=== PATIENT | female | born 1950 | race Caucasian/White ===

== ENCOUNTER 2019-12-04 12:35 | Outpatient (CLI) | payer MEDICARE, OTHER | END 2019-12-04 12:36 | disposition short-term general hospital (02) | LOC: EMS 12:35 | PROVIDERS: ATTEND Surgery | DX: M54.9 Dorsalgia, unspecified (principal) | CPT/HCPCS: A0425; A0429 ==

== ENCOUNTER 2020-01-09 11:41 | Outpatient (CLI) | payer MEDICARE, OTHER | END 2020-01-09 11:42 | disposition critical access hospital (66) | LOC: EMS 11:41 | PROVIDERS: ATTEND Surgery | DX: R11.0 Nausea (principal); R06.02 Shortness of breath; R20.2 Paresthesia of skin; R73.09 Other abnormal glucose | CPT/HCPCS: A0425; A0429 ==

== ENCOUNTER 2020-01-09 12:01 | Emergency (ER) | payer MEDICARE, OTHER ==
--- NOTE | 2020-01-09 12:34 | ED Physician Documentation ---
History of Present Illness - Stated complaint Stated Complaint: LOW BLOOD SUGAR - Chief complaint Chief Complaint: General - History obtained from History obtained from: Patient - Additonal information Additional information: 69-year-old woman with history of hypoglycemia of unclear etiology. She is not diabetic nor does she take anti-hyperglycemics or insulin. She was in physical therapy today for her back and started to feel weak and dizzy like her blood sugar was low. They gave her oral glucose and EMS was summoned. They found her blood sugar to be 78 and she was transported. She feels better now except for chronic back pain. 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 /[employer]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 Cardiovascular: Pacemaker - Present Medications Home Medications: Ambulatory Orders Medication Instructions Recorded Confirmed Bupropion HCl [Bupropion Xl] 150 mg PO 10/25/13 10/25/13 Lansoprazole [Prevacid] 30 mg PO 10/25/13 10/25/13 Levothyroxine Sodium [Synthroid] 88 mcg PO 10/25/13 10/25/13 Metoprolol Succinate 20 mg PO BID 10/25/13 10/25/13 Promethazine [Phenergan] 25 mg ORAL 10/25/13 10/25/13 Valsartan/Hydrochlorothiazide 1 each PO 10/25/13 10/25/13 [Diovan Hct 80-12.5 mg Tablet] Zolpidem [Ambien] 5 mg PO HS 10/25/13 10/25/13 clonazePAM [Clonazepam] 0.5 mg PO 10/25/13 10/25/13 traMADol [Ultram] 50 mg PO Q4-6H 10/25/13 10/25/13 - Allergies Allergies/Adverse Reactions: Allergies Allergy/AdvReac Type Severity Reaction Status Date / Time aspirin Allergy Unknown Unknown Verified 01/09/20 12:11 celecoxib [From Celebrex] Allergy Unknown Unknown Verified 01/09/20 12:11 morphine Allergy Unknown Unknown Verified 01/09/20 12:11 oxycodone [Oxycodone] Allergy Unknown Unknown Verified 01/09/20 12:11 IVP Allergy Unknown Unknown Uncoded 01/09/20 12:11 - Social History Does the pt smoke?: No Smoking Status: Never smoker Does the pt drink ETOH?: No Does the pt have substance abuse?: No - Immunizations Immunizations are current?: Yes - POLST Patient has POLST: No PD ED PE NORMAL - Vitals Vital signs reviewed: Yes - General General: Alert and oriented X 3, No acute distress - Neck Neck: Supple, no meningeal sign, No bony TTP - Cardiac Cardiac: RRR, No murmur - Respiratory Respiratory: No respiratory distress, Clear bilaterally - Abdomen Abdomen: Non tender - Derm Derm: Normal color, Warm and dry - Extremities Extremities: No edema, No calf tenderness / cord - Neuro Neuro: Alert and oriented X 3, Normal speech Results - Vitals Vitals: Vital Signs - 24 hr 01/09/20 12:11 Temperature 36.5 C Heart Rate 66 Respiratory 24 Rate Blood Pressure 127/75 O2 Saturation 100 Oxygen O2 Source Room air PD MEDICAL DECISION MAKING - ED course ED course: 69-year-old woman presents with symptomatic hypoglycemia although not corroborated by much objective information other than a blood sugar of 78 in the field. We will watch her for a couple of hours and repeat her blood sugar. Replete blood sugar after a couple of hours was normal. Departure - Departure Disposition: 01 Home, Self Care Clinical Impression: Hypoglycemia Condition: Good Record reviewed to determine appropriate education?: Yes Instructions: ED Blood Sugar Low Non Diabetic Comments: Call your doctor to arrange a follow-up appointment, make the next available appointment. In the interim, return anytime if worse or if new symptoms develop.
[2020-01-09 14:09] VITALS: BP 149/54
== END 2020-01-09 14:10 | disposition home or self-care (01) ==
LOC: EDUNIT# → ED 12:01
DX: E16.2 Hypoglycemia, unspecified (principal); I10 Essential (primary) hypertension; M54.9 Dorsalgia, unspecified; G89.29 Other chronic pain
CPT/HCPCS: 99283

== ENCOUNTER 2020-01-11 15:13 | Outpatient (CLI) | payer MEDICARE, OTHER | END 2020-01-11 23:59 | disposition critical access hospital (66) | LOC: EMS 15:13 | PROVIDERS: ATTEND Surgery | DX: H53.8 Other visual disturbances (principal); R42 Dizziness and giddiness; R09.89 Other specified symptoms and signs involving the circulatory and respiratory systems | CPT/HCPCS: A0425; A0429 ==

== ENCOUNTER 2020-01-11 15:31 | Emergency (ER) | payer MEDICARE, OTHER ==
[2020-01-11] MEDS ORDERED: ALPRAZolam 0.25 MG TABLET PO STA (15:53)
--- NOTE | 2020-01-11 15:56 | ED Physician Documentation ---
History of Present Illness - Stated complaint Stated Complaint: LIGHT HEADED - Chief complaint Chief Complaint: General - History obtained from History obtained from: Patient, EMS - Additonal information Additional information: 69-year-old woman with history of anxiety, hypoglycemia, hypertension presents by ambulance for an episode. Initial response to the query of why she was here was "I give up." She was at work and started to feel odd and lightheaded, short of breath and anxious and shaky and tingly all over. She said this is similar to the "low blood sugar episode she had when she was here 2 days ago, but neither today nor on the previous visit was objective hypoglycemia confirmed. Review of Systems Ten Systems: 10 systems reviewed and negative Constitutional: reports: Fatigue. denies: Fever, Chills Nose: denies: Rhinorrhea / runny nose, Congestion Throat: denies: Sore throat Cardiac: denies: Chest pain / pressure, Palpitations, Pedal edema, Calf pain Respiratory: reports: Dyspnea. 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 Cardiovascular: Pacemaker - Present Medications Home Medications: Ambulatory Orders Medication Instructions Recorded Confirmed Bupropion HCl [Bupropion Xl] 150 mg PO 10/25/13 10/25/13 Lansoprazole [Prevacid] 30 mg PO 10/25/13 10/25/13 Levothyroxine Sodium [Synthroid] 88 mcg PO 10/25/13 10/25/13 Metoprolol Succinate 20 mg PO BID 10/25/13 10/25/13 Promethazine [Phenergan] 25 mg ORAL 10/25/13 10/25/13 Valsartan/Hydrochlorothiazide 1 each PO 10/25/13 10/25/13 [Diovan Hct 80-12.5 mg Tablet] Zolpidem [Ambien] 5 mg PO HS 10/25/13 10/25/13 clonazePAM [Clonazepam] 0.5 mg PO 10/25/13 10/25/13 traMADol [Ultram] 50 mg PO Q4-6H 10/25/13 10/25/13 Alprazolam [Xanax] 0.25 mg PO Q6H PRN #10 tablet 01/11/20 - Allergies Allergies/Adverse Reactions: Allergies Allergy/AdvReac Type Severity Reaction Status Date / Time aspirin Allergy Unknown Unknown Verified 01/11/20 15:45 celecoxib [From Celebrex] Allergy Unknown Unknown Verified 01/11/20 15:45 morphine Allergy Unknown Unknown Verified 01/11/20 15:45 oxycodone [Oxycodone] Allergy Unknown Unknown Verified 01/11/20 15:45 IVP Allergy Unknown Unknown Uncoded 01/11/20 15:45 - Social History Does the pt smoke?: No Smoking Status: Never smoker Does the pt drink ETOH?: No Does the pt have substance abuse?: No - Immunizations Immunizations are current?: Yes - POLST Patient has POLST: No PD ED PE NORMAL - Vitals Vital signs reviewed: Yes - General General: Alert and oriented X 3, Other (Appears anxious) - HEENT HEENT: PERRL, EOMI - Neck Neck: Supple, no meningeal sign, No bony TTP - Cardiac Cardiac: RRR, No murmur - Respiratory Respiratory: No respiratory distress, Clear bilaterally - Abdomen Abdomen: Non tender - Extremities Extremities: No edema, No calf tenderness / cord - Neuro Neuro: Alert and oriented X 3, Normal speech Results - Vitals Vitals: Vital Signs - 24 hr 01/11/20 15:32 Temperature 36.5 C Heart Rate 65 Respiratory 24 Rate Blood Pressure 156/88 H O2 Saturation 100 Oxygen O2 Source Room air - EKG (time done) 1537 Rate: Rate (enter#) (62) Rhythm: Paced (atrial) [place]: Normal Intervals: Normal CO QRS: LVH Ischemia: Normal ST segments Computer interpretation: Disagree with computer - Labs Labs: Laboratory Tests 01/11/20 01/11/20 01/11/20 16:10 16:10 16:10 WBC 5.0 RBC 4.70 Hgb 12.5 Hct 40.5 MCV 86.2 MCH 26.6 L MCHC 30.9 L RDW 14.6 Plt Count 223 MPV 10.0 Neut # (Auto) 2.6 Lymph # (Auto) 1.7 [place] # (Auto) 0.5 Eos # (Auto) 0.1 Baso # (Auto) 0.1 Absolute Nucleated RBC 0.00 Nucleated RBC % 0.0 VBG pH VBG pCO2 VBG pO2 VBG HCO3 VBG Total CO2 VBG O2 Saturation VBG Base Excess Sodium 141 Potassium 3.7 Chloride 108 Carbon Dioxide 23 Anion Gap 10.0 BUN 20 Creatinine 1.1 H Estimated GFR (MDRD) 49 L Glucose 104 H Calcium 9.2 Total Bilirubin 0.9 AST 18 ALT 14 Alkaline Phosphatase 114 B-Natriuretic Peptide 44 Total Protein 6.8 Albumin 4.0 Globulin 2.8 Albumin/Globulin Ratio 1.4 Lipase 33 01/11/20 16:10 WBC RBC Hgb Hct MCV MCH MCHC RDW Plt Count MPV Neut # (Auto) Lymph # (Auto) [place] # (Auto) Eos # (Auto) Baso # (Auto) Absolute Nucleated RBC Nucleated RBC % VBG pH 7.497 H VBG pCO2 27.6 L VBG pO2 31.2 VBG HCO3 20.9 L VBG Total CO2 21.7 L VBG O2 Saturation 70.8 VBG Base Excess -1.1 Sodium Potassium Chloride Carbon Dioxide Anion Gap BUN Creatinine Estimated GFR (MDRD) Glucose Calcium Total Bilirubin AST ALT Alkaline Phosphatase B-Natriuretic Peptide Total Protein Albumin Globulin Albumin/Globulin Ratio Lipase PD MEDICAL DECISION MAKING - ED course ED course: Pacemaker in place, per her it was last interrogated 2 months ago which point she had 2.5 years of battery life left. 69-year-old woman presents with a lightheaded episode most consistent with anxiety. She felt it was related to hypoglycemia but her blood sugar without specific treatment was normal. We will trial a Xanax while we observe her and check labs. After the administration of his Xanax she was feeling slightly sleepy but otherwise symptom-free. Her work-up was negative here except for mild respiratory alkalosis consistent with anxiety. Departure - Departure Disposition: 01 Home, Self Care Clinical Impression: Anxiety, Near syncope Condition: Good Record reviewed to determine appropriate education?: Yes Instructions: ED Near Syncope Unkn, ED Panic Attack Prescriptions: Alprazolam [Xanax] 0.25 mg PO Q6H PRN #10 tablet PRN Reason: Anxiety Comments: Call your doctor to arrange a follow-up appointment, make the next available appointment. In the interim, return anytime if worse or if new symptoms develop.
[2020-01-11 16:13] LABS: BASOPHILS # (AUTO) 0.1 10^3/uL (0.0-0.1); EOSINOPHILS # (AUTO) 0.1 10^3/uL (0.0-0.7); EOSINOPHILS % (AUTO) 2.8 %; HGB - HEMOGLOBIN 12.5 g/dL (12.0-16.0); LYMPHOCYTES # (AUTO) 1.7 10^3/uL (1.5-3.5); LYMPHOCYTES % (AUTO) 34.4 %; MEAN CORPUSCULAR HEMOGLOBIN 26.6 pg (27.0-31.0); MEAN CORPUSCULAR HGB CONC 30.9 g/dL (32.0-36.0); MEAN CORPUSCULAR VOLUME 86.2 fL (81.0-99.0); MONOCYTES # (AUTO) 0.5 10^3/uL (0.0-1.0); MONOCYTES % (AUTO) 9.1 %; NEUTROPHILS # (AUTO) 2.6 10^3/uL (1.5-6.6); NEUTROPHILS % (AUTO) 52.5 %; PLT - PLATELET COUNT 223 10^3/uL (130-450); RED CELL DISTRIBUTION WIDTH 14.6 % (12.0-15.0)
[2020-01-11 16:14] LABS: VBG PH 7.497 (7.31-7.41)
[2020-01-11 16:15] LABS: VBG BASE EXCESS -1.1 mmol/L (-2 - +2); VBG PCO2 27.6 mmHg (41-51); VBG PO2 31.2 mmHg (25-47); VBG TOTAL CO2 21.7 mmol/L (24-29)
[2020-01-11 16:24] LABS: ALBUMIN/GLOBULIN RATIO 1.4 (1.0-2.2); BILIRUBIN,TOTAL 0.9 mg/dL (0.2-1.0); CALCIUM 9.2 mg/dL (8.5-10.3); CREATININE 1.1 mg/dL (0.4-1.0); TOTAL PROTEIN 6.8 g/dL (6.7-8.2)
[2020-01-11 17:46] VITALS: BP 123/60
== END 2020-01-11 18:05 | disposition home or self-care (01) ==
LOC: EDUNIT# → ED 15:31
DX: F41.9 Anxiety disorder, unspecified (principal); R55 Syncope and collapse; Z95.0 Presence of cardiac pacemaker
CPT/HCPCS: 36415; 80053; 82803; 83690; 83880; 85025; 93005; 99283; A9270

== ENCOUNTER 2022-02-01 18:46 | Emergency (ER) | payer MEDICARE, OTHER ==
--- OUTSIDE RECORDS SUMMARY | 2022-02-01 18:58 | EXTERNAL MEDICAL SUMMARY RPT | Continuity of Care Document ---
:1950 Author Organization [place] Address [address] [place] [address] Phone Allergies and Intolerances date description facility type (no date) [facility] (unknown) (no date) Iodine and Iodide Containing Produc [facility] (unknown) (no date) celecoxib [facility] (unknown) (no date) lactobacillus [facility] (unknown) (no date) morphine [facility] (unknown) (no date) oxycodone [facility] (unknown) Encounters No information. Functional Status No information. Immunizations No information. Medications date description facility [id number] Nitroglycerin 0.4 MG Sublingual Tablet [facility] [id number] Aspirin 81 MG Enteric Coated Tablet I [facility] Problems No information. Procedures date description facility [id number] Diagnosis [facility] [id number] Finding [facility] [id number] General Physician [facility] [id number] General Physician [facility] [id number] General Physician [facility] Results/Labs test date author facility value unit interpret ation Result panel 1 (unknown) (no (unknown) (unknown) (no value) (units (unk nown) date) unknown) (unknown) (no (unknown) (unknown) [address] [place] [address] (units (unknown) date) unknown) (unknown) (no (unknown) (unknown) [place] (units ( unknown) date) [id number] unknown) (unknown) (no (unknown) (unknown) [facility] (units (unknown) date) unknown) (unknown) (no (unknown) (unknown) Signed (units (unkno wn) date) unknown) (unknown) (no (unknown) (unknown) XRay Report (units (un known) date) unknown) (unknown) (no (unknown) (unknown) (no value) (units (unk nown) date) unknown) (unknown) (no (unknown) (unknown) 11/20/21 (units (unkno wn) date) unknown) (unknown) (no (unknown) (unknown) Approved by: (units (u nknown) date) Sola Melendez unknown) MD Laura, PhD on 11/20/2021 at 13:44 (unknown) (no (unknown) (unknown) Bones and chest (units (unknown) date) wall: No unknown) suspicious bony abnormalities. Soft tissues appear (unknown) (no (unknown) (unknown) COMPARISON: (units (un known) date) [facility], unknown) CR, XR CHEST 1V, 12/17/2020, 14:42. (unknown) (no (unknown) (unknown) Dictated by: (units (u nknown) date) Sola Melendez unknown) MD Laura, PhD on 11/20/2021 at 13:43 (unknown) (no (unknown) (unknown) FINDINGS: (units (unkn own) date) unknown) (unknown) (no (unknown) (unknown) IMPRESSION: No (units (unknown) date) acute unknown) cardiopulmonary disease process. (unknown) (no (unknown) (unknown) INDICATIONS: (units (u nknown) date) shortness of unknown) breath (unknown) (no (unknown) (unknown) Lungs and pleura: (units (unknown) date) Lungs are clear. unknown) No pleural effusions or pneumothorax. (unknown) (no (unknown) (unknown) Mediastinum: (units (u nknown) date) Mediastinal unknown) contours are normal. Heart size is normal. (unknown) (no (unknown) (unknown) Surgical changes (units (unknown) date) and devices: Left unknown) chest wall cardiac pacer is stable. (unknown) (no (unknown) (unknown) TECHNIQUE: 2 (units ( unknown) date) views of the chest unknown) were acquired. (unknown) (no (unknown) (unknown) in the right (units (u nknown) date) breast and axilla unknown) are stable. (unknown) (no (unknown) (unknown) unremarkable. (units ( unknown) date) unknown) (unknown) (no (unknown) (unknown) : [id number] (units (u nknown) date) unknown) (unknown) (no (unknown) (unknown) Accession Number: (units (unknown) date) [id number] unknown) (unknown) (no (unknown) (unknown) Age/Sex: 71 / F (units (unknown) date) Date of Service: unknown) (unknown) (no (unknown) (unknown) : 1950 (units (unknown) date) Acct:[id number] unknown) (unknown) (no (unknown) (unknown) Loc: ED (units (unkno wn) date) unknown) (unknown) (no (unknown) (unknown) Ordering (units (unkno wn) date) Provider: unknown) Alem Marlow D.O. (unknown) (no (unknown) (unknown) PROCEDURE: XR (units (unknown) date) CHEST 2V unknown) (unknown) (no (unknown) (unknown) Patient: (units (unkno wn) date) Laurel,Sherine unknown) S MR# (unknown) (no (unknown) (unknown) Procedure: XR (units ( unknown) date) chest 2V unknown) (unknown) (no (unknown) (unknown) Surgical clips (units (unknown) date) unknown) Result panel 2 (unknown) (no date) (unknown) (unknown) 0 /uL (unkn own) (unknown) (no date) (unknown) (unknown) 0.3 % (unkn own) (unknown) (no date) (unknown) (unknown) 12.1 g/dL (unkn own) (unknown) (no date) (unknown) (unknown) 16.1 % (unkn own) (unknown) (no date) (unknown) (unknown) 1600 /uL (unkn own) (unknown) (no date) (unknown) (unknown) 2.5 % (unkn own) (unknown) (no date) (unknown) (unknown) 200 /uL (unkn own) (unknown) (no date) (unknown) (unknown) 23.3 % (unkn own) (unknown) (no date) (unknown) (unknown) 231 X10 3/uL (unkn own) (unknown) (no date) (unknown) (unknown) 26.3 PG (unkn own) (unknown) (no date) (unknown) (unknown) 32.4 % (unkn own) (unknown) (no date) (unknown) (unknown) 37.4 % (unkn own) (unknown) (no date) (unknown) (unknown) 4.62 X10 6/uL (unkn own) (unknown) (no date) (unknown) (unknown) 4400 /uL (unkn own) (unknown) (no date) (unknown) (unknown) 6.7 X10 3/uL (unkn own) (unknown) (no date) (unknown) (unknown) 600 /uL (unkn own) (unknown) (no date) (unknown) (unknown) 65.5 % (unkn own) (unknown) (no date) (unknown) (unknown) 8.4 % (unkn own) (unknown) (no date) (unknown) (unknown) 81.1 fL (unkn own) Result panel 3 (unknown) (no date) (unknown) (unknown) 1.0 mmol/L (unkn own) Result panel 4 (unknown) (no date) (unknown) (unknown) 1.01 mg/dL (unkn own) (unknown) (no date) (unknown) (unknown) 1.1 mg/dL (unkn own) (unknown) (no date) (unknown) (unknown) 1.3 (units unknown) (unknown) (unknown) (no date) (unknown) (unknown) 108 mmol/L (unkn own) (unknown) (no date) (unknown) (unknown) 119 U/L (unkn own) (unknown) (no date) (unknown) (unknown) 12 IU/L (unkn own) (unknown) (no date) (unknown) (unknown) 141 mmol/L (unkn own) (unknown) (no date) (unknown) (unknown) 20.8 (units unknown) (unknown) (unknown) (no date) (unknown) (unknown) 21 mg/dL (unkn own) (unknown) (no date) (unknown) (unknown) 24 IU/L (unkn own) (unknown) (no date) (unknown) (unknown) 27 mmol/L (unkn own) (unknown) (no date) (unknown) (unknown) 3.2 g/dL (unkn own) (unknown) (no date) (unknown) (unknown) 3.8 mmol/L (unkn own) (unknown) (no date) (unknown) (unknown) 4.2 g/dL (unkn own) (unknown) (no date) (unknown) (unknown) 59 mL/min (unkn own) (unknown) (no date) (unknown) (unknown) 7.4 g/dL (unkn own) (unknown) (no date) (unknown) (unknown) 9.1 mg/dL (unkn own) (unknown) (no date) (unknown) (unknown) 94 mg/dL (unkn own) Result panel 5 (unknown) (no date) (unknown) (unknown) 1-5 /HPF (units (unkn own) unknown) (unknown) (no date) (unknown) (unknown) 1-5/HPF (units (unkn own) unknown) (unknown) (no date) (unknown) (unknown) 10-30/HPF (units (unk nown) unknown) (unknown) (no date) (unknown) (unknown) Few (2-10) (units (un known) unknown) (unknown) (no date) (unknown) (unknown) Many (units (unkn own) unknown) (unknown) (no date) (unknown) (unknown) Negative (units (unkn own) unknown) (unknown) (no date) (unknown) (unknown) Specimen (units (unkn own) Cultured unknown) Result panel 6 (unknown) (no date) (unknown) (unknown) 1.01 mg/dL (unkn own) (unknown) (no date) (unknown) (unknown) 1.1 mg/dL (unkn own) (unknown) (no date) (unknown) (unknown) 1.3 (units unknown) (unknown) (unknown) (no date) (unknown) (unknown) 108 mmol/L (unkn own) (unknown) (no date) (unknown) (unknown) 119 U/L (unkn own) (unknown) (no date) (unknown) (unknown) 12 IU/L (unkn own) (unknown) (no date) (unknown) (unknown) 141 mmol/L (unkn own) (unknown) (no date) (unknown) (unknown) 20.8 (units unknown) (unknown) (unknown) (no date) (unknown) (unknown) 21 mg/dL (unkn own) (unknown) (no date) (unknown) (unknown) 24 IU/L (unkn own) (unknown) (no date) (unknown) (unknown) 27 mmol/L (unkn own) (unknown) (no date) (unknown) (unknown) 291 pg/mL (unkn own) (unknown) (no date) (unknown) (unknown) 3.2 g/dL (unkn own) (unknown) (no date) (unknown) (unknown) 3.8 mmol/L (unkn own) (unknown) (no date) (unknown) (unknown) 4.2 g/dL (unkn own) (unknown) (no date) (unknown) (unknown) 59 mL/min (unkn own) (unknown) (no date) (unknown) (unknown) 7.4 g/dL (unkn own) (unknown) (no date) (unknown) (unknown) 9.1 mg/dL (unkn own) (unknown) (no date) (unknown) (unknown) 94 mg/dL (unkn own) Result panel 7 (unknown) (no (unknown) (unknown) Qty: 0 0RF (units (unk nown) date) unknown) (unknown) (no (unknown) (unknown) (no value) (units (unk nown) date) unknown) (unknown) (no (unknown) (unknown) EYE-BOTH 0RF (units ( unknown) date) unknown) (unknown) (no (unknown) (unknown) Date of Service: (units (unknown) date) 11/20/21 unknown) (unknown) (no (unknown) (unknown) (no value) (units (unk nown) date) unknown) (unknown) (no (unknown) (unknown) 11/20/21 12:50 (units (unknown) date) unknown) (unknown) (no (unknown) (unknown) 1 patch TOP DAILY PRN (un its (unknown) date) (Reason: pain) Qty: 15 unknown ) 0RF (unknown) (no (unknown) (unknown) 2 g topical QID 0RF (unit s (unknown) date) unknown) (unknown) (no (unknown) (unknown) 2 puff inhalation BID (un its (unknown) date) 0RF unknown) (unknown) (no (unknown) (unknown) 40 mg PO BID 0RF (units (unknown) date) unknown) (unknown) (no (unknown) (unknown) 5 mg PO BID 0RF (units (unknown) date) unknown) (unknown) (no (unknown) (unknown) 50 mg PO Q6H PRN (units (unknown) date) (Reason: pain) Qty: 20 unknown ) 0RF (unknown) (no (unknown) (unknown) 80 mg PO BID 0RF (units (unknown) date) unknown) (unknown) (no (unknown) (unknown) 80 mg PO DAILY 0RF (units (unknown) date) unknown) (unknown) (no (unknown) (unknown) 80 mg PO DAILY Qty: 0 (un its (unknown) date) 0RF unknown) (unknown) (no (unknown) (unknown) Allergies (units (unkn own) date) unknown) (unknown) (no (unknown) (unknown) Dose Instruction: (units (unknown) date) unknown) (unknown) (no (unknown) (unknown) ED Orders (units (unkn own) date) unknown) (unknown) (no (unknown) (unknown) Emergency Report (units (unknown) date) unknown) (unknown) (no (unknown) (unknown) Home Medications (units (unknown) date) unknown) (unknown) (no (unknown) (unknown) Hypertension (units (u nknown) date) unknown) (unknown) (no (unknown) (unknown) [facility] [address] (uni ts (unknown) date) [address] [place] [address], unknown ) [place] [address] (unknown) (no (unknown) (unknown) Lab Results (units (un known) date) unknown) (unknown) (no (unknown) (unknown) Previous Rx's (units ( unknown) date) unknown) (unknown) (no (unknown) (unknown) Rx Instructions: (units (unknown) date) unknown) (unknown) (no (unknown) (unknown) See Rx Instructions (unit s (unknown) date) .ROUTE .COMPLEX Qty: 30 unknow n) 3RF (unknown) (no (unknown) (unknown) Stroke (units (unkno wn) date) unknown) (unknown) (no (unknown) (unknown) TAKE 1 TABLET BY MOUTH (u nits (unknown) date) DAILY unknown) (unknown) (no (unknown) (unknown) Urine Dip (units (unkn own) date) unknown) (unknown) (no (unknown) (unknown) Vital Signs - 8 hr (units (unknown) date) unknown) (unknown) (no (unknown) (unknown) apply to single elbow, (u nits (unknown) date) wrist or hand; for hand unknow n) includes palm/fingers/back of (unknown) (no (unknown) (unknown) leave on most painful (un its (unknown) date) area for up to 12 hrs unknown) (unknown) (no (unknown) (unknown) (no value) (units (unk nown) date) unknown) (unknown) (no (unknown) (unknown) 11/20/21 11/20/21 (units (unknown) date) 11/20/21 Range/Units unknown) (unknown) (no (unknown) (unknown) 11/20/21 Range/Units (uni ts (unknown) date) unknown) (unknown) (no (unknown) (unknown) 12:50 12:50 12:50 (units (unknown) date) unknown) (unknown) (no (unknown) (unknown) 13:00 (units (unkno wn) date) unknown) (unknown) (no (unknown) (unknown) Eliquis 5 mg tablet (unit s (unknown) date) unknown) (unknown) (no (unknown) (unknown) Refresh Plus 0.5 % (units (unknown) date) dropperette unknown) (unknown) (no (unknown) (unknown) atorvastatin 80 mg (units (unknown) date) tablet unknown) (unknown) (no (unknown) (unknown) budesonide-formoterol (un its (unknown) date) [Symbicort] 80-4.5 unknown) mcg/actuation HFA aerosol inhaler (unknown) (no (unknown) (unknown) citalopram 10 mg tablet ( units (unknown) date) unknown) (unknown) (no (unknown) (unknown) diclofenac sodium 1 % (un its (unknown) date) gel unknown) (unknown) (no (unknown) (unknown) levothyroxine 88 MCG (uni ts (unknown) date) tablet unknown) (unknown) (no (unknown) (unknown) lidocaine 5 % adhesive (u nits (unknown) date) patch,medicated unknown) (unknown) (no (unknown) (unknown) pantoprazole 40 mg (units (unknown) date) tablet,delayed release unknown ) (DR/EC) (unknown) (no (unknown) (unknown) sotalol 80 mg tablet (uni ts (unknown) date) unknown) (unknown) (no (unknown) (unknown) tramadol 50 mg tablet (un its (unknown) date) unknown) (unknown) (no (unknown) (unknown) valsartan 80 mg Tablet (u nits (unknown) date) unknown) (unknown) (no (unknown) (unknown) .COMPLEX #30 tab (units (unknown) date) unknown) (unknown) (no (unknown) (unknown) 11/20/21 (units (unkno wn) date) unknown) (unknown) (no (unknown) (unknown) [id number] (units (unk nown) date) unknown) (unknown) (no (unknown) (unknown) Medication (units (unk nown) date) Instructions Recorded unknown ) (unknown) (no (unknown) (unknown) Medication (units (unk nown) date) Instructions Recorded unknown ) Confirmed (unknown) (no (unknown) (unknown) and below (units (unkn own) date) unknown) (unknown) (no (unknown) (unknown) % eye drops in a (units (unknown) date) dropperette unknown) (unknown) (no (unknown) (unknown) (Refresh Plus) (units (unknown) date) unknown) (unknown) (no (unknown) (unknown) 11/20/21 11:59 (units (unknown) date) unknown) (unknown) (no (unknown) (unknown) 11/20/21 12:50 (units (unknown) date) unknown) (unknown) (no (unknown) (unknown) 11/20/21 13:00 (units (unknown) date) unknown) (unknown) (no (unknown) (unknown) 11/20/21 14:10 (units (unknown) date) unknown) (unknown) (no (unknown) (unknown) 11/20/21 14:11 (units (unknown) date) unknown) (unknown) (no (unknown) (unknown) 11:59 (units (unkno wn) date) unknown) (unknown) (no (unknown) (unknown) ALT (<35) IU/L (units (unknown) date) unknown) (unknown) (no (unknown) (unknown) ALT 12 (<35) IU/L (u nits (unknown) date) unknown) (unknown) (no (unknown) (unknown) AST (14-36) IU/L (unit s (unknown) date) unknown) (unknown) (no (unknown) (unknown) AST 24 (14-36) (units (unknown) date) IU/L unknown) (unknown) (no (unknown) (unknown) Age/Sex: 71 / F (units (unknown) date) unknown) (unknown) (no (unknown) (unknown) Albumin (3.5-5.0) (unit s (unknown) date) g/dL unknown) (unknown) (no (unknown) (unknown) Albumin 4.2 (units ( unknown) date) (3.5-5.0) g/dL unknown) (unknown) (no (unknown) (unknown) Albumin/Globulin Ratio (u nits (unknown) date) (1.0-2.8) unknown) (unknown) (no (unknown) (unknown) Albumin/Globulin Ratio (u nits (unknown) date) 1.3 (1.0-2.8) unknown) (unknown) (no (unknown) (unknown) Alkaline Phosphatase (uni ts (unknown) date) (38-126) U/L unknown) (unknown) (no (unknown) (unknown) Alkaline Phosphatase (uni ts (unknown) date) 119 (38-126) U/L unknown) (unknown) (no (unknown) (unknown) Allergy/AdvReac Type (uni ts (unknown) date) Severity Reaction Status unkno wn) Date / Time (unknown) (no (unknown) (unknown) Anesthesia (units (unk nown) date) unknown) (unknown) (no (unknown) (unknown) Anxiety and depression (u nits (unknown) date) () unknown) (unknown) (no (unknown) (unknown) BUN (7-17) mg/dL (unit s (unknown) date) unknown) (unknown) (no (unknown) (unknown) BUN 21 H (7-17) (unit s (unknown) date) mg/dL unknown) (unknown) (no (unknown) (unknown) BUN/Creatinine Ratio (uni ts (unknown) date) (6-22) unknown) (unknown) (no (unknown) (unknown) BUN/Creatinine Ratio (uni ts (unknown) date) 20.8 (6-22) unknown) (unknown) (no (unknown) (unknown) Baso # (Auto) (0-100) ( units (unknown) date) /uL unknown) (unknown) (no (unknown) (unknown) Baso # (Auto) 0 (units (unknown) date) (0-100) /uL unknown) (unknown) (no (unknown) (unknown) Baso % (Auto) (0-2) (un its (unknown) date) % unknown) (unknown) (no (unknown) (unknown) Baso % (Auto) 0.3 (units (unknown) date) (0-2) % unknown) (unknown) (no (unknown) (unknown) Bedside Urine Bilirubin ( units (unknown) date) + 1 unknown) (unknown) (no (unknown) (unknown) Bedside Urine Glucose (un its (unknown) date) Negative unknown) (unknown) (no (unknown) (unknown) Bedside Urine Ketone (uni ts (unknown) date) - Negative unknown) (unknown) (no (unknown) (unknown) Bedside Urine (units ( unknown) date) Leukocytes +/- 15 unknow n) (unknown) (no (unknown) (unknown) Bedside Urine Nitrite (un its (unknown) date) - Negative unknown) (unknown) (no (unknown) (unknown) Bedside Urine Occult (uni ts (unknown) date) Blood +++ unknown) (unknown) (no (unknown) (unknown) Bedside Urine Protein (un its (unknown) date) +/- 15 unknown) (unknown) (no (unknown) (unknown) Bedside Urine (units ( unknown) date) Urobilinogen - unknown) Negative (unknown) (no (unknown) (unknown) Bedside Urine pH 6.0 ( units (unknown) date) unknown) (unknown) (no (unknown) (unknown) Blood Pressure 163/79 (u nits (unknown) date) H 11/20/21 11:59 unknown) (unknown) (no (unknown) (unknown) Blood Pressure 163/79 H ( units (unknown) date) unknown) (unknown) (no (unknown) (unknown) Brother (units (unknown) date) Cancer unknown) (unknown) (no (unknown) (unknown) Brother (units (unknown) date) History of heart disease unkno wn) (unknown) (no (unknown) (unknown) COPD (chronic (units ( unknown) date) obstructive pulmonary unknown) disease) (-2018) (unknown) (no (unknown) (unknown) Calcium (8.4-10.2) (uni ts (unknown) date) mg/dL unknown) (unknown) (no (unknown) (unknown) Calcium 9.1 (units ( unknown) date) (8.4-10.2) mg/dL unknown) (unknown) (no (unknown) (unknown) Calcium Oxalate Crystal ( units (unknown) date) unknown) (unknown) (no (unknown) (unknown) Calcium Oxalate Crystal ( units (unknown) date) Many H unknown) (unknown) (no (unknown) (unknown) Carbon Dioxide (units (unknown) date) (22-32) mmol/L unknown) (unknown) (no (unknown) (unknown) Carbon Dioxide 27 (unit s (unknown) date) (22-32) mmol/L unknown) (unknown) (no (unknown) (unknown) Chief Complaint: (units (unknown) date) Shortness of unknown) Breath/Dyspnea (unknown) (no (unknown) (unknown) Chloride (98-107) (unit s (unknown) date) mmol/L unknown) (unknown) (no (unknown) (unknown) Chloride 108 H (units (unknown) date) (98-107) mmol/L unknown) (unknown) (no (unknown) (unknown) Chronic back pain (units (unknown) date) () unknown) (unknown) (no (unknown) (unknown) Luzma Sanchez MD (uni ts (unknown) date) [Primary Care Provider] unknow n) - (unknown) (no (unknown) (unknown) Complete Blood Count (uni ts (unknown) date) AUTO DIFF Stat unknown) (unknown) (no (unknown) (unknown) Comprehensive Metabolic ( units (unknown) date) Panel Stat unknown) (unknown) (no (unknown) (unknown) Course (units (unkno wn) date) unknown) (unknown) (no (unknown) (unknown) Creatinine (units (unk nown) date) (0.52-1.04) mg/dL unknown) (unknown) (no (unknown) (unknown) Creatinine 1.01 (units (unknown) date) (0.52-1.04) mg/dL unknown) (unknown) (no (unknown) (unknown) : 1950 (units (unknown) date) Acct:[id number] unknown) (unknown) (no (unknown) (unknown) Departure (units (unkn own) date) unknown) (unknown) (no (unknown) (unknown) Discharge Plan (units (unknown) date) unknown) (unknown) (no (unknown) (unknown) EKG-12 Lead Stat (units (unknown) date) unknown) (unknown) (no (unknown) (unknown) ER Physician: (units ( unknown) date) Alem Marlow D.O. unknown) (unknown) (no (unknown) (unknown) Endometrial hyperplasia ( units (unknown) date) unknown) (unknown) (no (unknown) (unknown) Eos # (Auto) (0-450) (u nits (unknown) date) /uL unknown) (unknown) (no (unknown) (unknown) Eos # (Auto) 200 (units (unknown) date) (0-450) /uL unknown) (unknown) (no (unknown) (unknown) Eos % (Auto) (2-4) % ( units (unknown) date) unknown) (unknown) (no (unknown) (unknown) Eos % (Auto) 2.5 (units (unknown) date) (2-4) % unknown) (unknown) (no (unknown) (unknown) Esterase (units (unkno wn) date) unknown) (unknown) (no (unknown) (unknown) Estimated GFR (>60) (un its (unknown) date) mL/min unknown) (unknown) (no (unknown) (unknown) Estimated GFR 59 L (uni ts (unknown) date) (>60) mL/min unknown) (unknown) (no (unknown) (unknown) Exam (units (unkno wn) date) unknown) (unknown) (no (unknown) (unknown) Family History (units (unknown) date) (Reviewed 11/20/21 @ unknown) 14:12 by Alem Marlow DO) (unknown) (no (unknown) (unknown) Father (units (unknown) date) Cancer unknown) (unknown) (no (unknown) (unknown) GERD (gastroesophageal (u nits (unknown) date) reflux disease) (-2009) unknow n) (unknown) (no (unknown) (unknown) General (units (unkno wn) date) unknown) (unknown) (no (unknown) (unknown) GenericComposite[Plt (uni ts (unknown) date) Count (150-400) unknown) X10^3/uL ] (unknown) (no (unknown) (unknown) GenericComposite[Plt (uni ts (unknown) date) Count 231 (150-400) unknow n) X10^3/uL ] (unknown) (no (unknown) (unknown) GenericComposite[RBC (uni ts (unknown) date) (4.0-5.2) X10^6/uL ] unknown ) (unknown) (no (unknown) (unknown) GenericComposite[RBC (uni ts (unknown) date) 4.62 (4.0-5.2) unknown) X10^6/uL ] (unknown) (no (unknown) (unknown) GenericComposite[WBC (uni ts (unknown) date) (4.5-11.0) X10^3/uL ] unknow n) (unknown) (no (unknown) (unknown) GenericComposite[WBC (uni ts (unknown) date) 6.7 (4.5-11.0) unknown) X10^3/uL ] (unknown) (no (unknown) (unknown) Globulin (1.7-4.1) (uni ts (unknown) date) g/dL unknown) (unknown) (no (unknown) (unknown) Globulin 3.2 (units (unknown) date) (1.7-4.1) g/dL unknown) (unknown) (no (unknown) (unknown) Glucose (80-110) (units (unknown) date) mg/dL unknown) (unknown) (no (unknown) (unknown) Glucose 94 (80-110) ( units (unknown) date) mg/dL unknown) (unknown) (no (unknown) (unknown) HPI - SOB/Dyspnea (units (unknown) date) unknown) (unknown) (no (unknown) (unknown) Hct (36-46) % (units (unknown) date) unknown) (unknown) (no (unknown) (unknown) Hct 37.4 (36-46) % ( units (unknown) date) unknown) (unknown) (no (unknown) (unknown) Headache () (units (unknown) date) unknown) (unknown) (no (unknown) (unknown) Hgb (12.0-16.0) g/dL ( units (unknown) date) unknown) (unknown) (no (unknown) (unknown) Hgb 12.1 (units (unkn own) date) (12.0-16.0) g/dL unknown) (unknown) (no (unknown) (unknown) History of (units (unk nown) date) abdominoplasty () unknown ) (unknown) (no (unknown) (unknown) History of breast lift (u nits (unknown) date) () unknown) (unknown) (no (unknown) (unknown) History of carpal (units (unknown) date) tunnel repair unknown) (unknown) (no (unknown) (unknown) History of cataract (unit s (unknown) date) removal with insertion unknown ) of prosthetic lens () (unknown) (no (unknown) (unknown) History of gastric (units (unknown) date) bypass () unknown) (unknown) (no (unknown) (unknown) History of knee (units (unknown) date) replacement unknown) (unknown) (no (unknown) (unknown) Hypertension () (uni ts (unknown) date) unknown) (unknown) (no (unknown) (unknown) Hypothyroidism (units (unknown) date) unknown) (unknown) (no (unknown) (unknown) IP DYE Allergy Mild (unit s (unknown) date) Uncoded 07/08/21 15:35 unknown ) (unknown) (no (unknown) (unknown) Ictotest Urine Stat (unit s (unknown) date) unknown) (unknown) (no (unknown) (unknown) Initial Vital Signs (unit s (unknown) date) unknown) (unknown) (no (unknown) (unknown) Initial Vital Signs: (uni ts (unknown) date) unknown) (unknown) (no (unknown) (unknown) Iodine and Iodide (units (unknown) date) Containing Allergy unknown) Verified 11/20/21 11:59 (unknown) (no (unknown) (unknown) Lab Data (units (unkno wn) date) unknown) (unknown) (no (unknown) (unknown) Labs: (units (unkno wn) date) unknown) (unknown) (no (unknown) (unknown) Lactate 1.0 (units (unknown) date) (0.7-2.1) mmol/L unknown) (unknown) (no (unknown) (unknown) Lactate (0.7-2.1) (unit s (unknown) date) mmol/L unknown) (unknown) (no (unknown) (unknown) Lactate (Lactic Acid) (un its (unknown) date) Stat unknown) (unknown) (no (unknown) (unknown) Limitations: no (units (unknown) date) limitations unknown) (unknown) (no (unknown) (unknown) Lymph # (Auto) (units (unknown) date) (3940-0047) /uL unknown) (unknown) (no (unknown) (unknown) Lymph # (Auto) 1600 (uni ts (unknown) date) (0832-1819) /uL unknown) (unknown) (no (unknown) (unknown) Lymph % (Auto) (units (unknown) date) (25-40) % unknown) (unknown) (no (unknown) (unknown) Lymph % (Auto) 23.3 L (u nits (unknown) date) (25-40) % unknown) (unknown) (no (unknown) (unknown) MCH (26-34) PG (units (unknown) date) unknown) (unknown) (no (unknown) (unknown) MCH 26.3 (26-34) (uni ts (unknown) date) PG unknown) (unknown) (no (unknown) (unknown) MCHC (30-36) % (units (unknown) date) unknown) (unknown) (no (unknown) (unknown) MCHC 32.4 (30-36) (un its (unknown) date) % unknown) (unknown) (no (unknown) (unknown) MCV (80-100) fL (units (unknown) date) unknown) (unknown) (no (unknown) (unknown) MCV 81.1 (80-100) (un its (unknown) date) fL unknown) (unknown) (no (unknown) (unknown) MDM - SOB/Dyspnea (units (unknown) date) unknown) (unknown) (no (unknown) (unknown) Measure peak expiratory ( units (unknown) date) flow ONCE unknown) (unknown) (no (unknown) (unknown) Medical History (units (unknown) date) (Reviewed 11/20/21 @ unknown) 14:12 by Alem Marlow DO) (unknown) (no (unknown) (unknown) Mode of arrival: (units (unknown) date) Ambulatory unknown) (unknown) (no (unknown) (unknown) [place] # (Auto) (0-900) ( units (unknown) date) /uL unknown) (unknown) (no (unknown) (unknown) [place]ing # (Auto) 600 (units (unknown) date) (0-900) /uL unknown) (unknown) (no (unknown) (unknown) Gooding % (Auto) (3-14) (u nits (unknown) date) % unknown) (unknown) (no (unknown) (unknown) Gooding % (Auto) 8.4 (units (unknown) date) (3-14) % unknown) (unknown) (no (unknown) (unknown) NT-Pro-B Natriuret Pep (u nits (unknown) date) (<125) pg/mL unknown) (unknown) (no (unknown) (unknown) NT-Pro-B Natriuret Pep (u nits (unknown) date) 291 H (<125) pg/mL unknown ) (unknown) (no (unknown) (unknown) NT-proBNP (BNP-Adult (uni ts (unknown) date) 18+) Stat unknown) (unknown) (no (unknown) (unknown) Neut # (Auto) (units ( unknown) date) (8360-7727) /uL unknown) (unknown) (no (unknown) (unknown) Neut # (Auto) 4400 (unit s (unknown) date) (3004-4167) /uL unknown) (unknown) (no (unknown) (unknown) Neut % (Auto) (50-75) ( units (unknown) date) % unknown) (unknown) (no (unknown) (unknown) Neut % (Auto) 65.5 (unit s (unknown) date) (50-75) % unknown) (unknown) (no (unknown) (unknown) No Action (units (unkn own) date) unknown) (unknown) (no (unknown) (unknown) Ordered: (units (unkno wn) date) unknown) (unknown) (no (unknown) (unknown) Orders (units (unkno wn) date) unknown) (unknown) (no (unknown) (unknown) PTT [Partial (units (u nknown) date) Thromboplastin Time] unknown) Stat (unknown) (no (unknown) (unknown) Patient History (units (unknown) date) unknown) (unknown) (no (unknown) (unknown) Patient: (units (unkno wn) date) Laurel,Sherine Eisenberg unknown) MR#: (unknown) (no (unknown) (unknown) Postmenopausal bleeding ( units (unknown) date) unknown) (unknown) (no (unknown) (unknown) Potassium (3.4-5.1) (un its (unknown) date) mmol/L unknown) (unknown) (no (unknown) (unknown) Potassium 3.8 (units (unknown) date) (3.4-5.1) mmol/L unknown) (unknown) (no (unknown) (unknown) Prescriptions: (units (unknown) date) unknown) (unknown) (no (unknown) (unknown) Presence of cardiac (unit s (unknown) date) pacemaker () unknown) (unknown) (no (unknown) (unknown) Produc (units (unkno wn) date) unknown) (unknown) (no (unknown) (unknown) Prothrombin Time INR (uni ts (unknown) date) Stat unknown) (unknown) (no (unknown) (unknown) Pulse Oximetry 100 (unit s (unknown) date) 11/20/21 11:59 unknown) (unknown) (no (unknown) (unknown) Pulse Oximetry 100 (units (unknown) date) unknown) (unknown) (no (unknown) (unknown) Pulse Rate 67 (units (unknown) date) 11/20/21 11:59 unknown) (unknown) (no (unknown) (unknown) Pulse Rate 67 (units ( unknown) date) unknown) (unknown) (no (unknown) (unknown) RDW (11.6-14.8) % (uni ts (unknown) date) unknown) (unknown) (no (unknown) (unknown) RDW 16.1 H (units (un known) date) (11.6-14.8) % unknown) (unknown) (no (unknown) (unknown) ROS Unobtainable: All (uni ts (unknown) date) systems reviewed + are unknown ) unremarkable except as noted in HPI (unknown) (no (unknown) (unknown) RT Consult Eval and (unit s (unknown) date) Treat Now unknown) (unknown) (no (unknown) (unknown) Referrals: (units (unk nown) date) unknown) (unknown) (no (unknown) (unknown) Related Data (units (u nknown) date) unknown) (unknown) (no (unknown) (unknown) Respiratory Rate 15 (uni ts (unknown) date) 11/20/21 11:59 unknown) (unknown) (no (unknown) (unknown) Respiratory Rate 15 (unit s (unknown) date) unknown) (unknown) (no (unknown) (unknown) Result diagrams: (units (unknown) date) unknown) (unknown) (no (unknown) (unknown) Review of Systems (units (unknown) date) unknown) (unknown) (no (unknown) (unknown) Sarcoidosis (-1978) (unit s (unknown) date) unknown) (unknown) (no (unknown) (unknown) Signed By: (units (unk nown) date) unknown) (unknown) (no (unknown) (unknown) Sister (units (unknown) date) Cancer unknown) (unknown) (no (unknown) (unknown) Smoking Status: Never (u nits (unknown) date) smoker unknown) (unknown) (no (unknown) (unknown) Smoking Status: Never (un its (unknown) date) smoker unknown) (unknown) (no (unknown) (unknown) Social History (units (unknown) date) (Reviewed 11/20/21 @ unknown) 14:12 by Alem Marlow DO) (unknown) (no (unknown) (unknown) Sodium (137-145) (units (unknown) date) mmol/L unknown) (unknown) (no (unknown) (unknown) Sodium 141 (units (u nknown) date) (137-145) mmol/L unknown) (unknown) (no (unknown) (unknown) Source: patient (units (unknown) date) unknown) (unknown) (no (unknown) (unknown) Stated Complaint: (units (unknown) date) Possible heart attack unknown) (unknown) (no (unknown) (unknown) Status post breast (units (unknown) date) lumpectomy unknown) (unknown) (no (unknown) (unknown) Status post (units (un known) date) cholecystectomy (-1979) unknow n) (unknown) (no (unknown) (unknown) Status post dilation (uni ts (unknown) date) and curettage unknown) (unknown) (no (unknown) (unknown) Status post surgery (unit s (unknown) date) (05/11/15) unknown) (unknown) (no (unknown) (unknown) Substance Use Type: (unit s (unknown) date) does not use unknown) (unknown) (no (unknown) (unknown) Surgical History (units (unknown) date) (Reviewed 11/20/21 @ unknown) 14:12 by Alem Marlow DO) (unknown) (no (unknown) (unknown) Temperature 97.7 F (unit s (unknown) date) 11/20/21 11:59 unknown) (unknown) (no (unknown) (unknown) Temperature 97.7 F (units (unknown) date) unknown) (unknown) (no (unknown) (unknown) Time Seen by Provider: (u nits (unknown) date) 11/20/21 14:10 unknown) (unknown) (no (unknown) (unknown) Total Bilirubin (units (unknown) date) (0.2-1.3) mg/dL unknown) (unknown) (no (unknown) (unknown) Total Bilirubin 1.1 (un its (unknown) date) (0.2-1.3) mg/dL unknown) (unknown) (no (unknown) (unknown) Total Protein (units ( unknown) date) (6.3-8.2) g/dL unknown) (unknown) (no (unknown) (unknown) Total Protein 7.4 (unit s (unknown) date) (6.3-8.2) g/dL unknown) (unknown) (no (unknown) (unknown) Troponin + CK Cardiac (un its (unknown) date) Panel Stat unknown) (unknown) (no (unknown) (unknown) Ur Bilirubin Confirm (uni ts (unknown) date) (Negative) unknown) (unknown) (no (unknown) (unknown) Ur Bilirubin Confirm (uni ts (unknown) date) Negative (Negative) unknown) (unknown) (no (unknown) (unknown) Ur Culture Indicated? (un its (unknown) date) unknown) (unknown) (no (unknown) (unknown) Ur Culture Indicated? (un its (unknown) date) Specimen cultured unknown) (unknown) (no (unknown) (unknown) Ur Squamous Epith Cells ( units (unknown) date) (0-5/HPF) unknown) (unknown) (no (unknown) (unknown) Ur Squamous Epith Cells ( units (unknown) date) 1-5 /hpf (0-5/HPF) unknown) (unknown) (no (unknown) (unknown) Urine Bacteria (units (unknown) date) (None) unknown) (unknown) (no (unknown) (unknown) Urine Bacteria Few (unit s (unknown) date) (2-10) H (None) unknown) (unknown) (no (unknown) (unknown) Urine Culture Stat (units (unknown) date) unknown) (unknown) (no (unknown) (unknown) Urine Microscopic Stat (u nits (unknown) date) unknown) (unknown) (no (unknown) (unknown) Urine RBC (0-5/HPF) ( units (unknown) date) unknown) (unknown) (no (unknown) (unknown) Urine RBC 10-30/hpf H (u nits (unknown) date) (0-5/HPF) unknown) (unknown) (no (unknown) (unknown) Urine Specific [place] (u nits (unknown) date) 1.030 unknown) (unknown) (no (unknown) (unknown) Urine WBC (0-5/HPF) ( units (unknown) date) unknown) (unknown) (no (unknown) (unknown) Urine WBC 1-5/hpf (units (unknown) date) (0-5/HPF) unknown) (unknown) (no (unknown) (unknown) Uterine mass (units (u nknown) date) unknown) (unknown) (no (unknown) (unknown) Vital Signs (units (un known) date) unknown) (unknown) (no (unknown) (unknown) Vital signs: (units (u nknown) date) unknown) (unknown) (no (unknown) (unknown) Wears glasses (units ( unknown) date) unknown) (unknown) (no (unknown) (unknown) XR chest 2V Stat (units (unknown) date) unknown) (unknown) (no (unknown) (unknown) [Embedded Image Not (unit s (unknown) date) Available] unknown) (unknown) (no (unknown) (unknown) alcohol intake (units (unknown) date) frequency: unknown) holidays/special occasions only (unknown) (no (unknown) (unknown) alcohol intake: never (u nits (unknown) date) unknown) (unknown) (no (unknown) (unknown) apixaban 5 mg tablet (uni ts (unknown) date) (Eliquis) 5 mg PO BID unknown) 05/07/21 07/08/21 (unknown) (no (unknown) (unknown) atorvastatin 80 mg (units (unknown) date) tablet 80 mg PO DAILY unknown) 05/07/21 07/08/21 (unknown) (no (unknown) (unknown) budesonide-formoterol (un its (unknown) date) HFA 80 2 puff INHALATION unkno wn) BID 05/07/21 07/08/21 (unknown) (no (unknown) (unknown) carboxymethylcellulose (u nits (unknown) date) sodium 0.5 drp EYE-BOTH unknow n) 05/07/21 07/08/21 (unknown) (no (unknown) (unknown) celecoxib [CELECOXIB] (un its (unknown) date) Allergy Unknown unknown) Verified 11/20/21 11:59 (unknown) (no (unknown) (unknown) citalopram 10 mg tablet ( units (unknown) date) See Rx Instructions unknown) .ROUTE 10/04/21 (unknown) (no (unknown) (unknown) diclofenac sodium 1 % (un its (unknown) date) topical gel 2 g TOPICAL unknow n) QID 05/07/21 07/08/21 (unknown) (no (unknown) (unknown) hand (units (unkno wn) date) unknown) (unknown) (no (unknown) (unknown) inhaler (Symbicort) (unit s (unknown) date) unknown) (unknown) (no (unknown) (unknown) lactobacillus (units ( unknown) date) [LACTOBACILLUS] Allergy unknow n) Unknown Verified 11/20/21 11:59 (unknown) (no (unknown) (unknown) levothyroxine 88 mcg (uni ts (unknown) date) tablet #0 03/09/12 unknown) 07/08/21 (unknown) (no (unknown) (unknown) lidocaine 5 % topical (un its (unknown) date) patch 1 patch TOP DAILY unknow n) PRN #15 each 12/04/19 (unknown) (no (unknown) (unknown) mcg-4.5 mcg/actuation (un its (unknown) date) aerosol unknown) (unknown) (no (unknown) (unknown) morphine [MORPHINE] (unit s (unknown) date) Allergy Unknown unknown) Verified 11/20/21 11:59 (unknown) (no (unknown) (unknown) oxycodone [OXYCODONE] (un its (unknown) date) Allergy Unknown unknown) Verified 11/20/21 11:59 (unknown) (no (unknown) (unknown) pantoprazole 40 mg (units (unknown) date) tablet,delayed 40 mg PO unknow n) BID tab 05/07/21 07/08/21 (unknown) (no (unknown) (unknown) release (units (unkno wn) date) unknown) (unknown) (no (unknown) (unknown) sotalol 80 mg tablet 80 ( units (unknown) date) mg PO BID 05/07/21 unknown) 07/08/21 (unknown) (no (unknown) (unknown) tramadol 50 mg tablet (un its (unknown) date) 50 mg PO Q6H PRN #20 tab unkno wn) 05/21/21 (unknown) (no (unknown) (unknown) valsartan 80 mg tablet (u nits (unknown) date) 80 mg PO DAILY #0 unknown) 03/09/12 07/08/21 Result panel 8 (unknown) (no (unknown) (unknown) Qty: 0 0RF (units (unk nown) date) unknown) (unknown) (no (unknown) (unknown) (no value) (units (unk nown) date) unknown) (unknown) (no (unknown) (unknown) EYE-BOTH 0RF (units ( unknown) date) unknown) (unknown) (no (unknown) (unknown) Date of Service: (units (unknown) date) 11/20/21 unknown) (unknown) (no (unknown) (unknown) (no value) (units (unk nown) date) unknown) (unknown) (no (unknown) (unknown) 11/20/21 12:50 (units (unknown) date) unknown) (unknown) (no (unknown) (unknown) 1 patch TOP DAILY PRN (un its (unknown) date) (Reason: pain) Qty: 15 unknown ) 0RF (unknown) (no (unknown) (unknown) 2 g topical QID 0RF (unit s (unknown) date) unknown) (unknown) (no (unknown) (unknown) 2 puff inhalation BID (un its (unknown) date) 0RF unknown) (unknown) (no (unknown) (unknown) 40 mg PO BID 0RF (units (unknown) date) unknown) (unknown) (no (unknown) (unknown) 5 mg PO BID 0RF (units (unknown) date) unknown) (unknown) (no (unknown) (unknown) 50 mg PO Q6H PRN (units (unknown) date) (Reason: pain) Qty: 20 unknown ) 0RF (unknown) (no (unknown) (unknown) 80 mg PO BID 0RF (units (unknown) date) unknown) (unknown) (no (unknown) (unknown) 80 mg PO DAILY 0RF (units (unknown) date) unknown) (unknown) (no (unknown) (unknown) 80 mg PO DAILY Qty: 0 (un its (unknown) date) 0RF unknown) (unknown) (no (unknown) (unknown) Allergies (units (unkn own) date) unknown) (unknown) (no (unknown) (unknown) Dose Instruction: (units (unknown) date) unknown) (unknown) (no (unknown) (unknown) ED Orders (units (unkn own) date) unknown) (unknown) (no (unknown) (unknown) Emergency Report (units (unknown) date) unknown) (unknown) (no (unknown) (unknown) Home Medications (units (unknown) date) unknown) (unknown) (no (unknown) (unknown) Hypertension (units (u nknown) date) unknown) (unknown) (no (unknown) (unknown) [facility] [address] (uni ts (unknown) date) [address] [place] [address] [place], unknown ) [place] [address] (unknown) (no (unknown) (unknown) Lab Results (units (un known) date) unknown) (unknown) (no (unknown) (unknown) Previous Rx's (units ( unknown) date) unknown) (unknown) (no (unknown) (unknown) Rx Instructions: (units (unknown) date) unknown) (unknown) (no (unknown) (unknown) See Rx Instructions (unit s (unknown) date) .ROUTE .COMPLEX Qty: 30 unknow n) 3RF (unknown) (no (unknown) (unknown) Stroke (units (unkno wn) date) unknown) (unknown) (no (unknown) (unknown) TAKE 1 TABLET BY MOUTH (u nits (unknown) date) DAILY unknown) (unknown) (no (unknown) (unknown) Urine Dip (units (unkn own) date) unknown) (unknown) (no (unknown) (unknown) Vital Signs - 8 hr (units (unknown) date) unknown) (unknown) (no (unknown) (unknown) apply to single elbow, (u nits (unknown) date) wrist or hand; for hand unknow n) includes palm/fingers/back of (unknown) (no (unknown) (unknown) leave on most painful (un its (unknown) date) area for up to 12 hrs unknown) (unknown) (no (unknown) (unknown) (no value) (units (unk nown) date) unknown) (unknown) (no (unknown) (unknown) 11/20/21 11/20/21 (units (unknown) date) 11/20/21 Range/Units unknown) (unknown) (no (unknown) (unknown) 11/20/21 Range/Units (uni ts (unknown) date) unknown) (unknown) (no (unknown) (unknown) 12:50 12:50 12:50 (units (unknown) date) unknown) (unknown) (no (unknown) (unknown) 13:00 (units (unkno wn) date) unknown) (unknown) (no (unknown) (unknown) Eliquis 5 mg tablet (unit s (unknown) date) unknown) (unknown) (no (unknown) (unknown) Refresh Plus 0.5 % (units (unknown) date) dropperette unknown) (unknown) (no (unknown) (unknown) atorvastatin 80 mg (units (unknown) date) tablet unknown) (unknown) (no (unknown) (unknown) budesonide-formoterol (un its (unknown) date) [Symbicort] 80-4.5 unknown) mcg/actuation HFA aerosol inhaler (unknown) (no (unknown) (unknown) citalopram 10 mg tablet ( units (unknown) date) unknown) (unknown) (no (unknown) (unknown) diclofenac sodium 1 % (un its (unknown) date) gel unknown) (unknown) (no (unknown) (unknown) levothyroxine 88 MCG (uni ts (unknown) date) tablet unknown) (unknown) (no (unknown) (unknown) lidocaine 5 % adhesive (u nits (unknown) date) patch,medicated unknown) (unknown) (no (unknown) (unknown) pantoprazole 40 mg (units (unknown) date) tablet,delayed release unknown ) (DR/EC) (unknown) (no (unknown) (unknown) sotalol 80 mg tablet (uni ts (unknown) date) unknown) (unknown) (no (unknown) (unknown) tramadol 50 mg tablet (un its (unknown) date) unknown) (unknown) (no (unknown) (unknown) valsartan 80 mg Tablet (u nits (unknown) date) unknown) (unknown) (no (unknown) (unknown) .COMPLEX #30 tab (units (unknown) date) unknown) (unknown) (no (unknown) (unknown) 11/20/21 (units (unkno wn) date) unknown) (unknown) (no (unknown) (unknown) [id number] (units (unk nown) date) unknown) (unknown) (no (unknown) (unknown) Medication (units (unk nown) date) Instructions Recorded unknown ) (unknown) (no (unknown) (unknown) Medication (units (unk nown) date) Instructions Recorded unknown ) Confirmed (unknown) (no (unknown) (unknown) and below (units (unkn own) date) unknown) (unknown) (no (unknown) (unknown) % eye drops in a (units (unknown) date) dropperette unknown) (unknown) (no (unknown) (unknown) (Refresh Plus) (units (unknown) date) unknown) (unknown) (no (unknown) (unknown) 11/20/21 11:59 (units (unknown) date) unknown) (unknown) (no (unknown) (unknown) 11/20/21 12:50 (units (unknown) date) unknown) (unknown) (no (unknown) (unknown) 11/20/21 13:00 (units (unknown) date) unknown) (unknown) (no (unknown) (unknown) 11/20/21 14:10 (units (unknown) date) unknown) (unknown) (no (unknown) (unknown) 11/20/21 14:11 (units (unknown) date) unknown) (unknown) (no (unknown) (unknown) 11:59 (units (unkno wn) date) unknown) (unknown) (no (unknown) (unknown) ALT (<35) IU/L (units (unknown) date) unknown) (unknown) (no (unknown) (unknown) ALT 12 (<35) IU/L (u nits (unknown) date) unknown) (unknown) (no (unknown) (unknown) AST (14-36) IU/L (unit s (unknown) date) unknown) (unknown) (no (unknown) (unknown) AST 24 (14-36) (units (unknown) date) IU/L unknown) (unknown) (no (unknown) (unknown) Age/Sex: 71 / F (units (unknown) date) unknown) (unknown) (no (unknown) (unknown) Albumin (3.5-5.0) (unit s (unknown) date) g/dL unknown) (unknown) (no (unknown) (unknown) Albumin 4.2 (units ( unknown) date) (3.5-5.0) g/dL unknown) (unknown) (no (unknown) (unknown) Albumin/Globulin Ratio (u nits (unknown) date) (1.0-2.8) unknown) (unknown) (no (unknown) (unknown) Albumin/Globulin Ratio (u nits (unknown) date) 1.3 (1.0-2.8) unknown) (unknown) (no (unknown) (unknown) Alkaline Phosphatase (uni ts (unknown) date) (38-126) U/L unknown) (unknown) (no (unknown) (unknown) Alkaline Phosphatase (uni ts (unknown) date) 119 (38-126) U/L unknown) (unknown) (no (unknown) (unknown) Allergy/AdvReac Type (uni ts (unknown) date) Severity Reaction Status unkno wn) Date / Time (unknown) (no (unknown) (unknown) Anesthesia (units (unk nown) date) unknown) (unknown) (no (unknown) (unknown) Anxiety and depression (u nits (unknown) date) (-1996) unknown) (unknown) (no (unknown) (unknown) BUN (7-17) mg/dL (unit s (unknown) date) unknown) (unknown) (no (unknown) (unknown) BUN 21 H (7-17) (unit s (unknown) date) mg/dL unknown) (unknown) (no (unknown) (unknown) BUN/Creatinine Ratio (uni ts (unknown) date) (6-22) unknown) (unknown) (no (unknown) (unknown) BUN/Creatinine Ratio (uni ts (unknown) date) 20.8 (6-22) unknown) (unknown) (no (unknown) (unknown) Baso # (Auto) (0-100) ( units (unknown) date) /uL unknown) (unknown) (no (unknown) (unknown) Baso # (Auto) 0 (units (unknown) date) (0-100) /uL unknown) (unknown) (no (unknown) (unknown) Baso % (Auto) (0-2) (un its (unknown) date) % unknown) (unknown) (no (unknown) (unknown) Baso % (Auto) 0.3 (units (unknown) date) (0-2) % unknown) (unknown) (no (unknown) (unknown) Bedside Urine Bilirubin ( units (unknown) date) + 1 unknown) (unknown) (no (unknown) (unknown) Bedside Urine Glucose (un its (unknown) date) Negative unknown) (unknown) (no (unknown) (unknown) Bedside Urine Ketone (uni ts (unknown) date) - Negative unknown) (unknown) (no (unknown) (unknown) Bedside Urine (units ( unknown) date) Leukocytes +/- 15 unknow n) (unknown) (no (unknown) (unknown) Bedside Urine Nitrite (un its (unknown) date) - Negative unknown) (unknown) (no (unknown) (unknown) Bedside Urine Occult (uni ts (unknown) date) Blood +++ unknown) (unknown) (no (unknown) (unknown) Bedside Urine Protein (un its (unknown) date) +/- 15 unknown) (unknown) (no (unknown) (unknown) Bedside Urine (units ( unknown) date) Urobilinogen - unknown) Negative (unknown) (no (unknown) (unknown) Bedside Urine pH 6.0 ( units (unknown) date) unknown) (unknown) (no (unknown) (unknown) Blood Pressure 163/79 (u nits (unknown) date) H 11/20/21 11:59 unknown) (unknown) (no (unknown) (unknown) Blood Pressure 163/79 H ( units (unknown) date) unknown) (unknown) (no (unknown) (unknown) Brother (units (unknown) date) Cancer unknown) (unknown) (no (unknown) (unknown) Brother (units (unknown) date) History of heart disease unkno wn) (unknown) (no (unknown) (unknown) COPD (chronic (units ( unknown) date) obstructive pulmonary unknown) disease) (-2018) (unknown) (no (unknown) (unknown) Calcium (8.4-10.2) (uni ts (unknown) date) mg/dL unknown) (unknown) (no (unknown) (unknown) Calcium 9.1 (units ( unknown) date) (8.4-10.2) mg/dL unknown) (unknown) (no (unknown) (unknown) Calcium Oxalate Crystal ( units (unknown) date) unknown) (unknown) (no (unknown) (unknown) Calcium Oxalate Crystal ( units (unknown) date) Many H unknown) (unknown) (no (unknown) (unknown) Carbon Dioxide (units (unknown) date) (22-32) mmol/L unknown) (unknown) (no (unknown) (unknown) Carbon Dioxide 27 (unit s (unknown) date) (22-32) mmol/L unknown) (unknown) (no (unknown) (unknown) Chief Complaint: (units (unknown) date) Shortness of unknown) Breath/Dyspnea (unknown) (no (unknown) (unknown) Chloride (98-107) (unit s (unknown) date) mmol/L unknown) (unknown) (no (unknown) (unknown) Chloride 108 H (units (unknown) date) (98-107) mmol/L unknown) (unknown) (no (unknown) (unknown) Chronic back pain (units (unknown) date) () unknown) (unknown) (no (unknown) (unknown) Luzma Sanchez MD (uni ts (unknown) date) [Primary Care Provider] unknow n) - (unknown) (no (unknown) (unknown) Complete Blood Count (uni ts (unknown) date) AUTO DIFF Stat unknown) (unknown) (no (unknown) (unknown) Comprehensive Metabolic ( units (unknown) date) Panel Stat unknown) (unknown) (no (unknown) (unknown) Course (units (unkno wn) date) unknown) (unknown) (no (unknown) (unknown) Creatinine (units (unk nown) date) (0.52-1.04) mg/dL unknown) (unknown) (no (unknown) (unknown) Creatinine 1.01 (units (unknown) date) (0.52-1.04) mg/dL unknown) (unknown) (no (unknown) (unknown) : 1950 (units (unknown) date) Acct:[id number] unknown) (unknown) (no (unknown) (unknown) Departure (units (unkn own) date) unknown) (unknown) (no (unknown) (unknown) Discharge Plan (units (unknown) date) unknown) (unknown) (no (unknown) (unknown) EKG-12 Lead Stat (units (unknown) date) unknown) (unknown) (no (unknown) (unknown) ER Physician: (units ( unknown) date) Alem Marlow D.O. unknown) (unknown) (no (unknown) (unknown) Endometrial hyperplasia ( units (unknown) date) unknown) (unknown) (no (unknown) (unknown) Eos # (Auto) (0-450) (u nits (unknown) date) /uL unknown) (unknown) (no (unknown) (unknown) Eos # (Auto) 200 (units (unknown) date) (0-450) /uL unknown) (unknown) (no (unknown) (unknown) Eos % (Auto) (2-4) % ( units (unknown) date) unknown) (unknown) (no (unknown) (unknown) Eos % (Auto) 2.5 (units (unknown) date) (2-4) % unknown) (unknown) (no (unknown) (unknown) Esterase (units (unkno wn) date) unknown) (unknown) (no (unknown) (unknown) Estimated GFR (>60) (un its (unknown) date) mL/min unknown) (unknown) (no (unknown) (unknown) Estimated GFR 59 L (uni ts (unknown) date) (>60) mL/min unknown) (unknown) (no (unknown) (unknown) Exam (units (unkno wn) date) unknown) (unknown) (no (unknown) (unknown) Family History (units (unknown) date) (Reviewed 11/20/21 @ unknown) 14:12 by Alem Marlow DO) (unknown) (no (unknown) (unknown) Father (units (unknown) date) Cancer unknown) (unknown) (no (unknown) (unknown) GERD (gastroesophageal (u nits (unknown) date) reflux disease) (-2009) unknow n) (unknown) (no (unknown) (unknown) General (units (unkno wn) date) unknown) (unknown) (no (unknown) (unknown) GenericComposite[Plt (uni ts (unknown) date) Count (150-400) unknown) X10^3/uL ] (unknown) (no (unknown) (unknown) GenericComposite[Plt (uni ts (unknown) date) Count 231 (150-400) unknow n) X10^3/uL ] (unknown) (no (unknown) (unknown) GenericComposite[RBC (uni ts (unknown) date) (4.0-5.2) X10^6/uL ] unknown ) (unknown) (no (unknown) (unknown) GenericComposite[RBC (uni ts (unknown) date) 4.62 (4.0-5.2) unknown) X10^6/uL ] (unknown) (no (unknown) (unknown) GenericComposite[WBC (uni ts (unknown) date) (4.5-11.0) X10^3/uL ] unknow n) (unknown) (no (unknown) (unknown) GenericComposite[WBC (uni ts (unknown) date) 6.7 (4.5-11.0) unknown) X10^3/uL ] (unknown) (no (unknown) (unknown) Globulin (1.7-4.1) (uni ts (unknown) date) g/dL unknown) (unknown) (no (unknown) (unknown) Globulin 3.2 (units (unknown) date) (1.7-4.1) g/dL unknown) (unknown) (no (unknown) (unknown) Glucose (80-110) (units (unknown) date) mg/dL unknown) (unknown) (no (unknown) (unknown) Glucose 94 (80-110) ( units (unknown) date) mg/dL unknown) (unknown) (no (unknown) (unknown) HPI - SOB/Dyspnea (units (unknown) date) unknown) (unknown) (no (unknown) (unknown) Hct (36-46) % (units (unknown) date) unknown) (unknown) (no (unknown) (unknown) Hct 37.4 (36-46) % ( units (unknown) date) unknown) (unknown) (no (unknown) (unknown) Headache () (units (unknown) date) unknown) (unknown) (no (unknown) (unknown) Hgb (12.0-16.0) g/dL ( units (unknown) date) unknown) (unknown) (no (unknown) (unknown) Hgb 12.1 (units (unkn own) date) (12.0-16.0) g/dL unknown) (unknown) (no (unknown) (unknown) History of (units (unk nown) date) abdominoplasty () unknown ) (unknown) (no (unknown) (unknown) History of breast lift (u nits (unknown) date) () unknown) (unknown) (no (unknown) (unknown) History of carpal (units (unknown) date) tunnel repair unknown) (unknown) (no (unknown) (unknown) History of cataract (unit s (unknown) date) removal with insertion unknown ) of prosthetic lens () (unknown) (no (unknown) (unknown) History of gastric (units (unknown) date) bypass () unknown) (unknown) (no (unknown) (unknown) History of knee (units (unknown) date) replacement unknown) (unknown) (no (unknown) (unknown) Hypertension (-1995) (uni ts (unknown) date) unknown) (unknown) (no (unknown) (unknown) Hypothyroidism (units (unknown) date) unknown) (unknown) (no (unknown) (unknown) IP DYE Allergy Mild (unit s (unknown) date) Uncoded 07/08/21 15:35 unknown ) (unknown) (no (unknown) (unknown) Ictotest Urine Stat (unit s (unknown) date) unknown) (unknown) (no (unknown) (unknown) Initial Vital Signs (unit s (unknown) date) unknown) (unknown) (no (unknown) (unknown) Initial Vital Signs: (uni ts (unknown) date) unknown) (unknown) (no (unknown) (unknown) Iodine and Iodide (units (unknown) date) Containing Allergy unknown) Verified 11/20/21 11:59 (unknown) (no (unknown) (unknown) Lab Data (units (unkno wn) date) unknown) (unknown) (no (unknown) (unknown) Labs: (units (unkno wn) date) unknown) (unknown) (no (unknown) (unknown) Lactate 1.0 (units (unknown) date) (0.7-2.1) mmol/L unknown) (unknown) (no (unknown) (unknown) Lactate (0.7-2.1) (unit s (unknown) date) mmol/L unknown) (unknown) (no (unknown) (unknown) Lactate (Lactic Acid) (un its (unknown) date) Stat unknown) (unknown) (no (unknown) (unknown) Limitations: no (units (unknown) date) limitations unknown) (unknown) (no (unknown) (unknown) Lymph # (Auto) (units (unknown) date) (6660-9266) /uL unknown) (unknown) (no (unknown) (unknown) Lymph # (Auto) 1600 (uni ts (unknown) date) (0347-7456) /uL unknown) (unknown) (no (unknown) (unknown) Lymph % (Auto) (units (unknown) date) (25-40) % unknown) (unknown) (no (unknown) (unknown) Lymph % (Auto) 23.3 L (u nits (unknown) date) (25-40) % unknown) (unknown) (no (unknown) (unknown) MCH (26-34) PG (units (unknown) date) unknown) (unknown) (no (unknown) (unknown) MCH 26.3 (26-34) (uni ts (unknown) date) PG unknown) (unknown) (no (unknown) (unknown) MCHC (30-36) % (units (unknown) date) unknown) (unknown) (no (unknown) (unknown) MCHC 32.4 (30-36) (un its (unknown) date) % unknown) (unknown) (no (unknown) (unknown) MCV (80-100) fL (units (unknown) date) unknown) (unknown) (no (unknown) (unknown) MCV 81.1 (80-100) (un its (unknown) date) fL unknown) (unknown) (no (unknown) (unknown) MDM - SOB/Dyspnea (units (unknown) date) unknown) (unknown) (no (unknown) (unknown) Measure peak expiratory ( units (unknown) date) flow ONCE unknown) (unknown) (no (unknown) (unknown) Medical History (units (unknown) date) (Reviewed 11/20/21 @ unknown) 14:12 by Alem Marlow DO) (unknown) (no (unknown) (unknown) Mode of arrival: (units (unknown) date) Ambulatory unknown) (unknown) (no (unknown) (unknown) [place]ing # (Auto) (0-900) ( units (unknown) date) /uL unknown) (unknown) (no (unknown) (unknown) [place]ing # (Auto) 600 (units (unknown) date) (0-900) /uL unknown) (unknown) (no (unknown) (unknown) [place]ing % (Auto) (3-14) (u nits (unknown) date) % unknown) (unknown) (no (unknown) (unknown) [place]ing % (Auto) 8.4 (units (unknown) date) (3-14) % unknown) (unknown) (no (unknown) (unknown) NT-Pro-B Natriuret Pep (u nits (unknown) date) (<125) pg/mL unknown) (unknown) (no (unknown) (unknown) NT-Pro-B Natriuret Pep (u nits (unknown) date) 291 H (<125) pg/mL unknown ) (unknown) (no (unknown) (unknown) NT-proBNP (BNP-Adult (uni ts (unknown) date) 18+) Stat unknown) (unknown) (no (unknown) (unknown) Neut # (Auto) (units ( unknown) date) (5258-9471) /uL unknown) (unknown) (no (unknown) (unknown) Neut # (Auto) 4400 (unit s (unknown) date) (3416-6351) /uL unknown) (unknown) (no (unknown) (unknown) Neut % (Auto) (50-75) ( units (unknown) date) % unknown) (unknown) (no (unknown) (unknown) Neut % (Auto) 65.5 (unit s (unknown) date) (50-75) % unknown) (unknown) (no (unknown) (unknown) No Action (units (unkn own) date) unknown) (unknown) (no (unknown) (unknown) Ordered: (units (unkno wn) date) unknown) (unknown) (no (unknown) (unknown) Orders (units (unkno wn) date) unknown) (unknown) (no (unknown) (unknown) PTT [Partial (units (u nknown) date) Thromboplastin Time] unknown) Stat (unknown) (no (unknown) (unknown) Patient History (units (unknown) date) unknown) (unknown) (no (unknown) (unknown) Patient: (units (unkno wn) date) Laurel,Sherine S unknown) MR#: (unknown) (no (unknown) (unknown) Postmenopausal bleeding ( units (unknown) date) unknown) (unknown) (no (unknown) (unknown) Potassium (3.4-5.1) (un its (unknown) date) mmol/L unknown) (unknown) (no (unknown) (unknown) Potassium 3.8 (units (unknown) date) (3.4-5.1) mmol/L unknown) (unknown) (no (unknown) (unknown) Prescriptions: (units (unknown) date) unknown) (unknown) (no (unknown) (unknown) Presence of cardiac (unit s (unknown) date) pacemaker (-2009) unknown) (unknown) (no (unknown) (unknown) Produc (units (unkno wn) date) unknown) (unknown) (no (unknown) (unknown) Prothrombin Time INR (uni ts (unknown) date) Stat unknown) (unknown) (no (unknown) (unknown) Pulse Oximetry 100 (unit s (unknown) date) 11/20/21 11:59 unknown) (unknown) (no (unknown) (unknown) Pulse Oximetry 100 (units (unknown) date) unknown) (unknown) (no (unknown) (unknown) Pulse Rate 67 (units (unknown) date) 11/20/21 11:59 unknown) (unknown) (no (unknown) (unknown) Pulse Rate 67 (units ( unknown) date) unknown) (unknown) (no (unknown) (unknown) RDW (11.6-14.8) % (uni ts (unknown) date) unknown) (unknown) (no (unknown) (unknown) RDW 16.1 H (units (un known) date) (11.6-14.8) % unknown) (unknown) (no (unknown) (unknown) ROS Unobtainable: All (uni ts (unknown) date) systems reviewed + are unknown ) unremarkable except as noted in HPI (unknown) (no (unknown) (unknown) RT Consult Eval and (unit s (unknown) date) Treat Now unknown) (unknown) (no (unknown) (unknown) Referrals: (units (unk nown) date) unknown) (unknown) (no (unknown) (unknown) Related Data (units (u nknown) date) unknown) (unknown) (no (unknown) (unknown) Respiratory Rate 15 (uni ts (unknown) date) 11/20/21 11:59 unknown) (unknown) (no (unknown) (unknown) Respiratory Rate 15 (unit s (unknown) date) unknown) (unknown) (no (unknown) (unknown) Result diagrams: (units (unknown) date) unknown) (unknown) (no (unknown) (unknown) Review of Systems (units (unknown) date) unknown) (unknown) (no (unknown) (unknown) Sarcoidosis (-1978) (unit s (unknown) date) unknown) (unknown) (no (unknown) (unknown) Signed By: (units (unk nown) date) unknown) (unknown) (no (unknown) (unknown) Sister (units (unknown) date) Cancer unknown) (unknown) (no (unknown) (unknown) Smoking Status: Never (u nits (unknown) date) smoker unknown) (unknown) (no (unknown) (unknown) Smoking Status: Never (un its (unknown) date) smoker unknown) (unknown) (no (unknown) (unknown) Social History (units (unknown) date) (Reviewed 11/20/21 @ unknown) 14:12 by Alem Marlow DO) (unknown) (no (unknown) (unknown) Sodium (137-145) (units (unknown) date) mmol/L unknown) (unknown) (no (unknown) (unknown) Sodium 141 (units (u nknown) date) (137-145) mmol/L unknown) (unknown) (no (unknown) (unknown) Source: patient (units (unknown) date) unknown) (unknown) (no (unknown) (unknown) Stated Complaint: (units (unknown) date) Possible heart attack unknown) (unknown) (no (unknown) (unknown) Status post breast (units (unknown) date) lumpectomy unknown) (unknown) (no (unknown) (unknown) Status post (units (un known) date) cholecystectomy (-1979) unknow n) (unknown) (no (unknown) (unknown) Status post dilation (uni ts (unknown) date) and curettage unknown) (unknown) (no (unknown) (unknown) Status post surgery (unit s (unknown) date) (05/11/15) unknown) (unknown) (no (unknown) (unknown) Substance Use Type: (unit s (unknown) date) does not use unknown) (unknown) (no (unknown) (unknown) Surgical History (units (unknown) date) (Reviewed 11/20/21 @ unknown) 14:12 by Alem Marlow DO) (unknown) (no (unknown) (unknown) Temperature 97.7 F (unit s (unknown) date) 11/20/21 11:59 unknown) (unknown) (no (unknown) (unknown) Temperature 97.7 F (units (unknown) date) unknown) (unknown) (no (unknown) (unknown) Time Seen by Provider: (u nits (unknown) date) 11/20/21 14:10 unknown) (unknown) (no (unknown) (unknown) Total Bilirubin (units (unknown) date) (0.2-1.3) mg/dL unknown) (unknown) (no (unknown) (unknown) Total Bilirubin 1.1 (un its (unknown) date) (0.2-1.3) mg/dL unknown) (unknown) (no (unknown) (unknown) Total Protein (units ( unknown) date) (6.3-8.2) g/dL unknown) (unknown) (no (unknown) (unknown) Total Protein 7.4 (unit s (unknown) date) (6.3-8.2) g/dL unknown) (unknown) (no (unknown) (unknown) Troponin + CK Cardiac (un its (unknown) date) Panel Stat unknown) (unknown) (no (unknown) (unknown) Ur Bilirubin Confirm (uni ts (unknown) date) (Negative) unknown) (unknown) (no (unknown) (unknown) Ur Bilirubin Confirm (uni ts (unknown) date) Negative (Negative) unknown) (unknown) (no (unknown) (unknown) Ur Culture Indicated? (un its (unknown) date) unknown) (unknown) (no (unknown) (unknown) Ur Culture Indicated? (un its (unknown) date) Specimen cultured unknown) (unknown) (no (unknown) (unknown) Ur Squamous Epith Cells ( units (unknown) date) (0-5/HPF) unknown) (unknown) (no (unknown) (unknown) Ur Squamous Epith Cells ( units (unknown) date) 1-5 /hpf (0-5/HPF) unknown) (unknown) (no (unknown) (unknown) Urine Bacteria (units (unknown) date) (None) unknown) (unknown) (no (unknown) (unknown) Urine Bacteria Few (unit s (unknown) date) (2-10) H (None) unknown) (unknown) (no (unknown) (unknown) Urine Culture Stat (units (unknown) date) unknown) (unknown) (no (unknown) (unknown) Urine Microscopic Stat (u nits (unknown) date) unknown) (unknown) (no (unknown) (unknown) Urine RBC (0-5/HPF) ( units (unknown) date) unknown) (unknown) (no (unknown) (unknown) Urine RBC 10-30/hpf H (u nits (unknown) date) (0-5/HPF) unknown) (unknown) (no (unknown) (unknown) Urine Specific [place] (u nits (unknown) date) 1.030 unknown) (unknown) (no (unknown) (unknown) Urine WBC (0-5/HPF) ( units (unknown) date) unknown) (unknown) (no (unknown) (unknown) Urine WBC 1-5/hpf (units (unknown) date) (0-5/HPF) unknown) (unknown) (no (unknown) (unknown) Uterine mass (units (u nknown) date) unknown) (unknown) (no (unknown) (unknown) Vital Signs (units (un known) date) unknown) (unknown) (no (unknown) (unknown) Vital signs: (units (u nknown) date) unknown) (unknown) (no (unknown) (unknown) Wears glasses (units ( unknown) date) unknown) (unknown) (no (unknown) (unknown) XR chest 2V Stat (units (unknown) date) unknown) (unknown) (no (unknown) (unknown) [Embedded Image Not (unit s (unknown) date) Available] unknown) (unknown) (no (unknown) (unknown) alcohol intake (units (unknown) date) frequency: unknown) holidays/special occasions only (unknown) (no (unknown) (unknown) alcohol intake: never (u nits (unknown) date) unknown) (unknown) (no (unknown) (unknown) apixaban 5 mg tablet (uni ts (unknown) date) (Eliquis) 5 mg PO BID unknown) 05/07/21 07/08/21 (unknown) (no (unknown) (unknown) atorvastatin 80 mg (units (unknown) date) tablet 80 mg PO DAILY unknown) 05/07/21 07/08/21 (unknown) (no (unknown) (unknown) budesonide-formoterol (un its (unknown) date) HFA 80 2 puff INHALATION unkno wn) BID 05/07/21 07/08/21 (unknown) (no (unknown) (unknown) carboxymethylcellulose (u nits (unknown) date) sodium 0.5 drp EYE-BOTH unknow n) 05/07/21 07/08/21 (unknown) (no (unknown) (unknown) celecoxib [CELECOXIB] (un its (unknown) date) Allergy Unknown unknown) Verified 11/20/21 11:59 (unknown) (no (unknown) (unknown) citalopram 10 mg tablet ( units (unknown) date) See Rx Instructions unknown) .ROUTE 10/04/21 (unknown) (no (unknown) (unknown) diclofenac sodium 1 % (un its (unknown) date) topical gel 2 g TOPICAL unknow n) QID 05/07/21 07/08/21 (unknown) (no (unknown) (unknown) hand (units (unkno wn) date) unknown) (unknown) (no (unknown) (unknown) inhaler (Symbicort) (unit s (unknown) date) unknown) (unknown) (no (unknown) (unknown) lactobacillus (units ( unknown) date) [LACTOBACILLUS] Allergy unknow n) Unknown Verified 11/20/21 11:59 (unknown) (no (unknown) (unknown) levothyroxine 88 mcg (uni ts (unknown) date) tablet #0 03/09/12 unknown) 07/08/21 (unknown) (no (unknown) (unknown) lidocaine 5 % topical (un its (unknown) date) patch 1 patch TOP DAILY unknow n) PRN #15 each 12/04/19 (unknown) (no (unknown) (unknown) mcg-4.5 mcg/actuation (un its (unknown) date) aerosol unknown) (unknown) (no (unknown) (unknown) morphine [MORPHINE] (unit s (unknown) date) Allergy Unknown unknown) Verified 11/20/21 11:59 (unknown) (no (unknown) (unknown) oxycodone [OXYCODONE] (un its (unknown) date) Allergy Unknown unknown) Verified 11/20/21 11:59 (unknown) (no (unknown) (unknown) pantoprazole 40 mg (units (unknown) date) tablet,delayed 40 mg PO unknow n) BID tab 05/07/21 07/08/21 (unknown) (no (unknown) (unknown) release (units (unkno wn) date) unknown) (unknown) (no (unknown) (unknown) sotalol 80 mg tablet 80 ( units (unknown) date) mg PO BID 05/07/21 unknown) 07/08/21 (unknown) (no (unknown) (unknown) tramadol 50 mg tablet (un its (unknown) date) 50 mg PO Q6H PRN #20 tab unkno wn) 05/21/21 (unknown) (no (unknown) (unknown) valsartan 80 mg tablet (u nits (unknown) date) 80 mg PO DAILY #0 unknown) 03/09/12 07/08/21 Result panel 9 (unknown) (no date) (unknown) (unknown) 96 U/L (unkn own) (unknown) (no date) (unknown) (unknown) Test not % (unkn own) performed (unknown) (no date) (unknown) (unknown) Test not ng/mL (unkn own) performed Result panel 10 (unknown) (no (unknown) (unknown) Qty: 0 0RF (units (unk nown) date) unknown) (unknown) (no (unknown) (unknown) (no value) (units (unk nown) date) unknown) (unknown) (no (unknown) (unknown) Radiologist's (units ( unknown) date) Impression: unknown) (unknown) (no (unknown) (unknown) (no value) (units (unk nown) date) unknown) (unknown) (no (unknown) (unknown) EYE-BOTH 0RF (units ( unknown) date) unknown) (unknown) (no (unknown) (unknown) Date of Service: (units (unknown) date) 11/20/21 unknown) (unknown) (no (unknown) (unknown) (no value) (units (unk nown) date) unknown) (unknown) (no (unknown) (unknown) 11/20/21 12:50 (units (unknown) date) unknown) (unknown) (no (unknown) (unknown) 1 patch TOP DAILY PRN (un its (unknown) date) (Reason: pain) Qty: 15 unknown ) 0RF (unknown) (no (unknown) (unknown) [address] [place] [address] (units (unknown) date) unknown) (unknown) (no (unknown) (unknown) 2 g topical QID 0RF (unit s (unknown) date) unknown) (unknown) (no (unknown) (unknown) 2 puff inhalation BID (un its (unknown) date) 0RF unknown) (unknown) (no (unknown) (unknown) 40 mg PO BID 0RF (units (unknown) date) unknown) (unknown) (no (unknown) (unknown) 5 mg PO BID 0RF (units (unknown) date) unknown) (unknown) (no (unknown) (unknown) 50 mg PO Q6H PRN (units (unknown) date) (Reason: pain) Qty: 20 unknown ) 0RF (unknown) (no (unknown) (unknown) 80 mg PO BID 0RF (units (unknown) date) unknown) (unknown) (no (unknown) (unknown) 80 mg PO DAILY 0RF (units (unknown) date) unknown) (unknown) (no (unknown) (unknown) 80 mg PO DAILY Qty: 0 (un its (unknown) date) 0RF unknown) (unknown) (no (unknown) (unknown) Allergies (units (unkn own) date) unknown) (unknown) (no (unknown) (unknown) [place] [address] (unit s (unknown) date) unknown) (unknown) (no (unknown) (unknown) Dose Instruction: (units (unknown) date) unknown) (unknown) (no (unknown) (unknown) ED Orders (units (unkn own) date) unknown) (unknown) (no (unknown) (unknown) Emergency Report (units (unknown) date) unknown) (unknown) (no (unknown) (unknown) Home Medications (units (unknown) date) unknown) (unknown) (no (unknown) (unknown) Hypertension (units (u nknown) date) unknown) (unknown) (no (unknown) (unknown) [facility] (units (unknown) date) unknown) (unknown) (no (unknown) (unknown) [facility] [address] (uni ts (unknown) date) [address] [place] [address] [place], unknown ) [place] [address] (unknown) (no (unknown) (unknown) Lab Results (units (un known) date) unknown) (unknown) (no (unknown) (unknown) Previous Rx's (units ( unknown) date) unknown) (unknown) (no (unknown) (unknown) Rx Instructions: (units (unknown) date) unknown) (unknown) (no (unknown) (unknown) See Rx Instructions (unit s (unknown) date) .ROUTE .COMPLEX Qty: 30 unknow n) 3RF (unknown) (no (unknown) (unknown) Signed (units (unkno wn) date) unknown) (unknown) (no (unknown) (unknown) Stop: 11/20/21 14:37 (uni ts (unknown) date) unknown) (unknown) (no (unknown) (unknown) Stroke (units (unkno wn) date) unknown) (unknown) (no (unknown) (unknown) TAKE 1 TABLET BY MOUTH (u nits (unknown) date) DAILY unknown) (unknown) (no (unknown) (unknown) Urine Dip (units (unkn own) date) unknown) (unknown) (no (unknown) (unknown) Vital Signs - 8 hr (units (unknown) date) unknown) (unknown) (no (unknown) (unknown) XRay Report (units (un known) date) unknown) (unknown) (no (unknown) (unknown) apply to single elbow, (u nits (unknown) date) wrist or hand; for hand unknow n) includes palm/fingers/back of (unknown) (no (unknown) (unknown) leave on most painful (un its (unknown) date) area for up to 12 hrs unknown) (unknown) (no (unknown) (unknown) (no value) (units (unk nown) date) unknown) (unknown) (no (unknown) (unknown) 11/20/21 11/20/21 (units (unknown) date) 11/20/21 Range/Units unknown) (unknown) (no (unknown) (unknown) 11/20/21 11/20/21 (units (unknown) date) Range/Units unknown) (unknown) (no (unknown) (unknown) 12:50 12:50 12:50 (units (unknown) date) unknown) (unknown) (no (unknown) (unknown) 12:50 13:00 (units (un known) date) unknown) (unknown) (no (unknown) (unknown) Eliquis 5 mg tablet (unit s (unknown) date) unknown) (unknown) (no (unknown) (unknown) Refresh Plus 0.5 % (units (unknown) date) dropperette unknown) (unknown) (no (unknown) (unknown) atorvastatin 80 mg (units (unknown) date) tablet unknown) (unknown) (no (unknown) (unknown) budesonide-formoterol (un its (unknown) date) [Symbicort] 80-4.5 unknown) mcg/actuation HFA aerosol inhaler (unknown) (no (unknown) (unknown) citalopram 10 mg tablet ( units (unknown) date) unknown) (unknown) (no (unknown) (unknown) diclofenac sodium 1 % (un its (unknown) date) gel unknown) (unknown) (no (unknown) (unknown) levothyroxine 88 MCG (uni ts (unknown) date) tablet unknown) (unknown) (no (unknown) (unknown) lidocaine 5 % adhesive (u nits (unknown) date) patch,medicated unknown) (unknown) (no (unknown) (unknown) pantoprazole 40 mg (units (unknown) date) tablet,delayed release unknown ) (DR/EC) (unknown) (no (unknown) (unknown) sotalol 80 mg tablet (uni ts (unknown) date) unknown) (unknown) (no (unknown) (unknown) tramadol 50 mg tablet (un its (unknown) date) unknown) (unknown) (no (unknown) (unknown) valsartan 80 mg Tablet (u nits (unknown) date) unknown) (unknown) (no (unknown) (unknown) .COMPLEX #30 tab (units (unknown) date) unknown) (unknown) (no (unknown) (unknown) 11/20/21 (units (unkno wn) date) unknown) (unknown) (no (unknown) (unknown) [id number] (units (unk nown) date) unknown) (unknown) (no (unknown) (unknown) Medication (units (unk nown) date) Instructions Recorded unknown ) (unknown) (no (unknown) (unknown) Medication (units (unk nown) date) Instructions Recorded unknown ) Confirmed (unknown) (no (unknown) (unknown) and below (units (unkn own) date) unknown) (unknown) (no (unknown) (unknown) depression noted. (units (unknown) date) Patient has prior from unknown ) 12/17/2020 which appears similar. (unknown) (no (unknown) (unknown) % eye drops in a (units (unknown) date) dropperette unknown) (unknown) (no (unknown) (unknown) < 0.012 ng/mL (unkno wn) date) (unknown) (no (unknown) (unknown) (Refresh Plus) (units (unknown) date) unknown) (unknown) (no (unknown) (unknown) 11/20/21 11:59 (units (unknown) date) unknown) (unknown) (no (unknown) (unknown) 11/20/21 12:50 (units (unknown) date) unknown) (unknown) (no (unknown) (unknown) 11/20/21 13:00 (units (unknown) date) unknown) (unknown) (no (unknown) (unknown) 11/20/21 14:24 (units (unknown) date) unknown) (unknown) (no (unknown) (unknown) 11:59 11/20/21 (units (unknown) date) unknown) (unknown) (no (unknown) (unknown) 14:32 (units (unkno wn) date) unknown) (unknown) (no (unknown) (unknown) 96 U/L (unkno wn) date) (unknown) (no (unknown) (unknown) ? (units (unkno wn) date) unknown) (unknown) (no (unknown) (unknown) ABDOMEN: Soft, (units (unknown) date) nontender. Normoactive unknow n) bowel sounds all 4 quadrants. No (unknown) (no (unknown) (unknown) ALT (<35) IU/L (units (unknown) date) unknown) (unknown) (no (unknown) (unknown) ALT 12 (<35) IU/L (u nits (unknown) date) unknown) (unknown) (no (unknown) (unknown) AST (14-36) IU/L (uni ts (unknown) date) unknown) (unknown) (no (unknown) (unknown) AST 24 (14-36) (units (unknown) date) IU/L unknown) (unknown) (no (unknown) (unknown) Accession Number: (units (unknown) date) [id number] ?? unknown) (unknown) (no (unknown) (unknown) Acct:[id number] (units (unknown) date) unknown) (unknown) (no (unknown) (unknown) Age/Sex: 71 / F (units (unknown) date) unknown) (unknown) (no (unknown) (unknown) Age/Sex: 71 / F (units (unknown) date) unknown) (unknown) (no (unknown) (unknown) Albumin (3.5-5.0) (uni ts (unknown) date) g/dL unknown) (unknown) (no (unknown) (unknown) Albumin 4.2 (units ( unknown) date) (3.5-5.0) g/dL unknown) (unknown) (no (unknown) (unknown) Albumin/Globulin Ratio (u nits (unknown) date) (1.0-2.8) unknown) (unknown) (no (unknown) (unknown) Albumin/Globulin Ratio (u nits (unknown) date) 1.3 (1.0-2.8) unknown) (unknown) (no (unknown) (unknown) Alkaline Phosphatase (uni ts (unknown) date) (38-126) U/L unknown) (unknown) (no (unknown) (unknown) Alkaline Phosphatase (uni ts (unknown) date) 119 (38-126) U/L unknown) (unknown) (no (unknown) (unknown) Allergy/AdvReac Type (uni ts (unknown) date) Severity Reaction Status unkno wn) Date / Time (unknown) (no (unknown) (unknown) Anesthesia (units (unk nown) date) unknown) (unknown) (no (unknown) (unknown) Anxiety and depression (u nits (unknown) date) () unknown) (unknown) (no (unknown) (unknown) Approved by: Sola (un its (unknown) date) Al Sanchez MD, PhD on unknown ) 11/20/2021 at 13:44?? (unknown) (no (unknown) (unknown) Aspirin (Aspirin 81 Mg (u nits (unknown) date) Chew Tab) 324 mg PO NOW unkno wn) ONE (unknown) (no (unknown) (unknown) Atrial paced rhythm, (unit s (unknown) date) rate of 67 AR 238 QRS 80 unkno wn) QTC of 420. No acute ST elevation (unknown) (no (unknown) (unknown) Attestation: I (units (unknown) date) personally reviewed and unknow n) interpreted this ECG as follows: (unknown) (no (unknown) (unknown) BUN (7-17) mg/dL (uni ts (unknown) date) unknown) (unknown) (no (unknown) (unknown) BUN 21 H (7-17) (unit s (unknown) date) mg/dL unknown) (unknown) (no (unknown) (unknown) BUN/Creatinine Ratio (uni ts (unknown) date) (6-22) unknown) (unknown) (no (unknown) (unknown) BUN/Creatinine Ratio (uni ts (unknown) date) 20.8 (6-22) unknown) (unknown) (no (unknown) (unknown) Baso # (Auto) (units ( unknown) date) (0-100) /uL unknown) (unknown) (no (unknown) (unknown) Baso # (Auto) 0 (units (unknown) date) (0-100) /uL unknown) (unknown) (no (unknown) (unknown) Baso % (Auto) (0-2) (u nits (unknown) date) % unknown) (unknown) (no (unknown) (unknown) Baso % (Auto) 0.3 (units (unknown) date) (0-2) % unknown) (unknown) (no (unknown) (unknown) Bedside Urine Bilirubin ( units (unknown) date) + 1 unknown) (unknown) (no (unknown) (unknown) Bedside Urine Glucose (un its (unknown) date) Negative unknown) (unknown) (no (unknown) (unknown) Bedside Urine Ketone (uni ts (unknown) date) - Negative unknown) (unknown) (no (unknown) (unknown) Bedside Urine (units ( unknown) date) Leukocytes +/- 15 unknow n) (unknown) (no (unknown) (unknown) Bedside Urine Nitrite (un its (unknown) date) - Negative unknown) (unknown) (no (unknown) (unknown) Bedside Urine Occult (uni ts (unknown) date) Blood +++ unknown) (unknown) (no (unknown) (unknown) Bedside Urine Protein (un its (unknown) date) +/- 15 unknown) (unknown) (no (unknown) (unknown) Bedside Urine (units ( unknown) date) Urobilinogen - unknown) Negative (unknown) (no (unknown) (unknown) Bedside Urine pH 6.0 ( units (unknown) date) unknown) (unknown) (no (unknown) (unknown) Blood Pressure 163/79 (u nits (unknown) date) H 11/20/21 11:59 unknown) (unknown) (no (unknown) (unknown) Blood Pressure 163/79 H ( units (unknown) date) unknown) (unknown) (no (unknown) (unknown) Bones and chest wall:? (u nits (unknown) date) No suspicious bony unknown) abnormalities.? Soft tissues appear (unknown) (no (unknown) (unknown) Brother (units (unknown) date) Cancer unknown) (unknown) (no (unknown) (unknown) Brother (units (unknown) date) History of heart disease unkno wn) (unknown) (no (unknown) (unknown) CARDIOVASCULAR: Regular ( units (unknown) date) rate and rhythm without unknow n) murmurs, rubs or gallops. (unknown) (no (unknown) (unknown) CK-MB (CK-2) (units (u nknown) date) unknown) (unknown) (no (unknown) (unknown) CK-MB (CK-2) TNP (units (unknown) date) unknown) (unknown) (no (unknown) (unknown) CK-MB (CK-2) Rel Index (u nits (unknown) date) unknown) (unknown) (no (unknown) (unknown) CK-MB (CK-2) Rel Index (u nits (unknown) date) TNP unknown) (unknown) (no (unknown) (unknown) COMPARISON:? [facility] (unit s (unknown) date) [facility], CR, XR CHEST unknown ) 1V, 12/17/2020, 14:42. (unknown) (no (unknown) (unknown) COPD (chronic (units ( unknown) date) obstructive pulmonary unknown) disease) (-2018) (unknown) (no (unknown) (unknown) Calcium (8.4-10.2) (un its (unknown) date) mg/dL unknown) (unknown) (no (unknown) (unknown) Calcium 9.1 (units ( unknown) date) (8.4-10.2) mg/dL unknown) (unknown) (no (unknown) (unknown) Calcium Oxalate Crystal ( units (unknown) date) unknown) (unknown) (no (unknown) (unknown) Calcium Oxalate Crystal ( units (unknown) date) Many H unknown) (unknown) (no (unknown) (unknown) Carbon Dioxide (units (unknown) date) (22-32) mmol/L unknown) (unknown) (no (unknown) (unknown) Carbon Dioxide 27 (unit s (unknown) date) (22-32) mmol/L unknown) (unknown) (no (unknown) (unknown) Chest x-ray: (units (u nknown) date) unknown) (unknown) (no (unknown) (unknown) Chief Complaint: (units (unknown) date) Shortness of unknown) Breath/Dyspnea (unknown) (no (unknown) (unknown) Chloride (98-107) (uni ts (unknown) date) mmol/L unknown) (unknown) (no (unknown) (unknown) Chloride 108 H (units (unknown) date) (98-107) mmol/L unknown) (unknown) (no (unknown) (unknown) Cholecystectomy, knee (un its (unknown) date) surgery, tummy tuck and unknow n) pacemaker placed 13 years ago (unknown) (no (unknown) (unknown) Chronic back pain (units (unknown) date) (-2012) unknown) (unknown) (no (unknown) (unknown) Arturo. 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 wn) have scheduled her for a stress (unknown) (no (unknown) (unknown) Luzma Sanchez MD (uni ts (unknown) date) [Primary Care Provider] unknow n) - (unknown) (no (unknown) (unknown) Complete Blood Count (uni ts (unknown) date) AUTO DIFF Stat unknown) (unknown) (no (unknown) (unknown) Comprehensive Metabolic ( units (unknown) date) Panel Stat unknown) (unknown) (no (unknown) (unknown) Course (units (unkno wn) date) unknown) (unknown) (no (unknown) (unknown) Creatinine (units (unk nown) date) (0.52-1.04) mg/dL unknown) (unknown) (no (unknown) (unknown) Creatinine 1.01 (units (unknown) date) (0.52-1.04) mg/dL unknown) (unknown) (no (unknown) (unknown) : 1950 (units (unknown) date) Acct:[id number] unknown) (unknown) (no (unknown) (unknown) : 1950 (units (unknown) date) unknown) (unknown) (no (unknown) (unknown) Date of Service: (units (unknown) date) 11/20/21 unknown) (unknown) (no (unknown) (unknown) Departure (units (unkn own) date) unknown) (unknown) (no (unknown) (unknown) Dictated by: Sola (un its (unknown) date) Al Sanchez MD, PhD on unknown ) 11/20/2021 at 13:43 ? ? (unknown) (no (unknown) (unknown) Discharge Plan (units (unknown) date) unknown) (unknown) (no (unknown) (unknown) ECG Data (units (unkno wn) date) unknown) (unknown) (no (unknown) (unknown) EKG-12 Lead Stat (units (unknown) date) unknown) (unknown) (no (unknown) (unknown) ER Physician: (units ( unknown) date) Alem Marlow D.O. unknown) (unknown) (no (unknown) (unknown) EXTREMITIES: Normal (unit s (unknown) date) range of motion, no unknown) clubbing or edema. Neurovascularly (unknown) (no (unknown) (unknown) Endometrial hyperplasia ( units (unknown) date) unknown) (unknown) (no (unknown) (unknown) Eos # (Auto) (0-450) ( units (unknown) date) /uL unknown) (unknown) (no (unknown) (unknown) Eos # (Auto) 200 (units (unknown) date) (0-450) /uL unknown) (unknown) (no (unknown) (unknown) Eos % (Auto) (2-4) (un its (unknown) date) % unknown) (unknown) (no (unknown) (unknown) Eos % (Auto) 2.5 (units (unknown) date) (2-4) % unknown) (unknown) (no (unknown) (unknown) Esterase (units (unkno wn) date) unknown) (unknown) (no (unknown) (unknown) Estimated GFR (>60) (u nits (unknown) date) mL/min unknown) (unknown) (no (unknown) (unknown) Estimated GFR 59 L (uni ts (unknown) date) (>60) mL/min unknown) (unknown) (no (unknown) (unknown) Exam (units (unkno wn) date) unknown) (unknown) (no (unknown) (unknown) Exam Narrative: (units (unknown) date) unknown) (unknown) (no (unknown) (unknown) FINDINGS:? (units (unk nown) date) unknown) (unknown) (no (unknown) (unknown) Family History (units (unknown) date) (Reviewed 11/20/21 @ unknown) 14:39 by Alem Marlow DO) (unknown) (no (unknown) (unknown) Father (units (unknown) date) Cancer unknown) (unknown) (no (unknown) (unknown) GENERAL: Alert and (units (unknown) date) oriented x three, female unkno wn) in mild distress. (unknown) (no (unknown) (unknown) GERD (gastroesophageal (u nits (unknown) date) reflux disease) (-2009) unknow n) (unknown) (no (unknown) (unknown) : No CVA tenderness (un its (unknown) date) unknown) (unknown) (no (unknown) (unknown) General (units (unkno wn) date) unknown) (unknown) (no (unknown) (unknown) GenericComposite[Plt (uni ts (unknown) date) Count (150-400) unknown) X10^3/uL ] (unknown) (no (unknown) (unknown) GenericComposite[Plt (uni ts (unknown) date) Count 231 (150-400) unknow n) X10^3/uL ] (unknown) (no (unknown) (unknown) GenericComposite[RBC (uni ts (unknown) date) (4.0-5.2) X10^6/uL ] unknown ) (unknown) (no (unknown) (unknown) GenericComposite[RBC (uni ts (unknown) date) 4.62 (4.0-5.2) unknown) X10^6/uL ] (unknown) (no (unknown) (unknown) GenericComposite[WBC (uni ts (unknown) date) (4.5-11.0) X10^3/uL ] unknow n) (unknown) (no (unknown) (unknown) GenericComposite[WBC (uni ts (unknown) date) 6.7 (4.5-11.0) unknown) X10^3/uL ] (unknown) (no (unknown) (unknown) Globulin (1.7-4.1) (un its (unknown) date) g/dL unknown) (unknown) (no (unknown) (unknown) Globulin 3.2 (units (unknown) date) (1.7-4.1) g/dL unknown) (unknown) (no (unknown) (unknown) Glucose (80-110) (unit s (unknown) date) mg/dL unknown) (unknown) (no (unknown) (unknown) Glucose 94 (80-110) ( units (unknown) date) mg/dL unknown) (unknown) (no (unknown) (unknown) HEENT: Head (units (un known) date) normocephalic, unknown) atraumatic, EOMI, pupils reactive, face symmetric, (unknown) (no (unknown) (unknown) HPI - SOB/Dyspnea (units (unknown) date) unknown) (unknown) (no (unknown) (unknown) HPI Narrative: (units (unknown) date) unknown) (unknown) (no (unknown) (unknown) Hct (36-46) % (units (unknown) date) unknown) (unknown) (no (unknown) (unknown) Hct 37.4 (36-46) % ( units (unknown) date) unknown) (unknown) (no (unknown) (unknown) Headache () (units (unknown) date) unknown) (unknown) (no (unknown) (unknown) Hgb (12.0-16.0) (units (unknown) date) g/dL unknown) (unknown) (no (unknown) (unknown) Hgb 12.1 (units (unkn own) date) (12.0-16.0) g/dL unknown) (unknown) (no (unknown) (unknown) History of Present (units (unknown) date) Illness unknown) (unknown) (no (unknown) (unknown) History of (units (unk nown) date) abdominoplasty () unknown ) (unknown) (no (unknown) (unknown) History of breast lift (u nits (unknown) date) () unknown) (unknown) (no (unknown) (unknown) History of carpal (units (unknown) date) tunnel repair unknown) (unknown) (no (unknown) (unknown) History of cataract (unit s (unknown) date) removal with insertion unknown ) of prosthetic lens () (unknown) (no (unknown) (unknown) 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 No acute (un its (unknown) date) cardiopulmonary disease unknow n) process. (unknown) (no (unknown) (unknown) INDICATIONS:? shortness ( units (unknown) date) of breath unknown) (unknown) (no (unknown) (unknown) IP DYE Allergy Mild (unit s (unknown) date) Uncoded 07/08/21 15:35 unknown ) (unknown) (no (unknown) (unknown) Ictotest Urine Stat (unit s (unknown) date) unknown) (unknown) (no (unknown) (unknown) Imaging Data (units (u nknown) date) unknown) (unknown) (no (unknown) (unknown) Initial Vital Signs (unit s (unknown) date) unknown) (unknown) (no (unknown) (unknown) Initial Vital Signs: (uni ts (unknown) date) unknown) (unknown) (no (unknown) (unknown) Interpretation: (units (unknown) date) unknown) (unknown) (no (unknown) (unknown) Iodine and Iodide (units (unknown) date) Containing Allergy unknown) Verified 11/20/21 11:59 (unknown) (no (unknown) (unknown) Lab Data (units (unkno wn) date) unknown) (unknown) (no (unknown) (unknown) Labs: (units (unkno wn) date) unknown) (unknown) (no (unknown) (unknown) Lactate (0.7-2.1) (uni ts (unknown) date) mmol/L unknown) (unknown) (no (unknown) (unknown) Lactate 1.0 (units (unknown) date) (0.7-2.1) mmol/L unknown) (unknown) (no (unknown) (unknown) Lactate (Lactic Acid) (un its (unknown) date) Stat unknown) (unknown) (no (unknown) (unknown) Limitations: no (units (unknown) date) limitations unknown) (unknown) (no (unknown) (unknown) Loc: ED (units (unkno wn) date) unknown) (unknown) (no (unknown) (unknown) Lungs and pleura:? (units (unknown) date) Lungs are clear.? No unknown) pleural effusions or pneumothorax.? (unknown) (no (unknown) (unknown) Lymph # (Auto) (units (unknown) date) (7401-9530) /uL unknown) (unknown) (no (unknown) (unknown) Lymph # (Auto) 1600 (uni ts (unknown) date) (4811-7769) /uL unknown) (unknown) (no (unknown) (unknown) Lymph % (Auto) (units (unknown) date) (25-40) % unknown) (unknown) (no (unknown) (unknown) Lymph % (Auto) 23.3 L (u nits (unknown) date) (25-40) % unknown) (unknown) (no (unknown) (unknown) MCH (26-34) PG (units (unknown) date) unknown) (unknown) (no (unknown) (unknown) MCH 26.3 (26-34) (uni ts (unknown) date) PG unknown) (unknown) (no (unknown) (unknown) MCHC (30-36) % (units (unknown) date) unknown) (unknown) (no (unknown) (unknown) MCHC 32.4 (30-36) (un its (unknown) date) % unknown) (unknown) (no (unknown) (unknown) MCV (80-100) fL (unit s (unknown) date) unknown) (unknown) (no (unknown) (unknown) MCV 81.1 (80-100) (un its (unknown) date) fL unknown) (unknown) (no (unknown) (unknown) MDM - SOB/Dyspnea (units (unknown) date) unknown) (unknown) (no (unknown) (unknown) MR#: [id number] (units (unknown) date) unknown) (unknown) (no (unknown) (unknown) Measure peak expiratory ( units (unknown) date) flow ONCE unknown) (unknown) (no (unknown) (unknown) Mediastinum:? (units ( unknown) date) Mediastinal contours are unkno wn) normal.? Heart size is normal.? (unknown) (no (unknown) (unknown) Medical History (units (unknown) date) (Reviewed 11/20/21 @ unknown) 14:39 by Alem Marlow DO) (unknown) (no (unknown) (unknown) Mode of arrival: (units (unknown) date) Ambulatory unknown) (unknown) (no (unknown) (unknown) [place] # (Auto) (units ( unknown) date) (0-900) /uL unknown) (unknown) (no (unknown) (unknown) [place] # (Auto) 600 (units (unknown) date) (0-900) /uL unknown) (unknown) (no (unknown) (unknown) [place] % (Auto) (3-14) ( units (unknown) date) % unknown) (unknown) (no (unknown) (unknown) [place] % (Auto) 8.4 (units (unknown) date) (3-14) % unknown) (unknown) (no (unknown) (unknown) NECK: Supple, full (units (unknown) date) range of motion unknown) (unknown) (no (unknown) (unknown) NEUROLOGICAL: Cranial (un its (unknown) date) nerves II through XII unknown) grossly intact. Moving all (unknown) (no (unknown) (unknown) NT-Pro-B Natriuret Pep (u nits (unknown) date) (<125) pg/mL unknown) (unknown) (no (unknown) (unknown) NT-Pro-B Natriuret Pep (u nits (unknown) date) 291 H (<125) pg/mL unknown ) (unknown) (no (unknown) (unknown) NT-proBNP (BNP-Adult (uni ts (unknown) date) 18+) Stat unknown) (unknown) (no (unknown) (unknown) Narrative (units (unkn own) date) unknown) (unknown) (no (unknown) (unknown) Neut # (Auto) (units ( unknown) date) (0253-1266) /uL unknown) (unknown) (no (unknown) (unknown) Neut # (Auto) 4400 (unit s (unknown) date) (7616-2252) /uL unknown) (unknown) (no (unknown) (unknown) Neut % (Auto) (units ( unknown) date) (50-75) % unknown) (unknown) (no (unknown) (unknown) Neut % (Auto) 65.5 (unit s (unknown) date) (50-75) % unknown) (unknown) (no (unknown) (unknown) No Action (units (unkn own) date) unknown) (unknown) (no (unknown) (unknown) Ordered: (units (unkno wn) date) unknown) (unknown) (no (unknown) (unknown) Ordering Provider: (units (unknown) date) Alem Marlow D.O. unknown) (unknown) (no (unknown) (unknown) Orders (units (unkno wn) date) unknown) (unknown) (no (unknown) (unknown) PROCEDURE:? XR CHEST 2V ( units (unknown) date) unknown) (unknown) (no (unknown) (unknown) PTT [Partial (units (u nknown) date) Thromboplastin Time] unknown) Stat (unknown) (no (unknown) (unknown) Patient History (units (unknown) date) unknown) (unknown) (no (unknown) (unknown) Patient: (units (unkno wn) date) Laurel,Sherine S unknown) MR#: (unknown) (no (unknown) (unknown) Patient: (units (unkno wn) date) Laurel,Sherine S unknown) (unknown) (no (unknown) (unknown) Postmenopausal bleeding ( units (unknown) date) unknown) (unknown) (no (unknown) (unknown) Potassium (3.4-5.1) (u nits (unknown) date) mmol/L unknown) (unknown) (no (unknown) (unknown) Potassium 3.8 (units (unknown) date) (3.4-5.1) mmol/L unknown) (unknown) (no (unknown) (unknown) Prescriptions: (units (unknown) date) unknown) (unknown) (no (unknown) (unknown) Presence of cardiac (unit s (unknown) date) pacemaker (-2009) unknown) (unknown) (no (unknown) (unknown) Prior ECG tracings: (unit s (unknown) date) available for review unknown) (unknown) (no (unknown) (unknown) Procedure: XR chest 2V (u nits (unknown) date) unknown) (unknown) (no (unknown) (unknown) Produc (units (unkno wn) date) unknown) (unknown) (no (unknown) (unknown) Prothrombin Time INR (uni ts (unknown) date) Stat unknown) (unknown) (no (unknown) (unknown) Pulse Oximetry 100 (unit s (unknown) date) 11/20/21 11:59 unknown) (unknown) (no (unknown) (unknown) Pulse Oximetry 100 99 (un its (unknown) date) unknown) (unknown) (no (unknown) (unknown) Pulse Rate 67 (units (unknown) date) 11/20/21 11:59 unknown) (unknown) (no (unknown) (unknown) Pulse Rate 67 61 (units (unknown) date) unknown) (unknown) (no (unknown) (unknown) RDW (11.6-14.8) % (un its (unknown) date) unknown) (unknown) (no (unknown) (unknown) RDW 16.1 H (units (un known) date) (11.6-14.8) % unknown) (unknown) (no (unknown) (unknown) RESPIRATORY: Breath (unit s (unknown) date) sounds equal unknown) bilaterally, no wheezes rales or rhonchi. (unknown) (no (unknown) (unknown) ROS Unobtainable: All (uni ts (unknown) date) systems reviewed + are unknown ) unremarkable except as noted in HPI (unknown) (no (unknown) (unknown) RT Consult Eval and (unit s (unknown) date) Treat Now unknown) (unknown) (no (unknown) (unknown) Referrals: (units (unk nown) date) unknown) (unknown) (no (unknown) (unknown) Related Data (units (u nknown) date) unknown) (unknown) (no (unknown) (unknown) Respiratory Rate 15 (uni ts (unknown) date) 11/20/21 11:59 unknown) (unknown) (no (unknown) (unknown) Respiratory Rate 15 18 (u nits (unknown) date) unknown) (unknown) (no (unknown) (unknown) Result diagrams: (units (unknown) date) unknown) (unknown) (no (unknown) (unknown) Review of Systems (units (unknown) date) unknown) (unknown) (no (unknown) (unknown) SKIN: Warm, dry, no (unit s (unknown) date) petechiae, no rashes or unknow n) lesions. (unknown) (no (unknown) (unknown) Sarcoidosis (-1978) (unit s (unknown) date) unknown) (unknown) (no (unknown) (unknown) Signed By: (units (unk nown) date) unknown) (unknown) (no (unknown) (unknown) Sister (units (unknown) date) Cancer unknown) (unknown) (no (unknown) (unknown) Smoking Status: Never (u nits (unknown) date) smoker unknown) (unknown) (no (unknown) (unknown) Smoking Status: Never (un its (unknown) date) smoker unknown) (unknown) (no (unknown) (unknown) Social History (units (unknown) date) (Reviewed 11/20/21 @ unknown) 14:39 by Alem Marlow DO) (unknown) (no (unknown) (unknown) Sodium (137-145) (unit s (unknown) date) mmol/L unknown) (unknown) (no (unknown) (unknown) Sodium 141 (units (u nknown) date) (137-145) mmol/L unknown) (unknown) (no (unknown) (unknown) Source: patient (units (unknown) date) unknown) (unknown) (no (unknown) (unknown) Stated Complaint: (units (unknown) date) Possible heart attack unknown) (unknown) (no (unknown) (unknown) Status post breast (units (unknown) date) lumpectomy unknown) (unknown) (no (unknown) (unknown) Status post (units (un known) date) cholecystectomy (-1979) unknow n) (unknown) (no (unknown) (unknown) Status post dilation (uni ts (unknown) date) and curettage unknown) (unknown) (no (unknown) (unknown) Status post surgery (unit s (unknown) date) (05/11/15) unknown) (unknown) (no (unknown) (unknown) Substance Use Type: (unit s (unknown) date) does not use unknown) (unknown) (no (unknown) (unknown) Surgical History (units (unknown) date) (Reviewed 11/20/21 @ unknown) 14:39 by Alem Marlow DO) (unknown) (no (unknown) (unknown) Surgical changes and (uni ts (unknown) date) devices:? Left chest unknown) wall cardiac pacer is stable.? (unknown) (no (unknown) (unknown) Surgical clips (units (unknown) date) unknown) (unknown) (no (unknown) (unknown) TECHNIQUE:? 2 views of (u nits (unknown) date) the chest were unknown) acquired.? (unknown) (no (unknown) (unknown) Temperature 97.7 F (unit s (unknown) date) 11/20/21 11:59 unknown) (unknown) (no (unknown) (unknown) Temperature 97.7 F (units (unknown) date) unknown) (unknown) (no (unknown) (unknown) Test not performed % (unknown) date) (unknown) (no (unknown) (unknown) Test not performed ng/mL (unknown) date) (unknown) (no (unknown) (unknown) This is a 71-year-old (un its (unknown) date) female with history of unknown ) AFib on Eliquis with pacemaker (unknown) (no (unknown) (unknown) Time Seen by Provider: (u nits (unknown) date) 11/20/21 14:10 unknown) (unknown) (no (unknown) (unknown) Total Bilirubin (units (unknown) date) (0.2-1.3) mg/dL unknown) (unknown) (no (unknown) (unknown) Total Bilirubin 1.1 (un its (unknown) date) (0.2-1.3) mg/dL unknown) (unknown) (no (unknown) (unknown) Total Creatine Kinase (un its (unknown) date) (30-135) U/L unknown) (unknown) (no (unknown) (unknown) Total Creatine Kinase (un its (unknown) date) 96 (30-135) U/L unknown) (unknown) (no (unknown) (unknown) Total Protein (units ( unknown) date) (6.3-8.2) g/dL unknown) (unknown) (no (unknown) (unknown) Total Protein 7.4 (unit s (unknown) date) (6.3-8.2) g/dL unknown) (unknown) (no (unknown) (unknown) Troponin + CK Cardiac (un its (unknown) date) Panel Stat unknown) (unknown) (no (unknown) (unknown) Ur Bilirubin Confirm (uni ts (unknown) date) (Negative) unknown) (unknown) (no (unknown) (unknown) Ur Bilirubin Confirm (uni ts (unknown) date) Negative (Negative) unknown) (unknown) (no (unknown) (unknown) Ur Culture Indicated? (un its (unknown) date) unknown) (unknown) (no (unknown) (unknown) Ur Culture Indicated? (un its (unknown) date) Specimen cultured unknown) (unknown) (no (unknown) (unknown) Ur Squamous Epith Cells ( units (unknown) date) (0-5/HPF) unknown) (unknown) (no (unknown) (unknown) Ur Squamous Epith Cells ( units (unknown) date) 1-5 /hpf (0-5/HPF) unknown) (unknown) (no (unknown) (unknown) Urinalysis and (units (unknown) date) Microscopic Stat unknown) (unknown) (no (unknown) (unknown) Urine Bacteria (units (unknown) date) (None) unknown) (unknown) (no (unknown) (unknown) Urine Bacteria Few (uni ts (unknown) date) (2-10) H (None) unknown) (unknown) (no (unknown) (unknown) Urine Culture Stat (units (unknown) date) unknown) (unknown) (no (unknown) (unknown) Urine Microscopic Stat (u nits (unknown) date) unknown) (unknown) (no (unknown) (unknown) Urine RBC (0-5/HPF) ( units (unknown) date) unknown) (unknown) (no (unknown) (unknown) Urine RBC 10-30/hpf H ( units (unknown) date) (0-5/HPF) unknown) (unknown) (no (unknown) (unknown) Urine Specific [place] (u nits (unknown) date) 1.030 unknown) (unknown) (no (unknown) (unknown) Urine WBC (0-5/HPF) ( units (unknown) date) unknown) (unknown) (no (unknown) (unknown) Urine WBC 1-5/hpf (unit s (unknown) date) (0-5/HPF) unknown) (unknown) (no (unknown) (unknown) Uterine mass (units (u nknown) date) unknown) (unknown) (no (unknown) (unknown) Vital Signs (units (un known) date) unknown) (unknown) (no (unknown) (unknown) Vital signs: (units (u nknown) date) unknown) (unknown) (no (unknown) (unknown) Wears glasses (units ( unknown) date) unknown) (unknown) (no (unknown) (unknown) XR chest 2V Stat (units (unknown) date) unknown) (unknown) (no (unknown) (unknown) [Embedded Image Not (unit s (unknown) date) Available] unknown) (unknown) (no (unknown) (unknown) alcohol intake (units (unknown) date) frequency: unknown) holidays/special occasions only (unknown) (no (unknown) (unknown) alcohol intake: never (u nits (unknown) date) unknown) (unknown) (no (unknown) (unknown) apixaban 5 mg tablet (uni ts (unknown) date) (Eliquis) 5 mg PO BID unknown) 05/07/21 07/08/21 (unknown) (no (unknown) (unknown) atorvastatin 80 mg (units (unknown) date) tablet 80 mg PO DAILY unknown) 05/07/21 07/08/21 (unknown) (no (unknown) (unknown) budesonide-formoterol (un its (unknown) date) HFA 80 2 puff INHALATION unkno wn) BID 05/07/21 07/08/21 (unknown) (no (unknown) (unknown) carboxymethylcellulose (u nits (unknown) date) sodium 0.5 drp EYE-BOTH unknow n) 05/07/21 07/08/21 (unknown) (no (unknown) (unknown) celecoxib [CELECOXIB] (un its (unknown) date) Allergy Unknown unknown) Verified 11/20/21 11:59 (unknown) (no (unknown) (unknown) citalopram 10 mg tablet ( units (unknown) date) See Rx Instructions unknown) .ROUTE 10/04/21 (unknown) (no (unknown) (unknown) complaint of chest (units (unknown) date) tightness that started unknown ) Thursday which has been persistent and (unknown) (no (unknown) (unknown) congestion no fevers. (un its (unknown) date) About 230 this morning unknown ) she woke up and felt very (unknown) (no (unknown) (unknown) constant. She states (un its (unknown) date) it is exacerbated by unknown) exertion such as walking or climbing (unknown) (no (unknown) (unknown) diclofenac sodium 1 % (un its (unknown) date) topical gel 2 g TOPICAL unknow n) QID 05/07/21 07/08/21 (unknown) (no (unknown) (unknown) extremities (units (un known) date) unknown) (unknown) (no (unknown) (unknown) felt a tightness in her (u nits (unknown) date) chest substernally unknown) without radiation. No cold, cough or (unknown) (no (unknown) (unknown) guarding or rebound, (uni ts (unknown) date) rigidity, no mass unknown) (unknown) (no (unknown) (unknown) hand (units (unkno wn) date) unknown) (unknown) (no (unknown) (unknown) in her extremities. (unit s (unknown) date) Patient does have a unknown) history COPD no wheezing. (unknown) (no (unknown) (unknown) in the right breast and ( units (unknown) date) axilla are stable.? unknown) (unknown) (no (unknown) (unknown) inhaler (Symbicort) (unit s (unknown) date) unknown) (unknown) (no (unknown) (unknown) intact (units (unkno wn) date) unknown) (unknown) (no (unknown) (unknown) lactobacillus (units ( unknown) date) [LACTOBACILLUS] Allergy unknow n) Unknown Verified 11/20/21 11:59 (unknown) (no (unknown) (unknown) levothyroxine 88 mcg (uni ts (unknown) date) tablet #0 03/09/12 unknown) 07/08/21 (unknown) (no (unknown) (unknown) lidocaine 5 % topical (un its (unknown) date) patch 1 patch TOP DAILY unknow n) PRN #15 each 12/04/19 (unknown) (no (unknown) (unknown) mcg-4.5 mcg/actuation (un its (unknown) date) aerosol unknown) (unknown) (no (unknown) (unknown) moist mucous membranes (u nits (unknown) date) unknown) (unknown) (no (unknown) (unknown) morphine [MORPHINE] (unit s (unknown) date) Allergy Unknown unknown) Verified 11/20/21 11:59 (unknown) (no (unknown) (unknown) nauseated. She has not ( units (unknown) date) had any syncope but has unknow n) felt lightheaded. No swelling (unknown) (no (unknown) (unknown) oxycodone [OXYCODONE] (un its (unknown) date) Allergy Unknown unknown) Verified 11/20/21 11:59 (unknown) (no (unknown) (unknown) pacemaker replaced. (unit s (unknown) date) unknown) (unknown) (no (unknown) (unknown) pantoprazole 40 mg (units (unknown) date) tablet,delayed 40 mg PO unknow n) BID tab 05/07/21 07/08/21 (unknown) (no (unknown) (unknown) present, hypothyroid, (un its (unknown) date) hypertension and COPD unknown) and sarcoid.Patientcomes in with (unknown) (no (unknown) (unknown) release (units (unkno wn) date) unknown) (unknown) (no (unknown) (unknown) sotalol 80 mg tablet 80 ( units (unknown) date) mg PO BID 05/07/21 unknown) 07/08/21 (unknown) (no (unknown) (unknown) test on December 09 with (un its (unknown) date) the plan to obtain this unknow n) and then take her to have her (unknown) (no (unknown) (unknown) tramadol 50 mg tablet (un its (unknown) date) 50 mg PO Q6H PRN #20 tab unkno wn) 05/21/21 (unknown) (no (unknown) (unknown) unremarkable.? (units (unknown) date) unknown) (unknown) (no (unknown) (unknown) up ladders which she (uni ts (unknown) date) does at work at unknown) [employer]. She has felt tired. She has (unknown) (no (unknown) (unknown) valsartan 80 mg tablet (u nits (unknown) date) 80 mg PO DAILY #0 unknown) 03/09/12 07/08/21 (unknown) (no (unknown) (unknown) which needs (units (un known) date) replacement. No unknown) tobacco, alcohol or illicit. Primary care is Result panel 11 (unknown) (no date) (unknown) (unknown) < 0.012 ng/mL (unkn own) Result panel 12 (unknown) (no (unknown) (unknown) Qty: 0 0RF (units (unk nown) date) unknown) (unknown) (no (unknown) (unknown) (no value) (units (unk nown) date) unknown) (unknown) (no (unknown) (unknown) Radiologist's (units ( unknown) date) Impression: unknown) (unknown) (no (unknown) (unknown) (no value) (units (unk nown) date) unknown) (unknown) (no (unknown) (unknown) EYE-BOTH 0RF (units ( unknown) date) unknown) (unknown) (no (unknown) (unknown) Date of Service: (units (unknown) date) 11/20/21 unknown) (unknown) (no (unknown) (unknown) (no value) (units (unk nown) date) unknown) (unknown) (no (unknown) (unknown) 11/20/21 12:50 (units (unknown) date) unknown) (unknown) (no (unknown) (unknown) 1 patch TOP DAILY PRN (un its (unknown) date) (Reason: pain) Qty: 15 unknown ) 0RF (unknown) (no (unknown) (unknown) [address] [place] [address] (units (unknown) date) unknown) (unknown) (no (unknown) (unknown) 2 g topical QID 0RF (unit s (unknown) date) unknown) (unknown) (no (unknown) (unknown) 2 puff inhalation BID (un its (unknown) date) 0RF unknown) (unknown) (no (unknown) (unknown) 40 mg PO BID 0RF (units (unknown) date) unknown) (unknown) (no (unknown) (unknown) 5 mg PO BID 0RF (units (unknown) date) unknown) (unknown) (no (unknown) (unknown) 50 mg PO Q6H PRN (units (unknown) date) (Reason: pain) Qty: 20 unknown ) 0RF (unknown) (no (unknown) (unknown) 80 mg PO BID 0RF (units (unknown) date) unknown) (unknown) (no (unknown) (unknown) 80 mg PO DAILY 0RF (units (unknown) date) unknown) (unknown) (no (unknown) (unknown) 80 mg PO DAILY Qty: 0 (un its (unknown) date) 0RF unknown) (unknown) (no (unknown) (unknown) Allergies (units (unkn own) date) unknown) (unknown) (no (unknown) (unknown) [place] [address] (unit s (unknown) date) unknown) (unknown) (no (unknown) (unknown) Dose Instruction: (units (unknown) date) unknown) (unknown) (no (unknown) (unknown) ED Orders (units (unkn own) date) unknown) (unknown) (no (unknown) (unknown) Emergency Report (units (unknown) date) unknown) (unknown) (no (unknown) (unknown) Home Medications (units (unknown) date) unknown) (unknown) (no (unknown) (unknown) Hypertension (units (u nknown) date) unknown) (unknown) (no (unknown) (unknown) [facility] (units (unknown) date) unknown) (unknown) (no (unknown) (unknown) [facility] [address] (uni ts (unknown) date) [address] [place] [address] [place], unknown ) [place] [address] (unknown) (no (unknown) (unknown) Lab Results (units (un known) date) unknown) (unknown) (no (unknown) (unknown) Previous Rx's (units ( unknown) date) unknown) (unknown) (no (unknown) (unknown) Rx Instructions: (units (unknown) date) unknown) (unknown) (no (unknown) (unknown) See Rx Instructions (unit s (unknown) date) .ROUTE .COMPLEX Qty: 30 unknow n) 3RF (unknown) (no (unknown) (unknown) Signed (units (unkno wn) date) unknown) (unknown) (no (unknown) (unknown) Stop: 11/20/21 14:37 (uni ts (unknown) date) unknown) (unknown) (no (unknown) (unknown) Stroke (units (unkno wn) date) unknown) (unknown) (no (unknown) (unknown) TAKE 1 TABLET BY MOUTH (u nits (unknown) date) DAILY unknown) (unknown) (no (unknown) (unknown) Urine Dip (units (unkn own) date) unknown) (unknown) (no (unknown) (unknown) Vital Signs - 8 hr (units (unknown) date) unknown) (unknown) (no (unknown) (unknown) XRay Report (units (un known) date) unknown) (unknown) (no (unknown) (unknown) apply to single elbow, (u nits (unknown) date) wrist or hand; for hand unknow n) includes palm/fingers/back of (unknown) (no (unknown) (unknown) leave on most painful (un its (unknown) date) area for up to 12 hrs unknown) (unknown) (no (unknown) (unknown) (no value) (units (unk nown) date) unknown) (unknown) (no (unknown) (unknown) 11/20/21 11/20/21 (units (unknown) date) 11/20/21 Range/Units unknown) (unknown) (no (unknown) (unknown) 11/20/21 11/20/21 (units (unknown) date) Range/Units unknown) (unknown) (no (unknown) (unknown) 12:50 12:50 12:50 (units (unknown) date) unknown) (unknown) (no (unknown) (unknown) 12:50 13:00 (units (un known) date) unknown) (unknown) (no (unknown) (unknown) Eliquis 5 mg tablet (unit s (unknown) date) unknown) (unknown) (no (unknown) (unknown) Refresh Plus 0.5 % (units (unknown) date) dropperette unknown) (unknown) (no (unknown) (unknown) atorvastatin 80 mg (units (unknown) date) tablet unknown) (unknown) (no (unknown) (unknown) budesonide-formoterol (un its (unknown) date) [Symbicort] 80-4.5 unknown) mcg/actuation HFA aerosol inhaler (unknown) (no (unknown) (unknown) citalopram 10 mg tablet ( units (unknown) date) unknown) (unknown) (no (unknown) (unknown) diclofenac sodium 1 % (un its (unknown) date) gel unknown) (unknown) (no (unknown) (unknown) levothyroxine 88 MCG (uni ts (unknown) date) tablet unknown) (unknown) (no (unknown) (unknown) lidocaine 5 % adhesive (u nits (unknown) date) patch,medicated unknown) (unknown) (no (unknown) (unknown) pantoprazole 40 mg (units (unknown) date) tablet,delayed release unknown ) (DR/EC) (unknown) (no (unknown) (unknown) sotalol 80 mg tablet (uni ts (unknown) date) unknown) (unknown) (no (unknown) (unknown) tramadol 50 mg tablet (un its (unknown) date) unknown) (unknown) (no (unknown) (unknown) valsartan 80 mg Tablet (u nits (unknown) date) unknown) (unknown) (no (unknown) (unknown) .COMPLEX #30 tab (units (unknown) date) unknown) (unknown) (no (unknown) (unknown) 11/20/21 (units (unkno wn) date) unknown) (unknown) (no (unknown) (unknown) Chest pain (units (unk nown) date) unknown) (unknown) (no (unknown) (unknown) [id number] (units (unk nown) date) unknown) (unknown) (no (unknown) (unknown) Medication (units (unk nown) date) Instructions Recorded unknown ) (unknown) (no (unknown) (unknown) Medication (units (unk nown) date) Instructions Recorded unknown ) Confirmed (unknown) (no (unknown) (unknown) and below (units (unkn own) date) unknown) (unknown) (no (unknown) (unknown) depression noted. (units (unknown) date) Patient has prior from unknown ) 12/17/2020 which appears similar. (unknown) (no (unknown) (unknown) % eye drops in a (units (unknown) date) dropperette unknown) (unknown) (no (unknown) (unknown) (Refresh Plus) (units (unknown) date) unknown) (unknown) (no (unknown) (unknown) 11/20/21 11:59 (units (unknown) date) unknown) (unknown) (no (unknown) (unknown) 11/20/21 12:50 (units (unknown) date) unknown) (unknown) (no (unknown) (unknown) 11/20/21 13:00 (units (unknown) date) unknown) (unknown) (no (unknown) (unknown) 11/20/21 14:20 (units (unknown) date) unknown) (unknown) (no (unknown) (unknown) 11:59 11/20/21 (units (unknown) date) unknown) (unknown) (no (unknown) (unknown) 14:32 (units (unkno wn) date) unknown) (unknown) (no (unknown) (unknown) ? (units (unkno wn) date) unknown) (unknown) (no (unknown) (unknown) ABDOMEN: Soft, (units (unknown) date) nontender. Normoactive unknow n) bowel sounds all 4 quadrants. No (unknown) (no (unknown) (unknown) ALT (<35) IU/L (units (unknown) date) unknown) (unknown) (no (unknown) (unknown) ALT 12 (<35) IU/L (u nits (unknown) date) unknown) (unknown) (no (unknown) (unknown) AST (14-36) IU/L (uni ts (unknown) date) unknown) (unknown) (no (unknown) (unknown) AST 24 (14-36) (units (unknown) date) IU/L unknown) (unknown) (no (unknown) (unknown) Accession Number: (units (unknown) date) [id number] ?? unknown) (unknown) (no (unknown) (unknown) Acct:[id number] (units (unknown) date) unknown) (unknown) (no (unknown) (unknown) Age/Sex: 71 / F (units (unknown) date) unknown) (unknown) (no (unknown) (unknown) Age/Sex: 71 / F (units (unknown) date) unknown) (unknown) (no (unknown) (unknown) Albumin (3.5-5.0) (uni ts (unknown) date) g/dL unknown) (unknown) (no (unknown) (unknown) Albumin 4.2 (units ( unknown) date) (3.5-5.0) g/dL unknown) (unknown) (no (unknown) (unknown) Albumin/Globulin Ratio (u nits (unknown) date) (1.0-2.8) unknown) (unknown) (no (unknown) (unknown) Albumin/Globulin Ratio (u nits (unknown) date) 1.3 (1.0-2.8) unknown) (unknown) (no (unknown) (unknown) Alkaline Phosphatase (uni ts (unknown) date) (38-126) U/L unknown) (unknown) (no (unknown) (unknown) Alkaline Phosphatase (uni ts (unknown) date) 119 (38-126) U/L unknown) (unknown) (no (unknown) (unknown) Allergy/AdvReac Type (uni ts (unknown) date) Severity Reaction Status unkno wn) Date / Time (unknown) (no (unknown) (unknown) Anesthesia (units (unk nown) date) unknown) (unknown) (no (unknown) (unknown) Anxiety and depression (u nits (unknown) date) (-1996) unknown) (unknown) (no (unknown) (unknown) Approved by: Sola (un its (unknown) date) Al Sanchez MD, PhD on unknown ) 11/20/2021 at 13:44?? (unknown) (no (unknown) (unknown) Aspirin (Aspirin 81 Mg (u nits (unknown) date) Chew Tab) 324 mg PO NOW unkno wn) ONE (unknown) (no (unknown) (unknown) Atrial paced rhythm, (unit s (unknown) date) rate of 67 AR 238 QRS 80 unkno wn) QTC of 420. No acute ST elevation (unknown) (no (unknown) (unknown) Attestation: I (units (unknown) date) personally reviewed and unknow n) interpreted this ECG as follows: (unknown) (no (unknown) (unknown) BUN (7-17) mg/dL (uni ts (unknown) date) unknown) (unknown) (no (unknown) (unknown) BUN 21 H (7-17) (unit s (unknown) date) mg/dL unknown) (unknown) (no (unknown) (unknown) BUN/Creatinine Ratio (uni ts (unknown) date) (6-22) unknown) (unknown) (no (unknown) (unknown) BUN/Creatinine Ratio (uni ts (unknown) date) 20.8 (6-22) unknown) (unknown) (no (unknown) (unknown) Baso # (Auto) (units ( unknown) date) (0-100) /uL unknown) (unknown) (no (unknown) (unknown) Baso # (Auto) 0 (units (unknown) date) (0-100) /uL unknown) (unknown) (no (unknown) (unknown) Baso % (Auto) (0-2) (u nits (unknown) date) % unknown) (unknown) (no (unknown) (unknown) Baso % (Auto) 0.3 (units (unknown) date) (0-2) % unknown) (unknown) (no (unknown) (unknown) Bedside Urine Bilirubin ( units (unknown) date) + 1 unknown) (unknown) (no (unknown) (unknown) Bedside Urine Glucose (un its (unknown) date) Negative unknown) (unknown) (no (unknown) (unknown) Bedside Urine Ketone (uni ts (unknown) date) - Negative unknown) (unknown) (no (unknown) (unknown) Bedside Urine (units ( unknown) date) Leukocytes +/- 15 unknow n) (unknown) (no (unknown) (unknown) Bedside Urine Nitrite (un its (unknown) date) - Negative unknown) (unknown) (no (unknown) (unknown) Bedside Urine Occult (uni ts (unknown) date) Blood +++ unknown) (unknown) (no (unknown) (unknown) Bedside Urine Protein (un its (unknown) date) +/- 15 unknown) (unknown) (no (unknown) (unknown) Bedside Urine (units ( unknown) date) Urobilinogen - unknown) Negative (unknown) (no (unknown) (unknown) Bedside Urine pH 6.0 ( units (unknown) date) unknown) (unknown) (no (unknown) (unknown) Blood Pressure 163/79 (u nits (unknown) date) H 11/20/21 11:59 unknown) (unknown) (no (unknown) (unknown) Blood Pressure 163/79 H ( units (unknown) date) unknown) (unknown) (no (unknown) (unknown) Bones and chest wall:? (u nits (unknown) date) No suspicious bony unknown) abnormalities.? Soft tissues appear (unknown) (no (unknown) (unknown) Brother (units (unknown) date) Cancer unknown) (unknown) (no (unknown) (unknown) Brother (units (unknown) date) History of heart disease unkno wn) (unknown) (no (unknown) (unknown) CARDIOVASCULAR: Regular ( units (unknown) date) rate and rhythm without unknow n) murmurs, rubs or gallops. (unknown) (no (unknown) (unknown) CK-MB (CK-2) (units (u nknown) date) unknown) (unknown) (no (unknown) (unknown) CK-MB (CK-2) TNP (units (unknown) date) unknown) (unknown) (no (unknown) (unknown) CK-MB (CK-2) Rel Index (u nits (unknown) date) unknown) (unknown) (no (unknown) (unknown) CK-MB (CK-2) Rel Index (u nits (unknown) date) TNP unknown) (unknown) (no (unknown) (unknown) [facility], [facility], XR CHEST unknown ) 1V, 12/17/2020, 14:42. (unknown) (no (unknown) (unknown) COPD (chronic (units ( unknown) date) obstructive pulmonary unknown) disease) (-2018) (unknown) (no (unknown) (unknown) Calcium (8.4-10.2) (un its (unknown) date) mg/dL unknown) (unknown) (no (unknown) (unknown) Calcium 9.1 (units ( unknown) date) (8.4-10.2) mg/dL unknown) (unknown) (no (unknown) (unknown) Calcium Oxalate Crystal ( units (unknown) date) unknown) (unknown) (no (unknown) (unknown) Calcium Oxalate Crystal ( units (unknown) date) Many H unknown) (unknown) (no (unknown) (unknown) Carbon Dioxide (units (unknown) date) (22-32) mmol/L unknown) (unknown) (no (unknown) (unknown) Carbon Dioxide 27 (unit s (unknown) date) (22-32) mmol/L unknown) (unknown) (no (unknown) (unknown) Chest x-ray: (units (u nknown) date) unknown) (unknown) (no (unknown) (unknown) Chief Complaint: (units (unknown) date) Shortness of unknown) Breath/Dyspnea (unknown) (no (unknown) (unknown) Chloride (98-107) (uni ts (unknown) date) mmol/L unknown) (unknown) (no (unknown) (unknown) Chloride 108 H (units (unknown) date) (98-107) mmol/L unknown) (unknown) (no (unknown) (unknown) Cholecystectomy, knee (un its (unknown) date) surgery, tummy tuck and unknow n) pacemaker placed 13 years ago (unknown) (no (unknown) (unknown) Chronic back pain (units (unknown) date) (-2012) unknown) (unknown) (no (unknown) (unknown) Arturo. 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 wn) have scheduled her for a stress (unknown) (no (unknown) (unknown) Luzma Sanchez MD (uni ts (unknown) date) [Primary Care Provider] unknow n) - (unknown) (no (unknown) (unknown) Clinical Impression: (uni ts (unknown) date) unknown) (unknown) (no (unknown) (unknown) Complete Blood Count (uni ts (unknown) date) AUTO DIFF Stat unknown) (unknown) (no (unknown) (unknown) Comprehensive Metabolic ( units (unknown) date) Panel Stat unknown) (unknown) (no (unknown) (unknown) Course (units (unkno wn) date) unknown) (unknown) (no (unknown) (unknown) Creatinine (units (unk nown) date) (0.52-1.04) mg/dL unknown) (unknown) (no (unknown) (unknown) Creatinine 1.01 (units (unknown) date) (0.52-1.04) mg/dL unknown) (unknown) (no (unknown) (unknown) : 1950 (units (unknown) date) Acct:[id number] unknown) (unknown) (no (unknown) (unknown) : 1950 (units (unknown) date) unknown) (unknown) (no (unknown) (unknown) Date of Service: (units (unknown) date) 11/20/21 unknown) (unknown) (no (unknown) (unknown) Departure (units (unkn own) date) unknown) (unknown) (no (unknown) (unknown) Dictated by: Sola (un its (unknown) date) Al Sanchez MD, PhD on unknown ) 11/20/2021 at 13:43 ? ? (unknown) (no (unknown) (unknown) Discharge Plan (units (unknown) date) unknown) (unknown) (no (unknown) (unknown) Discontinued (units (u nknown) date) Medications unknown) (unknown) (no (unknown) (unknown) ECG Data (units (unkno wn) date) unknown) (unknown) (no (unknown) (unknown) EKG 2. Atrial paced (unit s (unknown) date) rhythm, positive for unknown) PVC. Rate of 60 2p are 260 QRS 84 QTC (unknown) (no (unknown) (unknown) EKG-12 Lead Stat (units (unknown) date) unknown) (unknown) (no (unknown) (unknown) ER Physician: (units ( unknown) date) Alem Marlow D.O. unknown) (unknown) (no (unknown) (unknown) EXTREMITIES: Normal (unit s (unknown) date) range of motion, no unknown) clubbing or edema. Neurovascularly (unknown) (no (unknown) (unknown) Endometrial hyperplasia ( units (unknown) date) unknown) (unknown) (no (unknown) (unknown) Eos # (Auto) (0-450) ( units (unknown) date) /uL unknown) (unknown) (no (unknown) (unknown) Eos # (Auto) 200 (units (unknown) date) (0-450) /uL unknown) (unknown) (no (unknown) (unknown) Eos % (Auto) (2-4) (un its (unknown) date) % unknown) (unknown) (no (unknown) (unknown) Eos % (Auto) 2.5 (units (unknown) date) (2-4) % unknown) (unknown) (no (unknown) (unknown) Esterase (units (unkno wn) date) unknown) (unknown) (no (unknown) (unknown) Estimated GFR (>60) (u nits (unknown) date) mL/min unknown) (unknown) (no (unknown) (unknown) Estimated GFR 59 L (uni ts (unknown) date) (>60) mL/min unknown) (unknown) (no (unknown) (unknown) Exam (units (unkno wn) date) unknown) (unknown) (no (unknown) (unknown) Exam Narrative: (units (unknown) date) unknown) (unknown) (no (unknown) (unknown) FINDINGS:? (units (unk nown) date) unknown) (unknown) (no (unknown) (unknown) Family History (units (unknown) date) (Reviewed 11/20/21 @ unknown) 14:39 by Alem Marlow DO) (unknown) (no (unknown) (unknown) Father (units (unknown) date) Cancer unknown) (unknown) (no (unknown) (unknown) GENERAL: Alert and (units (unknown) date) oriented x three, female unkno wn) in mild distress. (unknown) (no (unknown) (unknown) GERD (gastroesophageal (u nits (unknown) date) reflux disease) (-2009) unknow n) (unknown) (no (unknown) (unknown) : No CVA tenderness (un its (unknown) date) unknown) (unknown) (no (unknown) (unknown) General (units (unkno wn) date) unknown) (unknown) (no (unknown) (unknown) GenericComposite[Plt (uni ts (unknown) date) Count (150-400) unknown) X10^3/uL ] (unknown) (no (unknown) (unknown) GenericComposite[Plt (uni ts (unknown) date) Count 231 (150-400) unknow n) X10^3/uL ] (unknown) (no (unknown) (unknown) GenericComposite[RBC (uni ts (unknown) date) (4.0-5.2) X10^6/uL ] unknown ) (unknown) (no (unknown) (unknown) GenericComposite[RBC (uni ts (unknown) date) 4.62 (4.0-5.2) unknown) X10^6/uL ] (unknown) (no (unknown) (unknown) GenericComposite[WBC (uni ts (unknown) date) (4.5-11.0) X10^3/uL ] unknow n) (unknown) (no (unknown) (unknown) GenericComposite[WBC (uni ts (unknown) date) 6.7 (4.5-11.0) unknown) X10^3/uL ] (unknown) (no (unknown) (unknown) Globulin (1.7-4.1) (un its (unknown) date) g/dL unknown) (unknown) (no (unknown) (unknown) Globulin 3.2 (units (unknown) date) (1.7-4.1) g/dL unknown) (unknown) (no (unknown) (unknown) Glucose (80-110) (unit s (unknown) date) mg/dL unknown) (unknown) (no (unknown) (unknown) Glucose 94 (80-110) ( units (unknown) date) mg/dL unknown) (unknown) (no (unknown) (unknown) HEENT: Head (units (un known) date) normocephalic, unknown) atraumatic, EOMI, pupils reactive, face symmetric, (unknown) (no (unknown) (unknown) HPI - SOB/Dyspnea (units (unknown) date) unknown) (unknown) (no (unknown) (unknown) HPI Narrative: (units (unknown) date) unknown) (unknown) (no (unknown) (unknown) Hct (36-46) % (units (unknown) date) unknown) (unknown) (no (unknown) (unknown) Hct 37.4 (36-46) % ( units (unknown) date) unknown) (unknown) (no (unknown) (unknown) Headache () (units (unknown) date) unknown) (unknown) (no (unknown) (unknown) Hgb (12.0-16.0) (units (unknown) date) g/dL unknown) (unknown) (no (unknown) (unknown) Hgb 12.1 (units (unkn own) date) (12.0-16.0) g/dL unknown) (unknown) (no (unknown) (unknown) History of Present (units (unknown) date) Illness unknown) (unknown) (no (unknown) (unknown) History of (units (unk nown) date) abdominoplasty () unknown ) (unknown) (no (unknown) (unknown) History of breast lift (u nits (unknown) date) () unknown) (unknown) (no (unknown) (unknown) History of carpal (units (unknown) date) tunnel repair unknown) (unknown) (no (unknown) (unknown) History of cataract (unit s (unknown) date) removal with insertion unknown ) of prosthetic lens () (unknown) (no (unknown) (unknown) 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 No acute (un its (unknown) date) cardiopulmonary disease unknow n) process. (unknown) (no (unknown) (unknown) INDICATIONS:? shortness ( units (unknown) date) of breath unknown) (unknown) (no (unknown) (unknown) IP DYE Allergy Mild (unit s (unknown) date) Uncoded 07/08/21 15:35 unknown ) (unknown) (no (unknown) (unknown) Ictotest Urine Stat (unit s (unknown) date) unknown) (unknown) (no (unknown) (unknown) Imaging Data (units (u nknown) date) unknown) (unknown) (no (unknown) (unknown) Initial Vital Signs (unit s (unknown) date) unknown) (unknown) (no (unknown) (unknown) Initial Vital Signs: (uni ts (unknown) date) unknown) (unknown) (no (unknown) (unknown) Interpretation: (units (unknown) date) unknown) (unknown) (no (unknown) (unknown) Iodine and Iodide (units (unknown) date) Containing Allergy unknown) Verified 11/20/21 11:59 (unknown) (no (unknown) (unknown) Lab Data (units (unkno wn) date) unknown) (unknown) (no (unknown) (unknown) Labs: (units (unkno wn) date) unknown) (unknown) (no (unknown) (unknown) Lactate (0.7-2.1) (uni ts (unknown) date) mmol/L unknown) (unknown) (no (unknown) (unknown) Lactate 1.0 (units (unknown) date) (0.7-2.1) mmol/L unknown) (unknown) (no (unknown) (unknown) Lactate (Lactic Acid) (un its (unknown) date) Stat unknown) (unknown) (no (unknown) (unknown) Limitations: no (units (unknown) date) limitations unknown) (unknown) (no (unknown) (unknown) Loc: ED (units (unkno wn) date) unknown) (unknown) (no (unknown) (unknown) Lungs and pleura:? (units (unknown) date) Lungs are clear.? No unknown) pleural effusions or pneumothorax.? (unknown) (no (unknown) (unknown) Lymph # (Auto) (units (unknown) date) (3597-2684) /uL unknown) (unknown) (no (unknown) (unknown) Lymph # (Auto) 1600 (uni ts (unknown) date) (7567-8841) /uL unknown) (unknown) (no (unknown) (unknown) Lymph % (Auto) (units (unknown) date) (25-40) % unknown) (unknown) (no (unknown) (unknown) Lymph % (Auto) 23.3 L (u nits (unknown) date) (25-40) % unknown) (unknown) (no (unknown) (unknown) MCH (26-34) PG (units (unknown) date) unknown) (unknown) (no (unknown) (unknown) MCH 26.3 (26-34) (uni ts (unknown) date) PG unknown) (unknown) (no (unknown) (unknown) MCHC (30-36) % (units (unknown) date) unknown) (unknown) (no (unknown) (unknown) MCHC 32.4 (30-36) (un its (unknown) date) % unknown) (unknown) (no (unknown) (unknown) MCV (80-100) fL (unit s (unknown) date) unknown) (unknown) (no (unknown) (unknown) MCV 81.1 (80-100) (un its (unknown) date) fL unknown) (unknown) (no (unknown) (unknown) MDM - SOB/Dyspnea (units (unknown) date) unknown) (unknown) (no (unknown) (unknown) MDM Narrative (units ( unknown) date) unknown) (unknown) (no (unknown) (unknown) MR#: [id number] (units (unknown) date) unknown) (unknown) (no (unknown) (unknown) Measure peak expiratory ( units (unknown) date) flow ONCE unknown) (unknown) (no (unknown) (unknown) Mediastinum:? (units ( unknown) date) Mediastinal contours are unkno wn) normal.? Heart size is normal.? (unknown) (no (unknown) (unknown) Medical History (units (unknown) date) (Reviewed 11/20/21 @ unknown) 14:39 by Alem C Mank, DO) (unknown) (no (unknown) (unknown) Medical decision making ( units (unknown) date) narrative: unknown) (unknown) (no (unknown) (unknown) Mode of arrival: (units (unknown) date) Ambulatory unknown) (unknown) (no (unknown) (unknown) [place]ing # (Auto) (units ( unknown) date) (0-900) /uL unknown) (unknown) (no (unknown) (unknown) [place]ing # (Auto) 600 (units (unknown) date) (0-900) /uL unknown) (unknown) (no (unknown) (unknown) Gooding % (Auto) (3-14) ( units (unknown) date) % unknown) (unknown) (no (unknown) (unknown) Gooding % (Auto) 8.4 (units (unknown) date) (3-14) % unknown) (unknown) (no (unknown) (unknown) NECK: Supple, full (units (unknown) date) range of motion unknown) (unknown) (no (unknown) (unknown) NEUROLOGICAL: Cranial (un its (unknown) date) nerves II through XII unknown) grossly intact. Moving all (unknown) (no (unknown) (unknown) NT-Pro-B Natriuret Pep (u nits (unknown) date) (<125) pg/mL unknown) (unknown) (no (unknown) (unknown) NT-Pro-B Natriuret Pep (u nits (unknown) date) 291 H (<125) pg/mL unknown ) (unknown) (no (unknown) (unknown) NT-proBNP (BNP-Adult (uni ts (unknown) date) 18+) Stat unknown) (unknown) (no (unknown) (unknown) Narrative (units (unkn own) date) unknown) (unknown) (no (unknown) (unknown) Neut # (Auto) (units ( unknown) date) (5330-1102) /uL unknown) (unknown) (no (unknown) (unknown) Neut # (Auto) 4400 (unit s (unknown) date) (4866-2986) /uL unknown) (unknown) (no (unknown) (unknown) Neut % (Auto) (units ( unknown) date) (50-75) % unknown) (unknown) (no (unknown) (unknown) Neut % (Auto) 65.5 (unit s (unknown) date) (50-75) % unknown) (unknown) (no (unknown) (unknown) No Action (units (unkn own) date) unknown) (unknown) (no (unknown) (unknown) No acute EKG changes (uni ts (unknown) date) patient does have a unknown) history of AFib, hypertension, (unknown) (no (unknown) (unknown) Ordered: (units (unkno wn) date) unknown) (unknown) (no (unknown) (unknown) Ordering Provider: (units (unknown) date) Alem Marlow D.O. unknown) (unknown) (no (unknown) (unknown) Orders (units (unkno wn) date) unknown) (unknown) (no (unknown) (unknown) PROCEDURE:? XR CHEST 2V ( units (unknown) date) unknown) (unknown) (no (unknown) (unknown) PTT [Partial (units (u nknown) date) Thromboplastin Time] unknown) Stat (unknown) (no (unknown) (unknown) Patient History (units (unknown) date) unknown) (unknown) (no (unknown) (unknown) Patient: (units (unkno wn) date) Laurel,Sherine Eisenberg unknown) MR#: (unknown) (no (unknown) (unknown) Patient: (units (unkno wn) date) Laurel,Sherine S unknown) (unknown) (no (unknown) (unknown) Postmenopausal bleeding ( units (unknown) date) unknown) (unknown) (no (unknown) (unknown) Potassium (3.4-5.1) (u nits (unknown) date) mmol/L unknown) (unknown) (no (unknown) (unknown) Potassium 3.8 (units (unknown) date) (3.4-5.1) mmol/L unknown) (unknown) (no (unknown) (unknown) Prescriptions: (units (unknown) date) unknown) (unknown) (no (unknown) (unknown) Presence of cardiac (unit s (unknown) date) pacemaker (-2009) unknown) (unknown) (no (unknown) (unknown) Prior ECG tracings: (unit s (unknown) date) available for review unknown) (unknown) (no (unknown) (unknown) Procedure: XR chest 2V (u nits (unknown) date) unknown) (unknown) (no (unknown) (unknown) Produc (units (unkno wn) date) unknown) (unknown) (no (unknown) (unknown) Prothrombin Time INR (uni ts (unknown) date) Stat unknown) (unknown) (no (unknown) (unknown) Pulse Oximetry 100 (unit s (unknown) date) 11/20/21 11:59 unknown) (unknown) (no (unknown) (unknown) Pulse Oximetry 100 99 (un its (unknown) date) unknown) (unknown) (no (unknown) (unknown) Pulse Rate 67 (units (unknown) date) 11/20/21 11:59 unknown) (unknown) (no (unknown) (unknown) Pulse Rate 67 61 (units (unknown) date) unknown) (unknown) (no (unknown) (unknown) RDW (11.6-14.8) % (un its (unknown) date) unknown) (unknown) (no (unknown) (unknown) RDW 16.1 H (units (un known) date) (11.6-14.8) % unknown) (unknown) (no (unknown) (unknown) RESPIRATORY: Breath (unit s (unknown) date) sounds equal unknown) bilaterally, no wheezes rales or rhonchi. (unknown) (no (unknown) (unknown) ROS Unobtainable: All (uni ts (unknown) date) systems reviewed + are unknown ) unremarkable except as noted in HPI (unknown) (no (unknown) (unknown) RT Consult Eval and (unit s (unknown) date) Treat Now unknown) (unknown) (no (unknown) (unknown) Referrals: (units (unk nown) date) unknown) (unknown) (no (unknown) (unknown) Related Data (units (u nknown) date) unknown) (unknown) (no (unknown) (unknown) Respiratory Rate 15 (uni ts (unknown) date) 11/20/21 11:59 unknown) (unknown) (no (unknown) (unknown) Respiratory Rate 15 18 (u nits (unknown) date) unknown) (unknown) (no (unknown) (unknown) Result diagrams: (units (unknown) date) unknown) (unknown) (no (unknown) (unknown) Review of Systems (units (unknown) date) unknown) (unknown) (no (unknown) (unknown) SKIN: Warm, dry, no (unit s (unknown) date) petechiae, no rashes or unknow n) lesions. (unknown) (no (unknown) (unknown) Sarcoidosis (-1978) (unit s (unknown) date) unknown) (unknown) (no (unknown) (unknown) Signed By: (units (unk nown) date) unknown) (unknown) (no (unknown) (unknown) Sister (units (unknown) date) Cancer unknown) (unknown) (no (unknown) (unknown) Smoking Status: Never (u nits (unknown) date) smoker unknown) (unknown) (no (unknown) (unknown) Smoking Status: Never (un its (unknown) date) smoker unknown) (unknown) (no (unknown) (unknown) Social History (units (unknown) date) (Reviewed 11/20/21 @ unknown) 14:39 by Alem Marlow DO) (unknown) (no (unknown) (unknown) Sodium (137-145) (unit s (unknown) date) mmol/L unknown) (unknown) (no (unknown) (unknown) Sodium 141 (units (u nknown) date) (137-145) mmol/L unknown) (unknown) (no (unknown) (unknown) Source: patient (units (unknown) date) unknown) (unknown) (no (unknown) (unknown) Stated Complaint: (units (unknown) date) Possible heart attack unknown) (unknown) (no (unknown) (unknown) Status post breast (units (unknown) date) lumpectomy unknown) (unknown) (no (unknown) (unknown) Status post (units (un known) date) cholecystectomy (-1979) unknow n) (unknown) (no (unknown) (unknown) Status post dilation (uni ts (unknown) date) and curettage unknown) (unknown) (no (unknown) (unknown) Status post surgery (unit s (unknown) date) (05/11/15) unknown) (unknown) (no (unknown) (unknown) Substance Use Type: (unit s (unknown) date) does not use unknown) (unknown) (no (unknown) (unknown) Surgical History (units (unknown) date) (Reviewed 11/20/21 @ unknown) 14:39 by Alem Marlow DO) (unknown) (no (unknown) (unknown) Surgical changes and (uni ts (unknown) date) devices:? Left chest unknown) wall cardiac pacer is stable.? (unknown) (no (unknown) (unknown) Surgical clips (units (unknown) date) unknown) (unknown) (no (unknown) (unknown) TECHNIQUE:? 2 views of (u nits (unknown) date) the chest were unknown) acquired.? (unknown) (no (unknown) (unknown) Temperature 97.7 F (unit s (unknown) date) 11/20/21 11:59 unknown) (unknown) (no (unknown) (unknown) Temperature 97.7 F (units (unknown) date) unknown) (unknown) (no (unknown) (unknown) This is a 71-year-old (un its (unknown) date) female who arrives with unknow n) complaint of chest pressure, (unknown) (no (unknown) (unknown) This is a 71-year-old (un its (unknown) date) female with history of unknown ) AFib on Eliquis with pacemaker (unknown) (no (unknown) (unknown) Time Seen by Provider: (u nits (unknown) date) 11/20/21 14:10 unknown) (unknown) (no (unknown) (unknown) Total Bilirubin (units (unknown) date) (0.2-1.3) mg/dL unknown) (unknown) (no (unknown) (unknown) Total Bilirubin 1.1 (un its (unknown) date) (0.2-1.3) mg/dL unknown) (unknown) (no (unknown) (unknown) Total Creatine Kinase (un its (unknown) date) (30-135) U/L unknown) (unknown) (no (unknown) (unknown) Total Creatine Kinase (un its (unknown) date) 96 (30-135) U/L unknown) (unknown) (no (unknown) (unknown) Total Protein (units ( unknown) date) (6.3-8.2) g/dL unknown) (unknown) (no (unknown) (unknown) Total Protein 7.4 (unit s (unknown) date) (6.3-8.2) g/dL unknown) (unknown) (no (unknown) (unknown) Trop I [Troponin I] (unit s (unknown) date) Stat unknown) (unknown) (no (unknown) (unknown) Troponin + CK Cardiac (un its (unknown) date) Panel Stat unknown) (unknown) (no (unknown) (unknown) Troponin I (units (unk nown) date) (0.01-0.034) ng/mL unknown) (unknown) (no (unknown) (unknown) Troponin I < 0.012 (unit s (unknown) date) (0.01-0.034) ng/mL unknown) (unknown) (no (unknown) (unknown) Ur Bilirubin Confirm (uni ts (unknown) date) (Negative) unknown) (unknown) (no (unknown) (unknown) Ur Bilirubin Confirm (uni ts (unknown) date) Negative (Negative) unknown) (unknown) (no (unknown) (unknown) Ur Culture Indicated? (un its (unknown) date) unknown) (unknown) (no (unknown) (unknown) Ur Culture Indicated? (un its (unknown) date) Specimen cultured unknown) (unknown) (no (unknown) (unknown) Ur Squamous Epith Cells ( units (unknown) date) (0-5/HPF) unknown) (unknown) (no (unknown) (unknown) Ur Squamous Epith Cells ( units (unknown) date) 1-5 /hpf (0-5/HPF) unknown) (unknown) (no (unknown) (unknown) Urinalysis and (units (unknown) date) Microscopic Stat unknown) (unknown) (no (unknown) (unknown) Urine Bacteria (units (unknown) date) (None) unknown) (unknown) (no (unknown) (unknown) Urine Bacteria Few (uni ts (unknown) date) (2-10) H (None) unknown) (unknown) (no (unknown) (unknown) Urine Culture Stat (units (unknown) date) unknown) (unknown) (no (unknown) (unknown) Urine Microscopic Stat (u nits (unknown) date) unknown) (unknown) (no (unknown) (unknown) Urine RBC (0-5/HPF) ( units (unknown) date) unknown) (unknown) (no (unknown) (unknown) Urine RBC 10-30/hpf H ( units (unknown) date) (0-5/HPF) unknown) (unknown) (no (unknown) (unknown) Urine Specific [place] (u nits (unknown) date) 1.030 unknown) (unknown) (no (unknown) (unknown) Urine WBC (0-5/HPF) ( units (unknown) date) unknown) (unknown) (no (unknown) (unknown) Urine WBC 1-5/hpf (unit s (unknown) date) (0-5/HPF) unknown) (unknown) (no (unknown) (unknown) Uterine mass (units (u nknown) date) unknown) (unknown) (no (unknown) (unknown) Vital Signs (units (un known) date) unknown) (unknown) (no (unknown) (unknown) Vital signs: (units (u nknown) date) unknown) (unknown) (no (unknown) (unknown) Wears glasses (units ( unknown) date) unknown) (unknown) (no (unknown) (unknown) XR chest 2V Stat (units (unknown) date) unknown) (unknown) (no (unknown) (unknown) [Embedded Image Not (unit s (unknown) date) Available] unknown) (unknown) (no (unknown) (unknown) alcohol intake (units (unknown) date) frequency: unknown) holidays/special occasions only (unknown) (no (unknown) (unknown) alcohol intake: never (u nits (unknown) date) unknown) (unknown) (no (unknown) (unknown) and EKG do not show (unit s (unknown) date) clear changes but it is unknow n) a paced rhythm. (unknown) (no (unknown) (unknown) apixaban 5 mg tablet (uni ts (unknown) date) (Eliquis) 5 mg PO BID unknown) 05/07/21 07/08/21 (unknown) (no (unknown) (unknown) atorvastatin 80 mg (units (unknown) date) tablet 80 mg PO DAILY unknown) 05/07/21 07/08/21 (unknown) (no (unknown) (unknown) budesonide-formoterol (un its (unknown) date) HFA 80 2 puff INHALATION unkno wn) BID 05/07/21 07/08/21 (unknown) (no (unknown) (unknown) carboxymethylcellulose (u nits (unknown) date) sodium 0.5 drp EYE-BOTH unknow n) 05/07/21 07/08/21 (unknown) (no (unknown) (unknown) celecoxib [CELECOXIB] (un its (unknown) date) Allergy Unknown unknown) Verified 11/20/21 11:59 (unknown) (no (unknown) (unknown) citalopram 10 mg tablet ( units (unknown) date) See Rx Instructions unknown) .ROUTE 10/04/21 (unknown) (no (unknown) (unknown) complaint of chest (units (unknown) date) tightness that started unknown ) Thursday which has been persistent and (unknown) (no (unknown) (unknown) congestion no fevers. (un its (unknown) date) About 230 this morning unknown ) she woke up and felt very (unknown) (no (unknown) (unknown) constant. She states (un its (unknown) date) it is exacerbated by unknown) exertion such as walking or climbing (unknown) (no (unknown) (unknown) diclofenac sodium 1 % (un its (unknown) date) topical gel 2 g TOPICAL unknow n) QID 05/07/21 07/08/21 (unknown) (no (unknown) (unknown) dyslipidemia and is (unit s (unknown) date) scheduled to have unknown) cardiac stress testing followed by (unknown) (no (unknown) (unknown) extremities (units (un known) date) unknown) (unknown) (no (unknown) (unknown) felt a tightness in her (u nits (unknown) date) chest substernally unknown) without radiation. No cold, cough or (unknown) (no (unknown) (unknown) guarding or rebound, (uni ts (unknown) date) rigidity, no mass unknown) (unknown) (no (unknown) (unknown) hand (units (unkno wn) date) unknown) (unknown) (no (unknown) (unknown) in her extremities. (unit s (unknown) date) Patient does have a unknown) history COPD no wheezing. (unknown) (no (unknown) (unknown) in the right breast and ( units (unknown) date) axilla are stable.? unknown) (unknown) (no (unknown) (unknown) inhaler (Symbicort) (unit s (unknown) date) unknown) (unknown) (no (unknown) (unknown) intact (units (unkno wn) date) unknown) (unknown) (no (unknown) (unknown) lactobacillus (units ( unknown) date) [LACTOBACILLUS] Allergy unknow n) Unknown Verified 11/20/21 11:59 (unknown) (no (unknown) (unknown) levothyroxine 88 mcg (uni ts (unknown) date) tablet #0 03/09/12 unknown) 07/08/21 (unknown) (no (unknown) (unknown) lidocaine 5 % topical (un its (unknown) date) patch 1 patch TOP DAILY unknow n) PRN #15 each 12/04/19 (unknown) (no (unknown) (unknown) mcg-4.5 mcg/actuation (un its (unknown) date) aerosol unknown) (unknown) (no (unknown) (unknown) moist mucous membranes (u nits (unknown) date) unknown) (unknown) (no (unknown) (unknown) morphine [MORPHINE] (unit s (unknown) date) Allergy Unknown unknown) Verified 11/20/21 11:59 (unknown) (no (unknown) (unknown) nauseated. She has not ( units (unknown) date) had any syncope but has unknow n) felt lightheaded. No swelling (unknown) (no (unknown) (unknown) of 438. No acute ST (uni ts (unknown) date) elevation or depression unknow n) appreciated. (unknown) (no (unknown) (unknown) oxycodone [OXYCODONE] (un its (unknown) date) Allergy Unknown unknown) Verified 11/20/21 11:59 (unknown) (no (unknown) (unknown) pacemaker replaced. (unit s (unknown) date) unknown) (unknown) (no (unknown) (unknown) pacemaker replacement (un its (unknown) date) on December 09. Patient's unknow n) initial labs including troponin (unknown) (no (unknown) (unknown) pantoprazole 40 mg (units (unknown) date) tablet,delayed 40 mg PO unknow n) BID tab 05/07/21 07/08/21 (unknown) (no (unknown) (unknown) present, hypothyroid, (un its (unknown) date) hypertension and COPD unknown) and sarcoid.Patientcomes in with (unknown) (no (unknown) (unknown) release (units (unkno wn) date) unknown) (unknown) (no (unknown) (unknown) shortness of breath (unit s (unknown) date) which is exertional but unknow n) has been present for several days. (unknown) (no (unknown) (unknown) sotalol 80 mg tablet 80 ( units (unknown) date) mg PO BID 05/07/21 unknown) 07/08/21 (unknown) (no (unknown) (unknown) test on December 09 with (un its (unknown) date) the plan to obtain this unknow n) and then take her to have her (unknown) (no (unknown) (unknown) tramadol 50 mg tablet (un its (unknown) date) 50 mg PO Q6H PRN #20 tab unkno wn) 05/21/21 (unknown) (no (unknown) (unknown) unremarkable.? (units (unknown) date) unknown) (unknown) (no (unknown) (unknown) up ladders which she (uni ts (unknown) date) does at work at unknown) [employer]. She has felt tired. She has (unknown) (no (unknown) (unknown) valsartan 80 mg tablet (u nits (unknown) date) 80 mg PO DAILY #0 unknown) 03/09/12 07/08/21 (unknown) (no (unknown) (unknown) which needs (units (un known) date) replacement. No unknown) tobacco, alcohol or illicit. Primary care is . Result panel 13 (unknown) (no date) (unknown) (unknown) 1.1 (units unknown) (unknown) (unknown) (no date) (unknown) (unknown) 12.5 SECONDS (unkn own) Result panel 14 (unknown) (no date) (unknown) (unknown) 33 SECONDS (unkn own) Result panel 15 (unknown) (no (unknown) (unknown) Qty: 0 0RF (units (unk nown) date) unknown) (unknown) (no (unknown) (unknown) (no value) (units (unk nown) date) unknown) (unknown) (no (unknown) (unknown) Radiologist's (units ( unknown) date) Impression: unknown) (unknown) (no (unknown) (unknown) (no value) (units (unk nown) date) unknown) (unknown) (no (unknown) (unknown) EYE-BOTH 0RF (units ( unknown) date) unknown) (unknown) (no (unknown) (unknown) Date of Service: (units (unknown) date) 11/20/21 unknown) (unknown) (no (unknown) (unknown) (no value) (units (unk nown) date) unknown) (unknown) (no (unknown) (unknown) 11/20/21 12:50 (units (unknown) date) unknown) (unknown) (no (unknown) (unknown) 1 patch TOP DAILY PRN (un its (unknown) date) (Reason: pain) Qty: 15 unknown ) 0RF (unknown) (no (unknown) (unknown) [address] [place] [address] (units (unknown) date) unknown) (unknown) (no (unknown) (unknown) 2 g topical QID 0RF (unit s (unknown) date) unknown) (unknown) (no (unknown) (unknown) 2 puff inhalation BID (un its (unknown) date) 0RF unknown) (unknown) (no (unknown) (unknown) 40 mg PO BID 0RF (units (unknown) date) unknown) (unknown) (no (unknown) (unknown) 5 mg PO BID 0RF (units (unknown) date) unknown) (unknown) (no (unknown) (unknown) 50 mg PO Q6H PRN (units (unknown) date) (Reason: pain) Qty: 20 unknown ) 0RF (unknown) (no (unknown) (unknown) 80 mg PO BID 0RF (units (unknown) date) unknown) (unknown) (no (unknown) (unknown) 80 mg PO DAILY 0RF (units (unknown) date) unknown) (unknown) (no (unknown) (unknown) 80 mg PO DAILY Qty: 0 (un its (unknown) date) 0RF unknown) (unknown) (no (unknown) (unknown) Allergies (units (unkn own) date) unknown) (unknown) (no (unknown) (unknown) [place] [address] (unit s (unknown) date) unknown) (unknown) (no (unknown) (unknown) Documented by: ARLEEN (u nits (unknown) date) unknown) (unknown) (no (unknown) (unknown) Dose Instruction: (units (unknown) date) unknown) (unknown) (no (unknown) (unknown) ED Orders (units (unkn own) date) unknown) (unknown) (no (unknown) (unknown) Emergency Report (units (unknown) date) unknown) (unknown) (no (unknown) (unknown) Home Medications (units (unknown) date) unknown) (unknown) (no (unknown) (unknown) Hypertension (units (u nknown) date) unknown) (unknown) (no (unknown) (unknown) [facility] (units (unknown) date) unknown) (unknown) (no (unknown) (unknown) [facility] [address] (uni ts (unknown) date) [facility] [place], unknown ) [place] [address] (unknown) (no (unknown) (unknown) Lab Results (units (un known) date) unknown) (unknown) (no (unknown) (unknown) Last Admin: 11/20/21 (uni ts (unknown) date) 15:43 Dose: 324 mg unknown) (unknown) (no (unknown) (unknown) Last Admin: 11/20/21 (uni ts (unknown) date) 15:44 Dose: 40 mg unknown) (unknown) (no (unknown) (unknown) Previous Rx's (units ( unknown) date) unknown) (unknown) (no (unknown) (unknown) Rx Instructions: (units (unknown) date) unknown) (unknown) (no (unknown) (unknown) See Rx Instructions (unit s (unknown) date) .ROUTE .COMPLEX Qty: 30 unknow n) 3RF (unknown) (no (unknown) (unknown) Signed (units (unkno wn) date) unknown) (unknown) (no (unknown) (unknown) Stop: 11/20/21 14:37 (uni ts (unknown) date) unknown) (unknown) (no (unknown) (unknown) Stop: 11/20/21 15:14 (uni ts (unknown) date) unknown) (unknown) (no (unknown) (unknown) Stroke (units (unkno wn) date) unknown) (unknown) (no (unknown) (unknown) TAKE 1 TABLET BY MOUTH (u nits (unknown) date) DAILY unknown) (unknown) (no (unknown) (unknown) Urine Dip (units (unkn own) date) unknown) (unknown) (no (unknown) (unknown) Vital Signs - 8 hr (units (unknown) date) unknown) (unknown) (no (unknown) (unknown) XRay Report (units (un known) date) unknown) (unknown) (no (unknown) (unknown) apply to single elbow, (u nits (unknown) date) wrist or hand; for hand unknow n) includes palm/fingers/back of (unknown) (no (unknown) (unknown) leave on most painful (un its (unknown) date) area for up to 12 hrs unknown) (unknown) (no (unknown) (unknown) (no value) (units (unk nown) date) unknown) (unknown) (no (unknown) (unknown) 11/20/21 11/20/21 (units (unknown) date) 11/20/21 Range/Units unknown) (unknown) (no (unknown) (unknown) 11/20/21 11/20/21 (units (unknown) date) Range/Units unknown) (unknown) (no (unknown) (unknown) 12:50 12:50 12:50 (units (unknown) date) unknown) (unknown) (no (unknown) (unknown) 13:00 14:20 (units (un known) date) unknown) (unknown) (no (unknown) (unknown) Eliquis 5 mg tablet (unit s (unknown) date) unknown) (unknown) (no (unknown) (unknown) Refresh Plus 0.5 % (units (unknown) date) dropperette unknown) (unknown) (no (unknown) (unknown) atorvastatin 80 mg (units (unknown) date) tablet unknown) (unknown) (no (unknown) (unknown) budesonide-formoterol (un its (unknown) date) [Symbicort] 80-4.5 unknown) mcg/actuation HFA aerosol inhaler (unknown) (no (unknown) (unknown) citalopram 10 mg tablet ( units (unknown) date) unknown) (unknown) (no (unknown) (unknown) diclofenac sodium 1 % (un its (unknown) date) gel unknown) (unknown) (no (unknown) (unknown) levothyroxine 88 MCG (uni ts (unknown) date) tablet unknown) (unknown) (no (unknown) (unknown) lidocaine 5 % adhesive (u nits (unknown) date) patch,medicated unknown) (unknown) (no (unknown) (unknown) pantoprazole 40 mg (units (unknown) date) tablet,delayed release unknown ) (DR/EC) (unknown) (no (unknown) (unknown) sotalol 80 mg tablet (uni ts (unknown) date) unknown) (unknown) (no (unknown) (unknown) tramadol 50 mg tablet (un its (unknown) date) unknown) (unknown) (no (unknown) (unknown) valsartan 80 mg Tablet (u nits (unknown) date) unknown) (unknown) (no (unknown) (unknown) .COMPLEX #30 tab (units (unknown) date) unknown) (unknown) (no (unknown) (unknown) 11/20/21 (units (unkno wn) date) unknown) (unknown) (no (unknown) (unknown) Chest pain (units (unk nown) date) unknown) (unknown) (no (unknown) (unknown) [id number] (units (unk nown) date) unknown) (unknown) (no (unknown) (unknown) Medication (units (unk nown) date) Instructions Recorded unknown ) (unknown) (no (unknown) (unknown) Medication (units (unk nown) date) Instructions Recorded unknown ) Confirmed (unknown) (no (unknown) (unknown) and below (units (unkn own) date) unknown) (unknown) (no (unknown) (unknown) depression noted. (units (unknown) date) Patient has prior from unknown ) 12/17/2020 which appears similar. (unknown) (no (unknown) (unknown) % eye drops in a (units (unknown) date) dropperette unknown) (unknown) (no (unknown) (unknown) (Refresh Plus) (units (unknown) date) unknown) (unknown) (no (unknown) (unknown) 11/20/21 11:59 (units (unknown) date) unknown) (unknown) (no (unknown) (unknown) 11/20/21 12:50 (units (unknown) date) unknown) (unknown) (no (unknown) (unknown) 11/20/21 13:00 (units (unknown) date) unknown) (unknown) (no (unknown) (unknown) 11/20/21 14:20 (units (unknown) date) unknown) (unknown) (no (unknown) (unknown) 11:59 11/20/21 (units (unknown) date) unknown) (unknown) (no (unknown) (unknown) 14:32 (units (unkno wn) date) unknown) (unknown) (no (unknown) (unknown) ? (units (unkno wn) date) unknown) (unknown) (no (unknown) (unknown) ABDOMEN: Soft, (units (unknown) date) nontender. Normoactive unknow n) bowel sounds all 4 quadrants. No (unknown) (no (unknown) (unknown) ALT (<35) IU/L (unit s (unknown) date) unknown) (unknown) (no (unknown) (unknown) ALT (<35) IU/L (units (unknown) date) unknown) (unknown) (no (unknown) (unknown) ALT 12 (<35) IU/L (u nits (unknown) date) unknown) (unknown) (no (unknown) (unknown) APTT (26.4-36.2) (uni ts (unknown) date) SECONDS unknown) (unknown) (no (unknown) (unknown) APTT (26.4-36.2) (unit s (unknown) date) SECONDS unknown) (unknown) (no (unknown) (unknown) APTT 33 (26.4-36.2) ( units (unknown) date) SECONDS unknown) (unknown) (no (unknown) (unknown) AST (14-36) IU/L (un its (unknown) date) unknown) (unknown) (no (unknown) (unknown) AST (14-36) IU/L (uni ts (unknown) date) unknown) (unknown) (no (unknown) (unknown) AST 24 (14-36) (units (unknown) date) IU/L unknown) (unknown) (no (unknown) (unknown) Accession Number: (units (unknown) date) [id number] ?? unknown) (unknown) (no (unknown) (unknown) Acct:[id number] (units (unknown) date) unknown) (unknown) (no (unknown) (unknown) Age/Sex: 71 / F (units (unknown) date) unknown) (unknown) (no (unknown) (unknown) Age/Sex: 71 / F (units (unknown) date) unknown) (unknown) (no (unknown) (unknown) Albumin (3.5-5.0) (un its (unknown) date) g/dL unknown) (unknown) (no (unknown) (unknown) Albumin (3.5-5.0) (uni ts (unknown) date) g/dL unknown) (unknown) (no (unknown) (unknown) Albumin 4.2 (units (unknown) date) (3.5-5.0) g/dL unknown) (unknown) (no (unknown) (unknown) Albumin/Globulin Ratio (u nits (unknown) date) (1.0-2.8) unknown) (unknown) (no (unknown) (unknown) Albumin/Globulin Ratio (u nits (unknown) date) (1.0-2.8) unknown) (unknown) (no (unknown) (unknown) Albumin/Globulin Ratio (u nits (unknown) date) 1.3 (1.0-2.8) unknown) (unknown) (no (unknown) (unknown) Alkaline Phosphatase (uni ts (unknown) date) (38-126) U/L unknown) (unknown) (no (unknown) (unknown) Alkaline Phosphatase (uni ts (unknown) date) (38-126) U/L unknown) (unknown) (no (unknown) (unknown) Alkaline Phosphatase (uni ts (unknown) date) 119 (38-126) U/L unknown) (unknown) (no (unknown) (unknown) Allergy/AdvReac Type (uni ts (unknown) date) Severity Reaction Status unkno wn) Date / Time (unknown) (no (unknown) (unknown) Anesthesia (units (unk nown) date) unknown) (unknown) (no (unknown) (unknown) Anxiety and depression (u nits (unknown) date) (-1996) unknown) (unknown) (no (unknown) (unknown) Approved by: Sola (un its (unknown) date) Al Sanchez MD, PhD on unknown ) 11/20/2021 at 13:44?? (unknown) (no (unknown) (unknown) Aspirin (Aspirin 81 Mg (u nits (unknown) date) Chew Tab) 324 mg PO NOW unkno wn) ONE (unknown) (no (unknown) (unknown) Atrial paced rhythm, (unit s (unknown) date) rate of 67 AR 238 QRS 80 unkno wn) QTC of 420. No acute ST elevation (unknown) (no (unknown) (unknown) Attestation: I (units (unknown) date) personally reviewed and unknow n) interpreted this ECG as follows: (unknown) (no (unknown) (unknown) BUN (7-17) mg/dL (un its (unknown) date) unknown) (unknown) (no (unknown) (unknown) BUN (7-17) mg/dL (uni ts (unknown) date) unknown) (unknown) (no (unknown) (unknown) BUN 21 H (7-17) (unit s (unknown) date) mg/dL unknown) (unknown) (no (unknown) (unknown) BUN/Creatinine Ratio (uni ts (unknown) date) (6-22) unknown) (unknown) (no (unknown) (unknown) BUN/Creatinine Ratio (uni ts (unknown) date) (6-22) unknown) (unknown) (no (unknown) (unknown) BUN/Creatinine Ratio (uni ts (unknown) date) 20.8 (6-22) unknown) (unknown) (no (unknown) (unknown) Baso # (Auto) (units ( unknown) date) (0-100) /uL unknown) (unknown) (no (unknown) (unknown) Baso # (Auto) (units ( unknown) date) (0-100) /uL unknown) (unknown) (no (unknown) (unknown) Baso # (Auto) 0 (units (unknown) date) (0-100) /uL unknown) (unknown) (no (unknown) (unknown) Baso % (Auto) (0-2) ( units (unknown) date) % unknown) (unknown) (no (unknown) (unknown) Baso % (Auto) (0-2) (u nits (unknown) date) % unknown) (unknown) (no (unknown) (unknown) Baso % (Auto) 0.3 (units (unknown) date) (0-2) % unknown) (unknown) (no (unknown) (unknown) Bedside Urine Bilirubin ( units (unknown) date) + 1 unknown) (unknown) (no (unknown) (unknown) Bedside Urine Glucose (un its (unknown) date) Negative unknown) (unknown) (no (unknown) (unknown) Bedside Urine Ketone (uni ts (unknown) date) - Negative unknown) (unknown) (no (unknown) (unknown) Bedside Urine (units ( unknown) date) Leukocytes +/- 15 unknow n) (unknown) (no (unknown) (unknown) Bedside Urine Nitrite (un its (unknown) date) - Negative unknown) (unknown) (no (unknown) (unknown) Bedside Urine Occult (uni ts (unknown) date) Blood +++ unknown) (unknown) (no (unknown) (unknown) Bedside Urine Protein (un its (unknown) date) +/- 15 unknown) (unknown) (no (unknown) (unknown) Bedside Urine (units ( unknown) date) Urobilinogen - unknown) Negative (unknown) (no (unknown) (unknown) Bedside Urine pH 6.0 ( units (unknown) date) unknown) (unknown) (no (unknown) (unknown) Blood Pressure 163/79 (u nits (unknown) date) H 11/20/21 11:59 unknown) (unknown) (no (unknown) (unknown) Blood Pressure 163/79 H ( units (unknown) date) unknown) (unknown) (no (unknown) (unknown) Bones and chest wall:? (u nits (unknown) date) No suspicious bony unknown) abnormalities.? Soft tissues appear (unknown) (no (unknown) (unknown) Brother (units (unknown) date) Cancer unknown) (unknown) (no (unknown) (unknown) Brother (units (unknown) date) History of heart disease unkno wn) (unknown) (no (unknown) (unknown) CARDIOVASCULAR: Regular ( units (unknown) date) rate and rhythm without unknow n) murmurs, rubs or gallops. (unknown) (no (unknown) (unknown) CK-MB (CK-2) (units (u nknown) date) unknown) (unknown) (no (unknown) (unknown) CK-MB (CK-2) (units (u nknown) date) unknown) (unknown) (no (unknown) (unknown) CK-MB (CK-2) TNP (units (unknown) date) unknown) (unknown) (no (unknown) (unknown) CK-MB (CK-2) Rel Index (u nits (unknown) date) unknown) (unknown) (no (unknown) (unknown) CK-MB (CK-2) Rel Index (u nits (unknown) date) unknown) (unknown) (no (unknown) (unknown) CK-MB (CK-2) Rel Index (u nits (unknown) date) TNP unknown) (unknown) (no (unknown) (unknown) [facility], [facility], XR CHEST unknown ) 1V, 12/17/2020, 14:42. (unknown) (no (unknown) (unknown) COPD (chronic (units ( unknown) date) obstructive pulmonary unknown) disease) (-2018) (unknown) (no (unknown) (unknown) Calcium (8.4-10.2) (u nits (unknown) date) mg/dL unknown) (unknown) (no (unknown) (unknown) Calcium (8.4-10.2) (un its (unknown) date) mg/dL unknown) (unknown) (no (unknown) (unknown) Calcium 9.1 (units (unknown) date) (8.4-10.2) mg/dL unknown) (unknown) (no (unknown) (unknown) Calcium Oxalate Crystal ( units (unknown) date) unknown) (unknown) (no (unknown) (unknown) Calcium Oxalate Crystal ( units (unknown) date) Many H unknown) (unknown) (no (unknown) (unknown) Carbon Dioxide (units (unknown) date) (22-32) mmol/L unknown) (unknown) (no (unknown) (unknown) Carbon Dioxide (units (unknown) date) (22-32) mmol/L unknown) (unknown) (no (unknown) (unknown) Carbon Dioxide 27 (uni ts (unknown) date) (22-32) mmol/L unknown) (unknown) (no (unknown) (unknown) Cardiology consultation ( units (unknown) date) they do recommend a unknown) keeping her for stress testing. (unknown) (no (unknown) (unknown) Chest x-ray: (units (u nknown) date) unknown) (unknown) (no (unknown) (unknown) Chief Complaint: (units (unknown) date) Shortness of unknown) Breath/Dyspnea (unknown) (no (unknown) (unknown) Chloride (98-107) (un its (unknown) date) mmol/L unknown) (unknown) (no (unknown) (unknown) Chloride (98-107) (uni ts (unknown) date) mmol/L unknown) (unknown) (no (unknown) (unknown) Chloride 108 H (units (unknown) date) (98-107) mmol/L unknown) (unknown) (no (unknown) (unknown) Cholecystectomy, knee (un its (unknown) date) surgery, tummy tuck and unknow n) pacemaker placed 13 years ago (unknown) (no (unknown) (unknown) Chronic back pain (units (unknown) date) (-2012) unknown) (unknown) (no (unknown) (unknown) Arturo. 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 wn) have scheduled her for a stress (unknown) (no (unknown) (unknown) Luzma Sanchez MD (uni ts (unknown) date) [Primary Care Provider] unknow n) - (unknown) (no (unknown) (unknown) Clinical Impression: (uni ts (unknown) date) unknown) (unknown) (no (unknown) (unknown) Complete Blood Count (uni ts (unknown) date) AUTO DIFF Stat unknown) (unknown) (no (unknown) (unknown) Comprehensive Metabolic ( units (unknown) date) Panel Stat unknown) (unknown) (no (unknown) (unknown) Consultation #1: (units (unknown) date) unknown) (unknown) (no (unknown) (unknown) Consultation #2: (units (unknown) date) unknown) (unknown) (no (unknown) (unknown) Consultations (units ( unknown) date) unknown) (unknown) (no (unknown) (unknown) Course (units (unkno wn) date) unknown) (unknown) (no (unknown) (unknown) Creatinine (units (unk nown) date) (0.52-1.04) mg/dL unknown) (unknown) (no (unknown) (unknown) Creatinine (units (unk nown) date) (0.52-1.04) mg/dL unknown) (unknown) (no (unknown) (unknown) Creatinine 1.01 (units (unknown) date) (0.52-1.04) mg/dL unknown) (unknown) (no (unknown) (unknown) : 1950 (units (unknown) date) Acct:[id number] unknown) (unknown) (no (unknown) (unknown) : 1950 (units (unknown) date) unknown) (unknown) (no (unknown) (unknown) Date of Service: (units (unknown) date) 11/20/21 unknown) (unknown) (no (unknown) (unknown) Departure (units (unkn own) date) unknown) (unknown) (no (unknown) (unknown) Dictated by: Sola (un its (unknown) date) Al Sanchez MD, PhD on unknown ) 11/20/2021 at 13:43 ? ? (unknown) (no (unknown) (unknown) Discharge Plan (units (unknown) date) unknown) (unknown) (no (unknown) (unknown) Discontinued (units (u nknown) date) Medications unknown) (unknown) (no (unknown) (unknown) Dr. [facility] ( units (unknown) date) [facility] unknown) recommend keeping patient for (unknown) (no (unknown) (unknown) Brandon Aragon, (u nits (unknown) date) hospitalist. unknown) (unknown) (no (unknown) (unknown) ECG Data (units (unkno wn) date) unknown) (unknown) (no (unknown) (unknown) EKG 2. Atrial paced (unit s (unknown) date) rhythm, positive for unknown) PVC. Rate of 60 2p are 260 QRS 84 QTC (unknown) (no (unknown) (unknown) EKG-12 Lead Stat (units (unknown) date) unknown) (unknown) (no (unknown) (unknown) ER Physician: (units ( unknown) date) Alem Marlow D.O. unknown) (unknown) (no (unknown) (unknown) EXTREMITIES: Normal (unit s (unknown) date) range of motion, no unknown) clubbing or edema. Neurovascularly (unknown) (no (unknown) (unknown) Endometrial hyperplasia ( units (unknown) date) unknown) (unknown) (no (unknown) (unknown) Eos # (Auto) (units (u nknown) date) (0-450) /uL unknown) (unknown) (no (unknown) (unknown) Eos # (Auto) (0-450) ( units (unknown) date) /uL unknown) (unknown) (no (unknown) (unknown) Eos # (Auto) 200 (units (unknown) date) (0-450) /uL unknown) (unknown) (no (unknown) (unknown) Eos % (Auto) (2-4) (u nits (unknown) date) % unknown) (unknown) (no (unknown) (unknown) Eos % (Auto) (2-4) (un its (unknown) date) % unknown) (unknown) (no (unknown) (unknown) Eos % (Auto) 2.5 (units (unknown) date) (2-4) % unknown) (unknown) (no (unknown) (unknown) Esterase (units (unkno wn) date) unknown) (unknown) (no (unknown) (unknown) Estimated GFR (>60) ( units (unknown) date) mL/min unknown) (unknown) (no (unknown) (unknown) Estimated GFR (>60) (u nits (unknown) date) mL/min unknown) (unknown) (no (unknown) (unknown) Estimated GFR 59 L (un its (unknown) date) (>60) mL/min unknown) (unknown) (no (unknown) (unknown) Exam (units (unkno wn) date) unknown) (unknown) (no (unknown) (unknown) Exam Narrative: (units (unknown) date) unknown) (unknown) (no (unknown) (unknown) FINDINGS:? (units (unk nown) date) unknown) (unknown) (no (unknown) (unknown) Family History (units (unknown) date) (Reviewed 11/20/21 @ unknown) 14:39 by Alem Marlow DO) (unknown) (no (unknown) (unknown) Father (units (unknown) date) Cancer unknown) (unknown) (no (unknown) (unknown) Furosemide (Furosemide (u nits (unknown) date) 40 Mg/4 Ml Vial) 40 mg unknow n) IV NOW ONE (unknown) (no (unknown) (unknown) GENERAL: Alert and (units (unknown) date) oriented x three, female unkno wn) in mild distress. (unknown) (no (unknown) (unknown) GERD (gastroesophageal (u nits (unknown) date) reflux disease) (-2009) unknow n) (unknown) (no (unknown) (unknown) : No CVA tenderness (un its (unknown) date) unknown) (unknown) (no (unknown) (unknown) General (units (unkno wn) date) unknown) (unknown) (no (unknown) (unknown) GenericComposite[Plt (uni ts (unknown) date) Count (150-400) unknown) X10^3/uL ] (unknown) (no (unknown) (unknown) GenericComposite[Plt (uni ts (unknown) date) Count (150-400) unknown) X10^3/uL ] (unknown) (no (unknown) (unknown) GenericComposite[Plt (uni ts (unknown) date) Count 231 (150-400) unknow n) X10^3/uL ] (unknown) (no (unknown) (unknown) GenericComposite[RBC (uni ts (unknown) date) (4.0-5.2) X10^6/uL ] unknow n) (unknown) (no (unknown) (unknown) GenericComposite[RBC (uni ts (unknown) date) (4.0-5.2) X10^6/uL ] unknown ) (unknown) (no (unknown) (unknown) GenericComposite[RBC (uni ts (unknown) date) 4.62 (4.0-5.2) unknown) X10^6/uL ] (unknown) (no (unknown) (unknown) GenericComposite[WBC (uni ts (unknown) date) (4.5-11.0) X10^3/uL ] unkno wn) (unknown) (no (unknown) (unknown) GenericComposite[WBC (uni ts (unknown) date) (4.5-11.0) X10^3/uL ] unknow n) (unknown) (no (unknown) (unknown) GenericComposite[WBC (uni ts (unknown) date) 6.7 (4.5-11.0) unknown) X10^3/uL ] (unknown) (no (unknown) (unknown) Globulin (1.7-4.1) (u nits (unknown) date) g/dL unknown) (unknown) (no (unknown) (unknown) Globulin (1.7-4.1) (un its (unknown) date) g/dL unknown) (unknown) (no (unknown) (unknown) Globulin 3.2 (units (unknown) date) (1.7-4.1) g/dL unknown) (unknown) (no (unknown) (unknown) Glucose (80-110) (uni ts (unknown) date) mg/dL unknown) (unknown) (no (unknown) (unknown) Glucose (80-110) (unit s (unknown) date) mg/dL unknown) (unknown) (no (unknown) (unknown) Glucose 94 (80-110) ( units (unknown) date) mg/dL unknown) (unknown) (no (unknown) (unknown) HEENT: Head (units (un known) date) normocephalic, unknown) atraumatic, EOMI, pupils reactive, face symmetric, (unknown) (no (unknown) (unknown) HPI - SOB/Dyspnea (units (unknown) date) unknown) (unknown) (no (unknown) (unknown) HPI Narrative: (units (unknown) date) unknown) (unknown) (no (unknown) (unknown) Hct (36-46) % (units (unknown) date) unknown) (unknown) (no (unknown) (unknown) Hct (36-46) % (units (unknown) date) unknown) (unknown) (no (unknown) (unknown) Hct 37.4 (36-46) % ( units (unknown) date) unknown) (unknown) (no (unknown) (unknown) Headache (-2019) (units (unknown) date) unknown) (unknown) (no (unknown) (unknown) Hgb (12.0-16.0) (unit s (unknown) date) g/dL unknown) (unknown) (no (unknown) (unknown) Hgb (12.0-16.0) (units (unknown) date) g/dL unknown) (unknown) (no (unknown) (unknown) Hgb 12.1 (units (unkn own) date) (12.0-16.0) g/dL unknown) (unknown) (no (unknown) (unknown) History of Present (units (unknown) date) Illness unknown) (unknown) (no (unknown) (unknown) History of (units (unk nown) date) abdominoplasty () unknown ) (unknown) (no (unknown) (unknown) History of breast lift (u nits (unknown) date) (-2013) unknown) (unknown) (no (unknown) (unknown) History of carpal (units (unknown) date) tunnel repair unknown) (unknown) (no (unknown) (unknown) History of cataract (unit s (unknown) date) removal with insertion unknown ) of prosthetic lens (-2018) (unknown) (no (unknown) (unknown) 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 No acute (un its (unknown) date) cardiopulmonary disease unknow n) process. (unknown) (no (unknown) (unknown) INDICATIONS:? shortness ( units (unknown) date) of breath unknown) (unknown) (no (unknown) (unknown) INR (0.9-1.3) (units (unknown) date) unknown) (unknown) (no (unknown) (unknown) INR (0.9-1.3) (units (unknown) date) unknown) (unknown) (no (unknown) (unknown) INR 1.1 (0.9-1.3) (un its (unknown) date) unknown) (unknown) (no (unknown) (unknown) IP DYE Allergy Mild (unit s (unknown) date) Uncoded 07/08/21 15:35 unknown ) (unknown) (no (unknown) (unknown) Ictotest Urine Stat (unit s (unknown) date) unknown) (unknown) (no (unknown) (unknown) Imaging Data (units (u nknown) date) unknown) (unknown) (no (unknown) (unknown) Initial Vital Signs (unit s (unknown) date) unknown) (unknown) (no (unknown) (unknown) Initial Vital Signs: (uni ts (unknown) date) unknown) (unknown) (no (unknown) (unknown) Interpretation: (units (unknown) date) unknown) (unknown) (no (unknown) (unknown) Iodine and Iodide (units (unknown) date) Containing Allergy unknown) Verified 11/20/21 11:59 (unknown) (no (unknown) (unknown) Lab Data (units (unkno wn) date) unknown) (unknown) (no (unknown) (unknown) Labs: (units (unkno wn) date) unknown) (unknown) (no (unknown) (unknown) Lactate (0.7-2.1) (un its (unknown) date) mmol/L unknown) (unknown) (no (unknown) (unknown) Lactate (0.7-2.1) (uni ts (unknown) date) mmol/L unknown) (unknown) (no (unknown) (unknown) Lactate 1.0 (units (u nknown) date) (0.7-2.1) mmol/L unknown) (unknown) (no (unknown) (unknown) Lactate (Lactic Acid) (un its (unknown) date) Stat unknown) (unknown) (no (unknown) (unknown) Limitations: no (units (unknown) date) limitations unknown) (unknown) (no (unknown) (unknown) Loc: ED (units (unkno wn) date) unknown) (unknown) (no (unknown) (unknown) Lungs and pleura:? (units (unknown) date) Lungs are clear.? No unknown) pleural effusions or pneumothorax.? (unknown) (no (unknown) (unknown) Lymph # (Auto) (units (unknown) date) (0256-8197) /uL unknown) (unknown) (no (unknown) (unknown) Lymph # (Auto) (units (unknown) date) (3476-4678) /uL unknown) (unknown) (no (unknown) (unknown) Lymph # (Auto) 1600 (uni ts (unknown) date) (8850-7939) /uL unknown) (unknown) (no (unknown) (unknown) Lymph % (Auto) (units (unknown) date) (25-40) % unknown) (unknown) (no (unknown) (unknown) Lymph % (Auto) (units (unknown) date) (25-40) % unknown) (unknown) (no (unknown) (unknown) Lymph % (Auto) 23.3 L (u nits (unknown) date) (25-40) % unknown) (unknown) (no (unknown) (unknown) MCH (26-34) PG (unit s (unknown) date) unknown) (unknown) (no (unknown) (unknown) MCH (26-34) PG (units (unknown) date) unknown) (unknown) (no (unknown) (unknown) MCH 26.3 (26-34) (uni ts (unknown) date) PG unknown) (unknown) (no (unknown) (unknown) MCHC (30-36) % (unit s (unknown) date) unknown) (unknown) (no (unknown) (unknown) MCHC (30-36) % (units (unknown) date) unknown) (unknown) (no (unknown) (unknown) MCHC 32.4 (30-36) (un its (unknown) date) % unknown) (unknown) (no (unknown) (unknown) MCV (80-100) fL (uni ts (unknown) date) unknown) (unknown) (no (unknown) (unknown) MCV (80-100) fL (unit s (unknown) date) unknown) (unknown) (no (unknown) (unknown) MCV 81.1 (80-100) (un its (unknown) date) fL unknown) (unknown) (no (unknown) (unknown) MDM - SOB/Dyspnea (units (unknown) date) unknown) (unknown) (no (unknown) (unknown) MDM Narrative (units ( unknown) date) unknown) (unknown) (no (unknown) (unknown) MR#: [id number] (units (unknown) date) unknown) (unknown) (no (unknown) (unknown) Measure peak expiratory ( units (unknown) date) flow ONCE unknown) (unknown) (no (unknown) (unknown) Mediastinum:? (units ( unknown) date) Mediastinal contours are unkno wn) normal.? Heart size is normal.? (unknown) (no (unknown) (unknown) Medical History (units (unknown) date) (Reviewed 11/20/21 @ unknown) 14:39 by Alem Marlow DO) (unknown) (no (unknown) (unknown) Medical decision making ( units (unknown) date) narrative: unknown) (unknown) (no (unknown) (unknown) Mode of arrival: (units (unknown) date) Ambulatory unknown) (unknown) (no (unknown) (unknown) [place] # (Auto) (units ( unknown) date) (0-900) /uL unknown) (unknown) (no (unknown) (unknown) [place] # (Auto) (units ( unknown) date) (0-900) /uL unknown) (unknown) (no (unknown) (unknown) [place] # (Auto) 600 (units (unknown) date) (0-900) /uL unknown) (unknown) (no (unknown) (unknown) [place] % (Auto) (units ( unknown) date) (3-14) % unknown) (unknown) (no (unknown) (unknown) [place] % (Auto) (3-14) ( units (unknown) date) % unknown) (unknown) (no (unknown) (unknown) [place] % (Auto) 8.4 (units (unknown) date) (3-14) % unknown) (unknown) (no (unknown) (unknown) NECK: Supple, full (units (unknown) date) range of motion unknown) (unknown) (no (unknown) (unknown) NEUROLOGICAL: Cranial (un its (unknown) date) nerves II through XII unknown) grossly intact. Moving all (unknown) (no (unknown) (unknown) NT-Pro-B Natriuret Pep (u nits (unknown) date) (<125) pg/mL unknown) (unknown) (no (unknown) (unknown) NT-Pro-B Natriuret Pep (u nits (unknown) date) (<125) pg/mL unknown) (unknown) (no (unknown) (unknown) NT-Pro-B Natriuret Pep (u nits (unknown) date) 291 H (<125) pg/mL unknown ) (unknown) (no (unknown) (unknown) NT-proBNP (BNP-Adult (uni ts (unknown) date) 18+) Stat unknown) (unknown) (no (unknown) (unknown) Narrative (units (unkn own) date) unknown) (unknown) (no (unknown) (unknown) Neut # (Auto) (units ( unknown) date) (5153-7580) /uL unknown) (unknown) (no (unknown) (unknown) Neut # (Auto) (units ( unknown) date) (5263-7842) /uL unknown) (unknown) (no (unknown) (unknown) Neut # (Auto) 4400 (unit s (unknown) date) (9724-3486) /uL unknown) (unknown) (no (unknown) (unknown) Neut % (Auto) (units ( unknown) date) (50-75) % unknown) (unknown) (no (unknown) (unknown) Neut % (Auto) (units ( unknown) date) (50-75) % unknown) (unknown) (no (unknown) (unknown) Neut % (Auto) 65.5 (unit s (unknown) date) (50-75) % unknown) (unknown) (no (unknown) (unknown) No Action (units (unkn own) date) unknown) (unknown) (no (unknown) (unknown) No acute EKG changes (uni ts (unknown) date) patient does have a unknown) history of AFib, hypertension, (unknown) (no (unknown) (unknown) Ordered: (units (unkno wn) date) unknown) (unknown) (no (unknown) (unknown) Ordering Provider: (units (unknown) date) Alem Marlow D.O. unknown) (unknown) (no (unknown) (unknown) Orders (units (unkno wn) date) unknown) (unknown) (no (unknown) (unknown) PROCEDURE:? XR CHEST 2V ( units (unknown) date) unknown) (unknown) (no (unknown) (unknown) PT (10.1-12.7) (units (unknown) date) SECONDS unknown) (unknown) (no (unknown) (unknown) PT (10.1-12.7) (units (unknown) date) SECONDS unknown) (unknown) (no (unknown) (unknown) PT 12.5 (10.1-12.7) ( units (unknown) date) SECONDS unknown) (unknown) (no (unknown) (unknown) PTT [Partial (units (u nknown) date) Thromboplastin Time] unknown) Stat (unknown) (no (unknown) (unknown) Patient History (units (unknown) date) unknown) (unknown) (no (unknown) (unknown) Patient: (units (unkno wn) date) Laurel,Sherine S unknown) MR#: (unknown) (no (unknown) (unknown) Patient: (units (unkno wn) date) Laurel,Sherine S unknown) (unknown) (no (unknown) (unknown) Postmenopausal bleeding ( units (unknown) date) unknown) (unknown) (no (unknown) (unknown) Potassium (3.4-5.1) ( units (unknown) date) mmol/L unknown) (unknown) (no (unknown) (unknown) Potassium (3.4-5.1) (u nits (unknown) date) mmol/L unknown) (unknown) (no (unknown) (unknown) Potassium 3.8 (units (unknown) date) (3.4-5.1) mmol/L unknown) (unknown) (no (unknown) (unknown) Prescriptions: (units (unknown) date) unknown) (unknown) (no (unknown) (unknown) Presence of cardiac (unit s (unknown) date) pacemaker (-2009) unknown) (unknown) (no (unknown) (unknown) Prior ECG tracings: (unit s (unknown) date) available for review unknown) (unknown) (no (unknown) (unknown) Procedure: XR chest 2V (u nits (unknown) date) unknown) (unknown) (no (unknown) (unknown) Produc (units (unkno wn) date) unknown) (unknown) (no (unknown) (unknown) Prothrombin Time INR (uni ts (unknown) date) Stat unknown) (unknown) (no (unknown) (unknown) Pulse Oximetry 100 (unit s (unknown) date) 11/20/21 11:59 unknown) (unknown) (no (unknown) (unknown) Pulse Oximetry 100 99 (un its (unknown) date) unknown) (unknown) (no (unknown) (unknown) Pulse Rate 67 (units (unknown) date) 11/20/21 11:59 unknown) (unknown) (no (unknown) (unknown) Pulse Rate 67 61 (units (unknown) date) unknown) (unknown) (no (unknown) (unknown) RDW (11.6-14.8) % (u nits (unknown) date) unknown) (unknown) (no (unknown) (unknown) RDW (11.6-14.8) % (un its (unknown) date) unknown) (unknown) (no (unknown) (unknown) RDW 16.1 H (units (un known) date) (11.6-14.8) % unknown) (unknown) (no (unknown) (unknown) RESPIRATORY: Breath (unit s (unknown) date) sounds equal unknown) bilaterally, no wheezes rales or rhonchi. (unknown) (no (unknown) (unknown) ROS Unobtainable: All (uni ts (unknown) date) systems reviewed + are unknown ) unremarkable except as noted in HPI (unknown) (no (unknown) (unknown) RT Consult Eval and (unit s (unknown) date) Treat Now unknown) (unknown) (no (unknown) (unknown) Referrals: (units (unk nown) date) unknown) (unknown) (no (unknown) (unknown) Related Data (units (u nknown) date) unknown) (unknown) (no (unknown) (unknown) Respiratory Rate 15 (uni ts (unknown) date) 11/20/21 11:59 unknown) (unknown) (no (unknown) (unknown) Respiratory Rate 15 18 (u nits (unknown) date) unknown) (unknown) (no (unknown) (unknown) Result diagrams: (units (unknown) date) unknown) (unknown) (no (unknown) (unknown) Review of Systems (units (unknown) date) unknown) (unknown) (no (unknown) (unknown) SKIN: Warm, dry, no (unit s (unknown) date) petechiae, no rashes or unknow n) lesions. (unknown) (no (unknown) (unknown) Sarcoidosis (-1978) (unit s (unknown) date) unknown) (unknown) (no (unknown) (unknown) Signed By: (units (unk nown) date) unknown) (unknown) (no (unknown) (unknown) Sister (units (unknown) date) Cancer unknown) (unknown) (no (unknown) (unknown) Smoking Status: Never (u nits (unknown) date) smoker unknown) (unknown) (no (unknown) (unknown) Smoking Status: Never (un its (unknown) date) smoker unknown) (unknown) (no (unknown) (unknown) Social History (units (unknown) date) (Reviewed 11/20/21 @ unknown) 14:39 by Alem Marlow DO) (unknown) (no (unknown) (unknown) Sodium (137-145) (uni ts (unknown) date) mmol/L unknown) (unknown) (no (unknown) (unknown) Sodium (137-145) (unit s (unknown) date) mmol/L unknown) (unknown) (no (unknown) (unknown) Sodium 141 (units ( unknown) date) (137-145) mmol/L unknown) (unknown) (no (unknown) (unknown) Source: patient (units (unknown) date) unknown) (unknown) (no (unknown) (unknown) Stated Complaint: (units (unknown) date) Possible heart attack unknown) (unknown) (no (unknown) (unknown) Status post breast (units (unknown) date) lumpectomy unknown) (unknown) (no (unknown) (unknown) Status post (units (un known) date) cholecystectomy (-1979) unknow n) (unknown) (no (unknown) (unknown) Status post dilation (uni ts (unknown) date) and curettage unknown) (unknown) (no (unknown) (unknown) Status post surgery (unit s (unknown) date) (05/11/15) unknown) (unknown) (no (unknown) (unknown) Substance Use Type: (unit s (unknown) date) does not use unknown) (unknown) (no (unknown) (unknown) Surgical History (units (unknown) date) (Reviewed 11/20/21 @ unknown) 14:39 by Alem Marlow DO) (unknown) (no (unknown) (unknown) Surgical changes and (uni ts (unknown) date) devices:? Left chest unknown) wall cardiac pacer is stable.? (unknown) (no (unknown) (unknown) Surgical clips (units (unknown) date) unknown) (unknown) (no (unknown) (unknown) TECHNIQUE:? 2 views of (u nits (unknown) date) the chest were unknown) acquired.? (unknown) (no (unknown) (unknown) Temperature 97.7 F (unit s (unknown) date) 11/20/21 11:59 unknown) (unknown) (no (unknown) (unknown) Temperature 97.7 F (units (unknown) date) unknown) (unknown) (no (unknown) (unknown) Their recommendation is ( units (unknown) date) actually chemical stress unkno wn) test as patient has a paced (unknown) (no (unknown) (unknown) This is a 71-year-old (un its (unknown) date) female who arrives with unknow n) complaint of chest pressure, (unknown) (no (unknown) (unknown) This is a 71-year-old (un its (unknown) date) female with history of unknown ) AFib on Eliquis with pacemaker (unknown) (no (unknown) (unknown) Time Seen by Provider: (u nits (unknown) date) 11/20/21 14:10 unknown) (unknown) (no (unknown) (unknown) Time: 15:50 (units (un known) date) unknown) (unknown) (no (unknown) (unknown) Time: 15:51 (units (un known) date) unknown) (unknown) (no (unknown) (unknown) Total Bilirubin (units (unknown) date) (0.2-1.3) mg/dL unknown) (unknown) (no (unknown) (unknown) Total Bilirubin (units (unknown) date) (0.2-1.3) mg/dL unknown) (unknown) (no (unknown) (unknown) Total Bilirubin 1.1 (u nits (unknown) date) (0.2-1.3) mg/dL unknown) (unknown) (no (unknown) (unknown) Total Creatine Kinase (un its (unknown) date) (30-135) U/L unknown) (unknown) (no (unknown) (unknown) Total Creatine Kinase (un its (unknown) date) (30-135) U/L unknown) (unknown) (no (unknown) (unknown) Total Creatine Kinase (un its (unknown) date) 96 (30-135) U/L unknown) (unknown) (no (unknown) (unknown) Total Protein (units ( unknown) date) (6.3-8.2) g/dL unknown) (unknown) (no (unknown) (unknown) Total Protein (units ( unknown) date) (6.3-8.2) g/dL unknown) (unknown) (no (unknown) (unknown) Total Protein 7.4 (uni ts (unknown) date) (6.3-8.2) g/dL unknown) (unknown) (no (unknown) (unknown) Trop I [Troponin I] (unit s (unknown) date) Stat unknown) (unknown) (no (unknown) (unknown) Troponin + CK Cardiac (un its (unknown) date) Panel Stat unknown) (unknown) (no (unknown) (unknown) Troponin I (units (unk nown) date) (0.01-0.034) ng/mL unknown) (unknown) (no (unknown) (unknown) Troponin I < 0.012 (uni ts (unknown) date) (0.01-0.034) ng/mL unknown) (unknown) (no (unknown) (unknown) Troponin I < 0.012 (uni ts (unknown) date) (0.01-0.034) ng/mL unknown) (unknown) (no (unknown) (unknown) Ur Bilirubin Confirm (uni ts (unknown) date) (Negative) unknown) (unknown) (no (unknown) (unknown) Ur Bilirubin Confirm (uni ts (unknown) date) Negative (Negative) unknown) (unknown) (no (unknown) (unknown) Ur Culture Indicated? (un its (unknown) date) unknown) (unknown) (no (unknown) (unknown) Ur Culture Indicated? (un its (unknown) date) Specimen cultured unknown) (unknown) (no (unknown) (unknown) Ur Squamous Epith Cells ( units (unknown) date) (0-5/HPF) unknown) (unknown) (no (unknown) (unknown) Ur Squamous Epith Cells ( units (unknown) date) 1-5 /hpf (0-5/HPF) unknown) (unknown) (no (unknown) (unknown) Urinalysis and (units (unknown) date) Microscopic Stat unknown) (unknown) (no (unknown) (unknown) Urine Bacteria (units (unknown) date) (None) unknown) (unknown) (no (unknown) (unknown) Urine Bacteria Few (unit s (unknown) date) (2-10) H (None) unknown) (unknown) (no (unknown) (unknown) Urine Culture Stat (units (unknown) date) unknown) (unknown) (no (unknown) (unknown) Urine Microscopic Stat (u nits (unknown) date) unknown) (unknown) (no (unknown) (unknown) Urine RBC (0-5/HPF) ( units (unknown) date) unknown) (unknown) (no (unknown) (unknown) Urine RBC 10-30/hpf H (u nits (unknown) date) (0-5/HPF) unknown) (unknown) (no (unknown) (unknown) Urine Specific [place] (u nits (unknown) date) 1.030 unknown) (unknown) (no (unknown) (unknown) Urine WBC (0-5/HPF) ( units (unknown) date) unknown) (unknown) (no (unknown) (unknown) Urine WBC 1-5/hpf (units (unknown) date) (0-5/HPF) unknown) (unknown) (no (unknown) (unknown) Uterine mass (units (u nknown) date) unknown) (unknown) (no (unknown) (unknown) Vital Signs (units (un known) date) unknown) (unknown) (no (unknown) (unknown) Vital signs: (units (u nknown) date) unknown) (unknown) (no (unknown) (unknown) Wears glasses (units ( unknown) date) unknown) (unknown) (no (unknown) (unknown) XR chest 2V Stat (units (unknown) date) unknown) (unknown) (no (unknown) (unknown) [Embedded Image Not (unit s (unknown) date) Available] unknown) (unknown) (no (unknown) (unknown) alcohol intake (units (unknown) date) frequency: unknown) holidays/special occasions only (unknown) (no (unknown) (unknown) alcohol intake: never (u nits (unknown) date) unknown) (unknown) (no (unknown) (unknown) and EKG do not show (unit s (unknown) date) clear changes but it is unknow n) a paced rhythm. Patient's repeat (unknown) (no (unknown) (unknown) apixaban 5 mg tablet (uni ts (unknown) date) (Eliquis) 5 mg PO BID unknown) 05/07/21 07/08/21 (unknown) (no (unknown) (unknown) atorvastatin 80 mg (units (unknown) date) tablet 80 mg PO DAILY unknown) 05/07/21 07/08/21 (unknown) (no (unknown) (unknown) budesonide-formoterol (un its (unknown) date) HFA 80 2 puff INHALATION unkno wn) BID 05/07/21 07/08/21 (unknown) (no (unknown) (unknown) carboxymethylcellulose (u nits (unknown) date) sodium 0.5 drp EYE-BOTH unknow n) 05/07/21 07/08/21 (unknown) (no (unknown) (unknown) celecoxib [CELECOXIB] (un its (unknown) date) Allergy Unknown unknown) Verified 11/20/21 11:59 (unknown) (no (unknown) (unknown) citalopram 10 mg tablet ( units (unknown) date) See Rx Instructions unknown) .ROUTE 10/04/21 (unknown) (no (unknown) (unknown) complaint of chest (units (unknown) date) tightness that started unknown ) Thursday which has been persistent and (unknown) (no (unknown) (unknown) congestion no fevers. (un its (unknown) date) About 230 this morning unknown ) she woke up and felt very (unknown) (no (unknown) (unknown) constant. She states (un its (unknown) date) it is exacerbated by unknown) exertion such as walking or climbing (unknown) (no (unknown) (unknown) diclofenac sodium 1 % (un its (unknown) date) topical gel 2 g TOPICAL unknow n) QID 05/07/21 07/08/21 (unknown) (no (unknown) (unknown) dyslipidemia and is (unit s (unknown) date) scheduled to have unknown) cardiac stress testing followed by (unknown) (no (unknown) (unknown) extremities (units (un known) date) unknown) (unknown) (no (unknown) (unknown) felt a tightness in her (u nits (unknown) date) chest substernally unknown) without radiation. No cold, cough or (unknown) (no (unknown) (unknown) guarding or rebound, (uni ts (unknown) date) rigidity, no mass unknown) (unknown) (no (unknown) (unknown) hand (units (unkno wn) date) unknown) (unknown) (no (unknown) (unknown) in her extremities. (unit s (unknown) date) Patient does have a unknown) history COPD no wheezing. (unknown) (no (unknown) (unknown) in the right breast and ( units (unknown) date) axilla are stable.? unknown) (unknown) (no (unknown) (unknown) inhaler (Symbicort) (unit s (unknown) date) unknown) (unknown) (no (unknown) (unknown) intact (units (unkno wn) date) unknown) (unknown) (no (unknown) (unknown) lactobacillus (units ( unknown) date) [LACTOBACILLUS] Allergy unknow n) Unknown Verified 11/20/21 11:59 (unknown) (no (unknown) (unknown) levothyroxine 88 mcg (uni ts (unknown) date) tablet #0 03/09/12 unknown) 07/08/21 (unknown) (no (unknown) (unknown) lidocaine 5 % topical (un its (unknown) date) patch 1 patch TOP DAILY unknow n) PRN #15 each 12/04/19 (unknown) (no (unknown) (unknown) mcg-4.5 mcg/actuation (un its (unknown) date) aerosol unknown) (unknown) (no (unknown) (unknown) moist mucous membranes (u nits (unknown) date) unknown) (unknown) (no (unknown) (unknown) morphine [MORPHINE] (unit s (unknown) date) Allergy Unknown unknown) Verified 11/20/21 11:59 (unknown) (no (unknown) (unknown) nauseated. She has not ( units (unknown) date) had any syncope but has unknow n) felt lightheaded. No swelling (unknown) (no (unknown) (unknown) of 438. No acute ST (uni ts (unknown) date) elevation or depression unknow n) appreciated. (unknown) (no (unknown) (unknown) oxycodone [OXYCODONE] (un its (unknown) date) Allergy Unknown unknown) Verified 11/20/21 11:59 (unknown) (no (unknown) (unknown) pacemaker replaced. (unit s (unknown) date) unknown) (unknown) (no (unknown) (unknown) pacemaker replacement (un its (unknown) date) on December 09. Patient's unknow n) initial labs including troponin (unknown) (no (unknown) (unknown) pantoprazole 40 mg (units (unknown) date) tablet,delayed 40 mg PO unknow n) BID tab 05/07/21 07/08/21 (unknown) (no (unknown) (unknown) present, hypothyroid, (un its (unknown) date) hypertension and COPD unknown) and sarcoid.Patientcomes in with (unknown) (no (unknown) (unknown) release (units (unkno wn) date) unknown) (unknown) (no (unknown) (unknown) rhythm as on sotalol (uni ts (unknown) date) which would blunt her unknown) tachycardic response and make (unknown) (no (unknown) (unknown) shortness of breath (unit s (unknown) date) which is exertional but unknow n) has been present for several days. (unknown) (no (unknown) (unknown) sotalol 80 mg tablet 80 ( units (unknown) date) mg PO BID 05/07/21 unknown) 07/08/21 (unknown) (no (unknown) (unknown) stress testing because (u nits (unknown) date) she is paced and on unknown) sotalol would recommend chemical s (unknown) (no (unknown) (unknown) test on December 09 with (un its (unknown) date) the plan to obtain this unknow n) and then take her to have her (unknown) (no (unknown) (unknown) tramadol 50 mg tablet (un its (unknown) date) 50 mg PO Q6H PRN #20 tab unkno wn) 05/21/21 (unknown) (no (unknown) (unknown) treadmill stress (units (unknown) date) testing unlikely to be unknown ) successful. Spoke with hospitalist, (unknown) (no (unknown) (unknown) tress over treadmill. (un its (unknown) date) unknown) (unknown) (no (unknown) (unknown) troponin is negative. (un its (unknown) date) She was given aspirin, unknown ) Lasix BNP was slightly elevated. (unknown) (no (unknown) (unknown) unremarkable.? (units (unknown) date) unknown) (unknown) (no (unknown) (unknown) up ladders which she (uni ts (unknown) date) does at work at unknown) [employer]. She has felt tired. She has (unknown) (no (unknown) (unknown) valsartan 80 mg tablet (u nits (unknown) date) 80 mg PO DAILY #0 unknown) 03/09/12 07/08/21 (unknown) (no (unknown) (unknown) which needs (units (un known) date) replacement. No unknown) tobacco, alcohol or illicit. Primary care is Result panel 16 (unknown) (no date) (unknown) (unknown) POSITIVE (units (unkn own) unknown) Result panel 17 (unknown) (no (unknown) (unknown) (no value) (units (unk nown) date) unknown) (unknown) (no (unknown) (unknown) Radiologist's (units ( unknown) date) Impression: unknown) (unknown) (no (unknown) (unknown) (no value) (units (unk nown) date) unknown) (unknown) (no (unknown) (unknown) Date of Service: (units (unknown) date) 11/20/21 unknown) (unknown) (no (unknown) (unknown) (no value) (units (unk nown) date) unknown) (unknown) (no (unknown) (unknown) 11/20/21 12:50 (units (unknown) date) unknown) (unknown) (no (unknown) (unknown) [address] (units (unknown) date) unknown) (unknown) (no (unknown) (unknown) Allergies (units (unkn own) date) unknown) (unknown) (no (unknown) (unknown) [place] [id number] (unit s (unknown) date) unknown) (unknown) (no (unknown) (unknown) Documented by: ARLEEN (u nits (unknown) date) unknown) (unknown) (no (unknown) (unknown) ED Orders (units (unkn own) date) unknown) (unknown) (no (unknown) (unknown) Emergency Report (units (unknown) date) unknown) (unknown) (no (unknown) (unknown) Home Medications (units (unknown) date) unknown) (unknown) (no (unknown) (unknown) Hypertension (units (u nknown) date) unknown) (unknown) (no (unknown) (unknown) [facility] (units (unknown) date) unknown) (unknown) (no (unknown) (unknown) [facility] [address] (uni ts (unknown) date) [address] [place], unknown ) [place] [id number] (unknown) (no (unknown) (unknown) Lab Results (units (un known) date) unknown) (unknown) (no (unknown) (unknown) Last Admin: 11/20/21 (uni ts (unknown) date) 15:43 Dose: 324 mg unknown) (unknown) (no (unknown) (unknown) Last Admin: 11/20/21 (uni ts (unknown) date) 15:44 Dose: 40 mg unknown) (unknown) (no (unknown) (unknown) Previous Rx's (units ( unknown) date) unknown) (unknown) (no (unknown) (unknown) Signed (units (unkno wn) date) unknown) (unknown) (no (unknown) (unknown) Stop: 11/20/21 14:37 (uni ts (unknown) date) unknown) (unknown) (no (unknown) (unknown) Stop: 11/20/21 15:14 (uni ts (unknown) date) unknown) (unknown) (no (unknown) (unknown) Stroke (units (unkno wn) date) unknown) (unknown) (no (unknown) (unknown) Urine Dip (units (unkn own) date) unknown) (unknown) (no (unknown) (unknown) Vital Signs - 8 hr (units (unknown) date) unknown) (unknown) (no (unknown) (unknown) XRay Report (units (un known) date) unknown) (unknown) (no (unknown) (unknown) (no value) (units (unk nown) date) unknown) (unknown) (no (unknown) (unknown) 11/20/21 11/20/21 (units (unknown) date) 11/20/21 Range/Units unknown) (unknown) (no (unknown) (unknown) 12:50 12:50 12:50 (units (unknown) date) unknown) (unknown) (no (unknown) (unknown) 13:00 13:00 14:20 (units (unknown) date) unknown) (unknown) (no (unknown) (unknown) .COMPLEX #30 tab (units (unknown) date) unknown) (unknown) (no (unknown) (unknown) 11/20/21 (units (unkno wn) date) unknown) (unknown) (no (unknown) (unknown) Chest pain (units (unk nown) date) unknown) (unknown) (no (unknown) (unknown) [id number] (units (unk nown) date) unknown) (unknown) (no (unknown) (unknown) Medication (units (unk nown) date) Instructions Recorded unknown ) (unknown) (no (unknown) (unknown) Medication (units (unk nown) date) Instructions Recorded unknown ) Confirmed (unknown) (no (unknown) (unknown) and below (units (unkn own) date) unknown) (unknown) (no (unknown) (unknown) depression noted. (units (unknown) date) Patient has prior from unknown ) 12/17/2020 which appears similar. (unknown) (no (unknown) (unknown) % eye drops in a (units (unknown) date) dropperette unknown) (unknown) (no (unknown) (unknown) (Refresh Plus) (units (unknown) date) unknown) (unknown) (no (unknown) (unknown) 11/20/21 11:59 (units (unknown) date) unknown) (unknown) (no (unknown) (unknown) 11/20/21 12:50 (units (unknown) date) unknown) (unknown) (no (unknown) (unknown) 11/20/21 13:00 (units (unknown) date) unknown) (unknown) (no (unknown) (unknown) 11/20/21 14:20 (units (unknown) date) unknown) (unknown) (no (unknown) (unknown) 11:59 11/20/21 (units (unknown) date) unknown) (unknown) (no (unknown) (unknown) 12:33 11/20/21 (units (unknown) date) unknown) (unknown) (no (unknown) (unknown) 12:34 (units (unkno wn) date) unknown) (unknown) (no (unknown) (unknown) 13:00 11/20/21 (units (unknown) date) unknown) (unknown) (no (unknown) (unknown) 13:30 11/20/21 (units (unknown) date) unknown) (unknown) (no (unknown) (unknown) 14:00 (units (unkno wn) date) unknown) (unknown) (no (unknown) (unknown) 14:30 11/20/21 (units (unknown) date) unknown) (unknown) (no (unknown) (unknown) 14:32 11/20/21 (units (unknown) date) unknown) (unknown) (no (unknown) (unknown) 15:00 (units (unkno wn) date) unknown) (unknown) (no (unknown) (unknown) 15:30 11/20/21 (units (unknown) date) unknown) (unknown) (no (unknown) (unknown) 16:00 11/20/21 (units (unknown) date) unknown) (unknown) (no (unknown) (unknown) 16:01 (units (unkno wn) date) unknown) (unknown) (no (unknown) (unknown) ? (units (unkno wn) date) unknown) (unknown) (no (unknown) (unknown) ABDOMEN: Soft, (units (unknown) date) nontender. Normoactive unknow n) bowel sounds all 4 quadrants. No (unknown) (no (unknown) (unknown) ALT (<35) IU/L (unit s (unknown) date) unknown) (unknown) (no (unknown) (unknown) ALT 12 (<35) IU/L (u nits (unknown) date) unknown) (unknown) (no (unknown) (unknown) APTT (26.4-36.2) (uni ts (unknown) date) SECONDS unknown) (unknown) (no (unknown) (unknown) APTT 33 (26.4-36.2) ( units (unknown) date) SECONDS unknown) (unknown) (no (unknown) (unknown) AST (14-36) IU/L (un its (unknown) date) unknown) (unknown) (no (unknown) (unknown) AST 24 (14-36) (units (unknown) date) IU/L unknown) (unknown) (no (unknown) (unknown) Accession Number: (units (unknown) date) [id number] ?? unknown) (unknown) (no (unknown) (unknown) Acct:[id number] (units (unknown) date) unknown) (unknown) (no (unknown) (unknown) Admit Date/Time: (units (unknown) date) 11/20/21 16:31 unknown) (unknown) (no (unknown) (unknown) Admit Provider: (units (unknown) date) Hanh Shankar unkno wnGildardo emmanuel (unknown) (no (unknown) (unknown) Age/Sex: 71 / F (units (unknown) date) unknown) (unknown) (no (unknown) (unknown) Age/Sex: 71 / F (units (unknown) date) unknown) (unknown) (no (unknown) (unknown) Albumin (3.5-5.0) (un its (unknown) date) g/dL unknown) (unknown) (no (unknown) (unknown) Albumin 4.2 (units (unknown) date) (3.5-5.0) g/dL unknown) (unknown) (no (unknown) (unknown) Albumin/Globulin Ratio (u nits (unknown) date) (1.0-2.8) unknown) (unknown) (no (unknown) (unknown) Albumin/Globulin Ratio (u nits (unknown) date) 1.3 (1.0-2.8) unknown) (unknown) (no (unknown) (unknown) Alkaline Phosphatase (uni ts (unknown) date) (38-126) U/L unknown) (unknown) (no (unknown) (unknown) Alkaline Phosphatase (uni ts (unknown) date) 119 (38-126) U/L unknown) (unknown) (no (unknown) (unknown) Allergy/AdvReac Type (uni ts (unknown) date) Severity Reaction Status unkno wn) Date / Time (unknown) (no (unknown) (unknown) Amorphous Sediment (units (unknown) date) unknown) (unknown) (no (unknown) (unknown) Amorphous Sediment (units (unknown) date) Cancelled unknown) (unknown) (no (unknown) (unknown) Anesthesia (units (unk nown) date) unknown) (unknown) (no (unknown) (unknown) Anxiety and depression (u nits (unknown) date) () unknown) (unknown) (no (unknown) (unknown) Approved by: Sola (un its (unknown) date) Al Sanchez MD, PhD on unknown ) 11/20/2021 at 13:44?? (unknown) (no (unknown) (unknown) Aspirin (Aspirin 81 Mg (u nits (unknown) date) Chew Tab) 324 mg PO NOW unkno wn) ONE (unknown) (no (unknown) (unknown) Atrial paced rhythm, (unit s (unknown) date) rate of 67 AR 238 QRS 80 unkno wn) QTC of 420. No acute ST elevation (unknown) (no (unknown) (unknown) Attestation: I (units (unknown) date) personally reviewed and unknow n) interpreted this ECG as follows: (unknown) (no (unknown) (unknown) BUN (7-17) mg/dL (un its (unknown) date) unknown) (unknown) (no (unknown) (unknown) BUN 21 H (7-17) (unit s (unknown) date) mg/dL unknown) (unknown) (no (unknown) (unknown) BUN/Creatinine Ratio (uni ts (unknown) date) (6-22) unknown) (unknown) (no (unknown) (unknown) BUN/Creatinine Ratio (uni ts (unknown) date) 20.8 (6-22) unknown) (unknown) (no (unknown) (unknown) Baso # (Auto) (units ( unknown) date) (0-100) /uL unknown) (unknown) (no (unknown) (unknown) Baso # (Auto) 0 (units (unknown) date) (0-100) /uL unknown) (unknown) (no (unknown) (unknown) Baso % (Auto) (0-2) ( units (unknown) date) % unknown) (unknown) (no (unknown) (unknown) Baso % (Auto) 0.3 (units (unknown) date) (0-2) % unknown) (unknown) (no (unknown) (unknown) Bedside Urine Bilirubin ( units (unknown) date) + 1 unknown) (unknown) (no (unknown) (unknown) Bedside Urine Glucose (un its (unknown) date) Negative unknown) (unknown) (no (unknown) (unknown) Bedside Urine Ketone (uni ts (unknown) date) - Negative unknown) (unknown) (no (unknown) (unknown) Bedside Urine (units ( unknown) date) Leukocytes +/- 15 unknow n) (unknown) (no (unknown) (unknown) Bedside Urine Nitrite (un its (unknown) date) - Negative unknown) (unknown) (no (unknown) (unknown) Bedside Urine Occult (uni ts (unknown) date) Blood +++ unknown) (unknown) (no (unknown) (unknown) Bedside Urine Protein (un its (unknown) date) +/- 15 unknown) (unknown) (no (unknown) (unknown) Bedside Urine (units ( unknown) date) Urobilinogen - unknown) Negative (unknown) (no (unknown) (unknown) Bedside Urine pH 6.0 ( units (unknown) date) unknown) (unknown) (no (unknown) (unknown) Blood Pressure (units (unknown) date) unknown) (unknown) (no (unknown) (unknown) Blood Pressure 163/79 (u nits (unknown) date) H 11/20/21 11:59 unknown) (unknown) (no (unknown) (unknown) Blood Pressure 165/74 (u nits (unknown) date) H 161/70 H unknown) (unknown) (no (unknown) (unknown) Blood Pressure 163/79 H ( units (unknown) date) 162/74 H unknown) (unknown) (no (unknown) (unknown) Blood Pressure 169/72 H ( units (unknown) date) unknown) (unknown) (no (unknown) (unknown) Bones and chest wall:? (u nits (unknown) date) No suspicious bony unknown) abnormalities.? Soft tissues appear (unknown) (no (unknown) (unknown) Brother (units (unknown) date) Cancer unknown) (unknown) (no (unknown) (unknown) Brother (units (unknown) date) History of heart disease unkno wn) (unknown) (no (unknown) (unknown) CARDIOVASCULAR: Regular ( units (unknown) date) rate and rhythm without unknow n) murmurs, rubs or gallops. (unknown) (no (unknown) (unknown) CK-MB (CK-2) (units (u nknown) date) unknown) (unknown) (no (unknown) (unknown) CK-MB (CK-2) TNP (units (unknown) date) unknown) (unknown) (no (unknown) (unknown) CK-MB (CK-2) Rel Index (u nits (unknown) date) unknown) (unknown) (no (unknown) (unknown) CK-MB (CK-2) Rel Index (u nits (unknown) date) TNP unknown) (unknown) (no (unknown) (unknown) [facility], [facility], XR CHEST unknown ) 1V, 12/17/2020, 14:42. (unknown) (no (unknown) (unknown) COPD (chronic (units ( unknown) date) obstructive pulmonary unknown) disease) (-2018) (unknown) (no (unknown) (unknown) Calcium (8.4-10.2) (u nits (unknown) date) mg/dL unknown) (unknown) (no (unknown) (unknown) Calcium 9.1 (units (unknown) date) (8.4-10.2) mg/dL unknown) (unknown) (no (unknown) (unknown) Calcium Oxalate Crystal ( units (unknown) date) unknown) (unknown) (no (unknown) (unknown) Calcium Oxalate Crystal ( units (unknown) date) Many H Cancelled unknown) (unknown) (no (unknown) (unknown) Carbon Dioxide (units (unknown) date) (22-32) mmol/L unknown) (unknown) (no (unknown) (unknown) Carbon Dioxide 27 (uni ts (unknown) date) (22-32) mmol/L unknown) (unknown) (no (unknown) (unknown) Cardiology consultation ( units (unknown) date) they do recommend a unknown) keeping her for stress testing. (unknown) (no (unknown) (unknown) Chest x-ray: (units (u nknown) date) unknown) (unknown) (no (unknown) (unknown) Chief Complaint: (units (unknown) date) Shortness of unknown) Breath/Dyspnea (unknown) (no (unknown) (unknown) Chloride (98-107) (un its (unknown) date) mmol/L unknown) (unknown) (no (unknown) (unknown) Chloride 108 H (units (unknown) date) (98-107) mmol/L unknown) (unknown) (no (unknown) (unknown) Cholecystectomy, knee (un its (unknown) date) surgery, tummy tuck and unknow n) pacemaker placed 13 years ago (unknown) (no (unknown) (unknown) Chronic back pain (units (unknown) date) (-2012) unknown) (unknown) (no (unknown) (unknown) Arturo. 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 wn) have scheduled her for a stress (unknown) (no (unknown) (unknown) Clinical Impression: (uni ts (unknown) date) unknown) (unknown) (no (unknown) (unknown) Complete Blood Count (uni ts (unknown) date) AUTO DIFF Stat unknown) (unknown) (no (unknown) (unknown) Comprehensive Metabolic ( units (unknown) date) Panel Stat unknown) (unknown) (no (unknown) (unknown) Consultation #1: (units (unknown) date) unknown) (unknown) (no (unknown) (unknown) Consultation #2: (units (unknown) date) unknown) (unknown) (no (unknown) (unknown) Consultations (units ( unknown) date) unknown) (unknown) (no (unknown) (unknown) Course (units (unkno wn) date) unknown) (unknown) (no (unknown) (unknown) Creatinine (units (unk nown) date) (0.52-1.04) mg/dL unknown) (unknown) (no (unknown) (unknown) Creatinine 1.01 (units (unknown) date) (0.52-1.04) mg/dL unknown) (unknown) (no (unknown) (unknown) : 1950 (units (unknown) date) Acct:[id number] unknown) (unknown) (no (unknown) (unknown) : 1950 (units (unknown) date) unknown) (unknown) (no (unknown) (unknown) Date of Service: (units (unknown) date) 11/20/21 unknown) (unknown) (no (unknown) (unknown) Departure (units (unkn own) date) unknown) (unknown) (no (unknown) (unknown) Dictated by: Sola (un its (unknown) date) Al Sanchez MD, PhD on unknown ) 11/20/2021 at 13:43 ? ? (unknown) (no (unknown) (unknown) Discharge Plan (units (unknown) date) unknown) (unknown) (no (unknown) (unknown) Discontinued (units (u nknown) date) Medications unknown) (unknown) (no (unknown) (unknown) [facility] ( units (unknown) date) [facility] unknown) recommend keeping patient for (unknown) (no (unknown) (unknown) Brandon Aragno, (u nits (unknown) date) hospitalist. unknown) (unknown) (no (unknown) (unknown) ECG Data (units (unkno wn) date) unknown) (unknown) (no (unknown) (unknown) EKG 2. Atrial paced (unit s (unknown) date) rhythm, positive for unknown) PVC. Rate of 60 2p are 260 QRS 84 QTC (unknown) (no (unknown) (unknown) EKG-12 Lead Stat (units (unknown) date) unknown) (unknown) (no (unknown) (unknown) ER Physician: (units ( unknown) date) Alem Marlow D.O. unknown) (unknown) (no (unknown) (unknown) EXTREMITIES: Normal (unit s (unknown) date) range of motion, no unknown) clubbing or edema. Neurovascularly (unknown) (no (unknown) (unknown) Endometrial hyperplasia ( units (unknown) date) unknown) (unknown) (no (unknown) (unknown) Eos # (Auto) (units (u nknown) date) (0-450) /uL unknown) (unknown) (no (unknown) (unknown) Eos # (Auto) 200 (units (unknown) date) (0-450) /uL unknown) (unknown) (no (unknown) (unknown) Eos % (Auto) (2-4) (u nits (unknown) date) % unknown) (unknown) (no (unknown) (unknown) Eos % (Auto) 2.5 (units (unknown) date) (2-4) % unknown) (unknown) (no (unknown) (unknown) Esterase (units (unkno wn) date) unknown) (unknown) (no (unknown) (unknown) Estimated GFR (>60) ( units (unknown) date) mL/min unknown) (unknown) (no (unknown) (unknown) Estimated GFR 59 L (un its (unknown) date) (>60) mL/min unknown) (unknown) (no (unknown) (unknown) Exam (units (unkno wn) date) unknown) (unknown) (no (unknown) (unknown) Exam Narrative: (units (unknown) date) unknown) (unknown) (no (unknown) (unknown) FINDINGS:? (units (unk nown) date) unknown) (unknown) (no (unknown) (unknown) Family History (units (unknown) date) (Reviewed 11/20/21 @ unknown) 14:39 by Alem Marlow DO) (unknown) (no (unknown) (unknown) Father (units (unknown) date) Cancer unknown) (unknown) (no (unknown) (unknown) Furosemide (Furosemide (u nits (unknown) date) 40 Mg/4 Ml Vial) 40 mg unknow n) IV NOW ONE (unknown) (no (unknown) (unknown) GENERAL: Alert and (units (unknown) date) oriented x three, female unkno wn) in mild distress. (unknown) (no (unknown) (unknown) GERD (gastroesophageal (u nits (unknown) date) reflux disease) (-2009) unknow n) (unknown) (no (unknown) (unknown) : No CVA tenderness (un its (unknown) date) unknown) (unknown) (no (unknown) (unknown) General (units (unkno wn) date) unknown) (unknown) (no (unknown) (unknown) GenericComposite[Plt (uni ts (unknown) date) Count (150-400) unknown) X10^3/uL ] (unknown) (no (unknown) (unknown) GenericComposite[Plt (uni ts (unknown) date) Count 231 (150-400) unknow n) X10^3/uL ] (unknown) (no (unknown) (unknown) GenericComposite[RBC (uni ts (unknown) date) (4.0-5.2) X10^6/uL ] unknow n) (unknown) (no (unknown) (unknown) GenericComposite[RBC (uni ts (unknown) date) 4.62 (4.0-5.2) unknown) X10^6/uL ] (unknown) (no (unknown) (unknown) GenericComposite[WBC (uni ts (unknown) date) (4.5-11.0) X10^3/uL ] unkno wn) (unknown) (no (unknown) (unknown) GenericComposite[WBC (uni ts (unknown) date) 6.7 (4.5-11.0) unknown) X10^3/uL ] (unknown) (no (unknown) (unknown) Globulin (1.7-4.1) (u nits (unknown) date) g/dL unknown) (unknown) (no (unknown) (unknown) Globulin 3.2 (units (unknown) date) (1.7-4.1) g/dL unknown) (unknown) (no (unknown) (unknown) Glucose (80-110) (uni ts (unknown) date) mg/dL unknown) (unknown) (no (unknown) (unknown) Glucose 94 (80-110) ( units (unknown) date) mg/dL unknown) (unknown) (no (unknown) (unknown) Granular Casts (units (unknown) date) unknown) (unknown) (no (unknown) (unknown) Granular Casts (units (unknown) date) Cancelled unknown) (unknown) (no (unknown) (unknown) HEENT: Head (units (un known) date) normocephalic, unknown) atraumatic, EOMI, pupils reactive, face symmetric, (unknown) (no (unknown) (unknown) HPI - SOB/Dyspnea (units (unknown) date) unknown) (unknown) (no (unknown) (unknown) HPI Narrative: (units (unknown) date) unknown) (unknown) (no (unknown) (unknown) Hct (36-46) % (units (unknown) date) unknown) (unknown) (no (unknown) (unknown) Hct 37.4 (36-46) % ( units (unknown) date) unknown) (unknown) (no (unknown) (unknown) Headache () (units (unknown) date) unknown) (unknown) (no (unknown) (unknown) Hgb (12.0-16.0) (unit s (unknown) date) g/dL unknown) (unknown) (no (unknown) (unknown) Hgb 12.1 (units (unkn own) date) (12.0-16.0) g/dL unknown) (unknown) (no (unknown) (unknown) History of Present (units (unknown) date) Illness unknown) (unknown) (no (unknown) (unknown) History of (units (unk nown) date) abdominoplasty () unknown ) (unknown) (no (unknown) (unknown) History of breast lift (u nits (unknown) date) () unknown) (unknown) (no (unknown) (unknown) History of carpal (units (unknown) date) tunnel repair unknown) (unknown) (no (unknown) (unknown) History of cataract (unit s (unknown) date) removal with insertion unknown ) of prosthetic lens () (unknown) (no (unknown) (unknown) 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 No acute (un its (unknown) date) cardiopulmonary disease unknow n) process. (unknown) (no (unknown) (unknown) INDICATIONS:? shortness ( units (unknown) date) of breath unknown) (unknown) (no (unknown) (unknown) INR (0.9-1.3) (units (unknown) date) unknown) (unknown) (no (unknown) (unknown) INR 1.1 (0.9-1.3) (un its (unknown) date) unknown) (unknown) (no (unknown) (unknown) IP DYE Allergy Mild (unit s (unknown) date) Uncoded 07/08/21 15:35 unknown ) (unknown) (no (unknown) (unknown) Ictotest Urine Stat (unit s (unknown) date) unknown) (unknown) (no (unknown) (unknown) Imaging Data (units (u nknown) date) unknown) (unknown) (no (unknown) (unknown) Initial Vital Signs (unit s (unknown) date) unknown) (unknown) (no (unknown) (unknown) Initial Vital Signs: (uni ts (unknown) date) unknown) (unknown) (no (unknown) (unknown) Interpretation: (units (unknown) date) unknown) (unknown) (no (unknown) (unknown) Iodine and Iodide (units (unknown) date) Containing Allergy unknown) Verified 11/20/21 11:59 (unknown) (no (unknown) (unknown) Lab Data (units (unkno wn) date) unknown) (unknown) (no (unknown) (unknown) Labs: (units (unkno wn) date) unknown) (unknown) (no (unknown) (unknown) Lactate (0.7-2.1) (un its (unknown) date) mmol/L unknown) (unknown) (no (unknown) (unknown) Lactate 1.0 (units (u nknown) date) (0.7-2.1) mmol/L unknown) (unknown) (no (unknown) (unknown) Lactate (Lactic Acid) (un its (unknown) date) Stat unknown) (unknown) (no (unknown) (unknown) Limitations: no (units (unknown) date) limitations unknown) (unknown) (no (unknown) (unknown) Loc: ED (units (unkno wn) date) unknown) (unknown) (no (unknown) (unknown) Lungs and pleura:? (units (unknown) date) Lungs are clear.? No unknown) pleural effusions or pneumothorax.? (unknown) (no (unknown) (unknown) Lymph # (Auto) (units (unknown) date) (7724-9743) /uL unknown) (unknown) (no (unknown) (unknown) Lymph # (Auto) 1600 (uni ts (unknown) date) (2626-6408) /uL unknown) (unknown) (no (unknown) (unknown) Lymph % (Auto) (units (unknown) date) (25-40) % unknown) (unknown) (no (unknown) (unknown) Lymph % (Auto) 23.3 L (u nits (unknown) date) (25-40) % unknown) (unknown) (no (unknown) (unknown) MCH (26-34) PG (unit s (unknown) date) unknown) (unknown) (no (unknown) (unknown) MCH 26.3 (26-34) (uni ts (unknown) date) PG unknown) (unknown) (no (unknown) (unknown) MCHC (30-36) % (unit s (unknown) date) unknown) (unknown) (no (unknown) (unknown) MCHC 32.4 (30-36) (un its (unknown) date) % unknown) (unknown) (no (unknown) (unknown) MCV (80-100) fL (uni ts (unknown) date) unknown) (unknown) (no (unknown) (unknown) MCV 81.1 (80-100) (un its (unknown) date) fL unknown) (unknown) (no (unknown) (unknown) MDM - SOB/Dyspnea (units (unknown) date) unknown) (unknown) (no (unknown) (unknown) MDM Narrative (units ( unknown) date) unknown) (unknown) (no (unknown) (unknown) MR#: [id number] (units (unknown) date) unknown) (unknown) (no (unknown) (unknown) Mediastinum:? (units ( unknown) date) Mediastinal contours are unkno wn) normal.? Heart size is normal.? (unknown) (no (unknown) (unknown) Medical History (units (unknown) date) (Reviewed 11/20/21 @ unknown) 14:39 by Alem Marlow DO) (unknown) (no (unknown) (unknown) Medical decision making ( units (unknown) date) narrative: unknown) (unknown) (no (unknown) (unknown) Micro UA Comment (units (unknown) date) unknown) (unknown) (no (unknown) (unknown) Micro UA Comment (units (unknown) date) Cancelled unknown) (unknown) (no (unknown) (unknown) Mode of arrival: (units (unknown) date) Ambulatory unknown) (unknown) (no (unknown) (unknown) [place]ing # (Auto) (units ( unknown) date) (0-900) /uL unknown) (unknown) (no (unknown) (unknown) Gooding # (Auto) 600 (units (unknown) date) (0-900) /uL unknown) (unknown) (no (unknown) (unknown) [place]ing % (Auto) (units ( unknown) date) (3-14) % unknown) (unknown) (no (unknown) (unknown) Gooding % (Auto) 8.4 (units (unknown) date) (3-14) % unknown) (unknown) (no (unknown) (unknown) NECK: Supple, full (units (unknown) date) range of motion unknown) (unknown) (no (unknown) (unknown) NEUROLOGICAL: Cranial (un its (unknown) date) nerves II through XII unknown) grossly intact. Moving all (unknown) (no (unknown) (unknown) NT-Pro-B Natriuret Pep (u nits (unknown) date) (<125) pg/mL unknown) (unknown) (no (unknown) (unknown) NT-Pro-B Natriuret Pep (u nits (unknown) date) 291 H (<125) pg/mL unknown ) (unknown) (no (unknown) (unknown) NT-proBNP (BNP-Adult (uni ts (unknown) date) 18+) Stat unknown) (unknown) (no (unknown) (unknown) Narrative (units (unkn own) date) unknown) (unknown) (no (unknown) (unknown) Neut # (Auto) (units ( unknown) date) (8776-0188) /uL unknown) (unknown) (no (unknown) (unknown) Neut # (Auto) 4400 (unit s (unknown) date) (2835-0020) /uL unknown) (unknown) (no (unknown) (unknown) Neut % (Auto) (units ( unknown) date) (50-75) % unknown) (unknown) (no (unknown) (unknown) Neut % (Auto) 65.5 (unit s (unknown) date) (50-75) % unknown) (unknown) (no (unknown) (unknown) No acute EKG changes (uni ts (unknown) date) patient does have a unknown) history of AFib, hypertension, (unknown) (no (unknown) (unknown) Ordered: (units (unkno wn) date) unknown) (unknown) (no (unknown) (unknown) Ordering Provider: (units (unknown) date) Alem Marlow D.O. unknown) (unknown) (no (unknown) (unknown) Orders (units (unkno wn) date) unknown) (unknown) (no (unknown) (unknown) Other Casts (units (un known) date) unknown) (unknown) (no (unknown) (unknown) Other Casts Cancelled ( units (unknown) date) unknown) (unknown) (no (unknown) (unknown) Other Crystals (units (unknown) date) unknown) (unknown) (no (unknown) (unknown) Other Crystals (units (unknown) date) Cancelled unknown) (unknown) (no (unknown) (unknown) PROCEDURE:? XR CHEST 2V ( units (unknown) date) unknown) (unknown) (no (unknown) (unknown) PT (10.1-12.7) (units (unknown) date) SECONDS unknown) (unknown) (no (unknown) (unknown) PT 12.5 (10.1-12.7) ( units (unknown) date) SECONDS unknown) (unknown) (no (unknown) (unknown) PTT [Partial (units (u nknown) date) Thromboplastin Time] unknown) Stat (unknown) (no (unknown) (unknown) Patient Disposition: (uni ts (unknown) date) Admitted as Observation unknow n) (unknown) (no (unknown) (unknown) Patient History (units (unknown) date) unknown) (unknown) (no (unknown) (unknown) Patient: (units (unkno wn) date) Laurel,Sherine S unknown) MR#: (unknown) (no (unknown) (unknown) Patient: (units (unkno wn) date) Laurel,Sherine S unknown) (unknown) (no (unknown) (unknown) Postmenopausal bleeding ( units (unknown) date) unknown) (unknown) (no (unknown) (unknown) Potassium (3.4-5.1) ( units (unknown) date) mmol/L unknown) (unknown) (no (unknown) (unknown) Potassium 3.8 (units (unknown) date) (3.4-5.1) mmol/L unknown) (unknown) (no (unknown) (unknown) Presence of cardiac (unit s (unknown) date) pacemaker (-2009) unknown) (unknown) (no (unknown) (unknown) Prior ECG tracings: (unit s (unknown) date) available for review unknown) (unknown) (no (unknown) (unknown) Procedure: XR chest 2V (u nits (unknown) date) unknown) (unknown) (no (unknown) (unknown) Produc (units (unkno wn) date) unknown) (unknown) (no (unknown) (unknown) Prothrombin Time INR (uni ts (unknown) date) Stat unknown) (unknown) (no (unknown) (unknown) Pulse Oximetry 100 (unit s (unknown) date) 11/20/21 11:59 unknown) (unknown) (no (unknown) (unknown) Pulse Oximetry 100 97 (un its (unknown) date) 99 unknown) (unknown) (no (unknown) (unknown) Pulse Oximetry 100 99 (un its (unknown) date) 100 unknown) (unknown) (no (unknown) (unknown) Pulse Oximetry 100 99 (un its (unknown) date) 99 unknown) (unknown) (no (unknown) (unknown) Pulse Oximetry 99 99 99 ( units (unknown) date) unknown) (unknown) (no (unknown) (unknown) Pulse Rate 67 (units (unknown) date) 11/20/21 11:59 unknown) (unknown) (no (unknown) (unknown) Pulse Rate 60 62 61 (unit s (unknown) date) unknown) (unknown) (no (unknown) (unknown) Pulse Rate 63 61 62 (unit s (unknown) date) unknown) (unknown) (no (unknown) (unknown) Pulse Rate 64 61 62 (unit s (unknown) date) unknown) (unknown) (no (unknown) (unknown) Pulse Rate 67 77 72 (unit s (unknown) date) unknown) (unknown) (no (unknown) (unknown) RBC Casts (units (unkn own) date) unknown) (unknown) (no (unknown) (unknown) RBC Casts Cancelled (un its (unknown) date) unknown) (unknown) (no (unknown) (unknown) RDW (11.6-14.8) % (u nits (unknown) date) unknown) (unknown) (no (unknown) (unknown) RDW 16.1 H (units (un known) date) (11.6-14.8) % unknown) (unknown) (no (unknown) (unknown) RESPIRATORY: Breath (unit s (unknown) date) sounds equal unknown) bilaterally, no wheezes rales or rhonchi. (unknown) (no (unknown) (unknown) ROS Unobtainable: All (uni ts (unknown) date) systems reviewed + are unknown ) unremarkable except as noted in HPI (unknown) (no (unknown) (unknown) Related Data (units (u nknown) date) unknown) (unknown) (no (unknown) (unknown) Respiratory Rate 15 (uni ts (unknown) date) 11/20/21 11:59 unknown) (unknown) (no (unknown) (unknown) Respiratory Rate 15 16 (u nits (unknown) date) 18 unknown) (unknown) (no (unknown) (unknown) Respiratory Rate 19 15 (u nits (unknown) date) 20 unknown) (unknown) (no (unknown) (unknown) Respiratory Rate 19 20 (u nits (unknown) date) 21 unknown) (unknown) (no (unknown) (unknown) Respiratory Rate 20 18 (u nits (unknown) date) 16 unknown) (unknown) (no (unknown) (unknown) Result diagrams: (units (unknown) date) unknown) (unknown) (no (unknown) (unknown) Review of Systems (units (unknown) date) unknown) (unknown) (no (unknown) (unknown) SKIN: Warm, dry, no (unit s (unknown) date) petechiae, no rashes or unknow n) lesions. (unknown) (no (unknown) (unknown) Sarcoidosis (-1978) (unit s (unknown) date) unknown) (unknown) (no (unknown) (unknown) Signed By: (units (unk nown) date) unknown) (unknown) (no (unknown) (unknown) Sister (units (unknown) date) Cancer unknown) (unknown) (no (unknown) (unknown) Smoking Status: Never (u nits (unknown) date) smoker unknown) (unknown) (no (unknown) (unknown) Smoking Status: Never (un its (unknown) date) smoker unknown) (unknown) (no (unknown) (unknown) Social History (units (unknown) date) (Reviewed 11/20/21 @ unknown) 14:39 by Alem Marlow DO) (unknown) (no (unknown) (unknown) Sodium (137-145) (uni ts (unknown) date) mmol/L unknown) (unknown) (no (unknown) (unknown) Sodium 141 (units ( unknown) date) (137-145) mmol/L unknown) (unknown) (no (unknown) (unknown) Source: patient (units (unknown) date) unknown) (unknown) (no (unknown) (unknown) Stated Complaint: (units (unknown) date) Possible heart attack unknown) (unknown) (no (unknown) (unknown) Status post breast (units (unknown) date) lumpectomy unknown) (unknown) (no (unknown) (unknown) Status post (units (un known) date) cholecystectomy (-1979) unknow n) (unknown) (no (unknown) (unknown) Status post dilation (uni ts (unknown) date) and curettage unknown) (unknown) (no (unknown) (unknown) Status post surgery (unit s (unknown) date) (05/11/15) unknown) (unknown) (no (unknown) (unknown) Substance Use Type: (unit s (unknown) date) does not use unknown) (unknown) (no (unknown) (unknown) Surgical History (units (unknown) date) (Reviewed 11/20/21 @ unknown) 14:39 by Alem Marlow DO) (unknown) (no (unknown) (unknown) Surgical changes and (uni ts (unknown) date) devices:? Left chest unknown) wall cardiac pacer is stable.? (unknown) (no (unknown) (unknown) Surgical clips (units (unknown) date) unknown) (unknown) (no (unknown) (unknown) TECHNIQUE:? 2 views of (u nits (unknown) date) the chest were unknown) acquired.? (unknown) (no (unknown) (unknown) Temperature (units (un known) date) unknown) (unknown) (no (unknown) (unknown) Temperature 97.7 F (unit s (unknown) date) 11/20/21 11:59 unknown) (unknown) (no (unknown) (unknown) Temperature 97.7 F (units (unknown) date) unknown) (unknown) (no (unknown) (unknown) Their recommendation is ( units (unknown) date) actually chemical stress unkno wn) test as patient has a paced (unknown) (no (unknown) (unknown) This is a 71-year-old (un its (unknown) date) female who arrives with unknow n) complaint of chest pressure, (unknown) (no (unknown) (unknown) This is a 71-year-old (un its (unknown) date) female with history of unknown ) AFib on Eliquis with pacemaker (unknown) (no (unknown) (unknown) Time Seen by Provider: (u nits (unknown) date) 11/20/21 14:10 unknown) (unknown) (no (unknown) (unknown) Time: 15:50 (units (un known) date) unknown) (unknown) (no (unknown) (unknown) Time: 15:51 (units (un known) date) unknown) (unknown) (no (unknown) (unknown) Total Bilirubin (units (unknown) date) (0.2-1.3) mg/dL unknown) (unknown) (no (unknown) (unknown) Total Bilirubin 1.1 (u nits (unknown) date) (0.2-1.3) mg/dL unknown) (unknown) (no (unknown) (unknown) Total Creatine Kinase (un its (unknown) date) (30-135) U/L unknown) (unknown) (no (unknown) (unknown) Total Creatine Kinase (un its (unknown) date) 96 (30-135) U/L unknown) (unknown) (no (unknown) (unknown) Total Protein (units ( unknown) date) (6.3-8.2) g/dL unknown) (unknown) (no (unknown) (unknown) Total Protein 7.4 (uni ts (unknown) date) (6.3-8.2) g/dL unknown) (unknown) (no (unknown) (unknown) Triple Phos Crystals (uni ts (unknown) date) unknown) (unknown) (no (unknown) (unknown) Triple Phos Crystals (uni ts (unknown) date) Cancelled unknown) (unknown) (no (unknown) (unknown) Trop I [Troponin I] (unit s (unknown) date) Stat unknown) (unknown) (no (unknown) (unknown) Troponin + CK Cardiac (un its (unknown) date) Panel Stat unknown) (unknown) (no (unknown) (unknown) Troponin I (units (unk nown) date) (0.01-0.034) ng/mL unknown) (unknown) (no (unknown) (unknown) Troponin I < 0.012 (un its (unknown) date) (0.01-0.034) ng/mL unknown) (unknown) (no (unknown) (unknown) Troponin I < 0.012 (uni ts (unknown) date) (0.01-0.034) ng/mL unknown) (unknown) (no (unknown) (unknown) Ur Bilirubin Confirm (uni ts (unknown) date) (Negative) unknown) (unknown) (no (unknown) (unknown) Ur Bilirubin Confirm (uni ts (unknown) date) Negative (Negative) unknown ) (unknown) (no (unknown) (unknown) Ur Culture Indicated? (un its (unknown) date) unknown) (unknown) (no (unknown) (unknown) Ur Culture Indicated? (un its (unknown) date) Specimen cultured unknown) Cancelled (unknown) (no (unknown) (unknown) Ur Leukocyte Esterase (un its (unknown) date) unknown) (unknown) (no (unknown) (unknown) Ur Leukocyte Esterase (un its (unknown) date) Cancelled unknown) (unknown) (no (unknown) (unknown) Ur Renal Epithelial (unit s (unknown) date) Cell unknown) (unknown) (no (unknown) (unknown) Ur Renal Epithelial (unit s (unknown) date) Cell Cancelled unknown) (unknown) (no (unknown) (unknown) Ur Specific [place] (unit s (unknown) date) unknown) (unknown) (no (unknown) (unknown) Ur Specific [place] (unit s (unknown) date) Cancelled unknown) (unknown) (no (unknown) (unknown) Ur Squamous Epith Cells ( units (unknown) date) (0-5/HPF) unknown) (unknown) (no (unknown) (unknown) Ur Squamous Epith Cells ( units (unknown) date) 1-5 /hpf Cancelled unknown) (0-5/HPF) (unknown) (no (unknown) (unknown) Ur Transition Epith (unit s (unknown) date) Cell unknown) (unknown) (no (unknown) (unknown) Ur Transition Epith (unit s (unknown) date) Cell Cancelled unknown) (unknown) (no (unknown) (unknown) Uric Acid Crystals (units (unknown) date) unknown) (unknown) (no (unknown) (unknown) Uric Acid Crystals (units (unknown) date) Cancelled unknown) (unknown) (no (unknown) (unknown) Urine Appearance (units (unknown) date) unknown) (unknown) (no (unknown) (unknown) Urine Appearance (units (unknown) date) Cancelled unknown) (unknown) (no (unknown) (unknown) Urine Bacteria (units (unknown) date) (None) unknown) (unknown) (no (unknown) (unknown) Urine Bacteria Few (unit s (unknown) date) (2-10) H Cancelled unknown) (None) (unknown) (no (unknown) (unknown) Urine Bilirubin (units (unknown) date) unknown) (unknown) (no (unknown) (unknown) Urine Bilirubin (units (unknown) date) Cancelled unknown) (unknown) (no (unknown) (unknown) Urine Color (units (un known) date) unknown) (unknown) (no (unknown) (unknown) Urine Color Cancelled ( units (unknown) date) unknown) (unknown) (no (unknown) (unknown) Urine Culture Stat (units (unknown) date) unknown) (unknown) (no (unknown) (unknown) Urine Glucose (UA) (units (unknown) date) unknown) (unknown) (no (unknown) (unknown) Urine Glucose (UA) (units (unknown) date) Cancelled unknown) (unknown) (no (unknown) (unknown) Urine Ketones (units ( unknown) date) unknown) (unknown) (no (unknown) (unknown) Urine Ketones (units ( unknown) date) Cancelled unknown) (unknown) (no (unknown) (unknown) Urine Microscopic Stat (u nits (unknown) date) unknown) (unknown) (no (unknown) (unknown) Urine Mucus (units (un known) date) unknown) (unknown) (no (unknown) (unknown) Urine Mucus Cancelled ( units (unknown) date) unknown) (unknown) (no (unknown) (unknown) Urine Nitrate (units ( unknown) date) unknown) (unknown) (no (unknown) (unknown) Urine Nitrate (units ( unknown) date) Cancelled unknown) (unknown) (no (unknown) (unknown) Urine Occult Blood (units (unknown) date) unknown) (unknown) (no (unknown) (unknown) Urine Occult Blood (units (unknown) date) Cancelled unknown) (unknown) (no (unknown) (unknown) Urine Protein (units ( unknown) date) unknown) (unknown) (no (unknown) (unknown) Urine Protein (units ( unknown) date) Cancelled unknown) (unknown) (no (unknown) (unknown) Urine RBC (0-5/HPF) ( units (unknown) date) unknown) (unknown) (no (unknown) (unknown) Urine RBC 10-30/hpf H (u nits (unknown) date) Cancelled (0-5/HPF) unknown) (unknown) (no (unknown) (unknown) Urine Specific [place] (u nits (unknown) date) 1.030 unknown) (unknown) (no (unknown) (unknown) Urine Sperm (units (un known) date) unknown) (unknown) (no (unknown) (unknown) Urine Sperm Cancelled ( units (unknown) date) unknown) (unknown) (no (unknown) (unknown) Urine Trichomonas (units (unknown) date) unknown) (unknown) (no (unknown) (unknown) Urine Trichomonas (units (unknown) date) Cancelled unknown) (unknown) (no (unknown) (unknown) Urine Urobilinogen (units (unknown) date) unknown) (unknown) (no (unknown) (unknown) Urine Urobilinogen (units (unknown) date) Cancelled unknown) (unknown) (no (unknown) (unknown) Urine WBC (0-5/HPF) ( units (unknown) date) unknown) (unknown) (no (unknown) (unknown) Urine WBC 1-5/hpf (units (unknown) date) Cancelled (0-5/HPF) unknown) (unknown) (no (unknown) (unknown) Urine Yeast (units (un known) date) unknown) (unknown) (no (unknown) (unknown) Urine Yeast Cancelled ( units (unknown) date) unknown) (unknown) (no (unknown) (unknown) Urine pH (units (unkno wn) date) unknown) (unknown) (no (unknown) (unknown) Urine pH Cancelled (uni ts (unknown) date) unknown) (unknown) (no (unknown) (unknown) Uterine mass (units (u nknown) date) unknown) (unknown) (no (unknown) (unknown) Vital Signs (units (un known) date) unknown) (unknown) (no (unknown) (unknown) Vital signs: (units (u nknown) date) unknown) (unknown) (no (unknown) (unknown) WBC Casts (units (unkn own) date) unknown) (unknown) (no (unknown) (unknown) WBC Casts Cancelled (un its (unknown) date) unknown) (unknown) (no (unknown) (unknown) Wears glasses (units ( unknown) date) unknown) (unknown) (no (unknown) (unknown) XR chest 2V Stat (units (unknown) date) unknown) (unknown) (no (unknown) (unknown) [Embedded Image Not (unit s (unknown) date) Available] unknown) (unknown) (no (unknown) (unknown) alcohol intake (units (unknown) date) frequency: unknown) holidays/special occasions only (unknown) (no (unknown) (unknown) alcohol intake: never (u nits (unknown) date) unknown) (unknown) (no (unknown) (unknown) and EKG do not show (unit s (unknown) date) clear changes but it is unknow n) a paced rhythm. Patient's repeat (unknown) (no (unknown) (unknown) apixaban 5 mg tablet (uni ts (unknown) date) (Eliquis) 5 mg PO BID unknown) 05/07/21 07/08/21 (unknown) (no (unknown) (unknown) atorvastatin 80 mg (units (unknown) date) tablet 80 mg PO DAILY unknown) 05/07/21 07/08/21 (unknown) (no (unknown) (unknown) budesonide-formoterol (un its (unknown) date) HFA 80 2 puff INHALATION unkno wn) BID 05/07/21 07/08/21 (unknown) (no (unknown) (unknown) carboxymethylcellulose (u nits (unknown) date) sodium 0.5 drp EYE-BOTH unknow n) 05/07/21 07/08/21 (unknown) (no (unknown) (unknown) celecoxib [CELECOXIB] (un its (unknown) date) Allergy Unknown unknown) Verified 11/20/21 11:59 (unknown) (no (unknown) (unknown) citalopram 10 mg tablet ( units (unknown) date) See Rx Instructions unknown) .ROUTE 10/04/21 (unknown) (no (unknown) (unknown) complaint of chest (units (unknown) date) tightness that started unknown ) Thursday which has been persistent and (unknown) (no (unknown) (unknown) congestion no fevers. (un its (unknown) date) About 230 this morning unknown ) she woke up and felt very (unknown) (no (unknown) (unknown) constant. She states (un its (unknown) date) it is exacerbated by unknown) exertion such as walking or climbing (unknown) (no (unknown) (unknown) diclofenac sodium 1 % (un its (unknown) date) topical gel 2 g TOPICAL unknow n) QID 05/07/21 07/08/21 (unknown) (no (unknown) (unknown) dyslipidemia and is (unit s (unknown) date) scheduled to have unknown) cardiac stress testing followed by (unknown) (no (unknown) (unknown) extremities (units (un known) date) unknown) (unknown) (no (unknown) (unknown) felt a tightness in her (u nits (unknown) date) chest substernally unknown) without radiation. No cold, cough or (unknown) (no (unknown) (unknown) guarding or rebound, (uni ts (unknown) date) rigidity, no mass unknown) (unknown) (no (unknown) (unknown) in her extremities. (unit s (unknown) date) Patient does have a unknown) history COPD no wheezing. (unknown) (no (unknown) (unknown) in the right breast and ( units (unknown) date) axilla are stable.? unknown) (unknown) (no (unknown) (unknown) inhaler (Symbicort) (unit s (unknown) date) unknown) (unknown) (no (unknown) (unknown) intact (units (unkno wn) date) unknown) (unknown) (no (unknown) (unknown) lactobacillus (units ( unknown) date) [LACTOBACILLUS] Allergy unknow n) Unknown Verified 11/20/21 11:59 (unknown) (no (unknown) (unknown) levothyroxine 88 mcg (uni ts (unknown) date) tablet #0 03/09/12 unknown) 07/08/21 (unknown) (no (unknown) (unknown) lidocaine 5 % topical (un its (unknown) date) patch 1 patch TOP DAILY unknow n) PRN #15 each 12/04/19 (unknown) (no (unknown) (unknown) mcg-4.5 mcg/actuation (un its (unknown) date) aerosol unknown) (unknown) (no (unknown) (unknown) moist mucous membranes (u nits (unknown) date) unknown) (unknown) (no (unknown) (unknown) morphine [MORPHINE] (unit s (unknown) date) Allergy Unknown unknown) Verified 11/20/21 11:59 (unknown) (no (unknown) (unknown) nauseated. She has not ( units (unknown) date) had any syncope but has unknow n) felt lightheaded. No swelling (unknown) (no (unknown) (unknown) of 438. No acute ST (uni ts (unknown) date) elevation or depression unknow n) appreciated. (unknown) (no (unknown) (unknown) oxycodone [OXYCODONE] (un its (unknown) date) Allergy Unknown unknown) Verified 11/20/21 11:59 (unknown) (no (unknown) (unknown) pacemaker replaced. (unit s (unknown) date) unknown) (unknown) (no (unknown) (unknown) pacemaker replacement (un its (unknown) date) on December 09. Patient's unknow n) initial labs including troponin (unknown) (no (unknown) (unknown) pantoprazole 40 mg (units (unknown) date) tablet,delayed 40 mg PO unknow n) BID tab 05/07/21 07/08/21 (unknown) (no (unknown) (unknown) present, hypothyroid, (un its (unknown) date) hypertension and COPD unknown) and sarcoid.Patientcomes in with (unknown) (no (unknown) (unknown) release (units (unkno wn) date) unknown) (unknown) (no (unknown) (unknown) rhythm as on sotalol (uni ts (unknown) date) which would blunt her unknown) tachycardic response and make (unknown) (no (unknown) (unknown) shortness of breath (unit s (unknown) date) which is exertional but unknow n) has been present for several days. (unknown) (no (unknown) (unknown) sotalol 80 mg tablet 80 ( units (unknown) date) mg PO BID 05/07/21 unknown) 07/08/21 (unknown) (no (unknown) (unknown) stress over treadmill. (u nits (unknown) date) unknown) (unknown) (no (unknown) (unknown) stress testing because (u nits (unknown) date) she is paced and on unknown) sotalol would recommend chemical (unknown) (no (unknown) (unknown) test on December 09 with (un its (unknown) date) the plan to obtain this unknow n) and then take her to have her (unknown) (no (unknown) (unknown) tramadol 50 mg tablet (un its (unknown) date) 50 mg PO Q6H PRN #20 tab unkno wn) 05/21/21 (unknown) (no (unknown) (unknown) treadmill stress (units (unknown) date) testing unlikely to be unknown ) successful. Spoke with hospitalist, (unknown) (no (unknown) (unknown) troponin is negative. (un its (unknown) date) She was given aspirin, unknown ) Lasix BNP was slightly elevated. (unknown) (no (unknown) (unknown) unremarkable.? (units (unknown) date) unknown) (unknown) (no (unknown) (unknown) up ladders which she (uni ts (unknown) date) does at work at unknown) [employer]. She has felt tired. She has (unknown) (no (unknown) (unknown) valsartan 80 mg tablet (u nits (unknown) date) 80 mg PO DAILY #0 unknown) 03/09/12 07/08/21 (unknown) (no (unknown) (unknown) which needs (units (un known) date) replacement. No unknown) tobacco, alcohol or illicit. Primary care is Result panel 18 (unknown) (no (unknown) (unknown) (no value) (units (unk nown) date) unknown) (unknown) (no (unknown) (unknown) (no value) (units (unk nown) date) unknown) (unknown) (no (unknown) (unknown) Date of Service: (units (unknown) date) 11/20/21 unknown) (unknown) (no (unknown) (unknown) (no value) (units (unk nown) date) unknown) (unknown) (no (unknown) (unknown) - (units (unkno wn) date) unknown) (unknown) (no (unknown) (unknown) 11/20/21 12:50 (units (unknown) date) unknown) (unknown) (no (unknown) (unknown) Allergies (units (unkn own) date) unknown) (unknown) (no (unknown) (unknown) History + Physical (units (unknown) date) Report unknown) (unknown) (no (unknown) (unknown) Home Medications (units (unknown) date) unknown) (unknown) (no (unknown) (unknown) Hypertension (units (u nknown) date) unknown) (unknown) (no (unknown) (unknown) [facility] [address] (uni ts (unknown) date) [address] [place] [address] [place], unknown ) [place] [address] (unknown) (no (unknown) (unknown) Laboratory Results - (uni ts (unknown) date) last 24 hr unknown) (unknown) (no (unknown) (unknown) Stroke (units (unkno wn) date) unknown) (unknown) (no (unknown) (unknown) (no value) (units (unk nown) date) unknown) (unknown) (no (unknown) (unknown) 11/20/21 (units (unkno wn) date) unknown) (unknown) (no (unknown) (unknown) 11/20/21 11/20/21 (units (unknown) date) 11/20/21 unknown) (unknown) (no (unknown) (unknown) 12:50 12:50 12:50 (units (unknown) date) unknown) (unknown) (no (unknown) (unknown) 13:00 13:00 14:20 (units (unknown) date) unknown) (unknown) (no (unknown) (unknown) 16:53 (units (unkno wn) date) unknown) (unknown) (no (unknown) (unknown) NEGATIVE UNLESS NOTED (un its (unknown) date) ABOVE IN HPI unknown) (unknown) (no (unknown) (unknown) NO RECENT TRAVELS. NO (u nits (unknown) date) COUGH. NO BLOOD IN THE unknow n) SPUTUM. NO BLOOD PER RECTUM. (unknown) (no (unknown) (unknown) THE WORKUP IN THE ER (uni ts (unknown) date) WAS FAIRLY UNREMARKABLE. unkno wn) (unknown) (no (unknown) (unknown) .COMPLEX #30 tab (units (unknown) date) unknown) (unknown) (no (unknown) (unknown) 11/20/21 (units (unkno wn) date) unknown) (unknown) (no (unknown) (unknown) [id number] (units (unk nown) date) unknown) (unknown) (no (unknown) (unknown) Medication (units (unk nown) date) Instructions Recorded unknown ) Confirmed Type (unknown) (no (unknown) (unknown) PATIENT REPORTED THAT (un its (unknown) date) FOR THE LAST COUPLE OF unknown ) WEEKS HE HAS BEEN HAVING (unknown) (no (unknown) (unknown) SHE DENIES ANY (units (unknown) date) INCREASING SWELLING TO unknown ) THE LOWER EXTREMITIES. NO RECENT (unknown) (no (unknown) (unknown) SHE STATED THAT IS (units (unknown) date) REALLY THE SHORTNESS OF unknow n) [facility] WITH EXERTION GETS (unknown) (no (unknown) (unknown) % eye drops in a (units (unknown) date) dropperette unknown) (unknown) (no (unknown) (unknown) (Refresh Plus) (units (unknown) date) unknown) (unknown) (no (unknown) (unknown) (past 8 hours): (units (unknown) date) unknown) (unknown) (no (unknown) (unknown) 11:59 11/20/21 (units (unknown) date) unknown) (unknown) (no (unknown) (unknown) 12:33 11/20/21 (units (unknown) date) unknown) (unknown) (no (unknown) (unknown) 12:34 (units (unkno wn) date) unknown) (unknown) (no (unknown) (unknown) 13:00 11/20/21 (units (unknown) date) unknown) (unknown) (no (unknown) (unknown) 13:30 11/20/21 (units (unknown) date) unknown) (unknown) (no (unknown) (unknown) 14:00 (units (unkno wn) date) unknown) (unknown) (no (unknown) (unknown) 14:30 11/20/21 (units (unknown) date) unknown) (unknown) (no (unknown) (unknown) 14:32 11/20/21 (units (unknown) date) unknown) (unknown) (no (unknown) (unknown) 15:00 (units (unkno wn) date) unknown) (unknown) (no (unknown) (unknown) 15:30 11/20/21 (units (unknown) date) unknown) (unknown) (no (unknown) (unknown) 16:00 11/20/21 (units (unknown) date) unknown) (unknown) (no (unknown) (unknown) 16:01 (units (unkno wn) date) unknown) (unknown) (no (unknown) (unknown) 16:57 11/20/21 (units (unknown) date) unknown) (unknown) (no (unknown) (unknown) 18:10 (units (unkno wn) date) unknown) (unknown) (no (unknown) (unknown) ALT (units (unkno wn) date) unknown) (unknown) (no (unknown) (unknown) ALT 12 (units (unkn own) date) unknown) (unknown) (no (unknown) (unknown) ALT (units (unkno wn) date) unknown) (unknown) (no (unknown) (unknown) APTT (units (unkno wn) date) unknown) (unknown) (no (unknown) (unknown) APTT 33 (units (unk nown) date) unknown) (unknown) (no (unknown) (unknown) APTT (units (unkno wn) date) unknown) (unknown) (no (unknown) (unknown) AST (units (unkno wn) date) unknown) (unknown) (no (unknown) (unknown) AST 24 (units (unkn own) date) unknown) (unknown) (no (unknown) (unknown) AST (units (unkno wn) date) unknown) (unknown) (no (unknown) (unknown) Age/Sex: 71 / F (units (unknown) date) unknown) (unknown) (no (unknown) (unknown) Albumin (units (unkno wn) date) unknown) (unknown) (no (unknown) (unknown) Albumin 4.2 (units (unknown) date) unknown) (unknown) (no (unknown) (unknown) Albumin (units (unkno wn) date) unknown) (unknown) (no (unknown) (unknown) Albumin/Globulin Ratio (u nits (unknown) date) unknown) (unknown) (no (unknown) (unknown) Albumin/Globulin Ratio (u nits (unknown) date) 1.3 unknown) (unknown) (no (unknown) (unknown) Albumin/Globulin Ratio (u nits (unknown) date) unknown) (unknown) (no (unknown) (unknown) Alkaline Phosphatase (uni ts (unknown) date) unknown) (unknown) (no (unknown) (unknown) Alkaline Phosphatase (uni ts (unknown) date) 119 unknown) (unknown) (no (unknown) (unknown) Alkaline Phosphatase (uni ts (unknown) date) unknown) (unknown) (no (unknown) (unknown) Allergy/AdvReac Type (uni ts (unknown) date) Severity Reaction Status unkno wn) Date / Time (unknown) (no (unknown) (unknown) Amorphous Sediment (units (unknown) date) unknown) (unknown) (no (unknown) (unknown) Amorphous Sediment (units (unknown) date) unknown) (unknown) (no (unknown) (unknown) Amorphous Sediment (units (unknown) date) Cancelled unknown) (unknown) (no (unknown) (unknown) Anesthesia (units (unk nown) date) unknown) (unknown) (no (unknown) (unknown) Anxiety and depression (u nits (unknown) date) () unknown) (unknown) (no (unknown) (unknown) Assessment + Plan (units (unknown) date) unknown) (unknown) (no (unknown) (unknown) BETTER AT REST (units (unknown) date) unknown) (unknown) (no (unknown) (unknown) BUN (units (unkno wn) date) unknown) (unknown) (no (unknown) (unknown) BUN 21 H (units (un known) date) unknown) (unknown) (no (unknown) (unknown) BUN (units (unkno wn) date) unknown) (unknown) (no (unknown) (unknown) BUN/Creatinine Ratio (uni ts (unknown) date) unknown) (unknown) (no (unknown) (unknown) BUN/Creatinine Ratio (uni ts (unknown) date) 20.8 unknown) (unknown) (no (unknown) (unknown) BUN/Creatinine Ratio (uni ts (unknown) date) unknown) (unknown) (no (unknown) (unknown) Baso # (Auto) (units ( unknown) date) unknown) (unknown) (no (unknown) (unknown) Baso # (Auto) (units ( unknown) date) unknown) (unknown) (no (unknown) (unknown) Baso # (Auto) 0 (units (unknown) date) unknown) (unknown) (no (unknown) (unknown) Baso % (Auto) (units ( unknown) date) unknown) (unknown) (no (unknown) (unknown) Baso % (Auto) (units ( unknown) date) unknown) (unknown) (no (unknown) (unknown) Baso % (Auto) 0.3 (units (unknown) date) unknown) (unknown) (no (unknown) (unknown) Been Physically Hurt or ( units (unknown) date) No unknown) (unknown) (no (unknown) (unknown) Blood Pressure (units (unknown) date) unknown) (unknown) (no (unknown) (unknown) Blood Pressure 165/74 (u nits (unknown) date) H 161/70 H unknown) (unknown) (no (unknown) (unknown) Blood Pressure 163/79 H ( units (unknown) date) 162/74 H unknown) (unknown) (no (unknown) (unknown) Blood Pressure 169/72 H ( units (unknown) date) unknown) (unknown) (no (unknown) (unknown) Blood Pressure 183/74 H ( units (unknown) date) unknown) (unknown) (no (unknown) (unknown) Brother (units (unknown) date) Cancer unknown) (unknown) (no (unknown) (unknown) Brother (units (unknown) date) History of heart disease unkno wn) (unknown) (no (unknown) (unknown) CK-MB (CK-2) (units (u nknown) date) unknown) (unknown) (no (unknown) (unknown) CK-MB (CK-2) (units (u nknown) date) unknown) (unknown) (no (unknown) (unknown) CK-MB (CK-2) TNP (units (unknown) date) unknown) (unknown) (no (unknown) (unknown) CK-MB (CK-2) Rel Index (u nits (unknown) date) unknown) (unknown) (no (unknown) (unknown) CK-MB (CK-2) Rel Index (u nits (unknown) date) unknown) (unknown) (no (unknown) (unknown) CK-MB (CK-2) Rel Index (u nits (unknown) date) TNP unknown) (unknown) (no (unknown) (unknown) COPD (chronic (units ( unknown) date) obstructive pulmonary unknown) disease) (-2019) (unknown) (no (unknown) (unknown) Calcium (units (unkno wn) date) unknown) (unknown) (no (unknown) (unknown) Calcium 9.1 (units (unknown) date) unknown) (unknown) (no (unknown) (unknown) Calcium (units (unkno wn) date) unknown) (unknown) (no (unknown) (unknown) Calcium Oxalate Crystal ( units (unknown) date) unknown) (unknown) (no (unknown) (unknown) Calcium Oxalate Crystal ( units (unknown) date) unknown) (unknown) (no (unknown) (unknown) Calcium Oxalate Crystal ( units (unknown) date) Many H Cancelled unknown) (unknown) (no (unknown) (unknown) Carbon Dioxide (units (unknown) date) unknown) (unknown) (no (unknown) (unknown) Carbon Dioxide 27 (uni ts (unknown) date) unknown) (unknown) (no (unknown) (unknown) Carbon Dioxide (units (unknown) date) unknown) (unknown) (no (unknown) (unknown) Chief complaint: (units (unknown) date) Possible heart attack unknown) (unknown) (no (unknown) (unknown) Chloride (units (unkno wn) date) unknown) (unknown) (no (unknown) (unknown) Chloride 108 H (units (unknown) date) unknown) (unknown) (no (unknown) (unknown) Chloride (units (unkno wn) date) unknown) (unknown) (no (unknown) (unknown) Chronic back pain (units (unknown) date) () unknown) (unknown) (no (unknown) (unknown) Creatinine (units (unk nown) date) unknown) (unknown) (no (unknown) (unknown) Creatinine 1.01 (units (unknown) date) unknown) (unknown) (no (unknown) (unknown) Creatinine (units (unk nown) date) unknown) (unknown) (no (unknown) (unknown) Critical Care time: (unit s (unknown) date) unknown) (unknown) (no (unknown) (unknown) : 1950 (units (unknown) date) Acct:[id number] unknown) (unknown) (no (unknown) (unknown) Date Patient Seen: (units (unknown) date) 11/20/21 unknown) (unknown) (no (unknown) (unknown) Endometrial hyperplasia ( units (unknown) date) unknown) (unknown) (no (unknown) (unknown) Environment (units (un known) date) unknown) (unknown) (no (unknown) (unknown) Eos # (Auto) (units (u nknown) date) unknown) (unknown) (no (unknown) (unknown) Eos # (Auto) (units (u nknown) date) unknown) (unknown) (no (unknown) (unknown) Eos # (Auto) 200 (units (unknown) date) unknown) (unknown) (no (unknown) (unknown) Eos % (Auto) (units (u nknown) date) unknown) (unknown) (no (unknown) (unknown) Eos % (Auto) (units (u nknown) date) unknown) (unknown) (no (unknown) (unknown) Eos % (Auto) 2.5 (units (unknown) date) unknown) (unknown) (no (unknown) (unknown) Estimated GFR (units ( unknown) date) unknown) (unknown) (no (unknown) (unknown) Estimated GFR 59 L (un its (unknown) date) unknown) (unknown) (no (unknown) (unknown) Estimated GFR (units ( unknown) date) unknown) (unknown) (no (unknown) (unknown) Exam (units (unkno wn) date) unknown) (unknown) (no (unknown) (unknown) Family + Social History ( units (unknown) date) unknown) (unknown) (no (unknown) (unknown) Family History (units (unknown) date) (Reviewed 11/20/21 @ unknown) 14:39 by Alem Marlow DO) (unknown) (no (unknown) (unknown) Father (units (unknown) date) Cancer unknown) (unknown) (no (unknown) (unknown) Feels Safe in Current (un its (unknown) date) Yes unknown) (unknown) (no (unknown) (unknown) GERD (gastroesophageal (u nits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 1 % (un its (unknown) date) topical gel 2 g TOPICAL unknow n) QID 05/07/21 07/08/21 History (unknown) (no (unknown) (unknown) inhaler (Symbicort) (unit s (unknown) date) unknown) (unknown) (no (unknown) (unknown) lactobacillus (units ( unknown) date) [LACTOBACILLUS] Allergy unknow n) Unknown Verified 11/20/21 11:59 (unknown) (no (unknown) (unknown) levothyroxine 88 mcg (uni ts (unknown) date) tablet #0 03/09/12 unknown) 07/08/21 History (unknown) (no (unknown) (unknown) lidocaine 5 % topical (un its (unknown) date) patch 1 patch TOP DAILY unknow n) PRN #15 each 12/04/19 07/08/21 Rx (unknown) (no (unknown) (unknown) mcg-4.5 mcg/actuation (un its (unknown) date) aerosol unknown) (unknown) (no (unknown) (unknown) morphine [MORPHINE] (unit s (unknown) date) Allergy Unknown unknown) Verified 11/20/21 11:59 (unknown) (no (unknown) (unknown) oxycodone [OXYCODONE] (un its (unknown) date) Allergy Unknown unknown) Verified 11/20/21 11:59 (unknown) (no (unknown) (unknown) pantoprazole 40 mg (units (unknown) date) tablet,delayed 40 mg PO unknow n) BID tab 05/07/21 07/08/21 History (unknown) (no (unknown) (unknown) release (units (unkno wn) date) unknown) (unknown) (no (unknown) (unknown) sotalol 80 mg tablet 80 ( units (unknown) date) mg PO BID 05/07/21 unknown) 07/08/21 History (unknown) (no (unknown) (unknown) today; this time is (unit s (unknown) date) exclusive of procedural unknow n) time. (unknown) (no (unknown) (unknown) tramadol 50 mg tablet (un its (unknown) date) 50 mg PO Q6H PRN #20 tab unkno wn) 05/21/21 07/08/21 Rx (unknown) (no (unknown) (unknown) valsartan 80 mg tablet (u nits (unknown) date) 80 mg PO DAILY #0 unknown) 03/09/12 07/08/21 History Result panel 19 (unknown) (no (unknown) (unknown) (no value) (units (unk nown) date) unknown) (unknown) (no (unknown) (unknown) Radiologist's (units ( unknown) date) Impression: unknown) (unknown) (no (unknown) (unknown) (no value) (units (unk nown) date) unknown) (unknown) (no (unknown) (unknown) Date of Service: (units (unknown) date) 11/20/21 unknown) (unknown) (no (unknown) (unknown) (no value) (units (unk nown) date) unknown) (unknown) (no (unknown) (unknown) <Electronically signed (u nits (unknown) date) by Alem Marlow D.O.> unknow n) (unknown) (no (unknown) (unknown) - (units (unkno wn) date) unknown) (unknown) (no (unknown) (unknown) 11/20/21 12:50 (units (unknown) date) unknown) (unknown) (no (unknown) (unknown) 11/20/21 1844 (units ( unknown) date) unknown) (unknown) (no (unknown) (unknown) [address] [place] [address] (units (unknown) date) unknown) (unknown) (no (unknown) (unknown) Allergies (units (unkn own) date) unknown) (unknown) (no (unknown) (unknown) [place] [address] (unit s (unknown) date) unknown) (unknown) (no (unknown) (unknown) Documented by: KBROWNE (u nits (unknown) date) unknown) (unknown) (no (unknown) (unknown) ED Orders (units (unkn own) date) unknown) (unknown) (no (unknown) (unknown) Emergency Report (units (unknown) date) unknown) (unknown) (no (unknown) (unknown) History + Physical (units (unknown) date) Report unknown) (unknown) (no (unknown) (unknown) Home Medications (units (unknown) date) unknown) (unknown) (no (unknown) (unknown) Hypertension (units (u nknown) date) unknown) (unknown) (no (unknown) (unknown) [facility] (units (unknown) date) unknown) (unknown) (no (unknown) (unknown) [facility] 1211 (uni ts (unknown) date) [address] [place] [address] [place], unknown ) [place] [id number] (unknown) (no (unknown) (unknown) Lab Results (units (un known) date) unknown) (unknown) (no (unknown) (unknown) Laboratory Results - (uni ts (unknown) date) last 24 hr unknown) (unknown) (no (unknown) (unknown) Last Admin: 11/20/21 (uni ts (unknown) date) 15:43 Dose: 324 mg unknown) (unknown) (no (unknown) (unknown) Last Admin: 11/20/21 (uni ts (unknown) date) 15:44 Dose: 40 mg unknown) (unknown) (no (unknown) (unknown) PRN Reason: (units (un known) date) Breakthrough pain only unknown ) (8-10) (unknown) (no (unknown) (unknown) PRN Reason: FEVER / (unit s (unknown) date) PAIN unknown) (unknown) (no (unknown) (unknown) PRN Reason: Opiate (units (unknown) date) Reversal unknown) (unknown) (no (unknown) (unknown) PRN Reason: pain (units (unknown) date) unknown) (unknown) (no (unknown) (unknown) Previous Rx's (units ( unknown) date) unknown) (unknown) (no (unknown) (unknown) Signed (units (unkno wn) date) unknown) (unknown) (no (unknown) (unknown) Stop: 11/20/21 14:37 (uni ts (unknown) date) unknown) (unknown) (no (unknown) (unknown) Stop: 11/20/21 15:14 (uni ts (unknown) date) unknown) (unknown) (no (unknown) (unknown) Stroke (units (unkno wn) date) unknown) (unknown) (no (unknown) (unknown) Urine Dip (units (unkn own) date) unknown) (unknown) (no (unknown) (unknown) Vital Signs - 8 hr (units (unknown) date) unknown) (unknown) (no (unknown) (unknown) XRay Report (units (un known) date) unknown) (unknown) (no (unknown) (unknown) (no value) (units (unk nown) date) unknown) (unknown) (no (unknown) (unknown) 11/20/21 (units (unkno wn) date) unknown) (unknown) (no (unknown) (unknown) 11/20/21 11/20/21 (units (unknown) date) 11/20/21 unknown) (unknown) (no (unknown) (unknown) 11/20/21 11/20/21 (units (unknown) date) 11/20/21 Range/Units unknown) (unknown) (no (unknown) (unknown) 12:50 12:50 12:50 (units (unknown) date) unknown) (unknown) (no (unknown) (unknown) 12:50 12:50 12:50 (units (unknown) date) unknown) (unknown) (no (unknown) (unknown) 13:00 13:00 14:20 (units (unknown) date) unknown) (unknown) (no (unknown) (unknown) 13:00 13:00 14:20 (units (unknown) date) unknown) (unknown) (no (unknown) (unknown) 16:53 (units (unkno wn) date) unknown) (unknown) (no (unknown) (unknown) NEGATIVE UNLESS NOTED (un its (unknown) date) ABOVE IN HPI unknown) (unknown) (no (unknown) (unknown) NO RECENT TRAVELS. NO (u nits (unknown) date) COUGH. NO BLOOD IN THE unknow n) SPUTUM. NO BLOOD PER RECTUM. (unknown) (no (unknown) (unknown) THE WORKUP IN THE ER (uni ts (unknown) date) WAS FAIRLY UNREMARKABLE. unkno wn) (unknown) (no (unknown) (unknown) .COMPLEX #30 tab (units (unknown) date) unknown) (unknown) (no (unknown) (unknown) .COMPLEX #30 tab (units (unknown) date) unknown) (unknown) (no (unknown) (unknown) 11/20/21 (units (unkno wn) date) unknown) (unknown) (no (unknown) (unknown) CHEST PRESSURE. R/O (unit s (unknown) date) ACS SUSPECTED. unknown) MULTIPLE COMORBIDITIES (unknown) (no (unknown) (unknown) Chest pain (units (unk nown) date) unknown) (unknown) (no (unknown) (unknown) IMPRESSION (units (unk nown) date) unknown) (unknown) (no (unknown) (unknown) [id number] (units (unk nown) date) unknown) (unknown) (no (unknown) (unknown) Medication (units (unk nown) date) Instructions Recorded unknown ) (unknown) (no (unknown) (unknown) Medication (units (unk nown) date) Instructions Recorded unknown ) Confirmed (unknown) (no (unknown) (unknown) Medication (units (unk nown) date) Instructions Recorded unknown ) Confirmed Type (unknown) (no (unknown) (unknown) PATIENT REPORTED THAT (un its (unknown) date) FOR THE LAST COUPLE OF unknown ) WEEKS HE HAS BEEN HAVING (unknown) (no (unknown) (unknown) POSSIBLE PACEMAKER (units (unknown) date) MALFUNCTIONING. TO BE unknown ) EVALUATED OUTPATIENT (unknown) (no (unknown) (unknown) SHE DENIES ANY (units (unknown) date) INCREASING SWELLING TO unknown ) THE LOWER EXTREMITIES. NO RECENT (unknown) (no (unknown) (unknown) SHE STATED THAT IS (units (unknown) date) REALLY THE SHORTNESS OF unknow n) [facility] EXERTION GETS (unknown) (no (unknown) (unknown) accepts for (units (un known) date) observation. unknown) (unknown) (no (unknown) (unknown) and below (units (unkn own) date) unknown) (unknown) (no (unknown) (unknown) depression noted. (units (unknown) date) Patient has prior from unknown ) 12/17/2020 which appears similar. (unknown) (no (unknown) (unknown) paced rhythm as on (units (unknown) date) sotalol which would unknown) blunt her tachycardic response and make (unknown) (no (unknown) (unknown) % eye drops in a (units (unknown) date) dropperette unknown) (unknown) (no (unknown) (unknown) % eye drops in a (units (unknown) date) dropperette unknown) (unknown) (no (unknown) (unknown) (Refresh Plus) (units (unknown) date) unknown) (unknown) (no (unknown) (unknown) (Refresh Plus) (units (unknown) date) unknown) (unknown) (no (unknown) (unknown) (past 8 hours): (units (unknown) date) unknown) (unknown) (no (unknown) (unknown) 11/20/21 11:59 (units (unknown) date) unknown) (unknown) (no (unknown) (unknown) 11/20/21 12:50 (units (unknown) date) unknown) (unknown) (no (unknown) (unknown) 11/20/21 13:00 (units (unknown) date) unknown) (unknown) (no (unknown) (unknown) 11/20/21 14:20 (units (unknown) date) unknown) (unknown) (no (unknown) (unknown) 11:59 11/20/21 (units (unknown) date) unknown) (unknown) (no (unknown) (unknown) 12:33 11/20/21 (units (unknown) date) unknown) (unknown) (no (unknown) (unknown) 12:34 (units (unkno wn) date) unknown) (unknown) (no (unknown) (unknown) 13:00 11/20/21 (units (unknown) date) unknown) (unknown) (no (unknown) (unknown) 13:30 11/20/21 (units (unknown) date) unknown) (unknown) (no (unknown) (unknown) 14:00 (units (unkno wn) date) unknown) (unknown) (no (unknown) (unknown) 14:30 11/20/21 (units (unknown) date) unknown) (unknown) (no (unknown) (unknown) 14:32 11/20/21 (units (unknown) date) unknown) (unknown) (no (unknown) (unknown) 15:00 (units (unkno wn) date) unknown) (unknown) (no (unknown) (unknown) 15:30 11/20/21 (units (unknown) date) unknown) (unknown) (no (unknown) (unknown) 16:00 11/20/21 (units (unknown) date) unknown) (unknown) (no (unknown) (unknown) 16:01 (units (unkno wn) date) unknown) (unknown) (no (unknown) (unknown) 16:57 11/20/21 (units (unknown) date) unknown) (unknown) (no (unknown) (unknown) 18:10 (units (unkno wn) date) unknown) (unknown) (no (unknown) (unknown) ? (units (unkno wn) date) unknown) (unknown) (no (unknown) (unknown) ABDOMEN: SOFT. (units (unknown) date) NONTENDER. unknown) NONDISTENDED. BOWEL SOUNDS ARE PRESENT IN ALL 4 (unknown) (no (unknown) (unknown) ABDOMEN: Soft, (units (unknown) date) nontender. Normoactive unknow n) bowel sounds all 4 quadrants. No (unknown) (no (unknown) (unknown) ALT (units (unkno wn) date) unknown) (unknown) (no (unknown) (unknown) ALT (<35) IU/L (unit s (unknown) date) unknown) (unknown) (no (unknown) (unknown) ALT 12 (units (unkn own) date) unknown) (unknown) (no (unknown) (unknown) ALT 12 (<35) IU/L (u nits (unknown) date) unknown) (unknown) (no (unknown) (unknown) ALT (units (unkno wn) date) unknown) (unknown) (no (unknown) (unknown) APTT (units (unkno wn) date) unknown) (unknown) (no (unknown) (unknown) APTT (26.4-36.2) (uni ts (unknown) date) SECONDS unknown) (unknown) (no (unknown) (unknown) APTT 33 (units (unk nown) date) unknown) (unknown) (no (unknown) (unknown) APTT 33 (26.4-36.2) ( units (unknown) date) SECONDS unknown) (unknown) (no (unknown) (unknown) APTT (units (unkno wn) date) unknown) (unknown) (no (unknown) (unknown) AST (units (unkno wn) date) unknown) (unknown) (no (unknown) (unknown) AST (14-36) IU/L (un its (unknown) date) unknown) (unknown) (no (unknown) (unknown) AST 24 (units (unkn own) date) unknown) (unknown) (no (unknown) (unknown) AST 24 (14-36) (units (unknown) date) IU/L unknown) (unknown) (no (unknown) (unknown) AST (units (unkno wn) date) unknown) (unknown) (no (unknown) (unknown) Accession Number: (units (unknown) date) [id number] ?? unknown) (unknown) (no (unknown) (unknown) Acct:[id number] (units (unknown) date) unknown) (unknown) (no (unknown) (unknown) Acetaminophen (units ( unknown) date) (Acetaminophen 325 Mg unknown) Tablet) 650 mg PO Q6HR PRN (unknown) (no (unknown) (unknown) Admit Date/Time: (units (unknown) date) 11/20/21 16:31 unknown) (unknown) (no (unknown) (unknown) Admit Provider: (units (unknown) date) Hanh Shankar unkno wnGildardo emmanuel (unknown) (no (unknown) (unknown) Age/Sex: 71 / F (units (unknown) date) unknown) (unknown) (no (unknown) (unknown) Age/Sex: 71 / F (units (unknown) date) unknown) (unknown) (no (unknown) (unknown) Albumin (units (unkno wn) date) unknown) (unknown) (no (unknown) (unknown) Albumin (3.5-5.0) (un its (unknown) date) g/dL unknown) (unknown) (no (unknown) (unknown) Albumin 4.2 (units (unknown) date) unknown) (unknown) (no (unknown) (unknown) Albumin 4.2 (units (unknown) date) (3.5-5.0) g/dL unknown) (unknown) (no (unknown) (unknown) Albumin (units (unkno wn) date) unknown) (unknown) (no (unknown) (unknown) Albumin/Globulin Ratio (u nits (unknown) date) unknown) (unknown) (no (unknown) (unknown) Albumin/Globulin Ratio (u nits (unknown) date) (1.0-2.8) unknown) (unknown) (no (unknown) (unknown) Albumin/Globulin Ratio (u nits (unknown) date) 1.3 unknown) (unknown) (no (unknown) (unknown) Albumin/Globulin Ratio (u nits (unknown) date) 1.3 (1.0-2.8) unknown) (unknown) (no (unknown) (unknown) Albumin/Globulin Ratio (u nits (unknown) date) unknown) (unknown) (no (unknown) (unknown) Alkaline Phosphatase (uni ts (unknown) date) unknown) (unknown) (no (unknown) (unknown) Alkaline Phosphatase (uni ts (unknown) date) (38-126) U/L unknown) (unknown) (no (unknown) (unknown) Alkaline Phosphatase (uni ts (unknown) date) 119 unknown) (unknown) (no (unknown) (unknown) Alkaline Phosphatase (uni ts (unknown) date) 119 (38-126) U/L unknown) (unknown) (no (unknown) (unknown) Alkaline Phosphatase (uni ts (unknown) date) unknown) (unknown) (no (unknown) (unknown) Allergy/AdvReac Type (uni ts (unknown) date) Severity Reaction Status unkno wn) Date / Time (unknown) (no (unknown) (unknown) Amorphous Sediment (units (unknown) date) unknown) (unknown) (no (unknown) (unknown) Amorphous Sediment (units (unknown) date) unknown) (unknown) (no (unknown) (unknown) Amorphous Sediment (units (unknown) date) unknown) (unknown) (no (unknown) (unknown) Amorphous Sediment (units (unknown) date) Cancelled unknown) (unknown) (no (unknown) (unknown) Amorphous Sediment (units (unknown) date) Cancelled unknown) (unknown) (no (unknown) (unknown) Anesthesia (units (unk nown) date) unknown) (unknown) (no (unknown) (unknown) Anxiety and depression (u nits (unknown) date) () unknown) (unknown) (no (unknown) (unknown) Apixaban (Apixaban 5 Mg ( units (unknown) date) Tablet) 5 mg PO BID CHOCO unkno wn) (unknown) (no (unknown) (unknown) Approved by: Sola (un its (unknown) date) Al Sanchez MD, PhD on unknown ) 11/20/2021 at 13:44?? (unknown) (no (unknown) (unknown) Aspirin (Aspirin 81 Mg (u nits (unknown) date) Chew Tab) 324 mg PO NOW unkno wn) ONE (unknown) (no (unknown) (unknown) Assessment + Plan (units (unknown) date) unknown) (unknown) (no (unknown) (unknown) Assessment + Plan (units (unknown) date) narrative: unknown) (unknown) (no (unknown) (unknown) Atorvastatin Calcium (uni ts (unknown) date) (Atorvastatin 20 Mg unknown) Tablet) 80 mg PO DAILY [facility] (unknown) (no (unknown) (unknown) Atrial paced rhythm, (unit s (unknown) date) rate of 67 AR 238 QRS 80 unkno wn) QTC of 420. No acute ST elevation (unknown) (no (unknown) (unknown) Attestation: I (units (unknown) date) personally reviewed and unknow n) interpreted this ECG as follows: (unknown) (no (unknown) (unknown) BETTER AT REST (units (unknown) date) unknown) (unknown) (no (unknown) (unknown) BID CHOCO (units (unkno wn) date) unknown) (unknown) (no (unknown) (unknown) BUN (units (unkno wn) date) unknown) (unknown) (no (unknown) (unknown) BUN (7-17) mg/dL (un its (unknown) date) unknown) (unknown) (no (unknown) (unknown) BUN 21 H (units (un known) date) unknown) (unknown) (no (unknown) (unknown) BUN 21 H (7-17) (unit s (unknown) date) mg/dL unknown) (unknown) (no (unknown) (unknown) BUN (units (unkno wn) date) unknown) (unknown) (no (unknown) (unknown) BUN/Creatinine Ratio (uni ts (unknown) date) unknown) (unknown) (no (unknown) (unknown) BUN/Creatinine Ratio (uni ts (unknown) date) (6-22) unknown) (unknown) (no (unknown) (unknown) BUN/Creatinine Ratio (uni ts (unknown) date) 20.8 unknown) (unknown) (no (unknown) (unknown) BUN/Creatinine Ratio (uni ts (unknown) date) 20.8 (6-22) unknown) (unknown) (no (unknown) (unknown) BUN/Creatinine Ratio (uni ts (unknown) date) unknown) (unknown) (no (unknown) (unknown) Baso # (Auto) (units ( unknown) date) unknown) (unknown) (no (unknown) (unknown) Baso # (Auto) (units ( unknown) date) (0-100) /uL unknown) (unknown) (no (unknown) (unknown) Baso # (Auto) (units ( unknown) date) unknown) (unknown) (no (unknown) (unknown) Baso # (Auto) 0 (units (unknown) date) unknown) (unknown) (no (unknown) (unknown) Baso # (Auto) 0 (units (unknown) date) (0-100) /uL unknown) (unknown) (no (unknown) (unknown) Baso % (Auto) (units ( unknown) date) unknown) (unknown) (no (unknown) (unknown) Baso % (Auto) (0-2) ( units (unknown) date) % unknown) (unknown) (no (unknown) (unknown) Baso % (Auto) (units ( unknown) date) unknown) (unknown) (no (unknown) (unknown) Baso % (Auto) 0.3 (units (unknown) date) unknown) (unknown) (no (unknown) (unknown) Baso % (Auto) 0.3 (units (unknown) date) (0-2) % unknown) (unknown) (no (unknown) (unknown) Bedside Urine Bilirubin ( units (unknown) date) + 1 unknown) (unknown) (no (unknown) (unknown) Bedside Urine Glucose (un its (unknown) date) Negative unknown) (unknown) (no (unknown) (unknown) Bedside Urine Ketone (uni ts (unknown) date) - Negative unknown) (unknown) (no (unknown) (unknown) Bedside Urine (units ( unknown) date) Leukocytes +/- 15 unknow n) (unknown) (no (unknown) (unknown) Bedside Urine Nitrite (un its (unknown) date) - Negative unknown) (unknown) (no (unknown) (unknown) Bedside Urine Occult (uni ts (unknown) date) Blood +++ unknown) (unknown) (no (unknown) (unknown) Bedside Urine Protein (un its (unknown) date) +/- 15 unknown) (unknown) (no (unknown) (unknown) Bedside Urine (units ( unknown) date) Urobilinogen - unknown) Negative (unknown) (no (unknown) (unknown) Bedside Urine pH 6.0 ( units (unknown) date) unknown) (unknown) (no (unknown) (unknown) Been Physically Hurt or ( units (unknown) date) No unknown) (unknown) (no (unknown) (unknown) Blood Pressure (units (unknown) date) unknown) (unknown) (no (unknown) (unknown) Blood Pressure 163/79 (u nits (unknown) date) H 11/20/21 11:59 unknown) (unknown) (no (unknown) (unknown) Blood Pressure 165/74 (u nits (unknown) date) H 161/70 H unknown) (unknown) (no (unknown) (unknown) Blood Pressure 163/79 H ( units (unknown) date) 162/74 H unknown) (unknown) (no (unknown) (unknown) Blood Pressure 169/72 H ( units (unknown) date) unknown) (unknown) (no (unknown) (unknown) Blood Pressure 183/74 H ( units (unknown) date) unknown) (unknown) (no (unknown) (unknown) Bones and chest wall:? (u nits (unknown) date) No suspicious bony unknown) abnormalities.? Soft tissues appear (unknown) (no (unknown) (unknown) Brother (units (unknown) date) Cancer unknown) (unknown) (no (unknown) (unknown) Brother (units (unknown) date) History of heart disease unkno wn) (unknown) (no (unknown) (unknown) CARDIOVASCULAR: Regular ( units (unknown) date) rate and rhythm without unknow n) murmurs, rubs or gallops. (unknown) (no (unknown) (unknown) CHEST: REGULAR RATE. (uni ts (unknown) date) NO RUBS. PMI IS NON unknown) DISPLACED. NO MURMURS; NORMAL S1- (unknown) (no (unknown) (unknown) CK-MB (CK-2) (units (u nknown) date) unknown) (unknown) (no (unknown) (unknown) CK-MB (CK-2) (units (u nknown) date) unknown) (unknown) (no (unknown) (unknown) CK-MB (CK-2) (units (u nknown) date) unknown) (unknown) (no (unknown) (unknown) CK-MB (CK-2) TNP (units (unknown) date) unknown) (unknown) (no (unknown) (unknown) CK-MB (CK-2) TNP (units (unknown) date) unknown) (unknown) (no (unknown) (unknown) CK-MB (CK-2) Rel Index (u nits (unknown) date) unknown) (unknown) (no (unknown) (unknown) CK-MB (CK-2) Rel Index (u nits (unknown) date) unknown) (unknown) (no (unknown) (unknown) CK-MB (CK-2) Rel Index (u nits (unknown) date) unknown) (unknown) (no (unknown) (unknown) CK-MB (CK-2) Rel Index (u nits (unknown) date) TNP unknown) (unknown) (no (unknown) (unknown) CK-MB (CK-2) Rel Index (u nits (unknown) date) TNP unknown) (unknown) (no (unknown) (unknown) [facility], [facility], XR CHEST unknown ) 1V, 12/17/2020, 14:42. (unknown) (no (unknown) (unknown) COPD (chronic (units ( unknown) date) obstructive pulmonary unknown) disease) (-2018) (unknown) (no (unknown) (unknown) Calcium (units (unkno wn) date) unknown) (unknown) (no (unknown) (unknown) Calcium (8.4-10.2) (u nits (unknown) date) mg/dL unknown) (unknown) (no (unknown) (unknown) Calcium 9.1 (units (unknown) date) unknown) (unknown) (no (unknown) (unknown) Calcium 9.1 (units (unknown) date) (8.4-10.2) mg/dL unknown) (unknown) (no (unknown) (unknown) Calcium (units (unkno wn) date) unknown) (unknown) (no (unknown) (unknown) Calcium Oxalate Crystal ( units (unknown) date) unknown) (unknown) (no (unknown) (unknown) Calcium Oxalate Crystal ( units (unknown) date) unknown) (unknown) (no (unknown) (unknown) Calcium Oxalate Crystal ( units (unknown) date) unknown) (unknown) (no (unknown) (unknown) Calcium Oxalate Crystal ( units (unknown) date) Many H Cancelled unknown) (unknown) (no (unknown) (unknown) Calcium Oxalate Crystal ( units (unknown) date) Many H Cancelled unknown) (unknown) (no (unknown) (unknown) Carbon Dioxide (units (unknown) date) unknown) (unknown) (no (unknown) (unknown) Carbon Dioxide (units (unknown) date) (22-32) mmol/L unknown) (unknown) (no (unknown) (unknown) Carbon Dioxide 27 (uni ts (unknown) date) unknown) (unknown) (no (unknown) (unknown) Carbon Dioxide 27 (uni ts (unknown) date) (22-32) mmol/L unknown) (unknown) (no (unknown) (unknown) Carbon Dioxide (units (unknown) date) unknown) (unknown) (no (unknown) (unknown) Chest x-ray: (units (u nknown) date) unknown) (unknown) (no (unknown) (unknown) Chief Complaint: (units (unknown) date) Shortness of unknown) Breath/Dyspnea (unknown) (no (unknown) (unknown) Chief complaint: (units (unknown) date) Possible heart attack unknown) (unknown) (no (unknown) (unknown) Chloride (units (unkno wn) date) unknown) (unknown) (no (unknown) (unknown) Chloride (98-107) (un its (unknown) date) mmol/L unknown) (unknown) (no (unknown) (unknown) Chloride 108 H (units (unknown) date) unknown) (unknown) (no (unknown) (unknown) Chloride 108 H (units (unknown) date) (98-107) mmol/L unknown) (unknown) (no (unknown) (unknown) Chloride (units (unkno wn) date) unknown) (unknown) (no (unknown) (unknown) Chronic back pain (units (unknown) date) (-2012) unknown) (unknown) (no (unknown) (unknown) Citalopram Hydrobromide ( units (unknown) date) (Citalopram 10 Mg unknown) Tablet) 0 mg PO .COMPLEX CHOCO (unknown) (no (unknown) (unknown) Clinical Impression: (uni ts (unknown) date) unknown) (unknown) (no (unknown) (unknown) Complete Blood Count (uni ts (unknown) date) AUTO DIFF Stat unknown) (unknown) (no (unknown) (unknown) Comprehensive Metabolic ( units (unknown) date) Panel Stat unknown) (unknown) (no (unknown) (unknown) Consultation #1: (units (unknown) date) unknown) (unknown) (no (unknown) (unknown) Consultation #2: (units (unknown) date) unknown) (unknown) (no (unknown) (unknown) Consultations (units ( unknown) date) unknown) (unknown) (no (unknown) (unknown) Course (units (unkno wn) date) unknown) (unknown) (no (unknown) (unknown) Creatinine (units (unk nown) date) unknown) (unknown) (no (unknown) (unknown) Creatinine (units (unk nown) date) (0.52-1.04) mg/dL unknown) (unknown) (no (unknown) (unknown) Creatinine 1.01 (units (unknown) date) unknown) (unknown) (no (unknown) (unknown) Creatinine 1.01 (units (unknown) date) (0.52-1.04) mg/dL unknown) (unknown) (no (unknown) (unknown) Creatinine (units (unk nown) date) unknown) (unknown) (no (unknown) (unknown) Critical Care time: (unit s (unknown) date) unknown) (unknown) (no (unknown) (unknown) : 1950 (units (unknown) date) Acct:[id number] unknown) (unknown) (no (unknown) (unknown) : 1950 (units (unknown) date) unknown) (unknown) (no (unknown) (unknown) Date Patient Seen: (units (unknown) date) 11/20/21 unknown) (unknown) (no (unknown) (unknown) Date of Service: (units (unknown) date) 11/20/21 unknown) (unknown) (no (unknown) (unknown) Departure (units (unkn own) date) unknown) (unknown) (no (unknown) (unknown) Dictated by: Sola (un its (unknown) date) Al Sanchez MD, PhD on unknown ) 11/20/2021 at 13:43 ? ? (unknown) (no (unknown) (unknown) Discharge Plan (units (unknown) date) unknown) (unknown) (no (unknown) (unknown) Discontinued (units (u nknown) date) Medications unknown) (unknown) (no (unknown) (unknown) [facility] ( units (unknown) date) [facility] unknown) recommend keeping patient for (unknown) (no (unknown) (unknown) Brandon Aragon, (u nits (unknown) date) hospitalist. Accepts unknown) for chest pain, angina versus (unknown) (no (unknown) (unknown) ECG Data (units (unkno wn) date) unknown) (unknown) (no (unknown) (unknown) EKG 2. Atrial paced (unit s (unknown) date) rhythm, positive for unknown) PVC. Rate of 60 2p are 260 QRS 84 QTC (unknown) (no (unknown) (unknown) EKG-12 Lead Stat (units (unknown) date) unknown) (unknown) (no (unknown) (unknown) ER Physician: (units ( unknown) date) Alem Marlow D.O. unknown) (unknown) (no (unknown) (unknown) EXTREMITIES: NO EDEMA.. ( units (unknown) date) NO CYANOSIS CLUBBING unknown) NOTED. (unknown) (no (unknown) (unknown) EXTREMITIES: Normal (unit s (unknown) date) range of motion, no unknown) clubbing or edema. Neurovascularly (unknown) (no (unknown) (unknown) EYE: EOMI, PERRLA, (unit s (unknown) date) NORMAL CONJUNCTIVA; NO unknown ) JAUNDICE (unknown) (no (unknown) (unknown) Endometrial hyperplasia ( units (unknown) date) unknown) (unknown) (no (unknown) (unknown) Environment (units (un known) date) unknown) (unknown) (no (unknown) (unknown) Eos # (Auto) (units (u nknown) date) unknown) (unknown) (no (unknown) (unknown) Eos # (Auto) (units (u nknown) date) (0-450) /uL unknown) (unknown) (no (unknown) (unknown) Eos # (Auto) (units (u nknown) date) unknown) (unknown) (no (unknown) (unknown) Eos # (Auto) 200 (units (unknown) date) unknown) (unknown) (no (unknown) (unknown) Eos # (Auto) 200 (units (unknown) date) (0-450) /uL unknown) (unknown) (no (unknown) (unknown) Eos % (Auto) (units (u nknown) date) unknown) (unknown) (no (unknown) (unknown) Eos % (Auto) (2-4) (u nits (unknown) date) % unknown) (unknown) (no (unknown) (unknown) Eos % (Auto) (units (u nknown) date) unknown) (unknown) (no (unknown) (unknown) Eos % (Auto) 2.5 (units (unknown) date) unknown) (unknown) (no (unknown) (unknown) Eos % (Auto) 2.5 (units (unknown) date) (2-4) % unknown) (unknown) (no (unknown) (unknown) Esterase (units (unkno wn) date) unknown) (unknown) (no (unknown) (unknown) Estimated GFR (units ( unknown) date) unknown) (unknown) (no (unknown) (unknown) Estimated GFR (>60) ( units (unknown) date) mL/min unknown) (unknown) (no (unknown) (unknown) Estimated GFR 59 L (un its (unknown) date) unknown) (unknown) (no (unknown) (unknown) Estimated GFR 59 L (un its (unknown) date) (>60) mL/min unknown) (unknown) (no (unknown) (unknown) Estimated GFR (units ( unknown) date) unknown) (unknown) (no (unknown) (unknown) Exam (units (unkno wn) date) unknown) (unknown) (no (unknown) (unknown) Exam Narrative: (units (unknown) date) unknown) (unknown) (no (unknown) (unknown) FINDINGS:? (units (unk nown) date) unknown) (unknown) (no (unknown) (unknown) Family + Social History ( units (unknown) date) unknown) (unknown) (no (unknown) (unknown) Family History (units (unknown) date) (Reviewed 11/20/21 @ unknown) 14:39 by Alem Marlow DO) (unknown) (no (unknown) (unknown) Father (units (unknown) date) Cancer unknown) (unknown) (no (unknown) (unknown) Feels Safe in Current (un its (unknown) date) Yes unknown) (unknown) (no (unknown) (unknown) Furosemide (Furosemide (u nits (unknown) date) 40 Mg/4 Ml Vial) 40 mg unknow n) IV NOW ONE (unknown) (no (unknown) (unknown) GENERAL: Alert and (units (unknown) date) oriented x three, female unkno wn) in mild distress. 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 unknown) (unknown) (no (unknown) (unknown) : No CVA tenderness (un its (unknown) date) unknown) (unknown) (no (unknown) (unknown) General (units (unkno wn) date) unknown) (unknown) (no (unknown) (unknown) GenericComposite[Plt (uni ts (unknown) date) Count (150-400) unknown) X10^3/uL ] (unknown) (no (unknown) (unknown) GenericComposite[Plt (uni ts (unknown) date) Count 231 (150-400) unknow n) X10^3/uL ] (unknown) (no (unknown) (unknown) GenericComposite[RBC (uni ts (unknown) date) (4.0-5.2) X10^6/uL ] unknow n) (unknown) (no (unknown) (unknown) GenericComposite[RBC (uni ts (unknown) date) 4.62 (4.0-5.2) unknown) X10^6/uL ] (unknown) (no (unknown) (unknown) GenericComposite[WBC (uni ts (unknown) date) (4.5-11.0) X10^3/uL ] unkno wn) (unknown) (no (unknown) (unknown) GenericComposite[WBC (uni ts (unknown) date) 6.7 (4.5-11.0) unknown) X10^3/uL ] (unknown) (no (unknown) (unknown) Globulin (units (unkno wn) date) unknown) (unknown) (no (unknown) (unknown) Globulin (1.7-4.1) (u nits (unknown) date) g/dL unknown) (unknown) (no (unknown) (unknown) Globulin 3.2 (units (unknown) date) unknown) (unknown) (no (unknown) (unknown) Globulin 3.2 (units (unknown) date) (1.7-4.1) g/dL unknown) (unknown) (no (unknown) (unknown) Globulin (units (unkno wn) date) unknown) (unknown) (no (unknown) (unknown) Glucose (units (unkno wn) date) unknown) (unknown) (no (unknown) (unknown) Glucose (80-110) (uni ts (unknown) date) mg/dL unknown) (unknown) (no (unknown) (unknown) Glucose 94 (units ( unknown) date) unknown) (unknown) (no (unknown) (unknown) Glucose 94 (80-110) ( units (unknown) date) mg/dL unknown) (unknown) (no (unknown) (unknown) Glucose (units (unkno wn) date) unknown) (unknown) (no (unknown) (unknown) Granular Casts (units (unknown) date) unknown) (unknown) (no (unknown) (unknown) Granular Casts (units (unknown) date) unknown) (unknown) (no (unknown) (unknown) Granular Casts (units (unknown) date) unknown) (unknown) (no (unknown) (unknown) Granular Casts (units (unknown) date) Cancelled unknown) (unknown) (no (unknown) (unknown) Granular Casts (units (unknown) date) Cancelled unknown) (unknown) (no (unknown) (unknown) HEAD ATRAUMATIC (units (unknown) date) 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 unknown) (unknown) (no (unknown) (unknown) HEENT: Head (units (un known) date) normocephalic, unknown) atraumatic, EOMI, pupils reactive, face symmetric, (unknown) (no (unknown) (unknown) HPI - SOB/Dyspnea (units (unknown) date) unknown) (unknown) (no (unknown) (unknown) HPI Narrative: (units (unknown) date) unknown) (unknown) (no (unknown) (unknown) Hct (units (unkno wn) date) unknown) (unknown) (no (unknown) (unknown) Hct (36-46) % (units (unknown) date) unknown) (unknown) (no (unknown) (unknown) Hct (units (unkno wn) date) unknown) (unknown) (no (unknown) (unknown) Hct 37.4 (units (unkn own) date) unknown) (unknown) (no (unknown) (unknown) Hct 37.4 (36-46) % ( units (unknown) date) unknown) (unknown) (no (unknown) (unknown) Headache (-2019) (units (unknown) date) unknown) (unknown) (no (unknown) (unknown) Hgb (units (unkno wn) date) unknown) (unknown) (no (unknown) (unknown) Hgb (12.0-16.0) (unit s (unknown) date) g/dL unknown) (unknown) (no (unknown) (unknown) Hgb (units (unkno wn) date) unknown) (unknown) (no (unknown) (unknown) Hgb 12.1 (units (unkn own) date) unknown) (unknown) (no (unknown) (unknown) Hgb 12.1 (units (unkn own) date) (12.0-16.0) g/dL unknown) (unknown) (no (unknown) (unknown) History of Present (units (unknown) date) Illness unknown) (unknown) (no (unknown) (unknown) History of (units (unk nown) date) abdominoplasty () unknown ) (unknown) (no (unknown) (unknown) History of breast lift (u nits (unknown) date) () unknown) (unknown) (no (unknown) (unknown) History of carpal (units (unknown) date) tunnel repair unknown) (unknown) (no (unknown) (unknown) History of cataract (unit s (unknown) date) removal with insertion unknown ) of prosthetic lens () (unknown) (no (unknown) (unknown) 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) unknown) (unknown) (no (unknown) (unknown) History of knee (units (unknown) date) replacement unknown) (unknown) (no (unknown) (unknown) Home Medications and (uni ts (unknown) date) Allergies unknown) (unknown) (no (unknown) (unknown) Hyaline Casts (units ( unknown) date) unknown) (unknown) (no (unknown) (unknown) Hyaline Casts (units ( unknown) date) unknown) (unknown) (no (unknown) (unknown) Hyaline Casts (units ( unknown) date) unknown) (unknown) (no (unknown) (unknown) Hyaline Casts (units ( unknown) date) Cancelled unknown) (unknown) (no (unknown) (unknown) Hyaline Casts (units ( unknown) date) Cancelled unknown) (unknown) (no (unknown) (unknown) Hypertension (-1995) (uni ts (unknown) date) unknown) (unknown) (no (unknown) (unknown) Hypothyroidism (units (unknown) date) unknown) (unknown) (no (unknown) (unknown) I spent a total of [] (un its (unknown) date) minutes of critical care unkno wn) time on this patient's care (unknown) (no (unknown) (unknown) IMPRESSION:? No acute (un its (unknown) date) cardiopulmonary disease unknow n) process. (unknown) (no (unknown) (unknown) INCREASED DULLNESS TO (un its (unknown) date) PERCUSSION unknown) (unknown) (no (unknown) (unknown) INCREASING DYSPNEA ON ( units (unknown) date) EXERTION. NOT unknown) ASSOCIATED WITH DIAPHORESIS. DENIES (unknown) (no (unknown) (unknown) INDICATIONS:? shortness ( units (unknown) date) of breath unknown) (unknown) (no (unknown) (unknown) INR (units (unkno wn) date) unknown) (unknown) (no (unknown) (unknown) INR (0.9-1.3) (units (unknown) date) unknown) (unknown) (no (unknown) (unknown) INR (units (unkno wn) date) unknown) (unknown) (no (unknown) (unknown) INR 1.1 (units (unkn own) date) unknown) (unknown) (no (unknown) (unknown) INR 1.1 (0.9-1.3) (un its (unknown) date) unknown) (unknown) (no (unknown) (unknown) IP DYE Allergy Mild (unit s (unknown) date) Uncoded 07/08/21 15:35 unknown ) (unknown) (no (unknown) (unknown) Ictotest Urine Stat (unit s (unknown) date) unknown) (unknown) (no (unknown) (unknown) Imaging Data (units (u nknown) date) unknown) (unknown) (no (unknown) (unknown) Initial Vital Signs (unit s (unknown) date) unknown) (unknown) (no (unknown) (unknown) Initial Vital Signs: (uni ts (unknown) date) unknown) (unknown) (no (unknown) (unknown) Interpretation: (units (unknown) date) unknown) (unknown) (no (unknown) (unknown) Iodine and Iodide (units (unknown) date) Containing Allergy unknown) Verified 11/20/21 11:59 (unknown) (no (unknown) (unknown) Lab Data (units (unkno wn) date) unknown) (unknown) (no (unknown) (unknown) Labs (units (unkno wn) date) unknown) (unknown) (no (unknown) (unknown) Labs: (units (unkno wn) date) unknown) (unknown) (no (unknown) (unknown) Lactate (units (unkno wn) date) unknown) (unknown) (no (unknown) (unknown) Lactate (0.7-2.1) (un its (unknown) date) mmol/L unknown) (unknown) (no (unknown) (unknown) Lactate (units (unkno wn) date) unknown) (unknown) (no (unknown) (unknown) Lactate 1.0 (units (u nknown) date) unknown) (unknown) (no (unknown) (unknown) Lactate 1.0 (units (u nknown) date) (0.7-2.1) mmol/L unknown) (unknown) (no (unknown) (unknown) Lactate (Lactic Acid) (un its (unknown) date) Stat unknown) (unknown) (no (unknown) (unknown) Levothyroxine Sodium (uni ts (unknown) date) (Levothyroxine 88 Mcg unknown) Tablet) 88 mcg PO [id number] CHOCO (unknown) (no (unknown) (unknown) Limitations: no (units (unknown) date) limitations unknown) (unknown) (no (unknown) (unknown) Loc: ED (units (unkno wn) date) unknown) (unknown) (no (unknown) (unknown) Lungs and pleura:? (units (unknown) date) Lungs are clear.? No unknown) pleural effusions or pneumothorax.? (unknown) (no (unknown) (unknown) Lymph # (Auto) (units (unknown) date) unknown) (unknown) (no (unknown) (unknown) Lymph # (Auto) (units (unknown) date) (7334-2119) /uL unknown) (unknown) (no (unknown) (unknown) Lymph # (Auto) (units (unknown) date) unknown) (unknown) (no (unknown) (unknown) Lymph # (Auto) 1600 (uni ts (unknown) date) unknown) (unknown) (no (unknown) (unknown) Lymph # (Auto) 1600 (uni ts (unknown) date) (4758-9425) /uL unknown) (unknown) (no (unknown) (unknown) Lymph % (Auto) (units (unknown) date) unknown) (unknown) (no (unknown) (unknown) Lymph % (Auto) (units (unknown) date) (25-40) % unknown) (unknown) (no (unknown) (unknown) Lymph % (Auto) (units (unknown) date) unknown) (unknown) (no (unknown) (unknown) Lymph % (Auto) 23.3 L (u nits (unknown) date) unknown) (unknown) (no (unknown) (unknown) Lymph % (Auto) 23.3 L (u nits (unknown) date) (25-40) % unknown) (unknown) (no (unknown) (unknown) MCH (units (unkno wn) date) unknown) (unknown) (no (unknown) (unknown) MCH (26-34) PG (unit s (unknown) date) unknown) (unknown) (no (unknown) (unknown) MCH (units (unkno wn) date) unknown) (unknown) (no (unknown) (unknown) MCH 26.3 (units (unkn own) date) unknown) (unknown) (no (unknown) (unknown) MCH 26.3 (26-34) (uni ts (unknown) date) PG unknown) (unknown) (no (unknown) (unknown) MCHC (units (unkno wn) date) unknown) (unknown) (no (unknown) (unknown) MCHC (30-36) % (unit s (unknown) date) unknown) (unknown) (no (unknown) (unknown) MCHC (units (unkno wn) date) unknown) (unknown) (no (unknown) (unknown) MCHC 32.4 (units (unk nown) date) unknown) (unknown) (no (unknown) (unknown) MCHC 32.4 (30-36) (un its (unknown) date) % unknown) (unknown) (no (unknown) (unknown) MCV (units (unkno wn) date) unknown) (unknown) (no (unknown) (unknown) MCV (80-100) fL (uni ts (unknown) date) unknown) (unknown) (no (unknown) (unknown) MCV (units (unkno wn) date) unknown) (unknown) (no (unknown) (unknown) MCV 81.1 (units (unkn own) date) unknown) (unknown) (no (unknown) (unknown) MCV 81.1 (80-100) (un its (unknown) date) fL unknown) (unknown) (no (unknown) (unknown) MDM - SOB/Dyspnea (units (unknown) date) unknown) (unknown) (no (unknown) (unknown) MDM Narrative (units ( unknown) date) unknown) (unknown) (no (unknown) (unknown) MR#: [id number] (units (unknown) date) unknown) (unknown) (no (unknown) (unknown) MSK: NORMAL RANGE OF (un its (unknown) date) MOTION FOR AGE. NO unknown) JOINT EFFUSION. (unknown) (no (unknown) (unknown) Mediastinum:? (units ( unknown) date) Mediastinal contours are unkno wn) normal.? Heart size is normal.? (unknown) (no (unknown) (unknown) Medical History (units (unknown) date) (Reviewed 11/20/21 @ unknown) 14:39 by Alem Marlow DO) (unknown) (no (unknown) (unknown) Medical decision making ( units (unknown) date) narrative: unknown) (unknown) (no (unknown) (unknown) Meds (units (unkno wn) date) unknown) (unknown) (no (unknown) (unknown) Micro UA Comment (units (unknown) date) unknown) (unknown) (no (unknown) (unknown) Micro UA Comment (units (unknown) date) unknown) (unknown) (no (unknown) (unknown) Micro UA Comment (units (unknown) date) unknown) (unknown) (no (unknown) (unknown) Micro UA Comment (units (unknown) date) Cancelled unknown) (unknown) (no (unknown) (unknown) Micro UA Comment (units (unknown) date) Cancelled unknown) (unknown) (no (unknown) (unknown) Mode of arrival: (units (unknown) date) Ambulatory unknown) (unknown) (no (unknown) (unknown) Gooding # (Auto) (units ( unknown) date) unknown) (unknown) (no (unknown) (unknown) Gooding # (Auto) (units ( unknown) date) (0-900) /uL unknown) (unknown) (no (unknown) (unknown) Gooding # (Auto) (units ( unknown) date) unknown) (unknown) (no (unknown) (unknown) Gooding # (Auto) 600 (units (unknown) date) unknown) (unknown) (no (unknown) (unknown) Gooding # (Auto) 600 (units (unknown) date) (0-900) /uL unknown) (unknown) (no (unknown) (unknown) Gooding % (Auto) (units ( unknown) date) unknown) (unknown) (no (unknown) (unknown) Gooding % (Auto) (units ( unknown) date) (3-14) % unknown) (unknown) (no (unknown) (unknown) Gooding % (Auto) (units ( unknown) date) unknown) (unknown) (no (unknown) (unknown) Gooding % (Auto) 8.4 (units (unknown) date) unknown) (unknown) (no (unknown) (unknown) Gooding % (Auto) 8.4 (units (unknown) date) (3-14) % unknown) (unknown) (no (unknown) (unknown) Morphine Sulfate (units (unknown) date) (Morphine 2 Mg/Ml Inj) unknown ) 2 mg IV Q4H PRN (unknown) (no (unknown) (unknown) NAUSEA OR VOMITING. NO ( units (unknown) date) CHEST PAIN. NO CHEST unknown) PALPITATIONS (unknown) (no (unknown) (unknown) NECK : SUPPLE WITHOUT (un its (unknown) date) ADENOPATHY NO CAROTID unknown) BRUITS (unknown) (no (unknown) (unknown) NECK: Supple, full (units (unknown) date) range of motion unknown) (unknown) (no (unknown) (unknown) NEURO: CRANIAL NERVES (un its (unknown) date) 2-12 GROSSLY INTACT. NO unknow n) FOCAL NEUROLOGICAL DEFICIT NOTED. (unknown) (no (unknown) (unknown) NEUROLOGICAL: Cranial (un its (unknown) date) nerves II through XII unknown) grossly intact. Moving all (unknown) (no (unknown) (unknown) NO ACUTE DISTRESS. (units (unknown) date) PATIENT IS ALERT unknown) ORIENTED X3. (unknown) (no (unknown) (unknown) NO HEAT OR COLD (units (unknown) date) INTOLERANCE. unknown) (unknown) (no (unknown) (unknown) NT-Pro-B Natriuret Pep (u nits (unknown) date) unknown) (unknown) (no (unknown) (unknown) NT-Pro-B Natriuret Pep (u nits (unknown) date) (<125) pg/mL unknown) (unknown) (no (unknown) (unknown) NT-Pro-B Natriuret Pep (u nits (unknown) date) 291 H unknown) (unknown) (no (unknown) (unknown) NT-Pro-B Natriuret Pep (u nits (unknown) date) 291 H (<125) pg/mL unknown ) (unknown) (no (unknown) (unknown) NT-Pro-B Natriuret Pep (u nits (unknown) date) unknown) (unknown) (no (unknown) (unknown) NT-proBNP (BNP-Adult (uni ts (unknown) date) 18+) Stat unknown) (unknown) (no (unknown) (unknown) Naloxone HCl (Naloxone (u nits (unknown) date) 0.4 Mg/Ml Vial) 0.2 mg unknow n) IV Q2MIN PRN (unknown) (no (unknown) (unknown) Narrative (units (unkn own) date) unknown) (unknown) (no (unknown) (unknown) Narrative: (units (unk nown) date) unknown) (unknown) (no (unknown) (unknown) Neut # (Auto) (units ( unknown) date) unknown) (unknown) (no (unknown) (unknown) Neut # (Auto) (units ( unknown) date) (6854-5605) /uL unknown) (unknown) (no (unknown) (unknown) Neut # (Auto) (units ( unknown) date) unknown) (unknown) (no (unknown) (unknown) Neut # (Auto) 4400 (unit s (unknown) date) unknown) (unknown) (no (unknown) (unknown) Neut # (Auto) 4400 (unit s (unknown) date) (3255-7224) /uL unknown) (unknown) (no (unknown) (unknown) Neut % (Auto) (units ( unknown) date) unknown) (unknown) (no (unknown) (unknown) Neut % (Auto) (units ( unknown) date) (50-75) % unknown) (unknown) (no (unknown) (unknown) Neut % (Auto) (units ( unknown) date) unknown) (unknown) (no (unknown) (unknown) Neut % (Auto) 65.5 (unit s (unknown) date) unknown) (unknown) (no (unknown) (unknown) Neut % (Auto) 65.5 (unit s (unknown) date) (50-75) % unknown) (unknown) (no (unknown) (unknown) No acute EKG changes (uni ts (unknown) date) patient does have a unknown) history of AFib, hypertension, (unknown) (no (unknown) (unknown) No swelling in her (units (unknown) date) extremities. Patient unknown) does have a history COPD with no (unknown) (no (unknown) (unknown) Non-Formulary (units ( unknown) date) Medication unknown) (Budesonide-Formoterol [Symbicort]) 2 puff INHALATION (unknown) (no (unknown) (unknown) Non-Formulary (units ( unknown) date) Medication (Diclofenac unknown ) Sodium) 2 gram TOP QID CHOCO (unknown) (no (unknown) (unknown) Objective (units (unkn own) date) unknown) (unknown) (no (unknown) (unknown) Ordered: (units (unkno wn) date) unknown) (unknown) (no (unknown) (unknown) Ordering Provider: (units (unknown) date) Alem Marlow D.O. unknown) (unknown) (no (unknown) (unknown) Orders (units (unkno wn) date) unknown) (unknown) (no (unknown) (unknown) Other Casts (units (un known) date) unknown) (unknown) (no (unknown) (unknown) Other Casts (units (un known) date) unknown) (unknown) (no (unknown) (unknown) Other Casts (units (un known) date) unknown) (unknown) (no (unknown) (unknown) Other Casts Cancelled ( units (unknown) date) unknown) (unknown) (no (unknown) (unknown) Other Casts Cancelled ( units (unknown) date) unknown) (unknown) (no (unknown) (unknown) Other Crystals (units (unknown) date) unknown) (unknown) (no (unknown) (unknown) Other Crystals (units (unknown) date) unknown) (unknown) (no (unknown) (unknown) Other Crystals (units (unknown) date) unknown) (unknown) (no (unknown) (unknown) Other Crystals (units (unknown) date) Cancelled unknown) (unknown) (no (unknown) (unknown) Other Crystals (units (unknown) date) Cancelled unknown) (unknown) (no (unknown) (unknown) Oxygen Delivery Method (u nits (unknown) date) Room Air unknown) (unknown) (no (unknown) (unknown) PATIENT CAME TO THE ED (u nits (unknown) date) REPORTEDLY PER HER unknown) PROVIDER RECOMMENDATION DUE TO (unknown) (no (unknown) (unknown) PER PATIENT, HER (units (unknown) date) PACEMAKER IS ABOUT 12 unknown) YEARS OLD. SHE HAS BEEN HAVING ISSUES (unknown) (no (unknown) (unknown) PROCEDURE:? XR CHEST 2V ( units (unknown) date) unknown) (unknown) (no (unknown) (unknown) PSYCH : APPROPRIATE (uni ts (unknown) date) MOOD AND AFFECT. ALERT unknow n) AWAKE ORIENTED X3 (unknown) (no (unknown) (unknown) PT (units (unkno wn) date) unknown) (unknown) (no (unknown) (unknown) PT (10.1-12.7) (units (unknown) date) SECONDS unknown) (unknown) (no (unknown) (unknown) PT (units (unkno wn) date) unknown) (unknown) (no (unknown) (unknown) PT 12.5 (units (unkn own) date) unknown) (unknown) (no (unknown) (unknown) PT 12.5 (10.1-12.7) ( units (unknown) date) SECONDS unknown) (unknown) (no (unknown) (unknown) PTT [Partial (units (u nknown) date) Thromboplastin Time] unknown) Stat (unknown) (no (unknown) (unknown) PULMONARY: DECREASED (un its (unknown) date) BS OVER THE BASES. MILD unkno wn) BIBASILAR CRACKLES NOTED; NO (unknown) (no (unknown) (unknown) Patient Disposition: (uni ts (unknown) date) Admitted as Observation unknow n) (unknown) (no (unknown) (unknown) Patient History (units (unknown) date) unknown) (unknown) (no (unknown) (unknown) Patient: (units (unkno wn) date) Laurel,Sherine S unknown) MR#: (unknown) (no (unknown) (unknown) Patient: (units (unkno wn) date) LaurelSherine unknown) (unknown) (no (unknown) (unknown) Plt Count (units (unkn own) date) unknown) (unknown) (no (unknown) (unknown) Plt Count (units (unkn own) date) unknown) (unknown) (no (unknown) (unknown) Plt Count 231 (units (unknown) date) unknown) (unknown) (no (unknown) (unknown) Postmenopausal bleeding ( units (unknown) date) unknown) (unknown) (no (unknown) (unknown) Potassium (units (unkn own) date) unknown) (unknown) (no (unknown) (unknown) Potassium (3.4-5.1) ( units (unknown) date) mmol/L unknown) (unknown) (no (unknown) (unknown) Potassium 3.8 (units (unknown) date) unknown) (unknown) (no (unknown) (unknown) Potassium 3.8 (units (unknown) date) (3.4-5.1) mmol/L unknown) (unknown) (no (unknown) (unknown) Potassium (units (unkn own) date) unknown) (unknown) (no (unknown) (unknown) Presence of cardiac (unit s (unknown) date) pacemaker (-2009) unknown) (unknown) (no (unknown) (unknown) Prior ECG tracings: (unit s (unknown) date) available for review unknown) (unknown) (no (unknown) (unknown) Procedure: XR chest 2V (u nits (unknown) date) unknown) (unknown) (no (unknown) (unknown) Produc (units (unkno wn) date) unknown) (unknown) (no (unknown) (unknown) Prothrombin Time INR (uni ts (unknown) date) Stat unknown) (unknown) (no (unknown) (unknown) Provider: (units (unkn own) date) Hanh Shankar unkno wn) lien (unknown) (no (unknown) (unknown) Pulse Oximetry 100 (unit s (unknown) date) 11/20/21 11:59 unknown) (unknown) (no (unknown) (unknown) Pulse Oximetry 100 97 (un its (unknown) date) 99 unknown) (unknown) (no (unknown) (unknown) Pulse Oximetry 100 99 (un its (unknown) date) 100 unknown) (unknown) (no (unknown) (unknown) Pulse Oximetry 100 99 (un its (unknown) date) 99 unknown) (unknown) (no (unknown) (unknown) Pulse Oximetry 99 99 (uni ts (unknown) date) unknown) (unknown) (no (unknown) (unknown) Pulse Oximetry 99 99 99 ( units (unknown) date) unknown) (unknown) (no (unknown) (unknown) Pulse Rate 67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 frequency unknown) holiday/special occasion (unknown) (no (unknown) (unknown) alcohol intake (units (unknown) date) frequency: unknown) holidays/special occasions only (unknown) (no (unknown) (unknown) alcohol intake: never (u nits (unknown) date) unknown) (unknown) (no (unknown) (unknown) and EKG do not show (unit s (unknown) date) clear changes but it is unknow n) a paced rhythm. Patient's repeat (unknown) (no (unknown) (unknown) apixaban 5 mg tablet (uni ts (unknown) date) (Eliquis) 5 mg PO BID unknown) 05/07/21 07/08/21 (unknown) (no (unknown) (unknown) apixaban 5 mg tablet (uni ts (unknown) date) (Eliquis) 5 mg PO BID unknown) 05/07/21 07/08/21 History (unknown) (no (unknown) (unknown) atorvastatin 80 mg (units (unknown) date) tablet 80 mg PO DAILY unknown) 05/07/21 07/08/21 (unknown) (no (unknown) (unknown) atorvastatin 80 mg (units (unknown) date) tablet 80 mg PO DAILY unknown) 05/07/21 07/08/21 History (unknown) (no (unknown) (unknown) budesonide-formoterol (un its (unknown) date) HFA 80 2 puff INHALATION unkno wn) BID 05/07/21 07/08/21 (unknown) (no (unknown) (unknown) budesonide-formoterol (un its (unknown) date) HFA 80 2 puff INHALATION unkno wn) BID 05/07/21 07/08/21 History (unknown) (no (unknown) (unknown) carboxymethylcellulose (u nits (unknown) date) sodium 0.5 drp EYE-BOTH unknow n) 05/07/21 07/08/21 (unknown) (no (unknown) (unknown) carboxymethylcellulose (u nits (unknown) date) sodium 0.5 drp EYE-BOTH unknow n) 05/07/21 07/08/21 History (unknown) (no (unknown) (unknown) care is Dr. Morris. 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 (un its (unknown) date) About 2:30 this morning unknow n) she woke up and felt very (unknown) (no (unknown) (unknown) constant. She states (un its (unknown) date) it is exacerbated by unknown) exertion such as walking or climbing (unknown) (no (unknown) (unknown) diclofenac sodium 1 % (un its (unknown) date) topical gel 2 g TOPICAL unknow n) QID 05/07/21 07/08/21 (unknown) (no (unknown) (unknown) diclofenac sodium 1 % (un its (unknown) date) topical gel 2 g TOPICAL unknow n) QID 05/07/21 07/08/21 History (unknown) (no (unknown) (unknown) dyslipidemia and is (unit s (unknown) date) scheduled to have unknown) cardiac stress testing followed by (unknown) (no (unknown) (unknown) extremities (units (un known) date) unknown) (unknown) (no (unknown) (unknown) felt a tightness in her (u nits (unknown) date) chest substernally unknown) without radiation. No cold, cough or (unknown) (no (unknown) (unknown) guarding or rebound, (uni ts (unknown) date) rigidity, no mass unknown) (unknown) (no (unknown) (unknown) her pacemaker replaced (u nits (unknown) date) it is 13 years old. unknown) (unknown) (no (unknown) (unknown) herself typically 1 to (u nits (unknown) date) 2/10. Has not had any unknown ) syncope but has felt lightheaded. (unknown) (no (unknown) (unknown) in the right breast and ( units (unknown) date) axilla are stable.? unknown) (unknown) (no (unknown) (unknown) inhaler (Symbicort) (unit s (unknown) date) unknown) (unknown) (no (unknown) (unknown) inhaler (Symbicort) (unit s (unknown) date) unknown) (unknown) (no (unknown) (unknown) intact (units (unkno wn) date) unknown) (unknown) (no (unknown) (unknown) lactobacillus (units ( unknown) date) [LACTOBACILLUS] Allergy unknow n) Unknown Verified 11/20/21 11:59 (unknown) (no (unknown) (unknown) levothyroxine 88 mcg (uni ts (unknown) date) tablet #0 03/09/12 unknown) 07/08/21 (unknown) (no (unknown) (unknown) levothyroxine 88 mcg (uni ts (unknown) date) tablet #0 03/09/12 unknown) 07/08/21 History (unknown) (no (unknown) (unknown) lidocaine 5 % topical (un its (unknown) date) patch 1 patch TOP DAILY unknow n) PRN #15 each 12/04/19 (unknown) (no (unknown) (unknown) lidocaine 5 % topical (un its (unknown) date) patch 1 patch TOP DAILY unknow n) PRN #15 each 12/04/19 07/08/21 Rx (unknown) (no (unknown) (unknown) mcg-4.5 mcg/actuation (un its (unknown) date) aerosol unknown) (unknown) (no (unknown) (unknown) mcg-4.5 mcg/actuation (un its (unknown) date) aerosol unknown) (unknown) (no (unknown) (unknown) moist mucous membranes (u nits (unknown) date) unknown) (unknown) (no (unknown) (unknown) morphine [MORPHINE] (unit s (unknown) date) Allergy Unknown unknown) Verified 11/20/21 11:59 (unknown) (no (unknown) (unknown) nauseated with the (units (unknown) date) increase of her chest unknown) pain as 01/12. Would not exerting (unknown) (no (unknown) (unknown) of 438. No acute ST (uni ts (unknown) date) elevation or depression unknow n) appreciated. (unknown) (no (unknown) (unknown) oxycodone [OXYCODONE] (un its (unknown) date) Allergy Unknown unknown) Verified 11/20/21 11:59 (unknown) (no (unknown) (unknown) pacemaker replacement (un its (unknown) date) on December 09. Patient's unknow n) initial labs including troponin (unknown) (no (unknown) (unknown) pantoprazole 40 mg (units (unknown) date) tablet,delayed 40 mg PO unknow n) BID tab 05/07/21 07/08/21 (unknown) (no (unknown) (unknown) pantoprazole 40 mg (units (unknown) date) tablet,delayed 40 mg PO unknow n) BID tab 05/07/21 07/08/21 History (unknown) (no (unknown) (unknown) present, hypothyroid, (un its (unknown) date) hypertension and COPD unknown) and sarcoid. Patient comes in with (unknown) (no (unknown) (unknown) release (units (unkno wn) date) unknown) (unknown) (no (unknown) (unknown) release (units (unkno wn) date) unknown) (unknown) (no (unknown) (unknown) shortness of breath (unit s (unknown) date) which is exertional but unknow n) has been present for several days. (unknown) (no (unknown) (unknown) sotalol 80 mg tablet 80 ( units (unknown) date) mg PO BID 05/07/21 unknown) 07/08/21 (unknown) (no (unknown) (unknown) sotalol 80 mg tablet 80 ( units (unknown) date) mg PO BID 05/07/21 unknown) 07/08/21 History (unknown) (no (unknown) (unknown) stress over treadmill. (u nits (unknown) date) unknown) (unknown) (no (unknown) (unknown) stress testing because (u nits (unknown) date) she is paced and on unknown) sotalol would recommend chemical (unknown) (no (unknown) (unknown) testing. Their (units (unknown) date) recommendation is unknown) actually chemical stress test as patient has a (unknown) (no (unknown) (unknown) today; this time is (unit s (unknown) date) exclusive of procedural unknow n) time. (unknown) (no (unknown) (unknown) tramadol 50 mg tablet (un its (unknown) date) 50 mg PO Q6H PRN #20 tab unkno wn) 05/21/21 (unknown) (no (unknown) (unknown) tramadol 50 mg tablet (un its (unknown) date) 50 mg PO Q6H PRN #20 tab unkno wn) 05/21/21 07/08/21 Rx (unknown) (no (unknown) (unknown) treadmill stress testing ( units (unknown) date) unlikely to be unknown) successful. Spoke with hospitalist, who (unknown) (no (unknown) (unknown) troponin is negative. (un its (unknown) date) She was given aspirin, unknown ) Lasix BNP was slightly elevated. (unknown) (no (unknown) (unknown) unremarkable.? (units (unknown) date) unknown) (unknown) (no (unknown) (unknown) unstable angina. COVID ( units (unknown) date) swab is pending. unknown) (unknown) (no (unknown) (unknown) up ladders which she (uni ts (unknown) date) does at work at unknown) [employer]. She has felt tired. She has (unknown) (no (unknown) (unknown) valsartan 80 mg tablet (u nits (unknown) date) 80 mg PO DAILY #0 unknown) 03/09/12 07/08/21 (unknown) (no (unknown) (unknown) valsartan 80 mg tablet (u nits (unknown) date) 80 mg PO DAILY #0 unknown) 03/09/12 07/08/21 History (unknown) (no (unknown) (unknown) wheezing. (units (unkn own) date) Cholecystectomy, knee unknown) surgery, tummy tuck and pacemaker placed 13 (unknown) (no (unknown) (unknown) years ago which needs (un its (unknown) date) replacement. No unknown) tobacco, alcohol or illicit. Primary Result panel 20 (unknown) (no (unknown) (unknown) (no value) (units (unk nown) date) unknown) (unknown) (no (unknown) (unknown) (no value) (units (unk nown) date) unknown) (unknown) (no (unknown) (unknown) Date of Service: (units (unknown) date) 11/20/21 unknown) (unknown) (no (unknown) (unknown) (no value) (units (unk nown) date) unknown) (unknown) (no (unknown) (unknown) - (units (unkno wn) date) unknown) (unknown) (no (unknown) (unknown) 11/20/21 12:50 (units (unknown) date) unknown) (unknown) (no (unknown) (unknown) Allergies (units (unkn own) date) unknown) (unknown) (no (unknown) (unknown) History + Physical (units (unknown) date) Report unknown) (unknown) (no (unknown) (unknown) Home Medications (units (unknown) date) unknown) (unknown) (no (unknown) (unknown) Hypertension (units (u nknown) date) unknown) (unknown) (no (unknown) (unknown) [facility] [address] (uni ts (unknown) date) [address] [place] [address], unknown ) [place] [id number] (unknown) (no (unknown) (unknown) Laboratory Results - (uni ts (unknown) date) last 24 hr unknown) (unknown) (no (unknown) (unknown) Stroke (units (unkno wn) date) unknown) (unknown) (no (unknown) (unknown) (no value) (units (unk nown) date) unknown) (unknown) (no (unknown) (unknown) 11/20/21 (units (unkno wn) date) unknown) (unknown) (no (unknown) (unknown) 11/20/21 11/20/21 (units (unknown) date) 11/20/21 unknown) (unknown) (no (unknown) (unknown) 12:50 12:50 12:50 (units (unknown) date) unknown) (unknown) (no (unknown) (unknown) 13:00 13:00 14:20 (units (unknown) date) unknown) (unknown) (no (unknown) (unknown) 16:53 (units (unkno wn) date) unknown) (unknown) (no (unknown) (unknown) KEEP ON TELEMETRY AT (uni ts (unknown) date) ALL TIMES unknown) (unknown) (no (unknown) (unknown) NEGATIVE UNLESS NOTED (un its (unknown) date) ABOVE IN HPI unknown) (unknown) (no (unknown) (unknown) NO RECENT TRAVELS. NO (u nits (unknown) date) COUGH. NO BLOOD IN THE unknow n) SPUTUM. NO BLOOD PER RECTUM. (unknown) (no (unknown) (unknown) SARCOIDOSIS PER HISTORY ( units (unknown) date) unknown) (unknown) (no (unknown) (unknown) THE WORKUP IN THE ER (uni ts (unknown) date) WAS FAIRLY UNREMARKABLE. unkno wn) (unknown) (no (unknown) (unknown) .COMPLEX #30 tab (units (unknown) date) unknown) (unknown) (no (unknown) (unknown) 11/20/21 (units (unkno wn) date) unknown) (unknown) (no (unknown) (unknown) ATRIAL FIBRILLATION PER ( units (unknown) date) HISTORY unknown) (unknown) (no (unknown) (unknown) CHEST PRESSURE. R/O (unit s (unknown) date) ACS SUSPECTED. unknown) MULTIPLE COMORBIDITIES (unknown) (no (unknown) (unknown) COPD PER HISTORY. SIGN ( units (unknown) date) OF ACUTE EXACERBATION unknown) (unknown) (no (unknown) (unknown) COVID 19 POSITIVE. NO ( units (unknown) date) UPPER RESPIRATORY unknown) SYMPTOMS (unknown) (no (unknown) (unknown) ELIQUIS COAGULOPATHY. (un its (unknown) date) MONITOR CLOSELY unknown) (unknown) (no (unknown) (unknown) GERD PER HISTORY (units (unknown) date) unknown) (unknown) (no (unknown) (unknown) HYPERTENSION PER (units (unknown) date) HISTORY unknown) (unknown) (no (unknown) (unknown) HYPOTHYROIDISM PER (units (unknown) date) HISTORY unknown) (unknown) (no (unknown) (unknown) IMPRESSION (units (unk nown) date) unknown) (unknown) (no (unknown) (unknown) IN REGARD TO PATIENT'S (u nits (unknown) date) COMPLAINT OF CHEST unknown) PRESSURE (unknown) (no (unknown) (unknown) INITIAL TROPONINS (units (unknown) date) NEGATIVE SO FAR unknown) (unknown) (no (unknown) (unknown) M MOR (units (unkno wn) date) unknown) (unknown) (no (unknown) (unknown) [id number] (units (unk nown) date) unknown) (unknown) (no (unknown) (unknown) Medication (units (unk nown) date) Instructions Recorded unknown ) Confirmed Type (unknown) (no (unknown) (unknown) NO REPORTED CHEST PAIN ( units (unknown) date) PER SE unknown) (unknown) (no (unknown) (unknown) NO SIGNIFICANT CHANGES (u nits (unknown) date) ON EKG OR TELEMETRY. unknown) (unknown) (no (unknown) (unknown) OBESITY. BMI OF 34. (uni ts (unknown) date) LAB/CHANGES RECOMMENDED unknow n) (unknown) (no (unknown) (unknown) PATIENT REPORTED THAT (un its (unknown) date) FOR THE LAST COUPLE OF unknown ) WEEKS HE HAS BEEN HAVING (unknown) (no (unknown) (unknown) PER CARDIOLOGY (units (unknown) date) unknown) (unknown) (no (unknown) (unknown) PLAN (units (unkno wn) date) unknown) (unknown) (no (unknown) (unknown) POSSIBLE PACEMAKER (units (unknown) date) MALFUNCTIONING. TO BE unknown ) EVALUATED OUTPATIENT (unknown) (no (unknown) (unknown) SHE DENIES ANY (units (unknown) date) INCREASING SWELLING TO unknown ) THE LOWER EXTREMITIES. NO RECENT (unknown) (no (unknown) (unknown) SHE STATED THAT IS (units (unknown) date) REALLY THE SHORTNESS OF unknow n) [facility] WITH EXERTION GETS (unknown) (no (unknown) (unknown) WILL CONTINUE TO TREND (u nits (unknown) date) TROPONIN LEVEL unknown) (unknown) (no (unknown) (unknown) % eye drops in a (units (unknown) date) dropperette unknown) (unknown) (no (unknown) (unknown) (Refresh Plus) (units (unknown) date) unknown) (unknown) (no (unknown) (unknown) (past 8 hours): (units (unknown) date) unknown) (unknown) (no (unknown) (unknown) 11:59 11/20/21 (units (unknown) date) unknown) (unknown) (no (unknown) (unknown) 12:33 11/20/21 (units (unknown) date) unknown) (unknown) (no (unknown) (unknown) 12:34 (units (unkno wn) date) unknown) (unknown) (no (unknown) (unknown) 13:00 11/20/21 (units (unknown) date) unknown) (unknown) (no (unknown) (unknown) 13:30 11/20/21 (units (unknown) date) unknown) (unknown) (no (unknown) (unknown) 14:00 (units (unkno wn) date) unknown) (unknown) (no (unknown) (unknown) 14:30 11/20/21 (units (unknown) date) unknown) (unknown) (no (unknown) (unknown) 14:32 11/20/21 (units (unknown) date) unknown) (unknown) (no (unknown) (unknown) 15:00 (units (unkno wn) date) unknown) (unknown) (no (unknown) (unknown) 15:30 11/20/21 (units (unknown) date) unknown) (unknown) (no (unknown) (unknown) 16:00 11/20/21 (units (unknown) date) unknown) (unknown) (no (unknown) (unknown) 16:01 (units (unkno wn) date) unknown) (unknown) (no (unknown) (unknown) 16:57 11/20/21 (units (unknown) date) unknown) (unknown) (no (unknown) (unknown) 18:10 (units (unkno wn) date) unknown) (unknown) (no (unknown) (unknown) ABDOMEN: SOFT. (units (unknown) date) NONTENDER. unknown) NONDISTENDED. BOWEL SOUNDS ARE PRESENT IN ALL 4 (unknown) (no (unknown) (unknown) ALT (units (unkno wn) date) unknown) (unknown) (no (unknown) (unknown) ALT 12 (units (unkn own) date) unknown) (unknown) (no (unknown) (unknown) ALT (units (unkno wn) date) unknown) (unknown) (no (unknown) (unknown) APTT (units (unkno wn) date) unknown) (unknown) (no (unknown) (unknown) APTT 33 (units (unk nown) date) unknown) (unknown) (no (unknown) (unknown) APTT (units (unkno wn) date) unknown) (unknown) (no (unknown) (unknown) AST (units (unkno wn) date) unknown) (unknown) (no (unknown) (unknown) AST 24 (units (unkn own) date) unknown) (unknown) (no (unknown) (unknown) AST (units (unkno wn) date) unknown) (unknown) (no (unknown) (unknown) Age/Sex: 71 / F (units (unknown) date) unknown) (unknown) (no (unknown) (unknown) Albumin (units (unkno wn) date) unknown) (unknown) (no (unknown) (unknown) Albumin 4.2 (units (unknown) date) unknown) (unknown) (no (unknown) (unknown) Albumin (units (unkno wn) date) unknown) (unknown) (no (unknown) (unknown) Albumin/Globulin Ratio (u nits (unknown) date) unknown) (unknown) (no (unknown) (unknown) Albumin/Globulin Ratio (u nits (unknown) date) 1.3 unknown) (unknown) (no (unknown) (unknown) Albumin/Globulin Ratio (u nits (unknown) date) unknown) (unknown) (no (unknown) (unknown) Alkaline Phosphatase (uni ts (unknown) date) unknown) (unknown) (no (unknown) (unknown) Alkaline Phosphatase (uni ts (unknown) date) 119 unknown) (unknown) (no (unknown) (unknown) Alkaline Phosphatase (uni ts (unknown) date) unknown) (unknown) (no (unknown) (unknown) Allergy/AdvReac Type (uni ts (unknown) date) Severity Reaction Status unkno wn) Date / Time (unknown) (no (unknown) (unknown) Amorphous Sediment (units (unknown) date) unknown) (unknown) (no (unknown) (unknown) Amorphous Sediment (units (unknown) date) unknown) (unknown) (no (unknown) (unknown) Amorphous Sediment (units (unknown) date) Cancelled unknown) (unknown) (no (unknown) (unknown) Anesthesia (units (unk nown) date) unknown) (unknown) (no (unknown) (unknown) Anxiety and depression (u nits (unknown) date) (-1996) unknown) (unknown) (no (unknown) (unknown) Assessment + Plan (units (unknown) date) unknown) (unknown) (no (unknown) (unknown) Assessment + Plan (units (unknown) date) narrative: unknown) (unknown) (no (unknown) (unknown) BETTER AT REST (units (unknown) date) unknown) (unknown) (no (unknown) (unknown) BUN (units (unkno wn) date) unknown) (unknown) (no (unknown) (unknown) BUN 21 H (units (un known) date) unknown) (unknown) (no (unknown) (unknown) BUN (units (unkno wn) date) unknown) (unknown) (no (unknown) (unknown) BUN/Creatinine Ratio (uni ts (unknown) date) unknown) (unknown) (no (unknown) (unknown) BUN/Creatinine Ratio (uni ts (unknown) date) 20.8 unknown) (unknown) (no (unknown) (unknown) BUN/Creatinine Ratio (uni ts (unknown) date) unknown) (unknown) (no (unknown) (unknown) Baso # (Auto) (units ( unknown) date) unknown) (unknown) (no (unknown) (unknown) Baso # (Auto) (units ( unknown) date) unknown) (unknown) (no (unknown) (unknown) Baso # (Auto) 0 (units (unknown) date) unknown) (unknown) (no (unknown) (unknown) Baso % (Auto) (units ( unknown) date) unknown) (unknown) (no (unknown) (unknown) Baso % (Auto) (units ( unknown) date) unknown) (unknown) (no (unknown) (unknown) Baso % (Auto) 0.3 (units (unknown) date) unknown) (unknown) (no (unknown) (unknown) Been Physically Hurt or ( units (unknown) date) No unknown) (unknown) (no (unknown) (unknown) Blood Pressure (units (unknown) date) unknown) (unknown) (no (unknown) (unknown) Blood Pressure 165/74 (u nits (unknown) date) H 161/70 H unknown) (unknown) (no (unknown) (unknown) Blood Pressure 163/79 H ( units (unknown) date) 162/74 H unknown) (unknown) (no (unknown) (unknown) Blood Pressure 169/72 H ( units (unknown) date) unknown) (unknown) (no (unknown) (unknown) Blood Pressure 183/74 H ( units (unknown) date) unknown) (unknown) (no (unknown) (unknown) Brother (units (unknown) date) Cancer unknown) (unknown) (no (unknown) (unknown) Brother (units (unknown) date) History of heart disease unkno wn) (unknown) (no (unknown) (unknown) CHEST: REGULAR RATE. (uni ts (unknown) date) NO RUBS. PMI IS NON unknown) DISPLACED. NO MURMURS; NORMAL S1- (unknown) (no (unknown) (unknown) CK-MB (CK-2) (units (u nknown) date) unknown) (unknown) (no (unknown) (unknown) CK-MB (CK-2) (units (u nknown) date) unknown) (unknown) (no (unknown) (unknown) CK-MB (CK-2) TNP (units (unknown) date) unknown) (unknown) (no (unknown) (unknown) CK-MB (CK-2) Rel Index (u nits (unknown) date) unknown) (unknown) (no (unknown) (unknown) CK-MB (CK-2) Rel Index (u nits (unknown) date) unknown) (unknown) (no (unknown) (unknown) CK-MB (CK-2) Rel Index (u nits (unknown) date) TNP unknown) (unknown) (no (unknown) (unknown) COPD (chronic (units ( unknown) date) obstructive pulmonary unknown) disease) (-2019) (unknown) (no (unknown) (unknown) Calcium (units (unkno wn) date) unknown) (unknown) (no (unknown) (unknown) Calcium 9.1 (units (unknown) date) unknown) (unknown) (no (unknown) (unknown) Calcium (units (unkno wn) date) unknown) (unknown) (no (unknown) (unknown) Calcium Oxalate Crystal ( units (unknown) date) unknown) (unknown) (no (unknown) (unknown) Calcium Oxalate Crystal ( units (unknown) date) unknown) (unknown) (no (unknown) (unknown) Calcium Oxalate Crystal ( units (unknown) date) Many H Cancelled unknown) (unknown) (no (unknown) (unknown) Carbon Dioxide (units (unknown) date) unknown) (unknown) (no (unknown) (unknown) Carbon Dioxide 27 (uni ts (unknown) date) unknown) (unknown) (no (unknown) (unknown) Carbon Dioxide (units (unknown) date) unknown) (unknown) (no (unknown) (unknown) Chief complaint: (units (unknown) date) Possible heart attack unknown) (unknown) (no (unknown) (unknown) Chloride (units (unkno wn) date) unknown) (unknown) (no (unknown) (unknown) Chloride 108 H (units (unknown) date) unknown) (unknown) (no (unknown) (unknown) Chloride (units (unkno wn) date) unknown) (unknown) (no (unknown) (unknown) Chronic back pain (units (unknown) date) () unknown) (unknown) (no (unknown) (unknown) Creatinine (units (unk nown) date) unknown) (unknown) (no (unknown) (unknown) Creatinine 1.01 (units (unknown) date) unknown) (unknown) (no (unknown) (unknown) Creatinine (units (unk nown) date) unknown) (unknown) (no (unknown) (unknown) Critical Care time: (unit s (unknown) date) unknown) (unknown) (no (unknown) (unknown) : 1950 (units (unknown) date) Acct:[id number] unknown) (unknown) (no (unknown) (unknown) Date Patient Seen: (units (unknown) date) 11/20/21 unknown) (unknown) (no (unknown) (unknown) EXTREMITIES: NO EDEMA.. ( units (unknown) date) NO CYANOSIS CLUBBING unknown) NOTED. (unknown) (no (unknown) (unknown) EYE: EOMI, PERRLA, (unit s (unknown) date) NORMAL CONJUNCTIVA; NO unknown ) JAUNDICE (unknown) (no (unknown) (unknown) Endometrial hyperplasia ( units (unknown) date) unknown) (unknown) (no (unknown) (unknown) Environment (units (un known) date) unknown) (unknown) (no (unknown) (unknown) Eos # (Auto) (units (u nknown) date) unknown) (unknown) (no (unknown) (unknown) Eos # (Auto) (units (u nknown) date) unknown) (unknown) (no (unknown) (unknown) Eos # (Auto) 200 (units (unknown) date) unknown) (unknown) (no (unknown) (unknown) Eos % (Auto) (units (u nknown) date) unknown) (unknown) (no (unknown) (unknown) Eos % (Auto) (units (u nknown) date) unknown) (unknown) (no (unknown) (unknown) Eos % (Auto) 2.5 (units (unknown) date) unknown) (unknown) (no (unknown) (unknown) Estimated GFR (units ( unknown) date) unknown) (unknown) (no (unknown) (unknown) Estimated GFR 59 L (un its (unknown) date) unknown) (unknown) (no (unknown) (unknown) Estimated GFR (units ( unknown) date) unknown) (unknown) (no (unknown) (unknown) Exam (units (unkno wn) date) unknown) (unknown) (no (unknown) (unknown) Exam Narrative: (units (unknown) date) unknown) (unknown) (no (unknown) (unknown) Family + Social History ( units (unknown) date) unknown) (unknown) (no (unknown) (unknown) Family History (units (unknown) date) (Reviewed 11/20/21 @ unknown) 14:39 by Alem Marlow DO) (unknown) (no (unknown) (unknown) Father (units (unknown) date) Cancer unknown) (unknown) (no (unknown) (unknown) Feels Safe in Current (un its (unknown) date) Yes unknown) (unknown) (no (unknown) (unknown) GERD (gastroesophageal (u nits (unknown) date) reflux disease) (-2009) unknow n) (unknown) (no (unknown) (unknown) GERD, ANXIETY AND (units (unknown) date) DEPRESSION, SICK 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 unknown) (unknown) (no (unknown) (unknown) Globulin (units (unkno wn) date) unknown) (unknown) (no (unknown) (unknown) Globulin 3.2 (units (unknown) date) unknown) (unknown) (no (unknown) (unknown) Globulin (units (unkno wn) date) unknown) (unknown) (no (unknown) (unknown) Glucose (units (unkno wn) date) unknown) (unknown) (no (unknown) (unknown) Glucose 94 (units ( unknown) date) unknown) (unknown) (no (unknown) (unknown) Glucose (units (unkno wn) date) unknown) (unknown) (no (unknown) (unknown) Granular Casts (units (unknown) date) unknown) (unknown) (no (unknown) (unknown) Granular Casts (units (unknown) date) unknown) (unknown) (no (unknown) (unknown) Granular Casts (units (unknown) date) Cancelled unknown) (unknown) (no (unknown) (unknown) HEAD ATRAUMATIC (units (unknown)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 budesonide-formoterol (un its (unknown) date) HFA 80 2 puff INHALATION unkno wn) BID 05/07/21 07/08/21 History (unknown) (no (unknown) (unknown) carboxymethylcellulose (u nits (unknown) date) sodium 0.5 drp EYE-BOTH unknow n) 05/07/21 07/08/21 History (unknown) (no (unknown) (unknown) celecoxib [CELECOXIB] (un its (unknown) date) Allergy Unknown unknown) Verified 11/20/21 11:59 (unknown) (no (unknown) (unknown) citalopram 10 mg tablet ( units (unknown) date) See Rx Instructions unknown) .ROUTE 10/04/21 Rx (unknown) (no (unknown) (unknown) diclofenac sodium 1 % (un its (unknown) date) topical gel 2 g TOPICAL unknow n) QID 05/07/21 07/08/21 History (unknown) (no (unknown) (unknown) inhaler (Symbicort) (unit s (unknown) date) unknown) (unknown) (no (unknown) (unknown) lactobacillus (units ( unknown) date) [LACTOBACILLUS] Allergy unknow n) Unknown Verified 11/20/21 11:59 (unknown) (no (unknown) (unknown) levothyroxine 88 mcg (uni ts (unknown) date) tablet #0 03/09/12 unknown) 07/08/21 History (unknown) (no (unknown) (unknown) lidocaine 5 % topical (un its (unknown) date) patch 1 patch TOP DAILY unknow n) PRN #15 each 12/04/19 07/08/21 Rx (unknown) (no (unknown) (unknown) mcg-4.5 mcg/actuation (un its (unknown) date) aerosol unknown) (unknown) (no (unknown) (unknown) morphine [MORPHINE] (unit s (unknown) date) Allergy Unknown unknown) Verified 11/20/21 11:59 (unknown) (no (unknown) (unknown) oxycodone [OXYCODONE] (un its (unknown) date) Allergy Unknown unknown) Verified 11/20/21 11:59 (unknown) (no (unknown) (unknown) pantoprazole 40 mg (units (unknown) date) tablet,delayed 40 mg PO unknow n) BID tab 05/07/21 07/08/21 History (unknown) (no (unknown) (unknown) release (units (unkno wn) date) unknown) (unknown) (no (unknown) (unknown) sotalol 80 mg tablet 80 ( units (unknown) date) mg PO BID 05/07/21 unknown) 07/08/21 History (unknown) (no (unknown) (unknown) today; this time is (unit s (unknown) date) exclusive of procedural unknow n) time. (unknown) (no (unknown) (unknown) tramadol 50 mg tablet (un its (unknown) date) 50 mg PO Q6H PRN #20 tab unkno wn) 05/21/21 07/08/21 Rx (unknown) (no (unknown) (unknown) valsartan 80 mg tablet (u nits (unknown) date) 80 mg PO DAILY #0 unknown) 03/09/12 07/08/21 History Result panel 21 (unknown) (no (unknown) (unknown) (no value) (units (unk nown) date) unknown) (unknown) (no (unknown) (unknown) (no value) (units (unk nown) date) unknown) (unknown) (no (unknown) (unknown) Date of Service: (units (unknown) date) 11/20/21 unknown) (unknown) (no (unknown) (unknown) (no value) (units (unk nown) date) unknown) (unknown) (no (unknown) (unknown) - (units (unkno wn) date) unknown) (unknown) (no (unknown) (unknown) 11/20/21 12:50 (units (unknown) date) unknown) (unknown) (no (unknown) (unknown) Allergies (units (unkn own) date) unknown) (unknown) (no (unknown) (unknown) History + Physical (units (unknown) date) Report unknown) (unknown) (no (unknown) (unknown) Home Medications (units (unknown) date) unknown) (unknown) (no (unknown) (unknown) Hypertension (units (u nknown) date) unknown) (unknown) (no (unknown) (unknown) [facility] [address] (uni ts (unknown) date) [address] [place] [address], unknown ) [place] [id number] (unknown) (no (unknown) (unknown) Laboratory Results - (uni ts (unknown) date) last 24 hr unknown) (unknown) (no (unknown) (unknown) Stroke (units (unkno wn) date) unknown) (unknown) (no (unknown) (unknown) (no value) (units (unk nown) date) unknown) (unknown) (no (unknown) (unknown) 11/20/21 (units (unkno wn) date) unknown) (unknown) (no (unknown) (unknown) 11/20/21 11/20/21 (units (unknown) date) 11/20/21 unknown) (unknown) (no (unknown) (unknown) 12:50 12:50 12:50 (units (unknown) date) unknown) (unknown) (no (unknown) (unknown) 13:00 13:00 14:20 (units (unknown) date) unknown) (unknown) (no (unknown) (unknown) 16:53 (units (unkno wn) date) unknown) (unknown) (no (unknown) (unknown) KEEP ON TELEMETRY AT (uni ts (unknown) date) ALL TIMES unknown) (unknown) (no (unknown) (unknown) NEGATIVE UNLESS NOTED (un its (unknown) date) ABOVE IN HPI unknown) (unknown) (no (unknown) (unknown) NO RECENT TRAVELS. NO (u nits (unknown) date) COUGH. NO BLOOD IN THE unknow n) SPUTUM. NO BLOOD PER RECTUM. (unknown) (no (unknown) (unknown) SARCOIDOSIS PER HISTORY ( units (unknown) date) unknown) (unknown) (no (unknown) (unknown) THE WORKUP IN THE ER (uni ts (unknown) date) WAS FAIRLY UNREMARKABLE. unkno wn) (unknown) (no (unknown) (unknown) .COMPLEX #30 tab (units (unknown) date) unknown) (unknown) (no (unknown) (unknown) 11/20/21 (units (unkno wn) date) unknown) (unknown) (no (unknown) (unknown) ADDITIONAL MANAGEMENT (un its (unknown) date) PER CLINICAL COURSE unknown) (unknown) (no (unknown) (unknown) ATRIAL FIBRILLATION PER ( units (unknown) date) HISTORY unknown) (unknown) (no (unknown) (unknown) CHEST PRESSURE. R/O (unit s (unknown) date) ACS SUSPECTED. unknown) MULTIPLE COMORBIDITIES (unknown) (no (unknown) (unknown) CONSIDER ADDING ASPIRIN ( units (unknown) date) WELL IF INDICATED unknown) (unknown) (no (unknown) (unknown) CONSIDER ECHOCARDIOGRAM ( units (unknown) date) WELL IF INDICATED unknown) (unknown) (no (unknown) (unknown) CONTINUE HOME MEDS (un its (unknown) date) INDICATED unknown) (unknown) (no (unknown) (unknown) COPD PER HISTORY. SIGN ( units (unknown) date) OF ACUTE EXACERBATION unknown) (unknown) (no (unknown) (unknown) COVID 19 POSITIVE. NO ( units (unknown) date) UPPER RESPIRATORY unknown) SYMPTOMS (unknown) (no (unknown) (unknown) ELIQUIS COAGULOPATHY. (un its (unknown) date) MONITOR CLOSELY unknown) (unknown) (no (unknown) (unknown) GERD PER HISTORY (units (unknown) date) unknown) (unknown) (no (unknown) (unknown) HOWEVER THIS COULD BE (un its (unknown) date) DONE BY OUTPATIENT unknown) PROVIDERS (unknown) (no (unknown) (unknown) HYPERTENSION PER (units (unknown) date) HISTORY unknown) (unknown) (no (unknown) (unknown) HYPOTHYROIDISM PER (units (unknown) date) HISTORY unknown) (unknown) (no (unknown) (unknown) IMPRESSION (units (unk nown) date) unknown) (unknown) (no (unknown) (unknown) IN REGARD TO PATIENT'S (u nits (unknown) date) COMPLAINT OF CHEST unknown) PRESSURE (unknown) (no (unknown) (unknown) INITIAL TROPONIN (units (unknown) date) LEVELS NEGATIVE SO FAR unknown ) (unknown) (no (unknown) (unknown) LIKELY DISCHARGE IN THE ( units (unknown) date) NEXT 24 HOURS IF unknown) CLINICALLY STABLE (unknown) (no (unknown) (unknown) [id number] (units (unk nown) date) unknown) (unknown) (no (unknown) (unknown) MORPHINE AND (units (u nknown) date) NITROGLYCERIN NEEDED unknow n) (unknown) (no (unknown) (unknown) Medication (units (unk nown) date) Instructions Recorded unknown ) Confirmed Type (unknown) (no (unknown) (unknown) NO REPORTED CHEST PAIN ( units (unknown) date) PER SE unknown) (unknown) (no (unknown) (unknown) NO SIGNIFICANT CHANGES (u nits (unknown) date) ON EKG OR TELEMETRY. unknown) (unknown) (no (unknown) (unknown) OBESITY. BMI OF 34. (uni ts (unknown) date) LAB/CHANGES RECOMMENDED unknow n) (unknown) (no (unknown) (unknown) PATIENT IS AWARE OF THE ( units (unknown) date) PLAN AND MANAGEMENT AND unknow n) AGREEABLE (unknown) (no (unknown) (unknown) PATIENT IS ON ELIQUIS (un its (unknown) date) FOR ATRIAL FIBRILLATION unknow n) (unknown) (no (unknown) (unknown) PATIENT REPORTED THAT (un its (unknown) date) FOR THE LAST COUPLE OF unknown ) WEEKS HE HAS BEEN HAVING (unknown) (no (unknown) (unknown) PER CARDIOLOGY REPORT, (u nits (unknown) date) STRESS TEST WAS PLANNED unknow n) DUE TO HER REPORTED SYMPTOMS (unknown) (no (unknown) (unknown) PLAN (units (unkno wn) date) unknown) (unknown) (no (unknown) (unknown) POSSIBLE PACEMAKER (units (unknown) date) MALFUNCTIONING. TO BE unknown ) EVALUATED OUTPATIENT (unknown) (no (unknown) (unknown) SHE DENIES ANY (units (unknown) date) INCREASING SWELLING TO unknown ) THE LOWER EXTREMITIES. NO RECENT (unknown) (no (unknown) (unknown) SHE STATED THAT IS (units (unknown) date) REALLY THE SHORTNESS OF unknow n) [facility] WITH EXERTION GETS (unknown) (no (unknown) (unknown) WE WILL GO AHEAD AND (uni ts (unknown) date) ORDER CHEST THE STRESS unknown ) TEST WHILE PATIENT IS INHOUSE (unknown) (no (unknown) (unknown) WILL CONTINUE TO TREND (u nits (unknown) date) TROPONIN LEVEL unknown) (unknown) (no (unknown) (unknown) % eye drops in a (units (unknown) date) dropperette unknown) (unknown) (no (unknown) (unknown) (Refresh Plus) (units (unknown) date) unknown) (unknown) (no (unknown) (unknown) (past 8 hours): (units (unknown) date) unknown) (unknown) (no (unknown) (unknown) 11:59 11/20/21 (units (unknown) date) unknown) (unknown) (no (unknown) (unknown) 12:33 11/20/21 (units (unknown) date) unknown) (unknown) (no (unknown) (unknown) 12:34 (units (unkno wn) date) unknown) (unknown) (no (unknown) (unknown) 13:00 11/20/21 (units (unknown) date) unknown) (unknown) (no (unknown) (unknown) 13:30 11/20/21 (units (unknown) date) unknown) (unknown) (no (unknown) (unknown) 14:00 (units (unkno wn) date) unknown) (unknown) (no (unknown) (unknown) 14:30 11/20/21 (units (unknown) date) unknown) (unknown) (no (unknown) (unknown) 14:32 11/20/21 (units (unknown) date) unknown) (unknown) (no (unknown) (unknown) 15:00 (units (unkno wn) date) unknown) (unknown) (no (unknown) (unknown) 15:30 11/20/21 (units (unknown) date) unknown) (unknown) (no (unknown) (unknown) 16:00 11/20/21 (units (unknown) date) unknown) (unknown) (no (unknown) (unknown) 16:01 (units (unkno wn) date) unknown) (unknown) (no (unknown) (unknown) 16:57 11/20/21 (units (unknown) date) unknown) (unknown) (no (unknown) (unknown) 18:10 (units (unkno wn) date) unknown) (unknown) (no (unknown) (unknown) ABDOMEN: SOFT. (units (unknown) date) NONTENDER. unknown) NONDISTENDED. BOWEL SOUNDS ARE PRESENT IN ALL 4 (unknown) (no (unknown) (unknown) ALT (units (unkno wn) date) unknown) (unknown) (no (unknown) (unknown) ALT 12 (units (unkn own) date) unknown) (unknown) (no (unknown) (unknown) ALT (units (unkno wn) date) unknown) (unknown) (no (unknown) (unknown) APTT (units (unkno wn) date) unknown) (unknown) (no (unknown) (unknown) APTT 33 (units (unk nown) date) unknown) (unknown) (no (unknown) (unknown) APTT (units (unkno wn) date) unknown) (unknown) (no (unknown) (unknown) AST (units (unkno wn) date) unknown) (unknown) (no (unknown) (unknown) AST 24 (units (unkn own) date) unknown) (unknown) (no (unknown) (unknown) AST (units (unkno wn) date) unknown) (unknown) (no (unknown) (unknown) Age/Sex: 71 / F (units (unknown) date) unknown) (unknown) (no (unknown) (unknown) Albumin (units (unkno wn) date) unknown) (unknown) (no (unknown) (unknown) Albumin 4.2 (units (unknown) date) unknown) (unknown) (no (unknown) (unknown) Albumin (units (unkno wn) date) unknown) (unknown) (no (unknown) (unknown) Albumin/Globulin Ratio (u nits (unknown) date) unknown) (unknown) (no (unknown) (unknown) Albumin/Globulin Ratio (u nits (unknown) date) 1.3 unknown) (unknown) (no (unknown) (unknown) Albumin/Globulin Ratio (u nits (unknown) date) unknown) (unknown) (no (unknown) (unknown) Alkaline Phosphatase (uni ts (unknown) date) unknown) (unknown) (no (unknown) (unknown) Alkaline Phosphatase (uni ts (unknown) date) 119 unknown) (unknown) (no (unknown) (unknown) Alkaline Phosphatase (uni ts (unknown) date) unknown) (unknown) (no (unknown) (unknown) Allergy/AdvReac Type (uni ts (unknown) date) Severity Reaction Status unkno wn) Date / Time (unknown) (no (unknown) (unknown) Amorphous Sediment (units (unknown) date) unknown) (unknown) (no (unknown) (unknown) Amorphous Sediment (units (unknown) date) unknown) (unknown) (no (unknown) (unknown) Amorphous Sediment (units (unknown) date) Cancelled unknown) (unknown) (no (unknown) (unknown) Anesthesia (units (unk nown) date) unknown) (unknown) (no (unknown) (unknown) Anxiety and depression (u nits (unknown) date) () unknown) (unknown) (no (unknown) (unknown) Assessment + Plan (units (unknown) date) unknown) (unknown) (no (unknown) (unknown) Assessment + Plan (units (unknown) date) narrative: unknown) (unknown) (no (unknown) (unknown) BETTER AT REST (units (unknown) date) unknown) (unknown) (no (unknown) (unknown) BUN (units (unkno wn) date) unknown) (unknown) (no (unknown) (unknown) BUN 21 H (units (un known) date) unknown) (unknown) (no (unknown) (unknown) BUN (units (unkno wn) date) unknown) (unknown) (no (unknown) (unknown) BUN/Creatinine Ratio (uni ts (unknown) date) unknown) (unknown) (no (unknown) (unknown) BUN/Creatinine Ratio (uni ts (unknown) date) 20.8 unknown) (unknown) (no (unknown) (unknown) BUN/Creatinine Ratio (uni ts (unknown) date) unknown) (unknown) (no (unknown) (unknown) Baso # (Auto) (units ( unknown) date) unknown) (unknown) (no (unknown) (unknown) Baso # (Auto) (units ( unknown) date) unknown) (unknown) (no (unknown) (unknown) Baso # (Auto) 0 (units (unknown) date) unknown) (unknown) (no (unknown) (unknown) Baso % (Auto) (units ( unknown) date) unknown) (unknown) (no (unknown) (unknown) Baso % (Auto) (units ( unknown) date) unknown) (unknown) (no (unknown) (unknown) Baso % (Auto) 0.3 (units (unknown) date) unknown) (unknown) (no (unknown) (unknown) Been Physically Hurt or ( units (unknown) date) No unknown) (unknown) (no (unknown) (unknown) Blood Pressure (units (unknown) date) unknown) (unknown) (no (unknown) (unknown) Blood Pressure 165/74 (u nits (unknown) date) H 161/70 H unknown) (unknown) (no (unknown) (unknown) Blood Pressure 163/79 H ( units (unknown) date) 162/74 H unknown) (unknown) (no (unknown) (unknown) Blood Pressure 169/72 H ( units (unknown) date) unknown) (unknown) (no (unknown) (unknown) Blood Pressure 183/74 H ( units (unknown) date) unknown) (unknown) (no (unknown) (unknown) Brother (units (unknown) date) Cancer unknown) (unknown) (no (unknown) (unknown) Brother (units (unknown) date) History of heart disease unkno wn) (unknown) (no (unknown) (unknown) CHEST: REGULAR RATE. (uni ts (unknown) date) NO RUBS. PMI IS NON unknown) DISPLACED. NO MURMURS; NORMAL S1- (unknown) (no (unknown) (unknown) CK-MB (CK-2) (units (u nknown) date) unknown) (unknown) (no (unknown) (unknown) CK-MB (CK-2) (units (u nknown) date) unknown) (unknown) (no (unknown) (unknown) CK-MB (CK-2) TNP (units (unknown) date) unknown) (unknown) (no (unknown) (unknown) CK-MB (CK-2) Rel Index (u nits (unknown) date) unknown) (unknown) (no (unknown) (unknown) CK-MB (CK-2) Rel Index (u nits (unknown) date) unknown) (unknown) (no (unknown) (unknown) CK-MB (CK-2) Rel Index (u nits (unknown) date) TNP unknown) (unknown) (no (unknown) (unknown) COPD (chronic (units ( unknown) date) obstructive pulmonary unknown) disease) (-2018) (unknown) (no (unknown) (unknown) Calcium (units (unkno wn) date) unknown) (unknown) (no (unknown) (unknown) Calcium 9.1 (units (unknown) date) unknown) (unknown) (no (unknown) (unknown) Calcium (units (unkno wn) date) unknown) (unknown) (no (unknown) (unknown) Calcium Oxalate Crystal ( units (unknown) date) unknown) (unknown) (no (unknown) (unknown) Calcium Oxalate Crystal ( units (unknown) date) unknown) (unknown) (no (unknown) (unknown) Calcium Oxalate Crystal ( units (unknown) date) Many H Cancelled unknown) (unknown) (no (unknown) (unknown) Carbon Dioxide (units (unknown) date) unknown) (unknown) (no (unknown) (unknown) Carbon Dioxide 27 (uni ts (unknown) date) unknown) (unknown) (no (unknown) (unknown) Carbon Dioxide (units (unknown) date) unknown) (unknown) (no (unknown) (unknown) Chief complaint: (units (unknown) date) Possible heart attack unknown) (unknown) (no (unknown) (unknown) Chloride (units (unkno wn) date) unknown) (unknown) (no (unknown) (unknown) Chloride 108 H (units (unknown) date) unknown) (unknown) (no (unknown) (unknown) Chloride (units (unkno wn) date) unknown) (unknown) (no (unknown) (unknown) Chronic back pain (units (unknown) date) () unknown) (unknown) (no (unknown) (unknown) Creatinine (units (unk nown) date) unknown) (unknown) (no (unknown) (unknown) Creatinine 1.01 (units (unknown) date) unknown) (unknown) (no (unknown) (unknown) Creatinine (units (unk nown) date) unknown) (unknown) (no (unknown) (unknown) Critical Care time: (unit s (unknown) date) unknown) (unknown) (no (unknown) (unknown) : 1950 (units (unknown) date) Acct:[id number] unknown) (unknown) (no (unknown) (unknown) Date Patient Seen: (units (unknown) date) 11/20/21 unknown) (unknown) (no (unknown) (unknown) EXTREMITIES: NO EDEMA.. ( units (unknown) date) NO CYANOSIS CLUBBING unknown) NOTED. (unknown) (no (unknown) (unknown) EYE: EOMI, PERRLA, (unit s (unknown) date) NORMAL CONJUNCTIVA; NO unknown ) JAUNDICE (unknown) (no (unknown) (unknown) Endometrial hyperplasia ( units (unknown) date) unknown) (unknown) (no (unknown) (unknown) Environment (units (un known) date) unknown) (unknown) (no (unknown) (unknown) Eos # (Auto) (units (u nknown) date) unknown) (unknown) (no (unknown) (unknown) Eos # (Auto) (units (u nknown) date) unknown) (unknown) (no (unknown) (unknown) Eos # (Auto) 200 (units (unknown) date) unknown) (unknown) (no (unknown) (unknown) Eos % (Auto) (units (u nknown) date) unknown) (unknown) (no (unknown) (unknown) Eos % (Auto) (units (u nknown) date) unknown) (unknown) (no (unknown) (unknown) Eos % (Auto) 2.5 (units (unknown) date) unknown) (unknown) (no (unknown) (unknown) Estimated GFR (units ( unknown) date) unknown) (unknown) (no (unknown) (unknown) Estimated GFR 59 L (un its (unknown) date) unknown) (unknown) (no (unknown) (unknown) Estimated GFR (units ( unknown) date) unknown) (unknown) (no (unknown) (unknown) Exam (units (unkno wn) date) unknown) (unknown) (no (unknown) (unknown) Exam Narrative: (units (unknown) date) unknown) (unknown) (no (unknown) (unknown) Family + Social History ( units (unknown) date) unknown) (unknown) (no (unknown) (unknown) Family History (units (unknown) date) (Reviewed 11/20/21 @ unknown) 14:39 by Alem Marlow DO) (unknown) (no (unknown) (unknown) Father (units (unknown) date) Cancer unknown) (unknown) (no (unknown) (unknown) Feels Safe in Current (un its (unknown) date) Yes unknown) (unknown) (no (unknown) (unknown) GERD (gastroesophageal (u nits (unknown) date) reflux disease) (-2009) unknow n) (unknown) (no (unknown) (unknown) GERD, ANXIETY AND (units (unknown) date) DEPRESSION, SICK 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 unknown) (unknown) (no (unknown) (unknown) Globulin (units (unkno wn) date) unknown) (unknown) (no (unknown) (unknown) Globulin 3.2 (units (unknown) date) unknown) (unknown) (no (unknown) (unknown) Globulin (units (unkno wn) date) unknown) (unknown) (no (unknown) (unknown) Glucose (units (unkno wn) date) unknown) (unknown) (no (unknown) (unknown) Glucose 94 (units ( unknown) date) unknown) (unknown) (no (unknown) (unknown) Glucose (units (unkno wn) date) unknown) (unknown) (no (unknown) (unknown) Granular Casts (units (unknown) date) unknown) (unknown) (no (unknown) (unknown) Granular Casts (units (unknown) date) unknown) (unknown) (no (unknown) (unknown) Granular Casts (units (unknown) date) Cancelled unknown) (unknown) (no (unknown) (unknown) HEAD ATRAUMATIC (units (unknown) date) 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 unknown) (unknown) (no (unknown) (unknown) Hct (units (unkno wn) date) unknown) (unknown) (no (unknown) (unknown) Hct (units (unkno wn) date) unknown) (unknown) (no (unknown) (unknown) Hct 37.4 (units (unkn own) date) unknown) (unknown) (no (unknown) (unknown) Headache (-2019) (units (unknown) date) unknown) (unknown) (no (unknown) (unknown) Hgb (units (unkno wn) date) unknown) (unknown) (no (unknown) (unknown) Hgb (units (unkno wn) date) unknown) (unknown) (no (unknown) (unknown) Hgb 12.1 (units (unkn own) date) unknown) (unknown) (no (unknown) (unknown) History of Present (units (unknown) date) Illness unknown) (unknown) (no (unknown) (unknown) History of (units (unk nown) date) abdominoplasty () unknown ) (unknown) (no (unknown) (unknown) History of breast lift (u nits (unknown) date) () unknown) (unknown) (no (unknown) (unknown) History of carpal (units (unknown) date) tunnel repair unknown) (unknown) (no (unknown) (unknown) History of cataract (unit s (unknown) date) removal with insertion unknown ) of prosthetic lens () (unknown) (no (unknown) (unknown) History of gastric (units (unknown) date) bypass () unknown) (unknown) (no (unknown) (unknown) History of knee (units (unknown) date) replacement unknown) (unknown) (no (unknown) (unknown) Home Medications and (uni ts (unknown) date) Allergies unknown) (unknown) (no (unknown) (unknown) Hyaline Casts (units ( unknown) date) unknown) (unknown) (no (unknown) (unknown) Hyaline Casts (units ( unknown) date) unknown) (unknown) (no (unknown) (unknown) Hyaline Casts (units ( unknown) date) Cancelled unknown) (unknown) (no (unknown) (unknown) Hypertension (-1995) (uni ts (unknown) date) unknown) (unknown) (no (unknown) (unknown) Hypothyroidism (units (unknown) date) unknown) (unknown) (no (unknown) (unknown) I spent a total of [] (un its (unknown) date) minutes of critical care unkno wn) time on this patient's care (unknown) (no (unknown) (unknown) INCREASED DULLNESS TO (un its (unknown) date) PERCUSSION unknown) (unknown) (no (unknown) (unknown) INCREASING DYSPNEA ON ( units (unknown) date) EXERTION. NOT unknown) ASSOCIATED WITH DIAPHORESIS. DENIES (unknown) (no (unknown) (unknown) INR (units (unkno wn) date) unknown) (unknown) (no (unknown) (unknown) INR (units (unkno wn) date) unknown) (unknown) (no (unknown) (unknown) INR 1.1 (units (unkn own) date) unknown) (unknown) (no (unknown) (unknown) IP DYE Allergy Mild (unit s (unknown) date) Uncoded 07/08/21 15:35 unknown ) (unknown) (no (unknown) (unknown) Iodine and Iodide (units (unknown) date) Containing Allergy unknown) Verified 11/20/21 11:59 (unknown) (no (unknown) (unknown) Labs (units (unkno wn) date) unknown) (unknown) (no (unknown) (unknown) Labs: (units (unkno wn) date) unknown) (unknown) (no (unknown) (unknown) Lactate (units (unkno wn) date) unknown) (unknown) (no (unknown) (unknown) Lactate (units (unkno wn) date) unknown) (unknown) (no (unknown) (unknown) Lactate 1.0 (units (u nknown) date) unknown) (unknown) (no (unknown) (unknown) Lymph # (Auto) (units (unknown) date) unknown) (unknown) (no (unknown) (unknown) Lymph # (Auto) (units (unknown) date) unknown) (unknown) (no (unknown) (unknown) Lymph # (Auto) 1600 (uni ts (unknown) date) unknown) (unknown) (no (unknown) (unknown) Lymph % (Auto) (units (unknown) date) unknown) (unknown) (no (unknown) (unknown) Lymph % (Auto) (units (unknown) date) unknown) (unknown) (no (unknown) (unknown) Lymph % (Auto) 23.3 L (u nits (unknown) date) unknown) (unknown) (no (unknown) (unknown) MCH (units (unkno wn) date) unknown) (unknown) (no (unknown) (unknown) MCH (units (unkno wn) date) unknown) (unknown) (no (unknown) (unknown) MCH 26.3 (units (unkn own) date) unknown) (unknown) (no (unknown) (unknown) MCHC (units (unkno wn) date) unknown) (unknown) (no (unknown) (unknown) MCHC (units (unkno wn) date) unknown) (unknown) (no (unknown) (unknown) MCHC 32.4 (units (unk nown) date) unknown) (unknown) (no (unknown) (unknown) MCV (units (unkno wn) date) unknown) (unknown) (no (unknown) (unknown) MCV (units (unkno wn) date) unknown) (unknown) (no (unknown) (unknown) MCV 81.1 (units (unkn own) date) unknown) (unknown) (no (unknown) (unknown) MSK: NORMAL RANGE OF (un its (unknown) date) MOTION FOR AGE. NO unknown) JOINT EFFUSION. (unknown) (no (unknown) (unknown) Medical History (units (unknown) date) (Reviewed 11/20/21 @ unknown) 14:39 by Alem Marlow DO) (unknown) (no (unknown) (unknown) Meds (units (unkno wn) date) unknown) (unknown) (no (unknown) (unknown) Micro UA Comment (units (unknown) date) unknown) (unknown) (no (unknown) (unknown) Micro UA Comment (units (unknown) date) unknown) (unknown) (no (unknown) (unknown) Micro UA Comment (units (unknown) date) Cancelled unknown) (unknown) (no (unknown) (unknown) Gooding # (Auto) (units ( unknown) date) unknown) (unknown) (no (unknown) (unknown) Gooding # (Auto) (units ( unknown) date) unknown) (unknown) (no (unknown) (unknown) Gooding # (Auto) 600 (units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 (units (unkno wn) date) unknown) (unknown) (no (unknown) (unknown) TAKE 1 TABLET BY (units (unknown) date) MOUTH DAILY unknown) (unknown) (no (unknown) (unknown) apply to single (units (unknown) date) elbow, wrist or unknown) hand; for hand includes palm/fingers/back of (unknown) (no (unknown) (unknown) leave on most (units ( unknown) date) painful area for unknown) up to 12 hrs (unknown) (no (unknown) (unknown) (no value) (units (unk nown) date) unknown) (unknown) (no (unknown) (unknown) 11/20/21 11/20/21 (units (unknown) date) unknown) (unknown) (no (unknown) (unknown) 11/20/21 11/20/21 (units (unknown) date) 11/20/21 unknown) (unknown) (no (unknown) (unknown) 12:50 12:50 12:50 (units (unknown) date) unknown) (unknown) (no (unknown) (unknown) 13:00 13:00 14:20 (units (unknown) date) unknown) (unknown) (no (unknown) (unknown) 16:53 20:07 (units (un known) date) unknown) (unknown) (no (unknown) (unknown) Eliquis 5 mg (units (u nknown) date) tablet unknown) (unknown) (no (unknown) (unknown) NO RECENT (units (unkn own) date) TRAVELS. NO unknown) COUGH. NO BLOOD IN THE SPUTUM. NO BLOOD PER RECTUM. (unknown) (no (unknown) (unknown) Refresh Plus 0.5 (units (unknown) date) % dropperette unknown) (unknown) (no (unknown) (unknown) THE WORKUP IN THE (units (unknown) date) ER WAS FAIRLY unknown) UNREMARKABLE. (unknown) (no (unknown) (unknown) aspirin [Aspirin (units (unknown) date) Low Dose] 81 mg unknown) tablet,delayed release (DR/EC) (unknown) (no (unknown) (unknown) atorvastatin 80 (units (unknown) date) mg tablet unknown) (unknown) (no (unknown) (unknown) budesonide-formot (units (unknown) date) henry [Symbicort] unknown) 80-4.5 mcg/actuation HFA aerosol inhaler (unknown) (no (unknown) (unknown) citalopram 10 mg (units (unknown) date) tablet unknown) (unknown) (no (unknown) (unknown) diclofenac sodium (units (unknown) date) 1 % gel unknown) (unknown) (no (unknown) (unknown) levothyroxine 88 (units (unknown) date) MCG tablet unknown) (unknown) (no (unknown) (unknown) lidocaine 5 % (units ( unknown) date) adhesive unknown) patch,medicated (unknown) (no (unknown) (unknown) nitroglycerin (units ( unknown) date) [Nitrostat] 0.4 mg unknown) Tablet, Sublingual (unknown) (no (unknown) (unknown) pantoprazole 40 (units (unknown) date) mg tablet,delayed unknown) release (DR/EC) (unknown) (no (unknown) (unknown) sotalol 80 mg (units ( unknown) date) tablet unknown) (unknown) (no (unknown) (unknown) tramadol 50 mg (units (unknown) date) tablet unknown) (unknown) (no (unknown) (unknown) valsartan 80 mg (units (unknown) date) Tablet unknown) (unknown) (no (unknown) (unknown) 11/21/21 (units (unkno wn) date) unknown) (unknown) (no (unknown) (unknown) [id number] (units (unk nown) date) unknown) (unknown) (no (unknown) (unknown) PATIENT REPORTED (units (unknown) date) THAT FOR THE LAST unknown) COUPLE OF WEEKS HE HAS BEEN HAVING (unknown) (no (unknown) (unknown) SHE DENIES ANY (units (unknown) date) INCREASING unknown) SWELLING TO THE LOWER EXTREMITIES. NO RECENT (unknown) (no (unknown) (unknown) SHE STATED THAT (units (unknown) date) IS REALLY THE unknown) SHORTNESS OF BREATH HOSPITAL WITH EXERTION GETS (unknown) (no (unknown) (unknown) (past 8 hours): (units (unknown) date) unknown) (unknown) (no (unknown) (unknown) 11/20/21 16:31 (units (unknown) date) unknown) (unknown) (no (unknown) (unknown) 05:00 11/21/21 (units (unknown) date) unknown) (unknown) (no (unknown) (unknown) 06:00 11/21/21 (units (unknown) date) unknown) (unknown) (no (unknown) (unknown) 08:43 (units (unkno wn) date) unknown) (unknown) (no (unknown) (unknown) ALT (units (unkno wn) date) unknown) (unknown) (no (unknown) (unknown) ALT (units (unkno wn) date) unknown) (unknown) (no (unknown) (unknown) ALT 12 (units (unkn own) date) unknown) (unknown) (no (unknown) (unknown) APTT (units (unkno wn) date) unknown) (unknown) (no (unknown) (unknown) APTT (units (unkno wn) date) unknown) (unknown) (no (unknown) (unknown) APTT 33 (units (unk nown) date) unknown) (unknown) (no (unknown) (unknown) AST (units (unkno wn) date) unknown) (unknown) (no (unknown) (unknown) AST (units (unkno wn) date) unknown) (unknown) (no (unknown) (unknown) AST 24 (units (unkn own) date) unknown) (unknown) (no (unknown) (unknown) Activity: (units (u nknown) date) TOLERATED unknown) (unknown) (no (unknown) (unknown) Age/Sex: 71 / F (units (unknown) date) unknown) (unknown) (no (unknown) (unknown) Albumin (units (unkno wn) date) unknown) (unknown) (no (unknown) (unknown) Albumin (units (unkno wn) date) unknown) (unknown) (no (unknown) (unknown) Albumin 4.2 (units (unknown) date) unknown) (unknown) (no (unknown) (unknown) Albumin/Globulin (units (unknown) date) Ratio unknown) (unknown) (no (unknown) (unknown) Albumin/Globulin (units (unknown) date) Ratio unknown) (unknown) (no (unknown) (unknown) Albumin/Globulin (units (unknown) date) Ratio 1.3 unknown) (unknown) (no (unknown) (unknown) Alkaline (units (unkno wn) date) Phosphatase unknown) (unknown) (no (unknown) (unknown) Alkaline (units (unkno wn) date) Phosphatase unknown) (unknown) (no (unknown) (unknown) Alkaline (units (unkno wn) date) Phosphatase 119 unknown) (unknown) (no (unknown) (unknown) Amorphous (units (unkn own) date) Sediment unknown) (unknown) (no (unknown) (unknown) Amorphous (units (unkn own) date) Sediment unknown) (unknown) (no (unknown) (unknown) Amorphous (units (unkn own) date) Sediment unknown) Cancelled (unknown) (no (unknown) (unknown) Anesthesia (units (unk nown) date) unknown) (unknown) (no (unknown) (unknown) Anxiety and (units (un known) date) depression (-1996) unknown) (unknown) (no (unknown) (unknown) BETTER AT REST (units (unknown) date) unknown) (unknown) (no (unknown) (unknown) BUN (units (unkno wn) date) unknown) (unknown) (no (unknown) (unknown) BUN (units (unkno wn) date) unknown) (unknown) (no (unknown) (unknown) BUN 21 H (units (un known) date) unknown) (unknown) (no (unknown) (unknown) BUN/Creatinine (units (unknown) date) Ratio unknown) (unknown) (no (unknown) (unknown) BUN/Creatinine (units (unknown) date) Ratio unknown) (unknown) (no (unknown) (unknown) BUN/Creatinine (units (unknown) date) Ratio 20.8 unknown) (unknown) (no (unknown) (unknown) Baso # (Auto) (units ( unknown) date) unknown) (unknown) (no (unknown) (unknown) Baso # (Auto) (units ( unknown) date) unknown) (unknown) (no (unknown) (unknown) Baso # (Auto) 0 (units (unknown) date) unknown) (unknown) (no (unknown) (unknown) Baso % (Auto) (units ( unknown) date) unknown) (unknown) (no (unknown) (unknown) Baso % (Auto) (units ( unknown) date) unknown) (unknown) (no (unknown) (unknown) Baso % (Auto) (units ( unknown) date) 0.3 unknown) (unknown) (no (unknown) (unknown) Blood Pressure (units (unknown) date) 134/76 unknown) (unknown) (no (unknown) (unknown) Brother (units (unkno wn) date) Cancer unknown) (unknown) (no (unknown) (unknown) Brother (units (unkno wn) date) History unknown) of heart disease (unknown) (no (unknown) (unknown) CK-MB (CK-2) (units (u nknown) date) unknown) (unknown) (no (unknown) (unknown) CK-MB (CK-2) (units (u nknown) date) unknown) (unknown) (no (unknown) (unknown) CK-MB (CK-2) (units (u nknown) date) TNP unknown) (unknown) (no (unknown) (unknown) CK-MB (CK-2) Rel (units (unknown) date) Index unknown) (unknown) (no (unknown) (unknown) CK-MB (CK-2) Rel (units (unknown) date) Index unknown) (unknown) (no (unknown) (unknown) CK-MB (CK-2) Rel (units (unknown) date) Index TNP unknown) (unknown) (no (unknown) (unknown) COPD (chronic (units ( unknown) date) obstructive unknown) pulmonary disease) (-2019) (unknown) (no (unknown) (unknown) Calcium (units (unkno wn) date) unknown) (unknown) (no (unknown) (unknown) Calcium (units (unkno wn) date) unknown) (unknown) (no (unknown) (unknown) Calcium 9.1 (units (unknown) date) unknown) (unknown) (no (unknown) (unknown) Calcium Oxalate (units (unknown) date) Crystal unknown) (unknown) (no (unknown) (unknown) Calcium Oxalate (units (unknown) date) Crystal unknown) (unknown) (no (unknown) (unknown) Calcium Oxalate (units (unknown) date) Crystal Many H unknown) Cancelled (unknown) (no (unknown) (unknown) Carbon Dioxide (units (unknown) date) unknown) (unknown) (no (unknown) (unknown) Carbon Dioxide (units (unknown) date) unknown) (unknown) (no (unknown) (unknown) Carbon Dioxide (units (unknown) date) 27 unknown) (unknown) (no (unknown) (unknown) Chief complaint: (units (unknown) date) Possible heart unknown) attack (unknown) (no (unknown) (unknown) Chloride (units (unkno wn) date) unknown) (unknown) (no (unknown) (unknown) Chloride (units (unkno wn) date) unknown) (unknown) (no (unknown) (unknown) Chloride 108 H (units (unknown) date) unknown) (unknown) (no (unknown) (unknown) Chronic back pain (units (unknown) date) () unknown) (unknown) (no (unknown) (unknown) Luzma Sanchez, (units (unknown) date) [Primary Care unknown) Provider] - (unknown) (no (unknown) (unknown) Continued (units (unkn own) date) unknown) (unknown) (no (unknown) (unknown) Creatinine (units (unk nown) date) unknown) (unknown) (no (unknown) (unknown) Creatinine (units (unk nown) date) unknown) (unknown) (no (unknown) (unknown) Creatinine (units (unk nown) date) 1.01 unknown) (unknown) (no (unknown) (unknown) : 1950 (units (unknown) date) Acct:[id number] unknown) (unknown) (no (unknown) (unknown) Date of (units (unkno wn) date) admission: unknown) (unknown) (no (unknown) (unknown) Diet/Activity/Amado (units (unknown) date) atments unknown) (unknown) (no (unknown) (unknown) Diet: Low-fat, (units (unknown) date) Low-sodium and unknown) Low-cholesterol (unknown) (no (unknown) (unknown) Discharge Data (units (unknown) date) unknown) (unknown) (no (unknown) (unknown) Discharge Date: (units (unknown) date) 11/21/21 unknown) (unknown) (no (unknown) (unknown) Discharge Plan (units (unknown) date) unknown) (unknown) (no (unknown) (unknown) Discharge (units (unkn own) date) Providers unknown) (unknown) (no (unknown) (unknown) Discharge orders (units (unknown) date) + Medications unknown) (unknown) (no (unknown) (unknown) Discharge (units (unkn own) date) provider: unknown) (unknown) (no (unknown) (unknown) Endometrial (units (un known) date) hyperplasia unknown) (unknown) (no (unknown) (unknown) Eos # (Auto) (units (u nknown) date) unknown) (unknown) (no (unknown) (unknown) Eos # (Auto) (units (u nknown) date) unknown) (unknown) (no (unknown) (unknown) Eos # (Auto) 200 (units (unknown) date) unknown) (unknown) (no (unknown) (unknown) Eos % (Auto) (units (u nknown) date) unknown) (unknown) (no (unknown) (unknown) Eos % (Auto) (units (u nknown) date) unknown) (unknown) (no (unknown) (unknown) Eos % (Auto) 2.5 (units (unknown) date) unknown) (unknown) (no (unknown) (unknown) Estimated GFR (units ( unknown) date) unknown) (unknown) (no (unknown) (unknown) Estimated GFR (units ( unknown) date) unknown) (unknown) (no (unknown) (unknown) Estimated GFR (units ( unknown) date) 59 L unknown) (unknown) (no (unknown) (unknown) Exam (units (unkno wn) date) unknown) (unknown) (no (unknown) (unknown) Family History (units (unknown) date) (Reviewed 11/20/21 unknown) @ 14:39 by Alem Marlow DO) (unknown) (no (unknown) (unknown) Father (units (unknown) date) Cancer unknown) (unknown) (no (unknown) (unknown) Follow (units (unkno wn) date) up/Referrals: unknown) (unknown) (no (unknown) (unknown) GERD (units (unkno wn) date) (gastroesophageal unknown) reflux disease) (-2009) (unknown) (no (unknown) (unknown) GERD, ANXIETY AND (units (unknown) date) DEPRESSION, 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 (unknown) (no (unknown) (unknown) Globulin (units (unkno wn) date) unknown) (unknown) (no (unknown) (unknown) Globulin (units (unkno wn) date) unknown) (unknown) (no (unknown) (unknown) Globulin 3.2 (units (unknown) date) unknown) (unknown) (no (unknown) (unknown) Glucose (units (unkno wn) date) unknown) (unknown) (no (unknown) (unknown) Glucose (units (unkno wn) date) unknown) (unknown) (no (unknown) (unknown) Glucose 94 (units ( unknown) date) unknown) (unknown) (no (unknown) (unknown) Granular Casts (units (unknown) date) unknown) (unknown) (no (unknown) (unknown) Granular Casts (units (unknown) date) unknown) (unknown) (no (unknown) (unknown) Granular Casts (units (unknown) date) Cancelled unknown) (unknown) (no (unknown) (unknown) Hct (units (unkno wn) date) unknown) (unknown) (no (unknown) (unknown) Hct (units (unkno wn) date) unknown) (unknown) (no (unknown) (unknown) Hct 37.4 (units (unkn own) date) unknown) (unknown) (no (unknown) (unknown) Headache () (units (unknown) date) unknown) (unknown) (no (unknown) (unknown) Hgb (units (unkno wn) date) unknown) (unknown) (no (unknown) (unknown) Hgb (units (unkno wn) date) unknown) (unknown) (no (unknown) (unknown) Hgb 12.1 (units (unkn own) date) unknown) (unknown) (no (unknown) (unknown) History of (units (unk nown) date) Present Illness unknown) (unknown) (no (unknown) (unknown) History of (units (unk nown) date) abdominoplasty unknown) () (unknown) (no (unknown) (unknown) History of breast (units (unknown) date) lift () unknown) (unknown) (no (unknown) (unknown) History of carpal (units (unknown) date) tunnel repair unknown) (unknown) (no (unknown) (unknown) History of (units (unk nown) date) cataract removal unknown) with insertion of prosthetic lens () (unknown) (no (unknown) (unknown) History of (units (unk nown) date) gastric bypass unknown) () (unknown) (no (unknown) (unknown) History of knee (units (unknown) date) replacement unknown) (unknown) (no (unknown) (unknown) Hyaline Casts (units ( unknown) date) unknown) (unknown) (no (unknown) (unknown) Hyaline Casts (units ( unknown) date) unknown) (unknown) (no (unknown) (unknown) Hyaline Casts (units ( unknown) date) Cancelled unknown) (unknown) (no (unknown) (unknown) Hypertension (units (u nknown) date) (-1995) unknown) (unknown) (no (unknown) (unknown) Hypothyroidism (units (unknown) date) unknown) (unknown) (no (unknown) (unknown) INCREASING (units (unk nown) date) DYSPNEA ON unknown) EXERTION. NOT ASSOCIATED WITH DIAPHORESIS. DENIES (unknown) (no (unknown) (unknown) INR (units (unkno wn) date) unknown) (unknown) (no (unknown) (unknown) INR (units (unkno wn) date) unknown) (unknown) (no (unknown) (unknown) INR 1.1 (units (unkn own) date) unknown) (unknown) (no (unknown) (unknown) Luzma Sanchez, (units (unknown) date) MD unknown) (unknown) (no (unknown) (unknown) Dhruv (units (un known) date) Vonnie, unknown) DO (unknown) (no (unknown) (unknown) Labs (units (unkno wn) date) unknown) (unknown) (no (unknown) (unknown) Labs: (units (unkno wn) date) unknown) (unknown) (no (unknown) (unknown) Lactate (units (unkno wn) date) unknown) (unknown) (no (unknown) (unknown) Lactate (units (unkno wn) date) unknown) (unknown) (no (unknown) (unknown) Lactate 1.0 (units (u nknown) date) unknown) (unknown) (no (unknown) (unknown) Lymph # (Auto) (units (unknown) date) unknown) (unknown) (no (unknown) (unknown) Lymph # (Auto) (units (unknown) date) unknown) (unknown) (no (unknown) (unknown) Lymph # (Auto) (units (unknown) date) 1600 unknown) (unknown) (no (unknown) (unknown) Lymph % (Auto) (units (unknown) date) unknown) (unknown) (no (unknown) (unknown) Lymph % (Auto) (units (unknown) date) unknown) (unknown) (no (unknown) (unknown) Lymph % (Auto) (units (unknown) date) 23.3 L unknown) (unknown) (no (unknown) (unknown) MCH (units (unkno wn) date) unknown) (unknown) (no (unknown) (unknown) MCH (units (unkno wn) date) unknown) (unknown) (no (unknown) (unknown) MCH 26.3 (units (unkn own) date) unknown) (unknown) (no (unknown) (unknown) MCHC (units (unkno wn) date) unknown) (unknown) (no (unknown) (unknown) MCHC (units (unkno wn) date) unknown) (unknown) (no (unknown) (unknown) MCHC 32.4 (units (unk nown) date) unknown) (unknown) (no (unknown) (unknown) MCV (units (unkno wn) date) unknown) (unknown) (no (unknown) (unknown) MCV (units (unkno wn) date) unknown) (unknown) (no (unknown) (unknown) MCV 81.1 (units (unkn own) date) unknown) (unknown) (no (unknown) (unknown) Medical History (units (unknown) date) (Reviewed 11/20/21 unknown) @ 14:39 by Alem Marlow DO) (unknown) (no (unknown) (unknown) Micro UA Comment (units (unknown) date) unknown) (unknown) (no (unknown) (unknown) Micro UA Comment (units (unknown) date) unknown) (unknown) (no (unknown) (unknown) Micro UA Comment (units (unknown) date) Cancelled unknown) (unknown) (no (unknown) (unknown) Gooding # (Auto) (units ( unknown) date) unknown) (unknown) (no (unknown) (unknown) Gooding # (Auto) (units ( unknown) date) unknown) (unknown) (no (unknown) (unknown) Gooding # (Auto) (units ( unknown) date) 600 unknown) (unknown) (no (unknown) (unknown) Gooding % (Auto) (units ( unknown) date) unknown) (unknown) (no (unknown) (unknown) Gooding % (Auto) (units ( unknown) date) unknown) (unknown) (no (unknown) (unknown) Gooding % (Auto) (units ( unknown) date) 8.4 unknown) (unknown) (no (unknown) (unknown) NAUSEA OR (units (unkn own) date) VOMITING. NO unknown) CHEST PAIN. NO CHEST PALPITATIONS (unknown) (no (unknown) (unknown) NO HEAT OR COLD (units (unknown) date) INTOLERANCE. unknown) (unknown) (no (unknown) (unknown) NT-Pro-B (units (unkno wn) date) Natriuret Pep unknown) (unknown) (no (unknown) (unknown) NT-Pro-B (units (unkno wn) date) Natriuret Pep unknown) (unknown) (no (unknown) (unknown) NT-Pro-B (units (unkno wn) date) Natriuret Pep unknown) 291 H (unknown) (no (unknown) (unknown) Narrative: (units (unk nown) date) unknown) (unknown) (no (unknown) (unknown) Neut # (Auto) (units ( unknown) date) unknown) (unknown) (no (unknown) (unknown) Neut # (Auto) (units ( unknown) date) unknown) (unknown) (no (unknown) (unknown) Neut # (Auto) (units ( unknown) date) 4400 unknown) (unknown) (no (unknown) (unknown) Neut % (Auto) (units ( unknown) date) unknown) (unknown) (no (unknown) (unknown) Neut % (Auto) (units ( unknown) date) unknown) (unknown) (no (unknown) (unknown) Neut % (Auto) (units ( unknown) date) 65.5 unknown) (unknown) (no (unknown) (unknown) New (units (unkno wn) date) unknown) (unknown) (no (unknown) (unknown) Objective (units (unkn own) date) unknown) (unknown) (no (unknown) (unknown) Other Casts (units (un known) date) unknown) (unknown) (no (unknown) (unknown) Other Casts (units (un known) date) unknown) (unknown) (no (unknown) (unknown) Other Casts (units (un known) date) Cancelled unknown) (unknown) (no (unknown) (unknown) Other Crystals (units (unknown) date) unknown) (unknown) (no (unknown) (unknown) Other Crystals (units (unknown) date) unknown) (unknown) (no (unknown) (unknown) Other Crystals (units (unknown) date) Cancelled unknown) (unknown) (no (unknown) (unknown) Oxygen Delivery (units (unknown) date) Method Room Air unknown) (unknown) (no (unknown) (unknown) Oxygen Flow Rate (units (unknown) date) 0 unknown) (unknown) (no (unknown) (unknown) PATIENT CAME TO (units (unknown) date) THE ED REPORTEDLY unknown) PER HER PROVIDER RECOMMENDATION DUE TO (unknown) (no (unknown) (unknown) PER PATIENT, HER (units (unknown) date) PACEMAKER IS ABOUT unknown) 12 YEARS OLD. SHE HAS BEEN HAVING ISSUES (unknown) (no (unknown) (unknown) PFSH (units (unkno wn) date) unknown) (unknown) (no (unknown) (unknown) PT (units (unkno wn) date) unknown) (unknown) (no (unknown) (unknown) PT (units (unkno wn) date) unknown) (unknown) (no (unknown) (unknown) PT 12.5 (units (unkn own) date) unknown) (unknown) (no (unknown) (unknown) Patient (units (unkno wn) date) Disposition: Home unknown) (unknown) (no (unknown) (unknown) Patient: (units (unkno wn) date) Laurel,Sherine unknown) S MR#: (unknown) (no (unknown) (unknown) Plt Count (units (unkn own) date) unknown) (unknown) (no (unknown) (unknown) Plt Count (units (unkn own) date) unknown) (unknown) (no (unknown) (unknown) Plt Count 231 (units (unknown) date) unknown) (unknown) (no (unknown) (unknown) Postmenopausal (units (unknown) date) bleeding unknown) (unknown) (no (unknown) (unknown) Potassium (units (unkn own) date) unknown) (unknown) (no (unknown) (unknown) Potassium (units (unkn own) date) unknown) (unknown) (no (unknown) (unknown) Potassium 3.8 (units (unknown) date) unknown) (unknown) (no (unknown) (unknown) Prescriptions: (units (unknown) date) unknown) (unknown) (no (unknown) (unknown) Presence of (units (un known) date) cardiac pacemaker unknown) (-2009) (unknown) (no (unknown) (unknown) Primary Care (units (u nknown) date) Provider: unknown) Luzma Sanchez (unknown) (no (unknown) (unknown) Primary care (units (u nknown) date) physician: unknown) (unknown) (no (unknown) (unknown) Provider (units (unkno wn) date) unknown) (unknown) (no (unknown) (unknown) Provider: (units (unkn own) date) Joy Shankar unknown) brittaney (unknown) (no (unknown) (unknown) Pulse Oximetry 98 (units (unknown) date) 98 97 unknown) (unknown) (no (unknown) (unknown) Pulse Rate 69 (units ( unknown) date) unknown) (unknown) (no (unknown) (unknown) RBC (units (unkno wn) date) unknown) (unknown) (no (unknown) (unknown) RBC (units (unkno wn) date) unknown) (unknown) (no (unknown) (unknown) RBC 4.62 (units (unkn own) date) unknown) (unknown) (no (unknown) (unknown) RBC Casts (units (unkn own) date) unknown) (unknown) (no (unknown) (unknown) RBC Casts (units (unkn own) date) unknown) (unknown) (no (unknown) (unknown) RBC Casts (units (unkn own) date) Cancelled unknown) (unknown) (no (unknown) (unknown) RDW (units (unkno wn) date) unknown) (unknown) (no (unknown) (unknown) RDW (units (unkno wn) date) unknown) (unknown) (no (unknown) (unknown) RDW 16.1 H (units (un known) date) unknown) (unknown) (no (unknown) (unknown) REPORTED (units (unkno wn) date) INCREASING CHEST unknown) PRESSURE ASSOCIATED WITH DYSPNEA ON EXERTION. (unknown) (no (unknown) (unknown) Respiratory Rate (units (unknown) date) 18 unknown) (unknown) (no (unknown) (unknown) Result Diagrams: (units (unknown) date) unknown) (unknown) (no (unknown) (unknown) SARCOIDOSIS (units (un known) date) REQUIRING unknown) PACEMAKER PLACEMENT. (unknown) (no (unknown) (unknown) SARS-CoV-2 (PCR) (units (unknown) date) unknown) (unknown) (no (unknown) (unknown) SARS-CoV-2 (PCR) (units (unknown) date) Positive H unknown) (unknown) (no (unknown) (unknown) SOMETIMES IN THE (units (unknown) date) UPCOMING WEEKS. unknown) (unknown) (no (unknown) (unknown) SUPPOSED TO HAVE (units (unknown) date) A STRESS TEST AND unknown) A POSSIBLE PLACEMENT OF THE PACEMAKER DONE (unknown) (no (unknown) (unknown) Sarcoidosis (units (un known) date) () unknown) (unknown) (no (unknown) (unknown) Signed By: (units (unk nown) date) unknown) (unknown) (no (unknown) (unknown) Sister (units (unknown) date) Cancer unknown) (unknown) (no (unknown) (unknown) Smoking Status: (units (unknown) date) Never smoker unknown) (unknown) (no (unknown) (unknown) Social History (units (unknown) date) (Reviewed 11/20/21 unknown) @ 14:39 by Alem Marlow DO) (unknown) (no (unknown) (unknown) Sodium (units (unkno wn) date) unknown) (unknown) (no (unknown) (unknown) Sodium (units (unkno wn) date) unknown) (unknown) (no (unknown) (unknown) Sodium 141 (units ( unknown) date) unknown) (unknown) (no (unknown) (unknown) Status post (units (un known) date) breast lumpectomy unknown) (unknown) (no (unknown) (unknown) Status post (units (un known) date) cholecystectomy unknown) (-1979) (unknown) (no (unknown) (unknown) Status post (units (un known) date) dilation and unknown) curettage (unknown) (no (unknown) (unknown) Status post (units (un known) date) surgery (05/11/15) unknown) (unknown) (no (unknown) (unknown) Surgical History (units (unknown) date) (Reviewed 11/20/21 unknown) @ 14:39 by Alem Marlow DO) (unknown) (no (unknown) (unknown) THIS IS A (units (unkn own) date) 71-YEAR-OLD FEMALE unknown) FOR PAST MEDICAL HISTORY SIGNIFICANT FOR COPD, (unknown) (no (unknown) (unknown) Temperature 97.9 (units (unknown) date) F unknown) (unknown) (no (unknown) (unknown) Total Bilirubin (units (unknown) date) unknown) (unknown) (no (unknown) (unknown) Total Bilirubin (units (unknown) date) unknown) (unknown) (no (unknown) (unknown) Total Bilirubin (units (unknown) date) 1.1 unknown) (unknown) (no (unknown) (unknown) Total Creatine (units (unknown) date) Kinase unknown) (unknown) (no (unknown) (unknown) Total Creatine (units (unknown) date) Kinase unknown) (unknown) (no (unknown) (unknown) Total Creatine (units (unknown) date) Kinase 96 unknown) (unknown) (no (unknown) (unknown) Total Protein (units ( unknown) date) unknown) (unknown) (no (unknown) (unknown) Total Protein (units ( unknown) date) unknown) (unknown) (no (unknown) (unknown) Total Protein (units ( unknown) date) 7.4 unknown) (unknown) (no (unknown) (unknown) Triple Phos (units (un known) date) Crystals unknown) (unknown) (no (unknown) (unknown) Triple Phos (units (un known) date) Crystals unknown) (unknown) (no (unknown) (unknown) Triple Phos (units (un known) date) Crystals unknown) Cancelled (unknown) (no (unknown) (unknown) Troponin I (units (unk nown) date) unknown) (unknown) (no (unknown) (unknown) Troponin I < (units (unknown) date) 0.012 unknown) (unknown) (no (unknown) (unknown) Troponin I < (units (unknown) date) 0.012 unknown) (unknown) (no (unknown) (unknown) Troponin I < (units (unknown) date) 0.012 unknown) (unknown) (no (unknown) (unknown) Ur Bilirubin (units (u nknown) date) Confirm unknown) (unknown) (no (unknown) (unknown) Ur Bilirubin (units (u nknown) date) Confirm unknown) (unknown) (no (unknown) (unknown) Ur Bilirubin (units (u nknown) date) Confirm Negative unknown) (unknown) (no (unknown) (unknown) Ur Culture (units (unk nown) date) Indicated? unknown) (unknown) (no (unknown) (unknown) Ur Culture (units (unk nown) date) Indicated? unknown) (unknown) (no (unknown) (unknown) Ur Culture (units (unk nown) date) Indicated? unknown) Specimen cultured Cancelled (unknown) (no (unknown) (unknown) Ur Leukocyte (units (u nknown) date) Esterase unknown) (unknown) (no (unknown) (unknown) Ur Leukocyte (units (u nknown) date) Esterase unknown) (unknown) (no (unknown) (unknown) Ur Leukocyte (units (u nknown) date) Esterase unknown) Cancelled (unknown) (no (unknown) (unknown) Ur Renal (units (unkno wn) date) Epithelial Cell unknown) (unknown) (no (unknown) (unknown) Ur Renal (units (unkno wn) date) Epithelial Cell unknown) (unknown) (no (unknown) (unknown) Ur Renal (units (unkno wn) date) Epithelial Cell unknown) Cancelled (unknown) (no (unknown) (unknown) Ur Specific (units (un known) date) [place] unknown) (unknown) (no (unknown) (unknown) Ur Specific (units (un known) date) [place] unknown) (unknown) (no (unknown) (unknown) Ur Specific (units (un known) date) [place] unknown) Cancelled (unknown) (no (unknown) (unknown) Ur Squamous Epith (units (unknown) date) Cells unknown) (unknown) (no (unknown) (unknown) Ur Squamous Epith (units (unknown) date) Cells unknown) (unknown) (no (unknown) (unknown) Ur Squamous Epith (units (unknown) date) Cells 1-5 /hpf unknown) Cancelled (unknown) (no (unknown) (unknown) Ur Transition (units ( unknown) date) Epith Cell unknown) (unknown) (no (unknown) (unknown) Ur Transition (units ( unknown) date) Epith Cell unknown) (unknown) (no (unknown) (unknown) Ur Transition (units ( unknown) date) Epith Cell unknown) Cancelled (unknown) (no (unknown) (unknown) Uric Acid (units (unkn own) date) Crystals unknown) (unknown) (no (unknown) (unknown) Uric Acid (units (unkn own) date) Crystals unknown) (unknown) (no (unknown) (unknown) Uric Acid (units (unkn own) date) Crystals unknown) Cancelled (unknown) (no (unknown) (unknown) Urine Appearance (units (unknown) date) unknown) (unknown) (no (unknown) (unknown) Urine Appearance (units (unknown) date) unknown) (unknown) (no (unknown) (unknown) Urine Appearance (units (unknown) date) Cancelled unknown) (unknown) (no (unknown) (unknown) Urine Bacteria (units (unknown) date) unknown) (unknown) (no (unknown) (unknown) Urine Bacteria (units (unknown) date) unknown) (unknown) (no (unknown) (unknown) Urine Bacteria (units (unknown) date) Few (2-10) H unknown) Cancelled (unknown) (no (unknown) (unknown) Urine Bilirubin (units (unknown) date) unknown) (unknown) (no (unknown) (unknown) Urine Bilirubin (units (unknown) date) unknown) (unknown) (no (unknown) (unknown) Urine Bilirubin (units (unknown) date) Cancelled unknown) (unknown) (no (unknown) (unknown) Urine Color (units (un known) date) unknown) (unknown) (no (unknown) (unknown) Urine Color (units (un known) date) unknown) (unknown) (no (unknown) (unknown) Urine Color (units (un known) date) Cancelled unknown) (unknown) (no (unknown) (unknown) Urine Glucose (units ( unknown) date) (UA) unknown) (unknown) (no (unknown) (unknown) Urine Glucose (units ( unknown) date) (UA) unknown) (unknown) (no (unknown) (unknown) Urine Glucose (units ( unknown) date) (UA) Cancelled unknown) (unknown) (no (unknown) (unknown) Urine Ketones (units ( unknown) date) unknown) (unknown) (no (unknown) (unknown) Urine Ketones (units ( unknown) date) unknown) (unknown) (no (unknown) (unknown) Urine Ketones (units ( unknown) date) Cancelled unknown) (unknown) (no (unknown) (unknown) Urine Mucus (units (un known) date) unknown) (unknown) (no (unknown) (unknown) Urine Mucus (units (un known) date) unknown) (unknown) (no (unknown) (unknown) Urine Mucus (units (un known) date) Cancelled unknown) (unknown) (no (unknown) (unknown) Urine Nitrate (units ( unknown) date) unknown) (unknown) (no (unknown) (unknown) Urine Nitrate (units ( unknown) date) unknown) (unknown) (no (unknown) (unknown) Urine Nitrate (units ( unknown) date) Cancelled unknown) (unknown) (no (unknown) (unknown) Urine Occult (units (u nknown) date) Blood unknown) (unknown) (no (unknown) (unknown) Urine Occult (units (u nknown) date) Blood unknown) (unknown) (no (unknown) (unknown) Urine Occult (units (u nknown) date) Blood Cancelled unknown) (unknown) (no (unknown) (unknown) Urine Protein (units ( unknown) date) unknown) (unknown) (no (unknown) (unknown) Urine Protein (units ( unknown) date) unknown) (unknown) (no (unknown) (unknown) Urine Protein (units ( unknown) date) Cancelled unknown) (unknown) (no (unknown) (unknown) Urine RBC (units (unkn own) date) unknown) (unknown) (no (unknown) (unknown) Urine RBC (units (unkn own) date) unknown) (unknown) (no (unknown) (unknown) Urine RBC (units (unkn own) date) 10-30/hpf H unknown) Cancelled (unknown) (no (unknown) (unknown) Urine Sperm (units (un known) date) unknown) (unknown) (no (unknown) (unknown) Urine Sperm (units (un known) date) unknown) (unknown) (no (unknown) (unknown) Urine Sperm (units (un known) date) Cancelled unknown) (unknown) (no (unknown) (unknown) Urine Trichomonas (units (unknown) date) unknown) (unknown) (no (unknown) (unknown) Urine Trichomonas (units (unknown) date) unknown) (unknown) (no (unknown) (unknown) Urine Trichomonas (units (unknown) date) Cancelled unknown) (unknown) (no (unknown) (unknown) Urine (units (unkno wn) date) Urobilinogen unknown) (unknown) (no (unknown) (unknown) Urine (units (unkno wn) date) Urobilinogen unknown) (unknown) (no (unknown) (unknown) Urine (units (unkno wn) date) Urobilinogen unknown) Cancelled (unknown) (no (unknown) (unknown) Urine WBC (units (unkn own) date) unknown) (unknown) (no (unknown) (unknown) Urine WBC (units (unkn own) date) unknown) (unknown) (no (unknown) (unknown) Urine WBC (units (unkn own) date) 1-5/hpf Cancelled unknown) (unknown) (no (unknown) (unknown) Urine Yeast (units (un known) date) unknown) (unknown) (no (unknown) (unknown) Urine Yeast (units (un known) date) unknown) (unknown) (no (unknown) (unknown) Urine Yeast (units (un known) date) Cancelled unknown) (unknown) (no (unknown) (unknown) Urine pH (units (unkno wn) date) unknown) (unknown) (no (unknown) (unknown) Urine pH (units (unkno wn) date) unknown) (unknown) (no (unknown) (unknown) Urine pH (units (unkno wn) date) Cancelled unknown) (unknown) (no (unknown) (unknown) Uterine mass (units (u nknown) date) unknown) (unknown) (no (unknown) (unknown) Vital Signs (units (un known) date) unknown) (unknown) (no (unknown) (unknown) WBC (units (unkno wn) date) unknown) (unknown) (no (unknown) (unknown) WBC (units (unkno wn) date) unknown) (unknown) (no (unknown) (unknown) WBC 6.7 (units (unkno wn) date) unknown) (unknown) (no (unknown) (unknown) WBC Casts (units (unkn own) date) unknown) (unknown) (no (unknown) (unknown) WBC Casts (units (unkn own) date) unknown) (unknown) (no (unknown) (unknown) WBC Casts (units (unkn own) date) Cancelled unknown) (unknown) (no (unknown) (unknown) WEIGHT LOSS OR (units (unknown) date) WEIGHT GAIN. 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 (unknown) (no (unknown) (unknown) Wears glasses (units ( unknown) date) unknown) (unknown) (no (unknown) (unknown) [Embedded Image (units (unknown) date) Not Available] unknown) (unknown) (no (unknown) (unknown) alcohol intake: (units (unknown) date) never unknown) (unknown) (no (unknown) (unknown) hand (units (unkno wn) date) unknown) (unknown) (no (unknown) (unknown) household (units (unkn own) date) members: unknown) friend(s) Result panel 25 (unknown) (no (unknown) (unknown) Qty: 0 0RF (units (unk nown) date) unknown) (unknown) (no (unknown) (unknown) (no value) (units (unk nown) date) unknown) (unknown) (no (unknown) (unknown) EYE-BOTH 0RF (units ( unknown) date) unknown) (unknown) (no (unknown) (unknown) Date of Service: (units (unknown) date) 11/20/21 unknown) (unknown) (no (unknown) (unknown) (no value) (units (unk nown) date) unknown) (unknown) (no (unknown) (unknown) - (units (unkno wn) date) unknown) (unknown) (no (unknown) (unknown) 0.4 mg sublingual (units (unknown) date) [id number] PRN unknown) (Reason: Chest Pain) Qty: 12 0RF (unknown) (no (unknown) (unknown) 11/20/21 12:50 (units (unknown) date) unknown) (unknown) (no (unknown) (unknown) 1 patch TOP DAILY (units (unknown) date) PRN (Reason: pain) unknown) Qty: 15 0RF (unknown) (no (unknown) (unknown) 2 g topical QID (units (unknown) date) 0RF unknown) (unknown) (no (unknown) (unknown) 2 puff inhalation (units (unknown) date) BID 0RF unknown) (unknown) (no (unknown) (unknown) 40 mg PO BID 0RF (units (unknown) date) unknown) (unknown) (no (unknown) (unknown) 5 mg PO BID 0RF (units (unknown) date) unknown) (unknown) (no (unknown) (unknown) 50 mg PO Q6H PRN (units (unknown) date) (Reason: pain) unknown) Qty: 20 0RF (unknown) (no (unknown) (unknown) 80 mg PO BID 0RF (units (unknown) date) unknown) (unknown) (no (unknown) (unknown) 80 mg PO DAILY (units (unknown) date) 0RF unknown) (unknown) (no (unknown) (unknown) 80 mg PO DAILY (units (unknown) date) Qty: 0 0RF unknown) (unknown) (no (unknown) (unknown) 81 mg PO DAILY (units (unknown) date) Qty: 30 0RF unknown) (unknown) (no (unknown) (unknown) Discharge Summary (units (unknown) date) unknown) (unknown) (no (unknown) (unknown) Dose Instruction: (units (unknown) date) unknown) (unknown) (no (unknown) (unknown) Hypertension (units (u nknown) date) unknown) (unknown) (no (unknown) (unknown) [facility] (units (unknown) date) [address] unknown) [place] [address] (unknown) (no (unknown) (unknown) Laboratory (units (unk nown) date) Results - last 24 unknown) hr (unknown) (no (unknown) (unknown) Rx Instructions: (units (unknown) date) unknown) (unknown) (no (unknown) (unknown) See Rx (units (unkno wn) date) Instructions unknown) .ROUTE .COMPLEX Qty: 30 3RF (unknown) (no (unknown) (unknown) Stroke (units (unkno wn) date) unknown) (unknown) (no (unknown) (unknown) TAKE 1 TABLET BY (units (unknown) date) MOUTH DAILY unknown) (unknown) (no (unknown) (unknown) apply to single (units (unknown) date) elbow, wrist or unknown) hand; for hand includes palm/fingers/back of (unknown) (no (unknown) (unknown) leave on most (units ( unknown) date) painful area for unknown) up to 12 hrs (unknown) (no (unknown) (unknown) (no value) (units (unk nown) date) unknown) (unknown) (no (unknown) (unknown) 11/20/21 11/20/21 (units (unknown) date) unknown) (unknown) (no (unknown) (unknown) 11/20/21 11/20/21 (units (unknown) date) 11/20/21 unknown) (unknown) (no (unknown) (unknown) 12:50 12:50 12:50 (units (unknown) date) unknown) (unknown) (no (unknown) (unknown) 13:00 13:00 14:20 (units (unknown) date) unknown) (unknown) (no (unknown) (unknown) 16:53 20:07 (units (un known) date) unknown) (unknown) (no (unknown) (unknown) Eliquis 5 mg (units (u nknown) date) tablet unknown) (unknown) (no (unknown) (unknown) NO RECENT (units (unkn own) date) TRAVELS. NO unknown) COUGH. NO BLOOD IN THE SPUTUM. NO BLOOD PER RECTUM. (unknown) (no (unknown) (unknown) Refresh Plus 0.5 (units (unknown) date) % dropperette unknown) (unknown) (no (unknown) (unknown) THE WORKUP IN THE (units (unknown) date) ER WAS FAIRLY unknown) UNREMARKABLE. (unknown) (no (unknown) (unknown) aspirin [Aspirin (units (unknown) date) Low Dose] 81 mg unknown) tablet,delayed release (DR/EC) (unknown) (no (unknown) (unknown) atorvastatin 80 (units (unknown) date) mg tablet unknown) (unknown) (no (unknown) (unknown) budesonide-formot (units (unknown) date) henry [Symbicort] unknown) 80-4.5 mcg/actuation HFA aerosol inhaler (unknown) (no (unknown) (unknown) citalopram 10 mg (units (unknown) date) tablet unknown) (unknown) (no (unknown) (unknown) diclofenac sodium (units (unknown) date) 1 % gel unknown) (unknown) (no (unknown) (unknown) levothyroxine 88 (units (unknown) date) MCG tablet unknown) (unknown) (no (unknown) (unknown) lidocaine 5 % (units ( unknown) date) adhesive unknown) patch,medicated (unknown) (no (unknown) (unknown) nitroglycerin (units ( unknown) date) [Nitrostat] 0.4 mg unknown) Tablet, Sublingual (unknown) (no (unknown) (unknown) pantoprazole 40 (units (unknown) date) mg tablet,delayed unknown) release (DR/EC) (unknown) (no (unknown) (unknown) sotalol 80 mg (units ( unknown) date) tablet unknown) (unknown) (no (unknown) (unknown) tramadol 50 mg (units (unknown) date) tablet unknown) (unknown) (no (unknown) (unknown) valsartan 80 mg (units (unknown) date) Tablet unknown) (unknown) (no (unknown) (unknown) 11/21/21 (units (unkno wn) date) unknown) (unknown) (no (unknown) (unknown) [id number] (units (unk nown) date) unknown) (unknown) (no (unknown) (unknown) PATIENT REPORTED (units (unknown) date) THAT FOR THE LAST unknown) COUPLE OF WEEKS HE HAS BEEN HAVING (unknown) (no (unknown) (unknown) SHE DENIES ANY (units (unknown) date) INCREASING unknown) SWELLING TO THE LOWER EXTREMITIES. NO RECENT (unknown) (no (unknown) (unknown) SHE STATED THAT (units (unknown) date) IS REALLY THE unknown) SHORTNESS OF [facility] WITH EXERTION GETS (unknown) (no (unknown) (unknown) (past 8 hours): (units (unknown) date) unknown) (unknown) (no (unknown) (unknown) 11/20/21 16:31 (units (unknown) date) unknown) (unknown) (no (unknown) (unknown) 05:00 11/21/21 (units (unknown) date) unknown) (unknown) (no (unknown) (unknown) 06:00 11/21/21 (units (unknown) date) unknown) (unknown) (no (unknown) (unknown) 08:43 (units (unkno wn) date) unknown) (unknown) (no (unknown) (unknown) ? SARCOIDOSIS PER (units (unknown) date) HISTORY unknown) (unknown) (no (unknown) (unknown) ?ATRIAL (units (unkno wn) date) FIBRILLATION PER unknown) HISTORY. HEART RATE FAIRLY STABLE (unknown) (no (unknown) (unknown) ?COPD PER (units (unkn own) date) HISTORY.? NO SIGNS unknown) OF ACUTE EXACERBATION (unknown) (no (unknown) (unknown) ?COVID 19? (units (unk nown) date) POSITIVE.? NO unknown) UPPER RESPIRATORY SYMPTOMS; NO ACUTE INDICATED (unknown) (no (unknown) (unknown) ?ELIQUIS (units (unkno wn) date) COAGULOPATHY.? unknown) MONITOR CLOSELY (unknown) (no (unknown) (unknown) ?GERD PER (units (unkn own) date) HISTORY. unknown) DISCHARGE ON PROTONIX PER HOME DOSE (unknown) (no (unknown) (unknown) ?HYPERTENSION PER (units (unknown) date) HISTORY. CONTINUE unknown) HOME MED (unknown) (no (unknown) (unknown) ?HYPOTHYROIDISM (units (unknown) date) PER HISTORY. unknown) CONTINUE HOME DOSE (unknown) (no (unknown) (unknown) ?OBESITY.? BMI OF (units (unknown) date) 34.? LIFESTYLE unknown) CHANGES RECOMMENDED (unknown) (no (unknown) (unknown) ?POSSIBLE (units (unkn own) date) PACEMAKER unknown) MALFUNCTIONING.? TO BE EVALUATED OUTPATIENT BY (unknown) (no (unknown) (unknown) ABDOMEN: SOFT. (units (unknown) date) NONTENDER. unknown) NONDISTENDED. BOWEL SOUNDS ARE PRESENT IN ALL 4 (unknown) (no (unknown) (unknown) ACUTE PROCESS. (units (unknown) date) unknown) (unknown) (no (unknown) (unknown) ADDITIONAL (units (unk nown) date) MANAGEMENT WILL BE unknown) PER OUTPATIENT PROVIDERS (unknown) (no (unknown) (unknown) ALT (units (unkno wn) date) unknown) (unknown) (no (unknown) (unknown) ALT (units (unkno wn) date) unknown) (unknown) (no (unknown) (unknown) ALT 12 (units (unkn own) date) unknown) (unknown) (no (unknown) (unknown) AND WAS TOLD TO (units (unknown) date) COME TO THE ER FOR unknown) FURTHER WORKUP. (unknown) (no (unknown) (unknown) APTT (units (unkno wn) date) unknown) (unknown) (no (unknown) (unknown) APTT (units (unkno wn) date) unknown) (unknown) (no (unknown) (unknown) APTT 33 (units (unk nown) date) unknown) (unknown) (no (unknown) (unknown) AST (units (unkno wn) date) unknown) (unknown) (no (unknown) (unknown) AST (units (unkno wn) date) unknown) (unknown) (no (unknown) (unknown) AST 24 (units (unkn own) date) unknown) (unknown) (no (unknown) (unknown) Activity: (units (u nknown) date) TOLERATED unknown) (unknown) (no (unknown) (unknown) Age/Sex: 71 / F (units (unknown) date) unknown) (unknown) (no (unknown) (unknown) Albumin (units (unkno wn) date) unknown) (unknown) (no (unknown) (unknown) Albumin (units (unkno wn) date) unknown) (unknown) (no (unknown) (unknown) Albumin 4.2 (units (unknown) date) unknown) (unknown) (no (unknown) (unknown) Albumin/Globulin (units (unknown) date) Ratio unknown) (unknown) (no (unknown) (unknown) Albumin/Globulin (units (unknown) date) Ratio unknown) (unknown) (no (unknown) (unknown) Albumin/Globulin (units (unknown) date) Ratio 1.3 unknown) (unknown) (no (unknown) (unknown) Alkaline (units (unkno wn) date) Phosphatase unknown) (unknown) (no (unknown) (unknown) Alkaline (units (unkno wn) date) Phosphatase unknown) (unknown) (no (unknown) (unknown) Alkaline (units (unkno wn) date) Phosphatase 119 unknown) (unknown) (no (unknown) (unknown) Amorphous (units (unkn own) date) Sediment unknown) (unknown) (no (unknown) (unknown) Amorphous (units (unkn own) date) Sediment unknown) (unknown) (no (unknown) (unknown) Amorphous (units (unkn own) date) Sediment unknown) Cancelled (unknown) (no (unknown) (unknown) Anesthesia (units (unk nown) date) unknown) (unknown) (no (unknown) (unknown) Anxiety and (units (un known) date) depression (-1996) unknown) (unknown) (no (unknown) (unknown) BETTER AT REST (units (unknown) date) unknown) (unknown) (no (unknown) (unknown) BUN (units (unkno wn) date) unknown) (unknown) (no (unknown) (unknown) BUN (units (unkno wn) date) unknown) (unknown) (no (unknown) (unknown) BUN 21 H (units (un known) date) unknown) (unknown) (no (unknown) (unknown) BUN/Creatinine (units (unknown) date) Ratio unknown) (unknown) (no (unknown) (unknown) BUN/Creatinine (units (unknown) date) Ratio unknown) (unknown) (no (unknown) (unknown) BUN/Creatinine (units (unknown) date) Ratio 20.8 unknown) (unknown) (no (unknown) (unknown) Baso # (Auto) (units ( unknown) date) unknown) (unknown) (no (unknown) (unknown) Baso # (Auto) (units ( unknown) date) unknown) (unknown) (no (unknown) (unknown) Baso # (Auto) 0 (units (unknown) date) unknown) (unknown) (no (unknown) (unknown) Baso % (Auto) (units ( unknown) date) unknown) (unknown) (no (unknown) (unknown) Baso % (Auto) (units ( unknown) date) unknown) (unknown) (no (unknown) (unknown) Baso % (Auto) (units ( unknown) date) 0.3 unknown) (unknown) (no (unknown) (unknown) Blood Pressure (units (unknown) date) 134/76 unknown) (unknown) (no (unknown) (unknown) Brother (units (unkno wn) date) Cancer unknown) (unknown) (no (unknown) (unknown) Brother (units (unkno wn) date) History unknown) of heart disease (unknown) (no (unknown) (unknown) 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 (units ( unknown) date) unknown) (unknown) (no (unknown) (unknown) CARDIOLOGY; (units (un known) date) NEEDED REPLACEMENT unknown) (unknown) (no (unknown) (unknown) CHEST PRESSURE. (units (unknown) date) ACS RULED OUT .? unknown) RESOLVED (unknown) (no (unknown) (unknown) CHEST: REGULAR (units (unknown) date) RATE. NO RUBS. unknown) PMI IS NON DISPLACED. NO MURMURS; NORMAL S1- (unknown) (no (unknown) (unknown) CK-MB (CK-2) (units (u nknown) date) unknown) (unknown) (no (unknown) (unknown) CK-MB (CK-2) (units (u nknown) date) unknown) (unknown) (no (unknown) (unknown) CK-MB (CK-2) (units (u nknown) date) TNP unknown) (unknown) (no (unknown) (unknown) CK-MB (CK-2) Rel (units (unknown) date) Index unknown) (unknown) (no (unknown) (unknown) CK-MB (CK-2) Rel (units (unknown) date) Index unknown) (unknown) (no (unknown) (unknown) CK-MB (CK-2) Rel (units (unknown) date) Index TNP unknown) (unknown) (no (unknown) (unknown) COPD (chronic (units ( unknown) date) obstructive unknown) pulmonary disease) (-2019) (unknown) (no (unknown) (unknown) Calcium (units (unkno wn) date) unknown) (unknown) (no (unknown) (unknown) Calcium (units (unkno wn) date) unknown) (unknown) (no (unknown) (unknown) Calcium 9.1 (units (unknown) date) unknown) (unknown) (no (unknown) (unknown) Calcium Oxalate (units (unknown) date) Crystal unknown) (unknown) (no (unknown) (unknown) Calcium Oxalate (units (unknown) date) Crystal unknown) (unknown) (no (unknown) (unknown) Calcium Oxalate (units (unknown) date) Crystal Many H unknown) Cancelled (unknown) (no (unknown) (unknown) Carbon Dioxide (units (unknown) date) unknown) (unknown) (no (unknown) (unknown) Carbon Dioxide (units (unknown) date) unknown) (unknown) (no (unknown) (unknown) Carbon Dioxide (units (unknown) date) 27 unknown) (unknown) (no (unknown) (unknown) Chief complaint: (units (unknown) date) Possible heart unknown) attack (unknown) (no (unknown) (unknown) Chloride (units (unkno wn) date) unknown) (unknown) (no (unknown) (unknown) Chloride (units (unkno wn) date) unknown) (unknown) (no (unknown) (unknown) Chloride 108 H (units (unknown) date) unknown) (unknown) (no (unknown) (unknown) Chronic back pain (units (unknown) date) (-2012) unknown) (unknown) (no (unknown) (unknown) Luzma Sanchez, (units (unknown) date) [Primary Care unknown) Provider] - (unknown) (no (unknown) (unknown) Cognitive/behavio (units (unknown) date) ral status at unknown) discharge: oriented (unknown) (no (unknown) (unknown) Continued (units (unkn own) date) unknown) (unknown) (no (unknown) (unknown) Creatinine (units (unk nown) date) unknown) (unknown) (no (unknown) (unknown) Creatinine (units (unk nown) date) unknown) (unknown) (no (unknown) (unknown) Creatinine (units (unk nown) date) 1.01 unknown) (unknown) (no (unknown) (unknown) : 1950 (units (unknown) date) Acct:[id number] unknown) (unknown) (no (unknown) (unknown) Date of (units (unkno wn) date) admission: unknown) (unknown) (no (unknown) (unknown) Diet/Activity/Amado (units (unknown) date) atments unknown) (unknown) (no (unknown) (unknown) Diet: Low-fat, (units (unknown) date) Low-sodium and unknown) Low-cholesterol (unknown) (no (unknown) (unknown) Discharge Data (units (unknown) date) unknown) (unknown) (no (unknown) (unknown) Discharge Date: (units (unknown) date) 11/21/21 unknown) (unknown) (no (unknown) (unknown) Discharge (units (unkn own) date) Diagnosis: unknown) (unknown) (no (unknown) (unknown) Discharge Plan (units (unknown) date) unknown) (unknown) (no (unknown) (unknown) Discharge (units (unkn own) date) Providers unknown) (unknown) (no (unknown) (unknown) Discharge orders (units (unknown) date) + Medications unknown) (unknown) (no (unknown) (unknown) Discharge (units (unkn own) date) provider: unknown) (unknown) (no (unknown) (unknown) EXTREMITIES: NO (units (unknown) date) EDEMA.. NO unknown) CYANOSIS CLUBBING NOTED. (unknown) (no (unknown) (unknown) EYE: EOMI, (units (un known) date) PERRLA, NORMAL unknown) CONJUNCTIVA; NO JAUNDICE (unknown) (no (unknown) (unknown) Endometrial (units (un known) date) hyperplasia unknown) (unknown) (no (unknown) (unknown) Eos # (Auto) (units (u nknown) date) unknown) (unknown) (no (unknown) (unknown) Eos # (Auto) (units (u nknown) date) unknown) (unknown) (no (unknown) (unknown) Eos # (Auto) 200 (units (unknown) date) unknown) (unknown) (no (unknown) (unknown) Eos % (Auto) (units (u nknown) date) unknown) (unknown) (no (unknown) (unknown) Eos % (Auto) (units (u nknown) date) unknown) (unknown) (no (unknown) (unknown) Eos % (Auto) 2.5 (units (unknown) date) unknown) (unknown) (no (unknown) (unknown) Estimated GFR (units ( unknown) date) unknown) (unknown) (no (unknown) (unknown) Estimated GFR (units ( unknown) date) unknown) (unknown) (no (unknown) (unknown) Estimated GFR (units ( unknown) date) 59 L unknown) (unknown) (no (unknown) (unknown) Exam (units (unkno wn) date) unknown) (unknown) (no (unknown) (unknown) Exam Narrative: (units (unknown) date) unknown) (unknown) (no (unknown) (unknown) Family History (units (unknown) date) (Reviewed 11/20/21 unknown) @ 14:39 by Alem Marlow DO) (unknown) (no (unknown) (unknown) Father (units (unknown) date) Cancer unknown) (unknown) (no (unknown) (unknown) Follow (units (unkno wn) date) up/Referrals: unknown) (unknown) (no (unknown) (unknown) Functional status (units (unknown) date) at discharge: unknown) independent ambulation (unknown) (no (unknown) (unknown) GERD (units (unkno wn) date) (gastroesophageal unknown) reflux disease) (-2009) (unknown) (no (unknown) (unknown) GERD, ANXIETY AND (units (unknown) date) DEPRESSION, 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 (unknown) (no (unknown) (unknown) Globulin (units (unkno wn) date) unknown) (unknown) (no (unknown) (unknown) Globulin (units (unkno wn) date) unknown) (unknown) (no (unknown) (unknown) Globulin 3.2 (units (unknown) date) unknown) (unknown) (no (unknown) (unknown) Glucose (units (unkno wn) date) unknown) (unknown) (no (unknown) (unknown) Glucose (units (unkno wn) date) unknown) (unknown) (no (unknown) (unknown) Glucose 94 (units ( unknown) date) unknown) (unknown) (no (unknown) (unknown) Granular Casts (units (unknown) date) unknown) (unknown) (no (unknown) (unknown) Granular Casts (units (unknown) date) unknown) (unknown) (no (unknown) (unknown) Granular Casts (units (unknown) date) Cancelled unknown) (unknown) (no (unknown) (unknown) HEAD ATRAUMATIC (units (unknown) date) 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 unknown) (unknown) (no (unknown) (unknown) HER POSITIVE (units (u nknown) date) COVID-19 TEST. unknown) (unknown) (no (unknown) (unknown) HER WORKUP WAS (units (unknown) date) FAIRLY unknown) UNREMARKABLE. HOWEVER DUE TO MULTIPLE COMORBIDITIES ACS (unknown) (no (unknown) (unknown) HOWEVER SHE (units (un known) date) STATED THAT SHE unknown) CALL HER ADJUNCT PHYSICS INSTRUCTOR OFFICE TO REPORT THIS SYMPTOM (unknown) (no (unknown) (unknown) Hct (units (unkno wn) date) unknown) (unknown) (no (unknown) (unknown) Hct (units (unkno wn) date) unknown) (unknown) (no (unknown) (unknown) Hct 37.4 (units (unkn own) date) unknown) (unknown) (no (unknown) (unknown) Headache () (units (unknown) date) unknown) (unknown) (no (unknown) (unknown) Hgb (units (unkno wn) date) unknown) (unknown) (no (unknown) (unknown) Hgb (units (unkno wn) date) unknown) (unknown) (no (unknown) (unknown) Hgb 12.1 (units (unkn own) date) unknown) (unknown) (no (unknown) (unknown) History of (units (unk nown) date) Present Illness unknown) (unknown) (no (unknown) (unknown) History of (units (unk nown) date) abdominoplasty unknown) () (unknown) (no (unknown) (unknown) History of breast (units (unknown) date) lift () unknown) (unknown) (no (unknown) (unknown) History of carpal (units (unknown) date) tunnel repair unknown) (unknown) (no (unknown) (unknown) History of (units (unk nown) date) cataract removal unknown) with insertion of prosthetic lens () (unknown) (no (unknown) (unknown) History of (units (unk nown) date) gastric bypass unknown) () (unknown) (no (unknown) (unknown) History of knee (units (unknown) date) replacement unknown) (unknown) (no (unknown) (unknown) Hospital Course (units (unknown) date) unknown) (unknown) (no (unknown) (unknown) Hospital Course: (units (unknown) date) unknown) (unknown) (no (unknown) (unknown) Hyaline Casts (units ( unknown) date) unknown) (unknown) (no (unknown) (unknown) Hyaline Casts (units ( unknown) date) unknown) (unknown) (no (unknown) (unknown) Hyaline Casts (units ( unknown) date) Cancelled unknown) (unknown) (no (unknown) (unknown) Hypertension (units (u nknown) date) (-1995) unknown) (unknown) (no (unknown) (unknown) Hypothyroidism (units (unknown) date) unknown) (unknown) (no (unknown) (unknown) IN ANY CASE, DUE (units (unknown) date) TO CURRENT unknown) HOSPITAL PROTOCOL, WE ARE UNABLE TO PERFORM THE (unknown) (no (unknown) (unknown) IN ANY CASE, (units (u nknown) date) STRESS TEST WAS unknown) PLANNED FOR THIS MORNING HOWEVER PATIENT TESTED (unknown) (no (unknown) (unknown) INCREASED (units (unkn own) date) DULLNESS TO unknown) PERCUSSION (unknown) (no (unknown) (unknown) INCREASING (units (unk nown) date) DYSPNEA ON unknown) EXERTION. NOT ASSOCIATED WITH DIAPHORESIS. DENIES (unknown) (no (unknown) (unknown) INR (units (unkno wn) date) unknown) (unknown) (no (unknown) (unknown) INR (units (unkno wn) date) unknown) (unknown) (no (unknown) (unknown) INR 1.1 (units (unkn own) date) unknown) (unknown) (no (unknown) (unknown) Luzma Sanchez, (units (unknown) date) MD unknown) (unknown) (no (unknown) (unknown) Dhruv (units (un known) date) Vonnie, unknown) DO (unknown) (no (unknown) (unknown) Labs (units (unkno wn) date) unknown) (unknown) (no (unknown) (unknown) Labs: (units (unkno wn) date) unknown) (unknown) (no (unknown) (unknown) Lactate (units (unkno wn) date) unknown) (unknown) (no (unknown) (unknown) Lactate (units (unkno wn) date) unknown) (unknown) (no (unknown) (unknown) Lactate 1.0 (units (u nknown) date) unknown) (unknown) (no (unknown) (unknown) Lymph # (Auto) (units (unknown) date) unknown) (unknown) (no (unknown) (unknown) Lymph # (Auto) (units (unknown) date) unknown) (unknown) (no (unknown) (unknown) Lymph # (Auto) (units (unknown) date) 1600 unknown) (unknown) (no (unknown) (unknown) Lymph % (Auto) (units (unknown) date) unknown) (unknown) (no (unknown) (unknown) Lymph % (Auto) (units (unknown) date) unknown) (unknown) (no (unknown) (unknown) Lymph % (Auto) (units (unknown) date) 23.3 L unknown) (unknown) (no (unknown) (unknown) [facility] (units (unkno wn) date) unknown) (unknown) (no (unknown) (unknown) [facility] (units (unkno wn) date) unknown) (unknown) (no (unknown) (unknown) [facility] 26.3 (units (unkn own) date) unknown) (unknown) (no (unknown) (unknown) [facility] (units (unkno wn) date) unknown) (unknown) (no (unknown) (unknown) [facility]C (units (unkno wn) date) unknown) (unknown) (no (unknown) (unknown) [facility]C 32.4 (units (unk nown) date) unknown) (unknown) (no (unknown) (unknown) MCV (units (unkno wn) date) unknown) (unknown) (no (unknown) (unknown) MCV (units (unkno wn) date) unknown) (unknown) (no (unknown) (unknown) MCV 81.1 (units (unkn own) date) unknown) (unknown) (no (unknown) (unknown) MONTH IN ANY CASE (units (unknown) date) FOR THE STRESS unknown) TEST TO BE DONE. (unknown) (no (unknown) (unknown) MSK: NORMAL (units (u nknown) date) RANGE OF MOTION unknown) FOR AGE. NO JOINT EFFUSION. (unknown) (no (unknown) (unknown) Medical History (units (unknown) date) (Reviewed 11/20/21 unknown) @ 14:39 by Alem Marlow DO) (unknown) (no (unknown) (unknown) Micro UA Comment (units (unknown) date) unknown) (unknown) (no (unknown) (unknown) Micro UA Comment (units (unknown) date) unknown) (unknown) (no (unknown) (unknown) Micro UA Comment (units (unknown) date) Cancelled unknown) (unknown) (no (unknown) (unknown) [place]ing # (Auto) (units ( unknown) date) unknown) (unknown) (no (unknown) (unknown) Gooding # (Auto) (units ( unknown) date) unknown) (unknown) (no (unknown) (unknown) Gooding # (Auto) (units ( unknown) date) 600 unknown) (unknown) (no (unknown) (unknown) Gooding % (Auto) (units ( unknown) date) unknown) (unknown) (no (unknown) (unknown) Gooding % (Auto) (units ( unknown) date) unknown) (unknown) (no (unknown) (unknown) Gooding % (Auto) (units ( unknown) date) 8.4 unknown) (unknown) (no (unknown) (unknown) NAUSEA OR (units (unkn own) date) VOMITING. NO unknown) CHEST PAIN. NO CHEST PALPITATIONS (unknown) (no (unknown) (unknown) NECK : SUPPLE (units ( unknown) date) WITHOUT ADENOPATHY unknown) NO CAROTID BRUITS (unknown) (no (unknown) (unknown) NEEDED TO BE (units (u nknown) date) RULED OUT. HER unknown) TROPONIN REMAINED NEGATIVE. (unknown) (no (unknown) (unknown) NEURO: CRANIAL (units (unknown) date) NERVES 2-12 unknown) GROSSLY INTACT. NO FOCAL NEUROLOGICAL DEFICIT NOTED. (unknown) (no (unknown) (unknown) NO ACUTE (units (unkno wn) date) DISTRESS. PATIENT unknown) IS ALERT ORIENTED X3. (unknown) (no (unknown) (unknown) NO HEAT OR COLD (units (unknown) date) INTOLERANCE. unknown) (unknown) (no (unknown) (unknown) NO SIGNIFICANT (units (unknown) date) CHANGES ON unknown) TELEMETRY AND EKG. CHEST IMAGING DID NOT SHOW ANY (unknown) (no (unknown) (unknown) NT-Pro-B (units (unkno wn) date) Natriuret Pep unknown) (unknown) (no (unknown) (unknown) NT-Pro-B (units (unkno wn) date) Natriuret Pep unknown) (unknown) (no (unknown) (unknown) NT-Pro-B (units (unkno wn) date) Natriuret Pep unknown) 291 H (unknown) (no (unknown) (unknown) Narrative (units (unkn own) date) unknown) (unknown) (no (unknown) (unknown) Narrative: (units (unk nown) date) unknown) (unknown) (no (unknown) (unknown) Neut # (Auto) (units ( unknown) date) unknown) (unknown) (no (unknown) (unknown) Neut # (Auto) (units ( unknown) date) unknown) (unknown) (no (unknown) (unknown) Neut # (Auto) (units ( unknown) date) 4400 unknown) (unknown) (no (unknown) (unknown) Neut % (Auto) (units ( unknown) date) unknown) (unknown) (no (unknown) (unknown) Neut % (Auto) (units ( unknown) date) unknown) (unknown) (no (unknown) (unknown) Neut % (Auto) (units ( unknown) date) 65.5 unknown) (unknown) (no (unknown) (unknown) New (units (unkno wn) date) unknown) (unknown) (no (unknown) (unknown) Objective (units (unkn own) date) unknown) (unknown) (no (unknown) (unknown) Other Casts (units (un known) date) unknown) (unknown) (no (unknown) (unknown) Other Casts (units (un known) date) unknown) (unknown) (no (unknown) (unknown) Other Casts (units (un known) date) Cancelled unknown) (unknown) (no (unknown) (unknown) Other Crystals (units (unknown) date) unknown) (unknown) (no (unknown) (unknown) Other Crystals (units (unknown) date) unknown) (unknown) (no (unknown) (unknown) Other Crystals (units (unknown) date) Cancelled unknown) (unknown) (no (unknown) (unknown) Overall status at (units (unknown) date) discharge: patient unknown) is back to baseline (unknown) (no (unknown) (unknown) Oxygen Delivery (units (unknown) date) Method Room Air unknown) (unknown) (no (unknown) (unknown) Oxygen Flow Rate (units (unknown) date) 0 unknown) (unknown) (no (unknown) (unknown) PATIENT CAME TO (units (unknown) date) THE ED REPORTEDLY unknown) PER HER PROVIDER RECOMMENDATION DUE TO (unknown) (no (unknown) (unknown) PATIENT CAME TO (units (unknown) date) THE HOSPITAL unknown) REPORTING INCREASING SHORTNESS OF BREATH AND CHEST (unknown) (no (unknown) (unknown) PATIENT HAS BEING (units (unknown) date) SCHEDULED FOR unknown) STRESS TESTING OUTPATIENT BY HER (unknown) (no (unknown) (unknown) PATIENT WILL BE (units (unknown) date) DISCHARGED TO unknown) HOME. SHE HAS A SCHEDULED APPOINTMENT FOR NEXT (unknown) (no (unknown) (unknown) PER PATIENT, HER (units (unknown) date) PACEMAKER IS ABOUT unknown) 12 YEARS OLD. 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 (unknown) (no (unknown) (unknown) POSITIVE FOR (units (u nknown) date) COVID-19 DESPITE unknown) NOT HAVING ANY UPPER OR LOWER RESPIRATORY (unknown) (no (unknown) (unknown) PRESSURE DURING (units (unknown) date) AMBULATION. unknown) (unknown) (no (unknown) (unknown) PSYCH : (units (unkno wn) date) APPROPRIATE MOOD unknown) AND AFFECT. ALERT AWAKE ORIENTED X3 (unknown) (no (unknown) (unknown) PT (units (unkno wn) date) unknown) (unknown) (no (unknown) (unknown) PT (units (unkno wn) date) unknown) (unknown) (no (unknown) (unknown) PT 12.5 (units (unkn own) date) unknown) (unknown) (no (unknown) (unknown) PULMONARY: (units (unk nown) date) DECREASED BS OVER unknown) THE BASES. MILD BIBASILAR CRACKLES NOTED; NO (unknown) (no (unknown) (unknown) Patient (units (unkno wn) date) Disposition: Home unknown) (unknown) (no (unknown) (unknown) Patient: (units (unkno wn) date) Laurel,Sherine unknown) S MR#: (unknown) (no (unknown) (unknown) Plt Count (units (unkn own) date) unknown) (unknown) (no (unknown) (unknown) Plt Count (units (unkn own) date) unknown) (unknown) (no (unknown) (unknown) Plt Count 231 (units (unknown) date) unknown) (unknown) (no (unknown) (unknown) Postmenopausal (units (unknown) date) bleeding unknown) (unknown) (no (unknown) (unknown) Potassium (units (unkn own) date) unknown) (unknown) (no (unknown) (unknown) Potassium (units (unkn own) date) unknown) (unknown) (no (unknown) (unknown) Potassium 3.8 (units (unknown) date) unknown) (unknown) (no (unknown) (unknown) Prescriptions: (units (unknown) date) unknown) (unknown) (no (unknown) (unknown) Presence of (units (un known) date) cardiac pacemaker unknown) (-2009) (unknown) (no (unknown) (unknown) Primary Care (units (u nknown) date) Provider: unknown) Luzma Sanchez (unknown) (no (unknown) (unknown) Primary care (units (u nknown) date) physician: unknown) (unknown) (no (unknown) (unknown) Provider (units (unkno wn) date) unknown) (unknown) (no (unknown) (unknown) Provider: (units (unkn own) date) Joy Shankar unknown) brittaney (unknown) (no (unknown) (unknown) Pulse Oximetry 98 (units (unknown) date) 98 97 unknown) (unknown) (no (unknown) (unknown) Pulse Rate 69 (units ( unknown) date) unknown) (unknown) (no (unknown) (unknown) QUADRANTS. NO (units (unknown) date) MASS. unknown) (unknown) (no (unknown) (unknown) RASHES (units (unkno wn) date) unknown) (unknown) (no (unknown) (unknown) RBC (units (unkno wn) date) unknown) (unknown) (no (unknown) (unknown) RBC (units (unkno wn) date) unknown) (unknown) (no (unknown) (unknown) RBC 4.62 (units (unkn own) date) unknown) (unknown) (no (unknown) (unknown) RBC Casts (units (unkn own) date) unknown) (unknown) (no (unknown) (unknown) RBC Casts (units (unkn own) date) unknown) (unknown) (no (unknown) (unknown) RBC Casts (units (unkn own) date) Cancelled unknown) (unknown) (no (unknown) (unknown) RDW (units (unkno wn) date) unknown) (unknown) (no (unknown) (unknown) RDW (units (unkno wn) date) unknown) (unknown) (no (unknown) (unknown) RDW 16.1 H (units (un known) date) unknown) (unknown) (no (unknown) (unknown) REPORTED (units (unkno wn) date) INCREASING CHEST unknown) PRESSURE ASSOCIATED WITH DYSPNEA ON EXERTION. (unknown) (no (unknown) (unknown) REPORTED SELF (units ( unknown) date) TESTING AT LEAST 7 unknown) TIMES OVER THE LAST FEW WEEKS WITH A NEGATIVE (unknown) (no (unknown) (unknown) RESULTS. (units (unkno wn) date) unknown) (unknown) (no (unknown) (unknown) Respiratory Rate (units (unknown) date) 18 unknown) (unknown) (no (unknown) (unknown) Result Diagrams: (units (unknown) date) unknown) (unknown) (no (unknown) (unknown) S2 (units (unkno wn) date) unknown) (unknown) (no (unknown) (unknown) SARCOIDOSIS (units (un known) date) REQUIRING unknown) PACEMAKER PLACEMENT. (unknown) (no (unknown) (unknown) SARS-CoV-2 (PCR) (units (unknown) date) unknown) (unknown) (no (unknown) (unknown) SARS-CoV-2 (PCR) (units (unknown) date) Positive H unknown) (unknown) (no (unknown) (unknown) SHE APPEARS TO BE (units (unknown) date) STABLE AT THIS unknown) TIME. SHE WILL BE DISCHARGED TO HOME. (unknown) (no (unknown) (unknown) SHE HAS BEEN ON (units (unknown) date) ROOM AIR. NO unknown) FEVER NOTED DURING ADMISSION. FURTHERMORE PATIENT (unknown) (no (unknown) (unknown) SHE WAS (units (unkno wn) date) INSTRUCTED TO KEEP unknown) THAT APPOINTMENT AND TO LET HER PROVIDER KNOW ABOUT (unknown) (no (unknown) (unknown) SKIN: NORMAL FOR (units (unknown) date) ETHNICITY; NO unknown) ECCHYMOSIS. NO LESION. GOOD TURGOR.; NO (unknown) (no (unknown) (unknown) SOMETIMES IN THE (units (unknown) date) UPCOMING WEEKS. unknown) (unknown) (no (unknown) (unknown) STRESS TEST. (units (u nknown) date) unknown) (unknown) (no (unknown) (unknown) SUPPOSED TO HAVE (units (unknown) date) A STRESS TEST AND unknown) A POSSIBLE PLACEMENT OF THE PACEMAKER DONE (unknown) (no (unknown) (unknown) SYMPTOMS. (units (unkn own) date) unknown) (unknown) (no (unknown) (unknown) Sarcoidosis (units (un known) date) () unknown) (unknown) (no (unknown) (unknown) Signed By: (units (unk nown) date) unknown) (unknown) (no (unknown) (unknown) Sister (units (unknown) date) Cancer unknown) (unknown) (no (unknown) (unknown) Smoking Status: (units (unknown) date) Never smoker unknown) (unknown) (no (unknown) (unknown) Social History (units (unknown) date) (Reviewed 11/20/21 unknown) @ 14:39 by Alem Marlow DO) (unknown) (no (unknown) (unknown) Sodium (units (unkno wn) date) unknown) (unknown) (no (unknown) (unknown) Sodium (units (unkno wn) date) unknown) (unknown) (no (unknown) (unknown) Sodium 141 (units ( unknown) date) unknown) (unknown) (no (unknown) (unknown) Status at (units (unkn own) date) Discharge unknown) (unknown) (no (unknown) (unknown) Status post (units (un known) date) breast lumpectomy unknown) (unknown) (no (unknown) (unknown) Status post (units (un known) date) cholecystectomy unknown) () (unknown) (no (unknown) (unknown) Status post (units (un known) date) dilation and unknown) curettage (unknown) (no (unknown) (unknown) Status post (units (un known) date) surgery (05/11/15) unknown) (unknown) (no (unknown) (unknown) Summary (units (unkno wn) date) unknown) (unknown) (no (unknown) (unknown) Surgical History (units (unknown) date) (Reviewed 11/20/21 unknown) @ 14:39 by Alem Marlow DO) (unknown) (no (unknown) (unknown) THIS IS A (units (unkn own) date) 71-YEAR-OLD FEMALE unknown) FOR PAST MEDICAL HISTORY SIGNIFICANT FOR COPD, (unknown) (no (unknown) (unknown) THIS IS A VERY (units (unknown) date) PLEASANT unknown) 72-YEAR-OLD FEMALE FOR HISTORY OF PRIOR PACEMAKER (unknown) (no (unknown) (unknown) Temperature 97.9 (units (unknown) date) F unknown) (unknown) (no (unknown) (unknown) Time Spent with (units (unknown) date) Patient unknown) (unknown) (no (unknown) (unknown) Time spent: (units (un known) date) Greater than 30 unknown) minutes (unknown) (no (unknown) (unknown) Total Bilirubin (units (unknown) date) unknown) (unknown) (no (unknown) (unknown) Total Bilirubin (units (unknown) date) unknown) (unknown) (no (unknown) (unknown) Total Bilirubin (units (unknown) date) 1.1 unknown) (unknown) (no (unknown) (unknown) Total Creatine (units (unknown) date) Kinase unknown) (unknown) (no (unknown) (unknown) Total Creatine (units (unknown) date) Kinase unknown) (unknown) (no (unknown) (unknown) Total Creatine (units (unknown) date) Kinase 96 unknown) (unknown) (no (unknown) (unknown) Total Protein (units ( unknown) date) unknown) (unknown) (no (unknown) (unknown) Total Protein (units ( unknown) date) unknown) (unknown) (no (unknown) (unknown) Total Protein (units ( unknown) date) 7.4 unknown) (unknown) (no (unknown) (unknown) Triple Phos (units (un known) date) Crystals unknown) (unknown) (no (unknown) (unknown) Triple Phos (units (un known) date) Crystals unknown) (unknown) (no (unknown) (unknown) Triple Phos (units (un known) date) Crystals unknown) Cancelled (unknown) (no (unknown) (unknown) Troponin I (units (unk nown) date) unknown) (unknown) (no (unknown) (unknown) Troponin I < (units (unknown) date) 0.012 unknown) (unknown) (no (unknown) (unknown) Troponin I < (units (unknown) date) 0.012 unknown) (unknown) (no (unknown) (unknown) Troponin I < (units (unknown) date) 0.012 unknown) (unknown) (no (unknown) (unknown) Ur Bilirubin (units (u nknown) date) Confirm unknown) (unknown) (no (unknown) (unknown) Ur Bilirubin (units (u nknown) date) Confirm unknown) (unknown) (no (unknown) (unknown) Ur Bilirubin (units (u nknown) date) Confirm Negative unknown) (unknown) (no (unknown) (unknown) Ur Culture (units (unk nown) date) Indicated? unknown) (unknown) (no (unknown) (unknown) Ur Culture (units (unk nown) date) Indicated? unknown) (unknown) (no (unknown) (unknown) Ur Culture (units (unk nown) date) Indicated? unknown) Specimen cultured Cancelled (unknown) (no (unknown) (unknown) Ur Leukocyte (units (u nknown) date) Esterase unknown) (unknown) (no (unknown) (unknown) Ur Leukocyte (units (u nknown) date) Esterase unknown) (unknown) (no (unknown) (unknown) Ur Leukocyte (units (u nknown) date) Esterase unknown) Cancelled (unknown) (no (unknown) (unknown) Ur Renal (units (unkno wn) date) Epithelial Cell unknown) (unknown) (no (unknown) (unknown) Ur Renal (units (unkno wn) date) Epithelial Cell unknown) (unknown) (no (unknown) (unknown) Ur Renal (units (unkno wn) date) Epithelial Cell unknown) Cancelled (unknown) (no (unknown) (unknown) Ur Specific (units (un known) date) [place] unknown) (unknown) (no (unknown) (unknown) Ur Specific (units (un known) date) [place] unknown) (unknown) (no (unknown) (unknown) Ur Specific (units (un known) date) [place] unknown) Cancelled (unknown) (no (unknown) (unknown) Ur Squamous Epith (units (unknown) date) Cells unknown) (unknown) (no (unknown) (unknown) Ur Squamous Epith (units (unknown) date) Cells unknown) (unknown) (no (unknown) (unknown) Ur Squamous Epith (units (unknown) date) Cells 1-5 /hpf unknown) Cancelled (unknown) (no (unknown) (unknown) Ur Transition (units ( unknown) date) Epith Cell unknown) (unknown) (no (unknown) (unknown) Ur Transition (units ( unknown) date) Epith Cell unknown) (unknown) (no (unknown) (unknown) Ur Transition (units ( unknown) date) Epith Cell unknown) Cancelled (unknown) (no (unknown) (unknown) Uric Acid (units (unkn own) date) Crystals unknown) (unknown) (no (unknown) (unknown) Uric Acid (units (unkn own) date) Crystals unknown) (unknown) (no (unknown) (unknown) Uric Acid (units (unkn own) date) Crystals unknown) Cancelled (unknown) (no (unknown) (unknown) Urine Appearance (units (unknown) date) unknown) (unknown) (no (unknown) (unknown) Urine Appearance (units (unknown) date) unknown) (unknown) (no (unknown) (unknown) Urine Appearance (units (unknown) date) Cancelled unknown) (unknown) (no (unknown) (unknown) Urine Bacteria (units (unknown) date) unknown) (unknown) (no (unknown) (unknown) Urine Bacteria (units (unknown) date) unknown) (unknown) (no (unknown) (unknown) Urine Bacteria (units (unknown) date) Few (2-10) H unknown) Cancelled (unknown) (no (unknown) (unknown) Urine Bilirubin (units (unknown) date) unknown) (unknown) (no (unknown) (unknown) Urine Bilirubin (units (unknown) date) unknown) (unknown) (no (unknown) (unknown) Urine Bilirubin (units (unknown) date) Cancelled unknown) (unknown) (no (unknown) (unknown) Urine Color (units (un known) date) unknown) (unknown) (no (unknown) (unknown) Urine Color (units (un known) date) unknown) (unknown) (no (unknown) (unknown) Urine Color (units (un known) date) Cancelled unknown) (unknown) (no (unknown) (unknown) Urine Glucose (units ( unknown) date) (UA) unknown) (unknown) (no (unknown) (unknown) Urine Glucose (units ( unknown) date) (UA) unknown) (unknown) (no (unknown) (unknown) Urine Glucose (units ( unknown) date) (UA) Cancelled unknown) (unknown) (no (unknown) (unknown) Urine Ketones (units ( unknown) date) unknown) (unknown) (no (unknown) (unknown) Urine Ketones (units ( unknown) date) unknown) (unknown) (no (unknown) (unknown) Urine Ketones (units ( unknown) date) Cancelled unknown) (unknown) (no (unknown) (unknown) Urine Mucus (units (un known) date) unknown) (unknown) (no (unknown) (unknown) Urine Mucus (units (un known) date) unknown) (unknown) (no (unknown) (unknown) Urine Mucus (units (un known) date) Cancelled unknown) (unknown) (no (unknown) (unknown) Urine Nitrate (units ( unknown) date) unknown) (unknown) (no (unknown) (unknown) Urine Nitrate (units ( unknown) date) unknown) (unknown) (no (unknown) (unknown) Urine Nitrate (units ( unknown) date) Cancelled unknown) (unknown) (no (unknown) (unknown) Urine Occult (units (u nknown) date) Blood unknown) (unknown) (no (unknown) (unknown) Urine Occult (units (u nknown) date) Blood unknown) (unknown) (no (unknown) (unknown) Urine Occult (units (u nknown) date) Blood Cancelled unknown) (unknown) (no (unknown) (unknown) Urine Protein (units ( unknown) date) unknown) (unknown) (no (unknown) (unknown) Urine Protein (units ( unknown) date) unknown) (unknown) (no (unknown) (unknown) Urine Protein (units ( unknown) date) Cancelled unknown) (unknown) (no (unknown) (unknown) Urine RBC (units (unkn own) date) unknown) (unknown) (no (unknown) (unknown) Urine RBC (units (unkn own) date) unknown) (unknown) (no (unknown) (unknown) Urine RBC (units (unkn own) date) 10-30/hpf H unknown) Cancelled (unknown) (no (unknown) (unknown) Urine Sperm (units (un known) date) unknown) (unknown) (no (unknown) (unknown) Urine Sperm (units (un known) date) unknown) (unknown) (no (unknown) (unknown) Urine Sperm (units (un known) date) Cancelled unknown) (unknown) (no (unknown) (unknown) Urine Trichomonas (units (unknown) date) unknown) (unknown) (no (unknown) (unknown) Urine Trichomonas (units (unknown) date) unknown) (unknown) (no (unknown) (unknown) Urine Trichomonas (units (unknown) date) Cancelled unknown) (unknown) (no (unknown) (unknown) Urine (units (unkno wn) date) Urobilinogen unknown) (unknown) (no (unknown) (unknown) Urine (units (unkno wn) date) Urobilinogen unknown) (unknown) (no (unknown) (unknown) Urine (units (unkno wn) date) Urobilinogen unknown) Cancelled (unknown) (no (unknown) (unknown) Urine WBC (units (unkn own) date) unknown) (unknown) (no (unknown) (unknown) Urine WBC (units (unkn own) date) unknown) (unknown) (no (unknown) (unknown) Urine WBC (units (unkn own) date) 1-5/hpf Cancelled unknown) (unknown) (no (unknown) (unknown) Urine Yeast (units (un known) date) unknown) (unknown) (no (unknown) (unknown) Urine Yeast (units (un known) date) unknown) (unknown) (no (unknown) (unknown) Urine Yeast (units (un known) date) Cancelled unknown) (unknown) (no (unknown) (unknown) Urine pH (units (unkno wn) date) unknown) (unknown) (no (unknown) (unknown) Urine pH (units (unkno wn) date) unknown) (unknown) (no (unknown) (unknown) Urine pH (units (unkno wn) date) Cancelled unknown) (unknown) (no (unknown) (unknown) Uterine mass (units (u nknown) date) unknown) (unknown) (no (unknown) (unknown) VITAL SIGNS (units (un known) date) STABLE unknown) (unknown) (no (unknown) (unknown) Vital Signs (units (un known) date) unknown) (unknown) (no (unknown) (unknown) WBC (units (unkno wn) date) unknown) (unknown) (no (unknown) (unknown) WBC (units (unkno wn) date) unknown) (unknown) (no (unknown) (unknown) WBC 6.7 (units (unkno wn) date) unknown) (unknown) (no (unknown) (unknown) WBC Casts (units (unkn own) date) unknown) (unknown) (no (unknown) (unknown) WBC Casts (units (unkn own) date) unknown) (unknown) (no (unknown) (unknown) WBC Casts (units (unkn own) date) Cancelled unknown) (unknown) (no (unknown) (unknown) WEIGHT LOSS OR (units (unknown) date) WEIGHT GAIN. 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 (unknown) (no (unknown) (unknown) Wears glasses (units ( unknown) date) unknown) (unknown) (no (unknown) (unknown) [Embedded Image (units (unknown) date) Not Available] unknown) (unknown) (no (unknown) (unknown) alcohol intake: (units (unknown) date) never unknown) (unknown) (no (unknown) (unknown) hand (units (unkno wn) date) unknown) (unknown) (no (unknown) (unknown) household (units (unkn own) date) members: unknown) friend(s) Result panel 26 (unknown) (no (unknown) (unknown) Qty: 0 0RF (units (unk nown) date) unknown) (unknown) (no (unknown) (unknown) (no value) (units (unk nown) date) unknown) (unknown) (no (unknown) (unknown) EYE-BOTH 0RF (units ( unknown) date) unknown) (unknown) (no (unknown) (unknown) Date of Service: (units (unknown) date) 11/20/21 unknown) (unknown) (no (unknown) (unknown) (no value) (units (unk nown) date) unknown) (unknown) (no (unknown) (unknown) - (units (unkno wn) date) unknown) (unknown) (no (unknown) (unknown) 0.4 mg sublingual (units (unknown) date) [id number] PRN unknown) (Reason: Chest Pain) Qty: 12 0RF (unknown) (no (unknown) (unknown) 11/20/21 12:50 (units (unknown) date) unknown) (unknown) (no (unknown) (unknown) 1 patch TOP DAILY (units (unknown) date) PRN (Reason: pain) unknown) Qty: 15 0RF (unknown) (no (unknown) (unknown) 2 g topical QID (units (unknown) date) 0RF unknown) (unknown) (no (unknown) (unknown) 2 puff inhalation (units (unknown) date) BID 0RF unknown) (unknown) (no (unknown) (unknown) 40 mg PO BID 0RF (units (unknown) date) unknown) (unknown) (no (unknown) (unknown) 5 mg PO BID 0RF (units (unknown) date) unknown) (unknown) (no (unknown) (unknown) 50 mg PO Q6H PRN (units (unknown) date) (Reason: pain) unknown) Qty: 20 0RF (unknown) (no (unknown) (unknown) 80 mg PO BID 0RF (units (unknown) date) unknown) (unknown) (no (unknown) (unknown) 80 mg PO DAILY (units (unknown) date) 0RF unknown) (unknown) (no (unknown) (unknown) 80 mg PO DAILY (units (unknown) date) Qty: 0 0RF unknown) (unknown) (no (unknown) (unknown) 81 mg PO DAILY (units (unknown) date) Qty: 30 0RF unknown) (unknown) (no (unknown) (unknown) Discharge Summary (units (unknown) date) unknown) (unknown) (no (unknown) (unknown) Dose Instruction: (units (unknown) date) unknown) (unknown) (no (unknown) (unknown) Hypertension (units (u nknown) date) unknown) (unknown) (no (unknown) (unknown) [facility] (units (unknown) date) [address] unknown) [place] [address] (unknown) (no (unknown) (unknown) Laboratory (units (unk nown) date) Results - last 24 unknown) hr (unknown) (no (unknown) (unknown) Rx Instructions: (units (unknown) date) unknown) (unknown) (no (unknown) (unknown) See Rx (units (unkno wn) date) Instructions unknown) .ROUTE .COMPLEX Qty: 30 3RF (unknown) (no (unknown) (unknown) Stroke (units (unkno wn) date) unknown) (unknown) (no (unknown) (unknown) TAKE 1 TABLET BY (units (unknown) date) MOUTH DAILY unknown) (unknown) (no (unknown) (unknown) apply to single (units (unknown) date) elbow, wrist or unknown) hand; for hand includes palm/fingers/back of (unknown) (no (unknown) (unknown) leave on most (units ( unknown) date) painful area for unknown) up to 12 hrs (unknown) (no (unknown) (unknown) (no value) (units (unk nown) date) unknown) (unknown) (no (unknown) (unknown) 11/20/21 11/20/21 (units (unknown) date) unknown) (unknown) (no (unknown) (unknown) 11/20/21 11/20/21 (units (unknown) date) 11/20/21 unknown) (unknown) (no (unknown) (unknown) 12:50 12:50 12:50 (units (unknown) date) unknown) (unknown) (no (unknown) (unknown) 13:00 13:00 14:20 (units (unknown) date) unknown) (unknown) (no (unknown) (unknown) 16:53 20:07 (units (un known) date) unknown) (unknown) (no (unknown) (unknown) Eliquis 5 mg (units (u nknown) date) tablet unknown) (unknown) (no (unknown) (unknown) NO RECENT (units (unkn own) date) TRAVELS. NO unknown) COUGH. NO BLOOD IN THE SPUTUM. NO BLOOD PER RECTUM. (unknown) (no (unknown) (unknown) Refresh Plus 0.5 (units (unknown) date) % dropperette unknown) (unknown) (no (unknown) (unknown) THE WORKUP IN THE (units (unknown) date) ER WAS FAIRLY unknown) UNREMARKABLE. (unknown) (no (unknown) (unknown) aspirin [Aspirin (units (unknown) date) Low Dose] 81 mg unknown) tablet,delayed release (DR/EC) (unknown) (no (unknown) (unknown) atorvastatin 80 (units (unknown) date) mg tablet unknown) (unknown) (no (unknown) (unknown) budesonide-formot (units (unknown) date) henry [Symbicort] unknown) 80-4.5 mcg/actuation HFA aerosol inhaler (unknown) (no (unknown) (unknown) citalopram 10 mg (units (unknown) date) tablet unknown) (unknown) (no (unknown) (unknown) diclofenac sodium (units (unknown) date) 1 % gel unknown) (unknown) (no (unknown) (unknown) levothyroxine 88 (units (unknown) date) MCG tablet unknown) (unknown) (no (unknown) (unknown) lidocaine 5 % (units ( unknown) date) adhesive unknown) patch,medicated (unknown) (no (unknown) (unknown) nitroglycerin (units ( unknown) date) [Nitrostat] 0.4 mg unknown) Tablet, Sublingual (unknown) (no (unknown) (unknown) pantoprazole 40 (units (unknown) date) mg tablet,delayed unknown) release (DR/EC) (unknown) (no (unknown) (unknown) sotalol 80 mg (units ( unknown) date) tablet unknown) (unknown) (no (unknown) (unknown) tramadol 50 mg (units (unknown) date) tablet unknown) (unknown) (no (unknown) (unknown) valsartan 80 mg (units (unknown) date) Tablet unknown) (unknown) (no (unknown) (unknown) 11/21/21 (units (unkno wn) date) unknown) (unknown) (no (unknown) (unknown) [id number] (units (unk nown) date) unknown) (unknown) (no (unknown) (unknown) PATIENT REPORTED (units (unknown) date) THAT FOR THE LAST unknown) COUPLE OF WEEKS HE HAS BEEN HAVING (unknown) (no (unknown) (unknown) SHE DENIES ANY (units (unknown) date) INCREASING unknown) SWELLING TO THE LOWER EXTREMITIES. NO RECENT (unknown) (no (unknown) (unknown) SHE STATED THAT (units (unknown) date) IS REALLY THE unknown) SHORTNESS OF BREATH HOSPITAL WITH EXERTION GETS (unknown) (no (unknown) (unknown) (past 8 hours): (units (unknown) date) unknown) (unknown) (no (unknown) (unknown) 11/20/21 16:31 (units (unknown) date) unknown) (unknown) (no (unknown) (unknown) 05:00 11/21/21 (units (unknown) date) unknown) (unknown) (no (unknown) (unknown) 06:00 11/21/21 (units (unknown) date) unknown) (unknown) (no (unknown) (unknown) 08:43 (units (unkno wn) date) unknown) (unknown) (no (unknown) (unknown) ? SARCOIDOSIS PER (units (unknown) date) HISTORY unknown) (unknown) (no (unknown) (unknown) ?ATRIAL (units (unkno wn) date) FIBRILLATION PER unknown) HISTORY. HEART RATE FAIRLY STABLE (unknown) (no (unknown) (unknown) ?COPD PER (units (unkn own) date) HISTORY.? NO SIGNS unknown) OF ACUTE EXACERBATION (unknown) (no (unknown) (unknown) ?COVID 19? (units (unk nown) date) POSITIVE.? NO unknown) UPPER RESPIRATORY SYMPTOMS; NO ACUTE INDICATED (unknown) (no (unknown) (unknown) ?ELIQUIS (units (unkno wn) date) COAGULOPATHY.? unknown) MONITOR CLOSELY (unknown) (no (unknown) (unknown) ?GERD PER (units (unkn own) date) HISTORY. unknown) DISCHARGE ON PROTONIX PER HOME DOSE (unknown) (no (unknown) (unknown) ?HYPERTENSION PER (units (unknown) date) HISTORY. CONTINUE unknown) HOME MED (unknown) (no (unknown) (unknown) ?HYPOTHYROIDISM (units (unknown) date) PER HISTORY. unknown) CONTINUE HOME DOSE (unknown) (no (unknown) (unknown) ?OBESITY.? BMI OF (units (unknown) date) 34.? LIFESTYLE unknown) CHANGES RECOMMENDED (unknown) (no (unknown) (unknown) ?POSSIBLE (units (unkn own) date) PACEMAKER unknown) MALFUNCTIONING.? TO BE EVALUATED OUTPATIENT BY (unknown) (no (unknown) (unknown) ABDOMEN: SOFT. (units (unknown) date) NONTENDER. unknown) NONDISTENDED. BOWEL SOUNDS ARE PRESENT IN ALL 4 (unknown) (no (unknown) (unknown) ACUTE PROCESS. (units (unknown) date) unknown) (unknown) (no (unknown) (unknown) ADDITIONAL (units (unk nown) date) MANAGEMENT WILL BE unknown) PER OUTPATIENT PROVIDERS (unknown) (no (unknown) (unknown) ALT (units (unkno wn) date) unknown) (unknown) (no (unknown) (unknown) ALT (units (unkno wn) date) unknown) (unknown) (no (unknown) (unknown) ALT 12 (units (unkn own) date) unknown) (unknown) (no (unknown) (unknown) AND WAS TOLD TO (units (unknown) date) COME TO THE ER FOR unknown) FURTHER WORKUP. (unknown) (no (unknown) (unknown) APTT (units (unkno wn) date) unknown) (unknown) (no (unknown) (unknown) APTT (units (unkno wn) date) unknown) (unknown) (no (unknown) (unknown) APTT 33 (units (unk nown) date) unknown) (unknown) (no (unknown) (unknown) AST (units (unkno wn) date) unknown) (unknown) (no (unknown) (unknown) AST (units (unkno wn) date) unknown) (unknown) (no (unknown) (unknown) AST 24 (units (unkn own) date) unknown) (unknown) (no (unknown) (unknown) Activity: (units (u nknown) date) TOLERATED unknown) (unknown) (no (unknown) (unknown) Age/Sex: 71 / F (units (unknown) date) unknown) (unknown) (no (unknown) (unknown) Albumin (units (unkno wn) date) unknown) (unknown) (no (unknown) (unknown) Albumin (units (unkno wn) date) unknown) (unknown) (no (unknown) (unknown) Albumin 4.2 (units (unknown) date) unknown) (unknown) (no (unknown) (unknown) Albumin/Globulin (units (unknown) date) Ratio unknown) (unknown) (no (unknown) (unknown) Albumin/Globulin (units (unknown) date) Ratio unknown) (unknown) (no (unknown) (unknown) Albumin/Globulin (units (unknown) date) Ratio 1.3 unknown) (unknown) (no (unknown) (unknown) Alkaline (units (unkno wn) date) Phosphatase unknown) (unknown) (no (unknown) (unknown) Alkaline (units (unkno wn) date) Phosphatase unknown) (unknown) (no (unknown) (unknown) Alkaline (units (unkno wn) date) Phosphatase 119 unknown) (unknown) (no (unknown) (unknown) Amorphous (units (unkn own) date) Sediment unknown) (unknown) (no (unknown) (unknown) Amorphous (units (unkn own) date) Sediment unknown) (unknown) (no (unknown) (unknown) Amorphous (units (unkn own) date) Sediment unknown) Cancelled (unknown) (no (unknown) (unknown) Anesthesia (units (unk nown) date) unknown) (unknown) (no (unknown) (unknown) Anxiety and (units (un known) date) depression () unknown) (unknown) (no (unknown) (unknown) BETTER AT REST (units (unknown) date) unknown) (unknown) (no (unknown) (unknown) BUN (units (unkno wn) date) unknown) (unknown) (no (unknown) (unknown) BUN (units (unkno wn) date) unknown) (unknown) (no (unknown) (unknown) BUN 21 H (units (un known) date) unknown) (unknown) (no (unknown) (unknown) BUN/Creatinine (units (unknown) date) Ratio unknown) (unknown) (no (unknown) (unknown) BUN/Creatinine (units (unknown) date) Ratio unknown) (unknown) (no (unknown) (unknown) BUN/Creatinine (units (unknown) date) Ratio 20.8 unknown) (unknown) (no (unknown) (unknown) Baso # (Auto) (units ( unknown) date) unknown) (unknown) (no (unknown) (unknown) Baso # (Auto) (units ( unknown) date) unknown) (unknown) (no (unknown) (unknown) Baso # (Auto) 0 (units (unknown) date) unknown) (unknown) (no (unknown) (unknown) Baso % (Auto) (units ( unknown) date) unknown) (unknown) (no (unknown) (unknown) Baso % (Auto) (units ( unknown) date) unknown) (unknown) (no (unknown) (unknown) Baso % (Auto) (units ( unknown) date) 0.3 unknown) (unknown) (no (unknown) (unknown) Blood Pressure (units (unknown) date) 134/76 unknown) (unknown) (no (unknown) (unknown) Brother (units (unkno wn) date) Cancer unknown) (unknown) (no (unknown) (unknown) Brother (units (unkno wn) date) History unknown) of heart disease (unknown) (no (unknown) (unknown) 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 (units ( unknown) date) unknown) (unknown) (no (unknown) (unknown) CARDIOLOGY; (units (un known) date) NEEDED REPLACEMENT unknown) (unknown) (no (unknown) (unknown) CHEST PRESSURE. (units (unknown) date) ACS RULED OUT .? unknown) RESOLVED (unknown) (no (unknown) (unknown) CHEST: REGULAR (units (unknown) date) RATE. NO RUBS. unknown) PMI IS NON DISPLACED. NO MURMURS; NORMAL S1- (unknown) (no (unknown) (unknown) CK-MB (CK-2) (units (u nknown) date) unknown) (unknown) (no (unknown) (unknown) CK-MB (CK-2) (units (u nknown) date) unknown) (unknown) (no (unknown) (unknown) CK-MB (CK-2) (units (u nknown) date) TNP unknown) (unknown) (no (unknown) (unknown) CK-MB (CK-2) Rel (units (unknown) date) Index unknown) (unknown) (no (unknown) (unknown) CK-MB (CK-2) Rel (units (unknown) date) Index unknown) (unknown) (no (unknown) (unknown) CK-MB (CK-2) Rel (units (unknown) date) Index TNP unknown) (unknown) (no (unknown) (unknown) COPD (chronic (units ( unknown) date) obstructive unknown) pulmonary disease) (-2019) (unknown) (no (unknown) (unknown) Calcium (units (unkno wn) date) unknown) (unknown) (no (unknown) (unknown) Calcium (units (unkno wn) date) unknown) (unknown) (no (unknown) (unknown) Calcium 9.1 (units (unknown) date) unknown) (unknown) (no (unknown) (unknown) Calcium Oxalate (units (unknown) date) Crystal unknown) (unknown) (no (unknown) (unknown) Calcium Oxalate (units (unknown) date) Crystal unknown) (unknown) (no (unknown) (unknown) Calcium Oxalate (units (unknown) date) Crystal Many H unknown) Cancelled (unknown) (no (unknown) (unknown) Carbon Dioxide (units (unknown) date) unknown) (unknown) (no (unknown) (unknown) Carbon Dioxide (units (unknown) date) unknown) (unknown) (no (unknown) (unknown) Carbon Dioxide (units (unknown) date) 27 unknown) (unknown) (no (unknown) (unknown) Chief complaint: (units (unknown) date) Possible heart unknown) attack (unknown) (no (unknown) (unknown) Chloride (units (unkno wn) date) unknown) (unknown) (no (unknown) (unknown) Chloride (units (unkno wn) date) unknown) (unknown) (no (unknown) (unknown) Chloride 108 H (units (unknown) date) unknown) (unknown) (no (unknown) (unknown) Chronic back pain (units (unknown) date) () unknown) (unknown) (no (unknown) (unknown) Luzma Sanchez, (units (unknown) date) MD [Primary Care unknown) Provider] - (unknown) (no (unknown) (unknown) Cognitive/behavio (units (unknown) date) ral status at unknown) discharge: oriented (unknown) (no (unknown) (unknown) Continued (units (unkn own) date) unknown) (unknown) (no (unknown) (unknown) Creatinine (units (unk nown) date) unknown) (unknown) (no (unknown) (unknown) Creatinine (units (unk nown) date) unknown) (unknown) (no (unknown) (unknown) Creatinine (units (unk nown) date) 1.01 unknown) (unknown) (no (unknown) (unknown) : 1950 (units (unknown) date) Acct:[id number] unknown) (unknown) (no (unknown) (unknown) Date of (units (unkno wn) date) admission: unknown) (unknown) (no (unknown) (unknown) Diet/Activity/Amado (units (unknown) date) atments unknown) (unknown) (no (unknown) (unknown) Diet: Low-fat, (units (unknown) date) Low-sodium and unknown) Low-cholesterol (unknown) (no (unknown) (unknown) Discharge Data (units (unknown) date) unknown) (unknown) (no (unknown) (unknown) Discharge Date: (units (unknown) date) 11/21/21 unknown) (unknown) (no (unknown) (unknown) Discharge (units (unkn own) date) Diagnosis: unknown) (unknown) (no (unknown) (unknown) Discharge Plan (units (unknown) date) unknown) (unknown) (no (unknown) (unknown) Discharge (units (unkn own) date) Providers unknown) (unknown) (no (unknown) (unknown) Discharge orders (units (unknown) date) + Medications unknown) (unknown) (no (unknown) (unknown) Discharge (units (unkn own) date) provider: unknown) (unknown) (no (unknown) (unknown) EXTREMITIES: NO (units (unknown) date) EDEMA.. NO unknown) CYANOSIS CLUBBING NOTED. (unknown) (no (unknown) (unknown) EYE: EOMI, (units (un known) date) PERRLA, NORMAL unknown) CONJUNCTIVA; NO JAUNDICE (unknown) (no (unknown) (unknown) Endometrial (units (un known) date) hyperplasia unknown) (unknown) (no (unknown) (unknown) Eos # (Auto) (units (u nknown) date) unknown) (unknown) (no (unknown) (unknown) Eos # (Auto) (units (u nknown) date) unknown) (unknown) (no (unknown) (unknown) Eos # (Auto) 200 (units (unknown) date) unknown) (unknown) (no (unknown) (unknown) Eos % (Auto) (units (u nknown) date) unknown) (unknown) (no (unknown) (unknown) Eos % (Auto) (units (u nknown) date) unknown) (unknown) (no (unknown) (unknown) Eos % (Auto) 2.5 (units (unknown) date) unknown) (unknown) (no (unknown) (unknown) Estimated GFR (units ( unknown) date) unknown) (unknown) (no (unknown) (unknown) Estimated GFR (units ( unknown) date) unknown) (unknown) (no (unknown) (unknown) Estimated GFR (units ( unknown) date) 59 L unknown) (unknown) (no (unknown) (unknown) Exam (units (unkno wn) date) unknown) (unknown) (no (unknown) (unknown) Exam Narrative: (units (unknown) date) unknown) (unknown) (no (unknown) (unknown) Family History (units (unknown) date) (Reviewed 11/20/21 unknown) @ 14:39 by Alem Marlow DO) (unknown) (no (unknown) (unknown) Father (units (unknown) date) Cancer unknown) (unknown) (no (unknown) (unknown) Follow (units (unkno wn) date) up/Referrals: unknown) (unknown) (no (unknown) (unknown) Functional status (units (unknown) date) at discharge: unknown) independent ambulation (unknown) (no (unknown) (unknown) GERD (units (unkno wn) date) (gastroesophageal unknown) reflux disease) (-2009) (unknown) (no (unknown) (unknown) GERD, ANXIETY AND (units (unknown) date) DEPRESSION, 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 (unknown) (no (unknown) (unknown) Globulin (units (unkno wn) date) unknown) (unknown) (no (unknown) (unknown) Globulin (units (unkno wn) date) unknown) (unknown) (no (unknown) (unknown) Globulin 3.2 (units (unknown) date) unknown) (unknown) (no (unknown) (unknown) Glucose (units (unkno wn) date) unknown) (unknown) (no (unknown) (unknown) Glucose (units (unkno wn) date) unknown) (unknown) (no (unknown) (unknown) Glucose 94 (units ( unknown) date) unknown) (unknown) (no (unknown) (unknown) Granular Casts (units (unknown) date) unknown) (unknown) (no (unknown) (unknown) Granular Casts (units (unknown) date) unknown) (unknown) (no (unknown) (unknown) Granular Casts (units (unknown) date) Cancelled unknown) (unknown) (no (unknown) (unknown) HEAD ATRAUMATIC (units (unknown) date) 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 unknown) (unknown) (no (unknown) (unknown) HER POSITIVE (units (u nknown) date) COVID-19 TEST. unknown) (unknown) (no (unknown) (unknown) HER WORKUP WAS (units (unknown) date) FAIRLY unknown) UNREMARKABLE. HOWEVER DUE TO MULTIPLE COMORBIDITIES ACS (unknown) (no (unknown) (unknown) HOWEVER SHE (units (un known) date) STATED THAT SHE unknown) CALL HER ADJUNCT PHYSICS INSTRUCTOR OFFICE TO REPORT THIS SYMPTOM (unknown) (no (unknown) (unknown) Hct (units (unkno wn) date) unknown) (unknown) (no (unknown) (unknown) Hct (units (unkno wn) date) unknown) (unknown) (no (unknown) (unknown) Hct 37.4 (units (unkn own) date) unknown) (unknown) (no (unknown) (unknown) Headache () (units (unknown) date) unknown) (unknown) (no (unknown) (unknown) Hgb (units (unkno wn) date) unknown) (unknown) (no (unknown) (unknown) Hgb (units (unkno wn) date) unknown) (unknown) (no (unknown) (unknown) Hgb 12.1 (units (unkn own) date) unknown) (unknown) (no (unknown) (unknown) History of (units (unk nown) date) Present Illness unknown) (unknown) (no (unknown) (unknown) History of (units (unk nown) date) abdominoplasty unknown) () (unknown) (no (unknown) (unknown) History of breast (units (unknown) date) lift () unknown) (unknown) (no (unknown) (unknown) History of carpal (units (unknown) date) tunnel repair unknown) (unknown) (no (unknown) (unknown) History of (units (unk nown) date) cataract removal unknown) with insertion of prosthetic lens () (unknown) (no (unknown) (unknown) History of (units (unk nown) date) gastric bypass unknown) (-2009) (unknown) (no (unknown) (unknown) History of knee (units (unknown) date) replacement unknown) (unknown) (no (unknown) (unknown) Hospital Course (units (unknown) date) unknown) (unknown) (no (unknown) (unknown) Hospital Course: (units (unknown) date) unknown) (unknown) (no (unknown) (unknown) Hyaline Casts (units ( unknown) date) unknown) (unknown) (no (unknown) (unknown) Hyaline Casts (units ( unknown) date) unknown) (unknown) (no (unknown) (unknown) Hyaline Casts (units ( unknown) date) Cancelled unknown) (unknown) (no (unknown) (unknown) Hypertension (units (u nknown) date) () unknown) (unknown) (no (unknown) (unknown) Hypothyroidism (units (unknown) date) unknown) (unknown) (no (unknown) (unknown) IN ANY CASE, DUE (units (unknown) date) TO CURRENT unknown) HOSPITAL PROTOCOL, WE ARE UNABLE TO PERFORM THE (unknown) (no (unknown) (unknown) IN ANY CASE, (units (u nknown) date) STRESS TEST WAS unknown) PLANNED FOR THIS MORNING HOWEVER PATIENT TESTED (unknown) (no (unknown) (unknown) INCREASED (units (unkn own) date) DULLNESS TO unknown) PERCUSSION (unknown) (no (unknown) (unknown) INCREASING (units (unk nown) date) DYSPNEA ON unknown) EXERTION. NOT ASSOCIATED WITH DIAPHORESIS. DENIES (unknown) (no (unknown) (unknown) INR (units (unkno wn) date) unknown) (unknown) (no (unknown) (unknown) INR (units (unkno wn) date) unknown) (unknown) (no (unknown) (unknown) INR 1.1 (units (unkn own) date) unknown) (unknown) (no (unknown) (unknown) Luzma Sanchez, (units (unknown) date) MD unknown) (unknown) (no (unknown) (unknown) Dhruv (units (un known) date) Vonnie, unknown) DO (unknown) (no (unknown) (unknown) Labs (units (unkno wn) date) unknown) (unknown) (no (unknown) (unknown) Labs: (units (unkno wn) date) unknown) (unknown) (no (unknown) (unknown) Lactate (units (unkno wn) date) unknown) (unknown) (no (unknown) (unknown) Lactate (units (unkno wn) date) unknown) (unknown) (no (unknown) (unknown) Lactate 1.0 (units (u nknown) date) unknown) (unknown) (no (unknown) (unknown) Lymph # (Auto) (units (unknown) date) unknown) (unknown) (no (unknown) (unknown) Lymph # (Auto) (units (unknown) date) unknown) (unknown) (no (unknown) (unknown) Lymph # (Auto) (units (unknown) date) 1600 unknown) (unknown) (no (unknown) (unknown) Lymph % (Auto) (units (unknown) date) unknown) (unknown) (no (unknown) (unknown) Lymph % (Auto) (units (unknown) date) unknown) (unknown) (no (unknown) (unknown) Lymph % (Auto) (units (unknown) date) 23.3 L unknown) (unknown) (no (unknown) (unknown) [facility] (units (unkno wn) date) unknown) (unknown) (no (unknown) (unknown) [facility] (units (unkno wn) date) unknown) (unknown) (no (unknown) (unknown) [facility] 26.3 (units (unkn own) date) unknown) (unknown) (no (unknown) (unknown) [facility] (units (unkno wn) date) unknown) (unknown) (no (unknown) (unknown) [facility] (units (unkno wn) date) unknown) (unknown) (no (unknown) (unknown) [facility] 32.4 (units (unk nown) date) unknown) (unknown) (no (unknown) (unknown) [facility] (units (unkno wn) date) unknown) (unknown) (no (unknown) (unknown) [facility] (units (unkno wn) date) unknown) (unknown) (no (unknown) (unknown) MCV 81.1 (units (unkn own) date) unknown) (unknown) (no (unknown) (unknown) MONTH IN ANY CASE (units (unknown) date) FOR THE STRESS unknown) TEST TO BE DONE. (unknown) (no (unknown) (unknown) MSK: NORMAL (units (u nknown) date) RANGE OF MOTION unknown) FOR AGE. NO JOINT EFFUSION. (unknown) (no (unknown) (unknown) Medical History (units (unknown) date) (Reviewed 11/20/21 unknown) @ 14:39 by Alem Marlow DO) (unknown) (no (unknown) (unknown) Micro UA Comment (units (unknown) date) unknown) (unknown) (no (unknown) (unknown) Micro UA Comment (units (unknown) date) unknown) (unknown) (no (unknown) (unknown) Micro UA Comment (units (unknown) date) Cancelled unknown) (unknown) (no (unknown) (unknown) Gooding # (Auto) (units ( unknown) date) unknown) (unknown) (no (unknown) (unknown) Gooding # (Auto) (units ( unknown) date) unknown) (unknown) (no (unknown) (unknown) Gooding # (Auto) (units ( unknown) date) 600 unknown) (unknown) (no (unknown) (unknown) Gooding % (Auto) (units ( unknown) date) unknown) (unknown) (no (unknown) (unknown) Gooding % (Auto) (units ( unknown) date) unknown) (unknown) (no (unknown) (unknown) Gooding % (Auto) (units ( unknown) date) 8.4 unknown) (unknown) (no (unknown) (unknown) NAUSEA OR (units (unkn own) date) VOMITING. NO unknown) CHEST PAIN. NO CHEST PALPITATIONS (unknown) (no (unknown) (unknown) NECK : SUPPLE (units ( unknown) date) WITHOUT ADENOPATHY unknown) NO CAROTID BRUITS (unknown) (no (unknown) (unknown) NEEDED TO BE (units (u nknown) date) RULED OUT. HER unknown) TROPONIN REMAINED NEGATIVE. (unknown) (no (unknown) (unknown) NEURO: CRANIAL (units (unknown) date) NERVES 2-12 unknown) GROSSLY INTACT. NO FOCAL NEUROLOGICAL DEFICIT NOTED. (unknown) (no (unknown) (unknown) NO ACUTE (units (unkno wn) date) DISTRESS. PATIENT unknown) IS ALERT ORIENTED X3. (unknown) (no (unknown) (unknown) NO HEAT OR COLD (units (unknown) date) INTOLERANCE. unknown) (unknown) (no (unknown) (unknown) NO SIGNIFICANT (units (unknown) date) CHANGES ON unknown) TELEMETRY AND EKG. CHEST IMAGING DID NOT SHOW ANY (unknown) (no (unknown) (unknown) NT-Pro-B (units (unkno wn) date) Natriuret Pep unknown) (unknown) (no (unknown) (unknown) NT-Pro-B (units (unkno wn) date) Natriuret Pep unknown) (unknown) (no (unknown) (unknown) NT-Pro-B (units (unkno wn) date) Natriuret Pep unknown) 291 H (unknown) (no (unknown) (unknown) Narrative (units (unkn own) date) unknown) (unknown) (no (unknown) (unknown) Narrative: (units (unk nown) date) unknown) (unknown) (no (unknown) (unknown) Neut # (Auto) (units ( unknown) date) unknown) (unknown) (no (unknown) (unknown) Neut # (Auto) (units ( unknown) date) unknown) (unknown) (no (unknown) (unknown) Neut # (Auto) (units ( unknown) date) 4400 unknown) (unknown) (no (unknown) (unknown) Neut % (Auto) (units ( unknown) date) unknown) (unknown) (no (unknown) (unknown) Neut % (Auto) (units ( unknown) date) unknown) (unknown) (no (unknown) (unknown) Neut % (Auto) (units ( unknown) date) 65.5 unknown) (unknown) (no (unknown) (unknown) New (units (unkno wn) date) unknown) (unknown) (no (unknown) (unknown) Objective (units (unkn own) date) unknown) (unknown) (no (unknown) (unknown) Other Casts (units (un known) date) unknown) (unknown) (no (unknown) (unknown) Other Casts (units (un known) date) unknown) (unknown) (no (unknown) (unknown) Other Casts (units (un known) date) Cancelled unknown) (unknown) (no (unknown) (unknown) Other Crystals (units (unknown) date) unknown) (unknown) (no (unknown) (unknown) Other Crystals (units (unknown) date) unknown) (unknown) (no (unknown) (unknown) Other Crystals (units (unknown) date) Cancelled unknown) (unknown) (no (unknown) (unknown) Overall status at (units (unknown) date) discharge: patient unknown) is back to baseline (unknown) (no (unknown) (unknown) Oxygen Delivery (units (unknown) date) Method Room Air unknown) (unknown) (no (unknown) (unknown) Oxygen Flow Rate (units (unknown) date) 0 unknown) (unknown) (no (unknown) (unknown) PATIENT CAME TO (units (unknown) date) THE ED REPORTEDLY unknown) PER HER PROVIDER RECOMMENDATION DUE TO (unknown) (no (unknown) (unknown) PATIENT CAME TO (units (unknown) date) THE HOSPITAL unknown) REPORTING INCREASING SHORTNESS OF BREATH AND CHEST (unknown) (no (unknown) (unknown) PATIENT HAS BEING (units (unknown) date) SCHEDULED FOR unknown) STRESS TESTING OUTPATIENT BY HER (unknown) (no (unknown) (unknown) PATIENT WILL BE (units (unknown) date) DISCHARGED TO unknown) HOME. SHE HAS A SCHEDULED APPOINTMENT FOR NEXT (unknown) (no (unknown) (unknown) PER PATIENT, HER (units (unknown) date) PACEMAKER IS ABOUT unknown) 12 YEARS OLD. 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 (unknown) (no (unknown) (unknown) POSITIVE FOR (units (u nknown) date) COVID-19 DESPITE unknown) NOT HAVING ANY UPPER OR LOWER RESPIRATORY (unknown) (no (unknown) (unknown) PRESSURE DURING (units (unknown) date) AMBULATION. unknown) (unknown) (no (unknown) (unknown) PSYCH : (units (unkno wn) date) APPROPRIATE MOOD unknown) AND AFFECT. ALERT AWAKE ORIENTED X3 (unknown) (no (unknown) (unknown) PT (units (unkno wn) date) unknown) (unknown) (no (unknown) (unknown) PT (units (unkno wn) date) unknown) (unknown) (no (unknown) (unknown) PT 12.5 (units (unkn own) date) unknown) (unknown) (no (unknown) (unknown) PULMONARY: (units (unk nown) date) DECREASED BS OVER unknown) THE BASES. MILD BIBASILAR CRACKLES NOTED; NO (unknown) (no (unknown) (unknown) Patient (units (unkno wn) date) Disposition: Home unknown) (unknown) (no (unknown) (unknown) Patient: (units (unkno wn) date) Laurel,Sherine unknown) S MR#: (unknown) (no (unknown) (unknown) Plt Count (units (unkn own) date) unknown) (unknown) (no (unknown) (unknown) Plt Count (units (unkn own) date) unknown) (unknown) (no (unknown) (unknown) Plt Count 231 (units (unknown) date) unknown) (unknown) (no (unknown) (unknown) Postmenopausal (units (unknown) date) bleeding unknown) (unknown) (no (unknown) (unknown) Potassium (units (unkn own) date) unknown) (unknown) (no (unknown) (unknown) Potassium (units (unkn own) date) unknown) (unknown) (no (unknown) (unknown) Potassium 3.8 (units (unknown) date) unknown) (unknown) (no (unknown) (unknown) Prescriptions: (units (unknown) date) unknown) (unknown) (no (unknown) (unknown) Presence of (units (un known) date) cardiac pacemaker unknown) () (unknown) (no (unknown) (unknown) Primary Care (units (u nknown) date) Provider: unknown) Luzma Sanchez (unknown) (no (unknown) (unknown) Primary care (units (u nknown) date) physician: unknown) (unknown) (no (unknown) (unknown) Provider (units (unkno wn) date) unknown) (unknown) (no (unknown) (unknown) Provider: (units (unkn own) date) Joy Shankar unknown) brittaney (unknown) (no (unknown) (unknown) Pulse Oximetry 98 (units (unknown) date) 98 97 unknown) (unknown) (no (unknown) (unknown) Pulse Rate 69 (units ( unknown) date) unknown) (unknown) (no (unknown) (unknown) QUADRANTS. NO (units (unknown) date) MASS. unknown) (unknown) (no (unknown) (unknown) RASHES (units (unkno wn) date) unknown) (unknown) (no (unknown) (unknown) RBC (units (unkno wn) date) unknown) (unknown) (no (unknown) (unknown) RBC (units (unkno wn) date) unknown) (unknown) (no (unknown) (unknown) RBC 4.62 (units (unkn own) date) unknown) (unknown) (no (unknown) (unknown) RBC Casts (units (unkn own) date) unknown) (unknown) (no (unknown) (unknown) RBC Casts (units (unkn own) date) unknown) (unknown) (no (unknown) (unknown) RBC Casts (units (unkn own) date) Cancelled unknown) (unknown) (no (unknown) (unknown) RDW (units (unkno wn) date) unknown) (unknown) (no (unknown) (unknown) RDW (units (unkno wn) date) unknown) (unknown) (no (unknown) (unknown) RDW 16.1 H (units (un known) date) unknown) (unknown) (no (unknown) (unknown) REPORTED (units (unkno wn) date) INCREASING CHEST unknown) PRESSURE ASSOCIATED WITH DYSPNEA ON EXERTION. (unknown) (no (unknown) (unknown) REPORTED SELF (units ( unknown) date) TESTING AT LEAST 7 unknown) TIMES OVER THE LAST FEW WEEKS WITH A NEGATIVE (unknown) (no (unknown) (unknown) RESULTS. (units (unkno wn) date) unknown) (unknown) (no (unknown) (unknown) Respiratory Rate (units (unknown) date) 18 unknown) (unknown) (no (unknown) (unknown) Result Diagrams: (units (unknown) date) unknown) (unknown) (no (unknown) (unknown) S2 (units (unkno wn) date) unknown) (unknown) (no (unknown) (unknown) SARCOIDOSIS (units (un known) date) REQUIRING unknown) PACEMAKER PLACEMENT. (unknown) (no (unknown) (unknown) SARS-CoV-2 (PCR) (units (unknown) date) unknown) (unknown) (no (unknown) (unknown) SARS-CoV-2 (PCR) (units (unknown) date) Positive H unknown) (unknown) (no (unknown) (unknown) SHE APPEARS TO BE (units (unknown) date) STABLE AT THIS unknown) TIME. SHE WILL BE DISCHARGED TO HOME. (unknown) (no (unknown) (unknown) SHE HAS BEEN ON (units (unknown) date) ROOM AIR. NO unknown) FEVER NOTED DURING ADMISSION. FURTHERMORE PATIENT (unknown) (no (unknown) (unknown) SHE WAS (units (unkno wn) date) INSTRUCTED TO KEEP unknown) THAT APPOINTMENT AND TO LET HER PROVIDER KNOW ABOUT (unknown) (no (unknown) (unknown) SKIN: NORMAL FOR (units (unknown) date) ETHNICITY; NO unknown) ECCHYMOSIS. NO LESION. GOOD TURGOR.; NO (unknown) (no (unknown) (unknown) SOMETIMES IN THE (units (unknown) date) UPCOMING WEEKS. unknown) (unknown) (no (unknown) (unknown) STRESS TEST. (units (u nknown) date) unknown) (unknown) (no (unknown) (unknown) SUPPOSED TO HAVE (units (unknown) date) A STRESS TEST AND unknown) A POSSIBLE PLACEMENT OF THE PACEMAKER DONE (unknown) (no (unknown) (unknown) SYMPTOMS. (units (unkn own) date) unknown) (unknown) (no (unknown) (unknown) Sarcoidosis (units (un known) date) () unknown) (unknown) (no (unknown) (unknown) Signed (units (unkno wn) date) By:<Electronically unknown) signed by Dhruv Shankar>0 11/22/21 1854 (unknown) (no (unknown) (unknown) Sister (units (unknown) date) Cancer unknown) (unknown) (no (unknown) (unknown) Smoking Status: (units (unknown) date) Never smoker unknown) (unknown) (no (unknown) (unknown) Social History (units (unknown) date) (Reviewed 11/20/21 unknown) @ 14:39 by Alem Marlow DO) (unknown) (no (unknown) (unknown) Sodium (units (unkno wn) date) unknown) (unknown) (no (unknown) (unknown) Sodium (units (unkno wn) date) unknown) (unknown) (no (unknown) (unknown) Sodium 141 (units ( unknown) date) unknown) (unknown) (no (unknown) (unknown) Status at (units (unkn own) date) Discharge unknown) (unknown) (no (unknown) (unknown) Status post (units (un known) date) breast lumpectomy unknown) (unknown) (no (unknown) (unknown) Status post (units (un known) date) cholecystectomy unknown) () (unknown) (no (unknown) (unknown) Status post (units (un known) date) dilation and unknown) curettage (unknown) (no (unknown) (unknown) Status post (units (un known) date) surgery (05/11/15) unknown) (unknown) (no (unknown) (unknown) Summary (units (unkno wn) date) unknown) (unknown) (no (unknown) (unknown) Surgical History (units (unknown) date) (Reviewed 11/20/21 unknown) @ 14:39 by Alem Marlow DO) (unknown) (no (unknown) (unknown) THIS IS A (units (unkn own) date) 71-YEAR-OLD FEMALE unknown) FOR PAST MEDICAL HISTORY SIGNIFICANT FOR COPD, (unknown) (no (unknown) (unknown) THIS IS A VERY (units (unknown) date) PLEASANT unknown) 72-YEAR-OLD FEMALE FOR HISTORY OF PRIOR PACEMAKER (unknown) (no (unknown) (unknown) Temperature 97.9 (units (unknown) date) F unknown) (unknown) (no (unknown) (unknown) Time Spent with (units (unknown) date) Patient unknown) (unknown) (no (unknown) (unknown) Time spent: (units (un known) date) Greater than 30 unknown) minutes (unknown) (no (unknown) (unknown) Total Bilirubin (units (unknown) date) unknown) (unknown) (no (unknown) (unknown) Total Bilirubin (units (unknown) date) unknown) (unknown) (no (unknown) (unknown) Total Bilirubin (units (unknown) date) 1.1 unknown) (unknown) (no (unknown) (unknown) Total Creatine (units (unknown) date) Kinase unknown) (unknown) (no (unknown) (unknown) Total Creatine (units (unknown) date) Kinase unknown) (unknown) (no (unknown) (unknown) Total Creatine (units (unknown) date) Kinase 96 unknown) (unknown) (no (unknown) (unknown) Total Protein (units ( unknown) date) unknown) (unknown) (no (unknown) (unknown) Total Protein (units ( unknown) date) unknown) (unknown) (no (unknown) (unknown) Total Protein (units ( unknown) date) 7.4 unknown) (unknown) (no (unknown) (unknown) Triple Phos (units (un known) date) Crystals unknown) (unknown) (no (unknown) (unknown) Triple Phos (units (un known) date) Crystals unknown) (unknown) (no (unknown) (unknown) Triple Phos (units (un known) date) Crystals unknown) Cancelled (unknown) (no (unknown) (unknown) Troponin I (units (unk nown) date) unknown) (unknown) (no (unknown) (unknown) Troponin I < (units (unknown) date) 0.012 unknown) (unknown) (no (unknown) (unknown) Troponin I < (units (unknown) date) 0.012 unknown) (unknown) (no (unknown) (unknown) Troponin I < (units (unknown) date) 0.012 unknown) (unknown) (no (unknown) (unknown) Ur Bilirubin (units (u nknown) date) Confirm unknown) (unknown) (no (unknown) (unknown) Ur Bilirubin (units (u nknown) date) Confirm unknown) (unknown) (no (unknown) (unknown) Ur Bilirubin (units (u nknown) date) Confirm Negative unknown) (unknown) (no (unknown) (unknown) Ur Culture (units (unk nown) date) Indicated? unknown) (unknown) (no (unknown) (unknown) Ur Culture (units (unk nown) date) Indicated? unknown) (unknown) (no (unknown) (unknown) Ur Culture (units (unk nown) date) Indicated? unknown) Specimen cultured Cancelled (unknown) (no (unknown) (unknown) Ur Leukocyte (units (u nknown) date) Esterase unknown) (unknown) (no (unknown) (unknown) Ur Leukocyte (units (u nknown) date) Esterase unknown) (unknown) (no (unknown) (unknown) Ur Leukocyte (units (u nknown) date) Esterase unknown) Cancelled (unknown) (no (unknown) (unknown) Ur Renal (units (unkno wn) date) Epithelial Cell unknown) (unknown) (no (unknown) (unknown) Ur Renal (units (unkno wn) date) Epithelial Cell unknown) (unknown) (no (unknown) (unknown) Ur Renal (units (unkno wn) date) Epithelial Cell unknown) Cancelled (unknown) (no (unknown) (unknown) Ur Specific (units (un known) date) [place] unknown) (unknown) (no (unknown) (unknown) Ur Specific (units (un known) date) [place] unknown) (unknown) (no (unknown) (unknown) Ur Specific (units (un known) date) [place] unknown) Cancelled (unknown) (no (unknown) (unknown) Ur Squamous Epith (units (unknown) date) Cells unknown) (unknown) (no (unknown) (unknown) Ur Squamous Epith (units (unknown) date) Cells unknown) (unknown) (no (unknown) (unknown) Ur Squamous Epith (units (unknown) date) Cells 1-5 /hpf unknown) Cancelled (unknown) (no (unknown) (unknown) Ur Transition (units ( unknown) date) Epith Cell unknown) (unknown) (no (unknown) (unknown) Ur Transition (units ( unknown) date) Epith Cell unknown) (unknown) (no (unknown) (unknown) Ur Transition (units ( unknown) date) Epith Cell unknown) Cancelled (unknown) (no (unknown) (unknown) Uric Acid (units (unkn own) date) Crystals unknown) (unknown) (no (unknown) (unknown) Uric Acid (units (unkn own) date) Crystals unknown) (unknown) (no (unknown) (unknown) Uric Acid (units (unkn own) date) Crystals unknown) Cancelled (unknown) (no (unknown) (unknown) Urine Appearance (units (unknown) date) unknown) (unknown) (no (unknown) (unknown) Urine Appearance (units (unknown) date) unknown) (unknown) (no (unknown) (unknown) Urine Appearance (units (unknown) date) Cancelled unknown) (unknown) (no (unknown) (unknown) Urine Bacteria (units (unknown) date) unknown) (unknown) (no (unknown) (unknown) Urine Bacteria (units (unknown) date) unknown) (unknown) (no (unknown) (unknown) Urine Bacteria (units (unknown) date) Few (2-10) H unknown) Cancelled (unknown) (no (unknown) (unknown) Urine Bilirubin (units (unknown) date) unknown) (unknown) (no (unknown) (unknown) Urine Bilirubin (units (unknown) date) unknown) (unknown) (no (unknown) (unknown) Urine Bilirubin (units (unknown) date) Cancelled unknown) (unknown) (no (unknown) (unknown) Urine Color (units (un known) date) unknown) (unknown) (no (unknown) (unknown) Urine Color (units (un known) date) unknown) (unknown) (no (unknown) (unknown) Urine Color (units (un known) date) Cancelled unknown) (unknown) (no (unknown) (unknown) Urine Glucose (units ( unknown) date) (UA) unknown) (unknown) (no (unknown) (unknown) Urine Glucose (units ( unknown) date) (UA) unknown) (unknown) (no (unknown) (unknown) Urine Glucose (units ( unknown) date) (UA) Cancelled unknown) (unknown) (no (unknown) (unknown) Urine Ketones (units ( unknown) date) unknown) (unknown) (no (unknown) (unknown) Urine Ketones (units ( unknown) date) unknown) (unknown) (no (unknown) (unknown) Urine Ketones (units ( unknown) date) Cancelled unknown) (unknown) (no (unknown) (unknown) Urine Mucus (units (un known) date) unknown) (unknown) (no (unknown) (unknown) Urine Mucus (units (un known) date) unknown) (unknown) (no (unknown) (unknown) Urine Mucus (units (un known) date) Cancelled unknown) (unknown) (no (unknown) (unknown) Urine Nitrate (units ( unknown) date) unknown) (unknown) (no (unknown) (unknown) Urine Nitrate (units ( unknown) date) unknown) (unknown) (no (unknown) (unknown) Urine Nitrate (units ( unknown) date) Cancelled unknown) (unknown) (no (unknown) (unknown) Urine Occult (units (u nknown) date) Blood unknown) (unknown) (no (unknown) (unknown) Urine Occult (units (u nknown) date) Blood unknown) (unknown) (no (unknown) (unknown) Urine Occult (units (u nknown) date) Blood Cancelled unknown) (unknown) (no (unknown) (unknown) Urine Protein (units ( unknown) date) unknown) (unknown) (no (unknown) (unknown) Urine Protein (units ( unknown) date) unknown) (unknown) (no (unknown) (unknown) Urine Protein (units ( unknown) date) Cancelled unknown) (unknown) (no (unknown) (unknown) Urine RBC (units (unkn own) date) unknown) (unknown) (no (unknown) (unknown) Urine RBC (units (unkn own) date) unknown) (unknown) (no (unknown) (unknown) Urine RBC (units (unkn own) date) 10-30/hpf H unknown) Cancelled (unknown) (no (unknown) (unknown) Urine Sperm (units (un known) date) unknown) (unknown) (no (unknown) (unknown) Urine Sperm (units (un known) date) unknown) (unknown) (no (unknown) (unknown) Urine Sperm (units (un known) date) Cancelled unknown) (unknown) (no (unknown) (unknown) Urine Trichomonas (units (unknown) date) unknown) (unknown) (no (unknown) (unknown) Urine Trichomonas (units (unknown) date) unknown) (unknown) (no (unknown) (unknown) Urine Trichomonas (units (unknown) date) Cancelled unknown) (unknown) (no (unknown) (unknown) Urine (units (unkno wn) date) Urobilinogen unknown) (unknown) (no (unknown) (unknown) Urine (units (unkno wn) date) Urobilinogen unknown) (unknown) (no (unknown) (unknown) Urine (units (unkno wn) date) Urobilinogen unknown) Cancelled (unknown) (no (unknown) (unknown) Urine WBC (units (unkn own) date) unknown) (unknown) (no (unknown) (unknown) Urine WBC (units (unkn own) date) unknown) (unknown) (no (unknown) (unknown) Urine WBC (units (unkn own) date) 1-5/hpf Cancelled unknown) (unknown) (no (unknown) (unknown) Urine Yeast (units (un known) date) unknown) (unknown) (no (unknown) (unknown) Urine Yeast (units (un known) date) unknown) (unknown) (no (unknown) (unknown) Urine Yeast (units (un known) date) Cancelled unknown) (unknown) (no (unknown) (unknown) Urine pH (units (unkno wn) date) unknown) (unknown) (no (unknown) (unknown) Urine pH (units (unkno wn) date) unknown) (unknown) (no (unknown) (unknown) Urine pH (units (unkno wn) date) Cancelled unknown) (unknown) (no (unknown) (unknown) Uterine mass (units (u nknown) date) unknown) (unknown) (no (unknown) (unknown) VITAL SIGNS (units (un known) date) STABLE unknown) (unknown) (no (unknown) (unknown) Vital Signs (units (un known) date) unknown) (unknown) (no (unknown) (unknown) WBC (units (unkno wn) date) unknown) (unknown) (no (unknown) (unknown) WBC (units (unkno wn) date) unknown) (unknown) (no (unknown) (unknown) WBC 6.7 (units (unkno wn) date) unknown) (unknown) (no (unknown) (unknown) WBC Casts (units (unkn own) date) unknown) (unknown) (no (unknown) (unknown) WBC Casts (units (unkn own) date) unknown) (unknown) (no (unknown) (unknown) WBC Casts (units (unkn own) date) Cancelled unknown) (unknown) (no (unknown) (unknown) WEIGHT LOSS OR (units (unknown) date) WEIGHT GAIN. 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 (unknown) (no (unknown) (unknown) Wears glasses (units ( unknown) date) unknown) (unknown) (no (unknown) (unknown) [Embedded Image (units (unknown) date) Not Available] unknown) (unknown) (no (unknown) (unknown) alcohol intake: (units (unknown) date) never unknown) (unknown) (no (unknown) (unknown) hand (units (unkno wn) date) unknown) (unknown) (no (unknown) (unknown) household (units (unkn own) date) members: unknown) friend(s) Result panel 27 (unknown) (no date) (unknown) (unknown) 0 /uL (unkn own) (unknown) (no date) (unknown) (unknown) 0.9 % (unkn own) (unknown) (no date) (unknown) (unknown) 11.7 g/dL (unkn own) (unknown) (no date) (unknown) (unknown) 12.2 % (unkn own) (unknown) (no date) (unknown) (unknown) 1300 /uL (unkn own) (unknown) (no date) (unknown) (unknown) 15.8 % (unkn own) (unknown) (no date) (unknown) (unknown) 200 /uL (unkn own) (unknown) (no date) (unknown) (unknown) 232 X10 3/uL (unkn own) (unknown) (no date) (unknown) (unknown) 24.9 % (unkn own) (unknown) (no date) (unknown) (unknown) 26.0 PG (unkn own) (unknown) (no date) (unknown) (unknown) 3.2 % (unkn own) (unknown) (no date) (unknown) (unknown) 31.8 % (unkn own) (unknown) (no date) (unknown) (unknown) 3100 /uL (unkn own) (unknown) (no date) (unknown) (unknown) 36.9 % (unkn own) (unknown) (no date) (unknown) (unknown) 4.52 X10 6/uL (unkn own) (unknown) (no date) (unknown) (unknown) 5.3 X10 3/uL (unkn own) (unknown) (no date) (unknown) (unknown) 58.8 % (unkn own) (unknown) (no date) (unknown) (unknown) 600 /uL (unkn own) (unknown) (no date) (unknown) (unknown) 81.7 fL (unkn own) Result panel 28 (unknown) (no date) (unknown) (unknown) > 60 mL/min (unkn own) (unknown) (no date) (unknown) (unknown) 0.85 mg/dL (unkn own) (unknown) (no date) (unknown) (unknown) 108 mmol/L (unkn own) (unknown) (no date) (unknown) (unknown) 141 mmol/L (unkn own) (unknown) (no date) (unknown) (unknown) 19 mg/dL (unkn own) (unknown) (no date) (unknown) (unknown) 22.4 (units unknown) (unknown) (unknown) (no date) (unknown) (unknown) 27 mmol/L (unkn own) (unknown) (no date) (unknown) (unknown) 4.9 mmol/L (unkn own) (unknown) (no date) (unknown) (unknown) 8.7 mg/dL (unkn own) (unknown) (no date) (unknown) (unknown) 81 mg/dL (unkn own) Result panel 29 (unknown) (no date) (unknown) (unknown) > 60 mL/min (unkn own) (unknown) (no date) (unknown) (unknown) 0.85 mg/dL (unkn own) (unknown) (no date) (unknown) (unknown) 108 mmol/L (unkn own) (unknown) (no date) (unknown) (unknown) 141 mmol/L (unkn own) (unknown) (no date) (unknown) (unknown) 19 mg/dL (unkn own) (unknown) (no date) (unknown) (unknown) 22.4 (units unknown) (unknown) (unknown) (no date) (unknown) (unknown) 27 mmol/L (unkn own) (unknown) (no date) (unknown) (unknown) 4.9 mmol/L (unkn own) (unknown) (no date) (unknown) (unknown) 628 pg/mL (unkn own) (unknown) (no date) (unknown) (unknown) 8.7 mg/dL (unkn own) (unknown) (no date) (unknown) (unknown) 81 mg/dL (unkn own) Result panel 30 (unknown) (no (unknown) (unknown) (no value) (units (unk nown) date) unknown) (unknown) (no (unknown) (unknown) (no value) (units (unk nown) date) unknown) (unknown) (no (unknown) (unknown) [place], [place] (units ( unknown) date) [id number] unknown) (unknown) (no (unknown) (unknown) Draft (units (unkno wn) date) unknown) (unknown) (no (unknown) (unknown) [facility] unknown) (unknown) (no (unknown) (unknown) Nurse Office (units (u nknown) date) Visit unknown) (unknown) (no (unknown) (unknown) (no value) (units (unk nown) date) unknown) (unknown) (no (unknown) (unknown) [id number] (units (unk nown) date) unknown) (unknown) (no (unknown) (unknown) 01/17/22 (units (unkno wn) date) unknown) (unknown) (no (unknown) (unknown) Age/Sex: 71 / F (units (unknown) date) Date of unknown) Service: (unknown) (no (unknown) (unknown) Allergies (units (unkn own) date) unknown) (unknown) (no (unknown) (unknown) Attending Dr: (units ( unknown) date) Meagan Loyola unknown) (unknown) (no (unknown) (unknown) : 1950 (units (unknown) date) Acct:[id number] unknown) (unknown) (no (unknown) (unknown) Dept at (units (unkno wn) date) . unknown) (unknown) (no (unknown) (unknown) Documented By: (units (unknown) date) Meagan Loyola unknownGildardo RAYMOND 01/17/22 1638 (unknown) (no (unknown) (unknown) IP [facility] Allergy (units (unknown) date) (Mild, Uncoded unknown) 07/08/21 15:35) (unknown) (no (unknown) (unknown) Intake (units (unkno wn) date) unknown) (unknown) (no (unknown) (unknown) Intake Note: (units (u nknown) date) unknown) (unknown) (no (unknown) (unknown) Iodine and (units (unk nown) date) Iodide Containing unknown) Produc Allergy (Verified 11/20/21 11:59) (unknown) (no (unknown) (unknown) Last Menstural (units (unknown) date) Cycle + Details unknown) (unknown) (no (unknown) (unknown) Loc: [facility] (units (unkno wn) date) unknown) (unknown) (no (unknown) (unknown) Other Menstrual (units (unknown) date) Period: unknown) Postmenopausal (unknown) (no (unknown) (unknown) Patient: (units (unkno wn) date) Laurel,Sherine unknown) S MR#: (unknown) (no (unknown) (unknown) Reason For Visit (units (unknown) date) unknown) (unknown) (no (unknown) (unknown) Signed By: (units (unk nown) date) unknown) (unknown) (no (unknown) (unknown) Smoking Status: (units (unknown) date) Never smoker unknown) (unknown) (no (unknown) (unknown) This note may (units ( unknown) date) have been all or unknown) partially generated using voice recognition (unknown) (no (unknown) (unknown) Tobacco Status (units (unknown) date) unknown) (unknown) (no (unknown) (unknown) Visit Reasons: (units (unknown) date) Urine dip unknown) (unknown) (no (unknown) (unknown) celecoxib (units (unkn own) date) [CELECOXIB] unknown) Allergy (Unknown, Verified 11/20/21 11:59) (unknown) (no (unknown) (unknown) have occurred. (units (unknown) date) If there are any unknown) questions, please contact the Medical Records (unknown) (no (unknown) (unknown) lactobacillus (units ( unknown) date) [LACTOBACILLUS] unknown) Allergy (Unknown, Verified 11/20/21 11:59) (unknown) (no (unknown) (unknown) may occur. (units (unk nown) date) Occasional unknown) wrong-word or 'sound-alike' substitutions may have (unknown) (no (unknown) (unknown) morphine (units (unkno wn) date) [MORPHINE] unknown) Allergy (Unknown, Verified 11/20/21 11:59) (unknown) (no (unknown) (unknown) occurred due to (units (unknown) date) the inherent unknown) limitations of voice recognition software. Please (unknown) (no (unknown) (unknown) oxycodone (units (unkn own) date) [OXYCODONE] unknown) Allergy (Unknown, Verified 11/20/21 11:59) (unknown) (no (unknown) (unknown) pt here for (units (un known) date) urine dip for unknown) blood in urine (unknown) (no (unknown) (unknown) read the note (units ( unknown) date) carefully and unknown) recognize, using context, where these substitutions (unknown) (no (unknown) (unknown) software. (units (unkn own) date) Although every unknown) effort is made to edit content, optical lathe operator errors Result panel 31 (unknown) (no (unknown) (unknown) (no value) (units (unk nown) date) unknown) (unknown) (no (unknown) (unknown) (no value) (units (unk nown) date) unknown) (unknown) (no (unknown) (unknown) (no value) (units (unk nown) date) unknown) (unknown) (no (unknown) (unknown) [place] (units ( unknown) date) [id number] unknown) (unknown) (no (unknown) (unknown) Draft (units (unkno wn) date) unknown) (unknown) (no (unknown) (unknown) [facility] ([facility] date[facility] unknown) (unknown) (no (unknown) (unknown) Nurse Office (units (u nknown) date) Visit unknown) (unknown) (no (unknown) (unknown) (no value) (units (unk nown) date) unknown) (unknown) (no (unknown) (unknown) [id number] (units (unk nown) date) unknown) (unknown) (no (unknown) (unknown) Urine Appearance (units (unknown) date) Bloody Last unknown) Edit by Martha Dowell MA on 01/17/22 17:04 (unknown) (no (unknown) (unknown) Urine Bilirubin (units (unknown) date) Negative Last unknown) Edit by Martha Dowell MA on 01/17/22 17:04 (unknown) (no (unknown) (unknown) Urine Blood 3+ (units (unknown) date) 200 Hernandez/uL unknown) Last Edit by Martha Dowell MA on 01/17/22 17:04 (unknown) (no (unknown) (unknown) Urine Color (units (un known) date) Red Last Edit unknown) by Martha Dowell MA on 01/17/22 17:04 (unknown) (no (unknown) (unknown) Urine Glucose (units ( unknown) date) Negative mg/dL unknown) Last Edit by Martha Dowell MA on 01/17/22 17: (unknown) (no (unknown) (unknown) Urine Ketones (units ( unknown) date) Negative Last unknown) Edit by Martha Dowell MA on 01/17/22 17:04 (unknown) (no (unknown) (unknown) Urine Leukocyte (units (unknown) date) Esterase +- 15 unknown) Jorge Luis/uL Last Edit by Martha Dowell MA on (unknown) (no (unknown) (unknown) Urine Nitrate (units ( unknown) date) Negative Last unknown) Edit by Martha Dowell MA on 01/17/22 17:04 (unknown) (no (unknown) (unknown) Urine Protein 1+ (units (unknown) date) 30 mg/dL Last unknown) Edit by Martha Dowell MA on 01/17/22 17:04 (unknown) (no (unknown) (unknown) Urine Specific (units (unknown) date) Garland 1.025 unknown) Last Edit by Martha Dowell MA on 01/17/22 17 (unknown) (no (unknown) (unknown) Urine (units (unkno wn) date) Urobilinogen - unknown) 0.2 mg/dL Last Edit by Martha Dowell MA on 2 (unknown) (no (unknown) (unknown) Urine pH 6.0 (units (unknown) date) Last Edit by unknown) Martha Dowlel MA on 01/17/22 17:04 (unknown) (no (unknown) (unknown) 04 (units (unkno wn) date) unknown) (unknown) (no (unknown) (unknown) 01/17/22 (units (unkno wn) date) unknown) (unknown) (no (unknown) (unknown) 01/17/22 17:04 (units (unknown) date) unknown) (unknown) (no (unknown) (unknown) 17:04 (units (unkno wn) date) unknown) (unknown) (no (unknown) (unknown) 2 (units (unkno wn) date) unknown) (unknown) (no (unknown) (unknown) :04 (units (unkno wn) date) unknown) (unknown) (no (unknown) (unknown) Age/Sex: 71 / F (units (unknown) date) Date of unknown) Service: (unknown) (no (unknown) (unknown) Allergies (units (unkn own) date) unknown) (unknown) (no (unknown) (unknown) Attending Dr: (units ( unknown) date) Meagan Loyola unknown) (unknown) (no (unknown) (unknown) : 1950 (units (unknown) date) Acct:[id number] unknown) (unknown) (no (unknown) (unknown) Dept at (units (unkno wn) date) . unknown) (unknown) (no (unknown) (unknown) Documented By: (units (unknown) date) Meagan Loyola unknownGildardo RAYMOND 01/17/22 1638 (unknown) (no (unknown) (unknown) IP [facility] Allergy (units (unknown) date) (Mild, Uncoded unknown) 07/08/21 15:35) (unknown) (no (unknown) (unknown) Intake (units (unkno wn) date) unknown) (unknown) (no (unknown) (unknown) Intake Note: (units (u nknown) date) unknown) (unknown) (no (unknown) (unknown) Iodine and (units (unk nown) date) Iodide Containing unknown) Produc Allergy (Verified 11/20/21 11:59) (unknown) (no (unknown) (unknown) Last Menstural (units (unknown) date) Cycle + Details unknown) (unknown) (no (unknown) (unknown) Loc: [facility] (units (unkno wn) date) unknown) (unknown) (no (unknown) (unknown) Other Menstrual (units (unknown) date) Period: unknown) Postmenopausal (unknown) (no (unknown) (unknown) Patient: (units (unkno wn) date) Laurel,Sherine unknown) S MR#: (unknown) (no (unknown) (unknown) Reason For Visit (units (unknown) date) unknown) (unknown) (no (unknown) (unknown) Results (units (unkno wn) date) unknown) (unknown) (no (unknown) (unknown) Signed By: (units (unk nown) date) unknown) (unknown) (no (unknown) (unknown) Smoking Status: (units (unknown) date) Never smoker unknown) (unknown) (no (unknown) (unknown) This note may (units ( unknown) date) have been all or unknown) partially generated using voice recognition (unknown) (no (unknown) (unknown) Tobacco Status (units (unknown) date) unknown) (unknown) (no (unknown) (unknown) Urine Dipstick (units (unknown) date) unknown) (unknown) (no (unknown) (unknown) Visit Reasons: (units (unknown) date) Urine dip unknown) (unknown) (no (unknown) (unknown) celecoxib (units (unkn own) date) [CELECOXIB] unknown) Allergy (Unknown, Verified 11/20/21 11:59) (unknown) (no (unknown) (unknown) have occurred. (units (unknown) date) If there are any unknown) questions, please contact the Medical Records (unknown) (no (unknown) (unknown) lactobacillus (units ( unknown) date) [LACTOBACILLUS] unknown) Allergy (Unknown, Verified 11/20/21 11:59) (unknown) (no (unknown) (unknown) may occur. (units (unk nown) date) Occasional unknown) wrong-word or 'sound-alike' substitutions may have (unknown) (no (unknown) (unknown) morphine (units (unkno wn) date) [MORPHINE] unknown) Allergy (Unknown, Verified 11/20/21 11:59) (unknown) (no (unknown) (unknown) occurred due to (units (unknown) date) the inherent unknown) limitations of voice recognition software. Please (unknown) (no (unknown) (unknown) oxycodone (units (unkn own) date) [OXYCODONE] unknown) Allergy (Unknown, Verified 11/20/21 11:59) (unknown) (no (unknown) (unknown) pt here for (units (un known) date) urine dip for unknown) blood in urine (unknown) (no (unknown) (unknown) read the note (units ( unknown) date) carefully and unknown) recognize, using context, where these substitutions (unknown) (no (unknown) (unknown) software. (units (unkn own) date) Although every unknown) effort is made to edit content, optical lathe operator errors Result panel 32 (unknown) (no date) (unknown) (unknown) No growth. (units (un known) unknown) Result panel 33 (unknown) (no date) (unknown) (unknown) (no value) (units (un known) unknown) (unknown) (no date) (unknown) (unknown) Mixed gram + (units ( unknown) roland. Deemed unknown) unsuitable for further studies. Result panel 34 (unknown) (no (unknown) (unknown) (no value) (units (unk nown) date) unknown) (unknown) (no (unknown) (unknown) (no value) (units (unk nown) date) unknown) (unknown) (no (unknown) (unknown) (no value) (units (unk nown) date) unknown) (unknown) (no (unknown) (unknown) 01/20/22 0549 (units ( unknown) date) unknown) (unknown) (no (unknown) (unknown) [place], [place] (units ( unknown) date) [id number] unknown) (unknown) (no (unknown) (unknown) [facility]units ([facility] date[facility] unknown) (unknown) (no (unknown) (unknown) Nurse Office (units (u nknown) date) Visit unknown) (unknown) (no (unknown) (unknown) Signed (units (unkno wn) date) unknown) (unknown) (no (unknown) (unknown) (no value) (units (unk nown) date) unknown) (unknown) (no (unknown) (unknown) [id number] (units (unk nown) date) unknown) (unknown) (no (unknown) (unknown) Urine Appearance (units (unknown) date) Bloody Last unknown) Edit by Martha Dowell MA on 01/17/22 17:04 (unknown) (no (unknown) (unknown) Urine Bilirubin (units (unknown) date) Negative Last unknown) Edit by Martha Dowell MA on 01/17/22 17:04 (unknown) (no (unknown) (unknown) Urine Blood 3+ (units (unknown) date) 200 Hernandez/uL unknown) Last Edit by Martha Dowell MA on 01/17/22 17:04 (unknown) (no (unknown) (unknown) Urine Color (units (un known) date) Red Last Edit unknown) by Martha Dowell MA on 01/17/22 17:04 (unknown) (no (unknown) (unknown) Urine Glucose (units ( unknown) date) Negative mg/dL unknown) Last Edit by Martha Dowell MA on 01/17/22 17: (unknown) (no (unknown) (unknown) Urine Ketones (units ( unknown) date) Negative Last unknown) Edit by Martha Dowell MA on 01/17/22 17:04 (unknown) (no (unknown) (unknown) Urine Leukocyte (units (unknown) date) Esterase +- 15 unknown) Jorge Luis/uL Last Edit by Martha Dowell MA on (unknown) (no (unknown) (unknown) Urine Nitrate (units ( unknown) date) Negative Last unknown) Edit by Martha Dowell MA on 01/17/22 17:04 (unknown) (no (unknown) (unknown) Urine Protein 1+ (units (unknown) date) 30 mg/dL Last unknown) Edit by Martha Dowell MA on 01/17/22 17:04 (unknown) (no (unknown) (unknown) Urine Specific (units (unknown) date) Garland 1.025 unknown) Last Edit by Martha Dowell MA on 01/17/22 17 (unknown) (no (unknown) (unknown) Urine (units (unkno wn) date) Urobilinogen - unknown) 0.2 mg/dL Last Edit by Martha Dowell MA on (unknown) (no (unknown) (unknown) Urine pH 6.0 (units (unknown) date) Last Edit by unknown) Martha Dowell MA on 01/17/22 17:04 (unknown) (no (unknown) (unknown) 04 (units (unkno wn) date) unknown) (unknown) (no (unknown) (unknown) 01/17/22 (units (unkno wn) date) unknown) (unknown) (no (unknown) (unknown) 01/17/22 17:04 (units (unknown) date) unknown) (unknown) (no (unknown) (unknown) 17:04 (units (unkno wn) date) unknown) (unknown) (no (unknown) (unknown) 2 (units (unkno wn) date) unknown) (unknown) (no (unknown) (unknown) :04 (units (unkno wn) date) unknown) (unknown) (no (unknown) (unknown) Age/Sex: 71 / F (units (unknown) date) Date of unknown) Service: (unknown) (no (unknown) (unknown) Allergies (units (unkn own) date) unknown) (unknown) (no (unknown) (unknown) Attending Dr: (units ( unknown) date) Meagan Loyola unknown) (unknown) (no (unknown) (unknown) : 1950 (units (unknown) date) Acct:[id number] unknown) (unknown) (no (unknown) (unknown) Dept at (units (unkno wn) date) . unknown) (unknown) (no (unknown) (unknown) Documented By: (units (unknown) date) Meagan Loyola unknownGildardo RAYMOND 01/17/22 1638 (unknown) (no (unknown) (unknown) IP [facility] Allergy (units (unknown) date) (Mild, Uncoded unknown) 07/08/21 15:35) (unknown) (no (unknown) (unknown) Intake (units (unkno wn) date) unknown) (unknown) (no (unknown) (unknown) Intake Note: (units (u nknown) date) unknown) (unknown) (no (unknown) (unknown) Iodine and (units (unk nown) date) Iodide Containing unknown) Produc Allergy (Verified 11/20/21 11:59) (unknown) (no (unknown) (unknown) Last Menstural (units (unknown) date) Cycle + Details unknown) (unknown) (no (unknown) (unknown) Loc: [facility] (units (unkno wn) date) unknown) (unknown) (no (unknown) (unknown) Other Menstrual (units (unknown) date) Period: unknown) Postmenopausal (unknown) (no (unknown) (unknown) Patient: (units (unkno wn) date) Laurel,Sherine unknown) S MR#: (unknown) (no (unknown) (unknown) Reason For Visit (units (unknown) date) unknown) (unknown) (no (unknown) (unknown) Results (units (unkno wn) date) unknown) (unknown) (no (unknown) (unknown) Signed By: (units (unk nown) date) <Electronically unknown) signed by Meagan Loyola MD> (unknown) (no (unknown) (unknown) Smoking Status: (units (unknown) date) Never smoker unknown) (unknown) (no (unknown) (unknown) This note may (units ( unknown) date) have been all or unknown) partially generated using voice recognition (unknown) (no (unknown) (unknown) Tobacco Status (units (unknown) date) unknown) (unknown) (no (unknown) (unknown) Urine Dipstick (units (unknown) date) unknown) (unknown) (no (unknown) (unknown) Visit Reasons: (units (unknown) date) Urine dip unknown) (unknown) (no (unknown) (unknown) celecoxib (units (unkn own) date) [CELECOXIB] unknown) Allergy (Unknown, Verified 11/20/21 11:59) (unknown) (no (unknown) (unknown) have occurred. (units (unknown) date) If there are any unknown) questions, please contact the Medical Records (unknown) (no (unknown) (unknown) lactobacillus (units ( unknown) date) [LACTOBACILLUS] unknown) Allergy (Unknown, Verified 11/20/21 11:59) (unknown) (no (unknown) (unknown) may occur. (units (unk nown) date) Occasional unknown) wrong-word or 'sound-alike' substitutions may have (unknown) (no (unknown) (unknown) morphine (units (unkno wn) date) [MORPHINE] unknown) Allergy (Unknown, Verified 11/20/21 11:59) (unknown) (no (unknown) (unknown) occurred due to (units (unknown) date) the inherent unknown) limitations of voice recognition software. Please (unknown) (no (unknown) (unknown) oxycodone (units (unkn own) date) [OXYCODONE] unknown) Allergy (Unknown, Verified 11/20/21 11:59) (unknown) (no (unknown) (unknown) pt here for (units (un known) date) urine dip for unknown) blood in urine (unknown) (no (unknown) (unknown) read the note (units ( unknown) date) carefully and unknown) recognize, using context, where these substitutions (unknown) (no (unknown) (unknown) software. (units (unkn own) date) Although every unknown) effort is made to edit content, optical lathe operator errors Social History date description facility (no date) Never smoked tobacco ([facility] Vital Signs date measurement value units [id number]+0000 BMI BMI 34.3 kg/m2 [id number]+0000 BP_diastolic BP_diastolic 74 mm[H g] [id number]+0000 BP_systolic BP_systolic 183 mm[Hg] 71899510819670+0000 heart_rate heart_rate 62 /min [id number]+0000 height_metric height_metric 149.86 cm [id number]+0000 height_standard height_standard 59 in [id number]+0000 respiration_rate respiration_rate 18 /min [id number]+0000 temperature_metric temperature_metric 36.78 C [id number]+0000 temperature_standard temperature_standard 9 8.2 F [id number]+0000 weight_metric weight_metric 34.98 kg [id number]+0000 weight_standard weight_standard 77.11 lb [id number]+0000 BP_diastolic BP_diastolic 69 mm[H g] 89797063870753+0000 BP_systolic BP_systolic 139 mm[Hg] 44588663160369+0000 heart_rate heart_rate 61 /min [id number]+0000 respiration_rate respiration_rate 18 /min [id number]+0000 temperature_metric temperature_metric 37.06 C [id number]+0000 temperature_standard temperature_standard 9 8.7 F
[2022-02-01 19:23] LABS: BASOPHILS % (AUTO) 0.6 %; EOSINOPHILS # (AUTO) 0.1 10^3/uL (0.0-0.7); HCT - HEMATOCRIT 37.7 % (37.0-47.0); HGB - HEMOGLOBIN 11.8 g/dL (12.0-16.0); LYMPHOCYTES # (AUTO) 1.3 10^3/uL (1.5-3.5); LYMPHOCYTES % (AUTO) 18.4 %; MEAN CORPUSCULAR HEMOGLOBIN 26.5 pg (27.0-31.0); MEAN CORPUSCULAR HGB CONC 31.3 g/dL (32.0-36.0); MEAN CORPUSCULAR VOLUME 84.5 fL (81.0-99.0); MEAN PLATELET VOLUME 9.9 fL (7.9-10.8); MONOCYTES # (AUTO) 0.5 10^3/uL (0.0-1.0); MONOCYTES % (AUTO) 6.3 %; NEUTROPHILS # (AUTO) 5.2 10^3/uL (1.5-6.6); NEUTROPHILS % (AUTO) 72.3 %; PLT - PLATELET COUNT 225 10^3/uL (130-450); RED BLOOD COUNT 4.46 10^6/uL (4.20-5.40); RED CELL DISTRIBUTION WIDTH 15.6 % (12.0-15.0); WHITE BLOOD COUNT 7.2 x10^3/uL (4.8-10.8)
[2022-02-01 19:39] LABS: ALBUMIN 3.7 g/dL (3.2-5.5); ALBUMIN/GLOBULIN RATIO 1.2 (1.0-2.2); BILIRUBIN,TOTAL 0.9 mg/dL (0.2-1.0); CALCIUM 8.7 mg/dL (8.5-10.3); CREATININE 1.1 mg/dL (0.4-1.0); TOTAL PROTEIN 6.9 g/dL (6.7-8.2)
[2022-02-01] MEDS ORDERED: ONDANSETRON 4 MG/2 ML VIAL IVP STA (19:58)
[2022-02-01] MEDS ORDERED: SODIUM CHLORIDE 0.9% 1,000 ML IV STA (19:58)
[2022-02-01] MEDS ORDERED: fentaNYL 100 MCG/2 ML VIAL IVP STA (19:59)
--- NOTE | 2022-02-01 20:10 | ED Physician Documentation ---
PD HPI ABD PAIN - Stated complaint Stated Complaint: KIDNEY PX - Chief complaint Chief Complaint: Abd Pain - Additional information Additional information: Patient is 71-year-old female presenting with left-sided flank pain. Diagnosed with left-sided kidney stone approximately 1-1/2 weeks ago. Was told that it is "too large to pass on its own" but does not know the exact measurement. Does report a CT scan was performed however. Excruciating pain since 11 this morning. Associated nausea vomiting. Is currently waiting for follow-up with urology at [facility]. 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: Other Cardiovascular: Pacemaker - Present Medications Home Medications: Ambulatory Orders Medication Instructions Recorded Confirmed Bupropion HCl [Bupropion Xl] 150 mg PO 10/25/13 10/25/13 Lansoprazole [Prevacid] 30 mg PO 10/25/13 10/25/13 Levothyroxine Sodium [Synthroid] 88 mcg PO 10/25/13 10/25/13 Metoprolol Succinate 20 mg PO BID 10/25/13 10/25/13 Promethazine [Phenergan] 25 mg ORAL 10/25/13 10/25/13 Valsartan/Hydrochlorothiazide 1 each PO 10/25/13 10/25/13 [Diovan Hct 80-12.5 mg Tablet] Zolpidem [Ambien] 5 mg PO HS 10/25/13 10/25/13 clonazePAM [Clonazepam] 0.5 mg PO 10/25/13 10/25/13 traMADol [Ultram] 50 mg PO Q4-6H 10/25/13 10/25/13 Alprazolam [Xanax] 0.25 mg PO Q6H PRN #10 tablet 01/11/20 Ondansetron Odt [Zofran Odt] 4 mg TL Q6H PRN #10 tablet 02/01/22 Tramadol HCl [Ultram] 50 mg PO Q6HR #12 tablet 02/01/22 - Allergies Allergies/Adverse Reactions: Allergies Allergy/AdvReac Type Severity Reaction Status Date / Time aspirin Allergy Unknown Unknown Verified 01/11/20 15:45 celecoxib [From Celebrex] Allergy Unknown Unknown Verified 01/11/20 15:45 morphine Allergy Unknown Unknown Verified 01/11/20 15:45 oxycodone [Oxycodone] Allergy Unknown Unknown Verified 01/11/20 15:45 codeine Allergy Unknown Verified 02/01/22 19:00 IVP Allergy Unknown Unknown Uncoded 01/11/20 15:45 - Social History Does the pt smoke?: No Smoking Status: Never smoker Does the pt drink ETOH?: No Does the pt have substance abuse?: No - Immunizations Immunizations are current?: Yes - POLST Patient has POLST: No PD ED PE NORMAL - General General: Alert and oriented X 3 - HEENT HEENT: Atraumatic - Neck Neck: Supple, no meningeal sign - Cardiac Cardiac: RRR - Respiratory Respiratory: No respiratory distress - Abdomen Abdomen: Normal bowel sounds, Non tender - Female Female : Deferred - Rectal Rectal: Deferred - Back Back: No CVA TTP, No spinal TTP - Derm Derm: Normal color Results - Vitals Vitals: Vital Signs - 24 hr 02/01/22 02/01/22 02/01/22 18:57 20:46 22:29 Temperature 37.3 C Heart Rate 62 57 L 60 Respiratory 20 16 16 Rate Blood Pressure 147/71 H 158/68 H 144/57 H O2 Saturation 97 95 98 Oxygen O2 Source Room air - EKG (time done) *2013 Rate: Rate (enter#) (60) Rhythm: Paced [place]: Normal Intervals: Normal [place] QRS: Normal Ischemia: Normal ST segments Computer interpretation: Agree with computer - Labs Labs: Laboratory Tests 02/01/22 02/01/22 02/01/22 19:18 19:18 21:27 WBC 7.2 RBC 4.46 Hgb 11.8 L Hct 37.7 MCV 84.5 MCH 26.5 L MCHC 31.3 L RDW 15.6 H Plt Count 225 MPV 9.9 Neut # (Auto) 5.2 Lymph # (Auto) 1.3 L [place] # (Auto) 0.5 Eos # (Auto) 0.1 Baso # (Auto) 0.0 Absolute Nucleated RBC 0.00 Nucleated RBC % 0.0 Sodium 138 Potassium 4.0 Chloride 105 Carbon Dioxide 25 Anion Gap 8.0 BUN 20 Creatinine 1.1 H Estimated GFR (MDRD) 49 L Glucose 136 H Calcium 8.7 Total Bilirubin 0.9 AST 17 ALT 11 Alkaline Phosphatase 97 Total Protein 6.9 Albumin 3.7 Globulin 3.2 Albumin/Globulin Ratio 1.2 Lipase 30 Urine Color YELLOW Urine Clarity HAZY Urine pH 6.0 Ur Specific [place] >=1.030 H Urine Protein NEGATIVE Urine Glucose (UA) NEGATIVE Urine Ketones NEGATIVE Urine Occult Blood LARGE H Urine Nitrite NEGATIVE Urine Bilirubin NEGATIVE Urine Urobilinogen 1 (NORMAL) Ur Leukocyte Esterase NEGATIVE Urine RBC TNTC H Urine WBC 4-5 Ur Squamous Epith Cells FEW Squamous Urine Bacteria Few Ur Microscopic Review INDICATED Urine Culture Comments NOT INDICATED PD MEDICAL DECISION MAKING - ED course Complexity details: reviewed results, d/w patient, d/w family ED course: Patient is 71-year-old female presenting with persistent renal colic. Afebrile, hemodynamically stable. No appreciable CVA tenderness on exam. Abdominal exam otherwise benign. Comprehensive labs obtained demonstrate stable creatinine at 1.1 unchanged from 10 days ago. No indications infection and urine analysis. Patient given doses of fentanyl, Toradol, small dose Ativan for symptomatic relief of nausea. Reevaluation reported feeling significantly better. Tolerated p.o. trial in the emergency department. Will discharge at this time with medication for symptomatic management. Patient is currently in the process of becoming estab lished with urology at [facility]. Encouraged him to contact at this urologic team in order to attempt for an earlier follow-up appointment. Otherwise clear return precautions and follow-up instructions were given prior to discharge. Departure - Departure Disposition: 01 Home, Self Care Clinical Impression: Nephrolithiasis Instructions: ED Stone Renal W Colic Prescriptions: Tramadol HCl [Ultram] 50 mg PO Q6HR #12 tablet Ondansetron Odt [Zofran Odt] 4 mg TL Q6H PRN #10 tablet PRN Reason: Nausea / Vomiting Comments: Thank you for allowing us to care for you today at [facility]. Prescription sent to [facility] in [place]. The CT scan today showed a 5 mm left-sided kidney stone. The remainder of your tests including your kidney function and urine analysis were all very reassuring. I have sent some medications to your preferred pharmacy. Please take these as directed. Please follow-up with both your primary care doctor and continue following up with the urology service at [facility]. Please drink plenty of fluids. If it anytime you have any new or worsening symptoms please not hesitate to return.
--- NOTE | 2022-02-01 20:55 | CT Report ---
PROCEDURE: Abdomen/Pelvis WO INDICATIONS: flank pain, lft kidney stone TECHNIQUE: Noncontrast 5 mm thick sections acquired from the diaphragms to the symphysis. 5 mm coronal and sagi ttal reformats were then performed. For radiation dose reduction, the following was used: automated exposure control, adjustment of mA and/or kV according to patient size. COMPARISON: None. FINDINGS: There is a 5 mm calculus in the left mid ureter producing moderate left hydroureteronephrosis. Nonobs tructing 2 mm left lower pole calculus. No urinary tract calculus on the right. Cholecystectomy. Sple en gastrectomy. No acute enteric abnormality. Grossly normal liver, spleen, pancreas, and adrenal gla nds. IMPRESSION: Moderate left hydroureteronephrosis secondary to 5 mm mid ureteral calculus. Reviewed by: Steve Gallardo MD on 02/01/2022 8:54 PM PDT Approved by: Steve Gallardo MD on 02/01/2022 8:54 PM PDT Station ID: [id number]
[2022-02-01] MEDS ORDERED: LORazepam 2 MG/ML VIAL IVP STA (21:31)
[2022-02-01] MEDS ORDERED: KETOROLAC 30 MG/ML VIAL IVP STA (21:32)
[2022-02-01 21:35] LABS: BILIRUBIN,URINE NEGATIVE (NEGATIVE); GLUCOSE, URINE (UA) NEGATIVE (NEGATIVE); KETONES,URINE (UA) NEGATIVE (NEGATIVE); LEUKOCYTE ESTERASE, URINE NEGATIVE (NEGATIVE); NITRITE,URINE NEGATIVE (NEGATIVE); OCCULT BLOOD,URINE LARGE (NEGATIVE); PROTEIN,URINE NEGATIVE (NEGATIVE); UROBILINOGEN,URINE 1 (NORMAL) E.U./dL (NORMAL)
[2022-02-01 21:43] LABS: CLARITY,URINE HAZY (CLEAR)
[2022-02-01 21:44] LABS: BACTERIA,URINE Few /HPF (None Seen); RBC,URINE TNTC /HPF (0-5); SQUAMOUS EPITHELIAL CELL,UR FEW Squamous (<= Few)
[2022-02-01 22:36] VITALS: BP 138/64
== END 2022-02-01 22:40 | disposition home or self-care (01) ==
LOC: ED 18:46
DX: N13.2 Hydronephrosis with renal and ureteral calculous obstruction (principal)
CPT/HCPCS: 36415; 74176; 80053; 81001; 83690; 85025; 93005; 96374; 96375; 99283; 99284; J2060; 81003; 87086